=== PATIENT | female | born 1945 | race Caucasian/White ===

== ENCOUNTER 2016-06-28 09:00 | Outpatient (RCR) | payer MEDICARE ==
--- OUTSIDE RECORDS SUMMARY | 2016-05-30 09:14 | XMS REPORT | Continuity of Care Document ---
Author Author [facility] Organization [facility] Address Unknown Phone Unavailable Care Team Providers Care Pbx Mechanic Name Role Phone SEEMA SANTOYO DO PCP Insurance Providers Payer Name Policy Number Subscriber Name Relationship Wps Medicare [id number] Diallo Marie 18 Self / Same As Patient Blue Cross Mcr Supp [id number] Diallo Marie 18 Self / Same As Patient Advance Directives Directive Response Recorded Date/Time Advance Directives No 05/10/16 5:58pm Health Care Power of Wind Up Operator No 05/10/16 5:58pm Organ Donor No 05/10/16 5:58pm Chief Complaint and Reason for Visit Chief Complaint Altered Mental Status Reason for Visit Malaise Confusion [id number] Problems Active Problems Medical Problem Onset Date Status Anxiety Unknown Acute Atrial fibrillation with rapid ventricular response Unknown Acute Chest discomfort Unknown Acute Confusion Unknown Acute Elevated troponin Unknown Acute Exercise-induced bronchospasm Unknown Acute Grief reaction Unknown Acute Hyperglycemia Unknown Acute Malaise Unknown Acute SVT (supraventricular tachycardia) Unknown Acute Supraventricular tachycardia Unknown Acute Medications Current Home Medications Medication Dose Units Route Directions Days/Qty Instructions Start Date Fluticasone Propionate 1 Ea 1 Ea Inhalation Twice A Day 1 02/18/16 Guaifenesin 600 Mg 600 Mg Oral Twice A Day 02/18/16 Gabapentin 100 Mg 100 Mg Oral Bedtime as needed for Pain 30 02/19/16 Aspirin 325 Mg 325 Mg Oral 11/15/16 Ibuprofen 100 Mg 200 Mg Oral As Needed 1 05/10/16 [place]-3/Dha/Epa/Fish Oil 1 Each 1 Each Oral Twice A Day 100 05/11/16 Past Home Medications Medication Directions Ordered Status Cyclosporine 32 Ea Droperette, 1 Drop Each Eye Twice A Day 11/24/14 Discontinued Diclofenac Sod 100 Gm Gel, Topically Bedtime as needed for Pain 11/24/14 Discontinued Albuterol Sulfate 8.5 Gm Aer.w.adap, 2 Puff Inhalation Every 4HRS as needed for Shortness Of Breath 11/24/14 Discontinued Ibuprofen 200 Mg Tablet, 200 Mg Oral Twice A Day as needed for Pain 11/24/14 Discontinued [[place] Lecithin] , 2 Tab Oral Twice A Day 11/24/14 Discontinued [Niacin Flush Free] , 1000 Mg Oral Bedtime 11/24/14 Discontinued [Otc Combo Tab] , 2 Tab Oral Bedtime 11/24/14 Discontinued Diltiazem Hcl (Cardizem Cd) 120 Mg Cap.sr.24h, 1 Each Oral Daily 11/25/14 Discontinued Loratadine 10 Mg Capsule, 10 Mg Oral Bedtime 12/01/14 Discontinued Diltiazem Hcl 180 Mg Cap, 180 Mg Oral Bedtime 12/03/14 Discontinued Levalbuterol 15 Gm Aer.w.adap, 15 Gm Inhalation Every 6 Hours for Wheezing Discontinued Ibuprofen 100 Mg Tablet, 100 Mg Oral As Needed 02/18/16 Discontinued Loratadine/Pseudoephedrine 1 Each Tab.er.12h, 1 Each Oral Bedtime 02/18/16 Discontinued Apixaban 5 Mg Tablet, 5 Mg Oral Twice A Day 02/19/16 Discontinued Social History Social History Problem Response Recorded Date/Time Alcohol Use Occasionally Uses 12/01/2014 1:18pm Recreational Drug Use No 12/01/2014 1:18pm Recent Foreign Travel No 05/14/2016 10:45am Recent Infectious Disease Exposure No 05/14/2016 10:45am Sexually Transmitted Disease No 05/14/2016 10:49am HIV/AIDS No 05/14/2016 10:49am Do you dip or chew tobacco? No 12/01/2014 11:21am Recent Hopitalizations Y Jan 2016 for new onset A-Fib, May 10 for elevated troponin and SVT 05/14/2016 12:03pm Sexually Transmitted Disease No 05/14/2016 10:49am Hospital Discharge Instructions No hospital discharge instructions. Plan of Care Discharge Date 05/14/16 12:56pm Disposition 01 HOME, SELF-CARE Condition at Discharge Stable Instructions/Education Provided Cardiac Catheterization Prescriptions See Medication Section Referrals SEEMA SANTOYO DO - Primary Care Physician Additional Instructions/Education Return to care if symptoms worsen. Seek grief and bereavement counseling if needed. Follow up with your primary care provider next week. Return to care if symptoms worsen. Allow yourself appropriate time to rest and recover from your hospitalization and recent life changes. All discharge instructions reviewed with patient and/or family. Voiced understanding. Functional Status No functional status results. Allergies, Adverse Reactions, Alerts Allergen Type Severity Reaction Status Last Updated ciprofloxacin ([id number]) Adverse Reaction Unknown stomach upset Active 12/01/14 shellfish derived ([id number]) Allergy Unknown Active 05/10/16 Immunizations Name Given Type FLU TRIvalent 5 years - Adult 05/11/16 Administered Vital Signs Acute Vital Signs Vital Response Date/Time Temperature (Fahrenheit) 98 degrees F (97.6 - 99.5) 05/14/2016 10:45am Temperature (Calculated Celsius) 36.6696 degrees C (36.4 - 37.5) 05/14/2016 10:45am Temperature Source Tympanic 05/14/2016 10:45am Pulse Rate (adult) 64 bpm (60 - 90) 05/14/2016 10:45am Respiratory Rate 18 bpm (12 - 24) 05/14/2016 10:45am O2 Sat by Pulse Oximetry 97 % (88 - 100) 05/14/2016 10:45am Blood Pressure 159/86 mm Hg 05/14/2016 10:45am Blood Pressure Mean 110 mm Hg 05/14/2016 10:45am Pain Numeric Pain Scale 7 05/14/2016 10:45am Height (Feet) 5 feet 05/14/2016 10:45am Height (Inches) 4 inches 05/14/2016 10:45am Height (Calculated Centimeters) 162.673065 cm 05/14/2016 10:45am Weight (Pounds) 127 pounds 05/14/2016 10:45am Weight (Ounces) 0.0 oz 05/10/2016 6:07pm Weight (Calculated Grams) 99527.232 gm 05/11/2016 6:00am Weight (Calculated Kilograms) 57.586559 kilograms 05/14/2016 10:45am Calculated BMI 21.6 05/10/2016 6:07pm Capillary Refill Capillary Refill Less Than 3 Seconds 05/14/2016 10:45am Results Laboratory Results Test Name Result Units Flags Reference Collection Date/Time Result Date/ Time Comments White Blood Count 8.3 10^3/uL 4.3-11.0 05/10/2016 9:15am 05/10/2016 9: 35am Red Blood Count 5.02 10^6/uL 4.35-5.85 05/10/2016 9:15am 05/10/2016 9: 35am Hemoglobin 15.3 G/DL 11.5-16.0 05/10/2016 9:15am 05/10/2016 9:35am Hematocrit 45 % 35-52 05/10/2016 9:1505/10/2016 9:35am Mean Corpuscular Volume 90 FL 80-99 05/10/2016 9:1505/10/2016 9: 35am Mean Corpuscular Hemoglobin 31 PG 25-34 05/10/2016 9:15am 05/10/2016 9: 35am Mean Corpuscular Hemoglobin Concent 34 G/DL 32-36 05/10/2016 9:15am 9:35am Red Cell Distribution Width 13.3 % 10.0-14.5 05/10/2016 9:15am 2015 9:35am Platelet Count 445 10^3/uL H 130-400 05/10/2016 9:15am 05/10/2016 9:35am Mean Platelet Volume 9.1 FL 7.4-10.4 05/10/2016 9:15am 05/10/2016 9: 35am Neutrophils (%) (Auto) 56 % 42-75 05/10/2016 9:15am 05/10/2016 9:35am Lymphocytes (%) (Auto) 35 % 12-44 05/10/2016 9:15am 05/10/2016 9:35am Monocytes (%) (Auto) 7 % 0-12 05/10/2016 9:15am 05/10/2016 9:35am Eosinophils (%) (Auto) 1 % 0-10 05/10/2016 9:15am 05/10/2016 9:35am Basophils (%) (Auto) 1 % 0-10 05/10/2016 9:1505/10/2016 9:35am Neutrophils # (Auto) 4.6 X 10^3 1.8-7.8 05/10/2016 9:1505/10/2016 9: 35am Lymphocytes # (Auto) 2.9 X 10^3 1.0-4.0 05/10/2016 9:1505/10/2016 9: 35am Monocytes # (Auto) 0.6 X 10^3 0.0-1.0 05/10/2016 9:05/10/2016 9: 35am Eosinophils # (Auto) 0.1 10^3/uL 0.0-0.3 05/10/2016 9:1505/10/2016 9 :35am Basophils # (Auto) 0.0 10^3/uL 0.0-0.1 05/10/2016 9:1505/10/2016 9: 35am Prothrombin Time 13.0 SEC 12.2-14.7 05/10/2016 9:1505/10/2016 9: 40am INR Comment 1.0 0.8-1.4 05/10/2016 9:05/10/2016 9:40am INTERPRETIVE DATA SUGGESTED THERAPEUTIC RANGE FOR INR'S: VENOUS THROMBOSIS, PULMONARY EMBOLISM, OR PREVENTION OF SYSTEMIC EMBOLISM (EG. IN ATRIAL FIBRILLATION): 2.0 - 3.0 MECHANICAL PROSTHETIC HEART VALVES: 2.5 - 3.5* *NOTE: INR'S UP TO 4.5 MAY BE NECESSARY IN SELECTED GROUPS OF HIGH RISK PATIENTS. SIXTH CYPRIOT COLLEGE OF CHEST PHYSICIANS CONSENSUS CONFERENCE ON ANTITHROMBOTIC THERAPY (2000). Activated Partial Thromboplast Time 24 SEC 24-35 05/10/2016 9: 9:40am Sodium Level 138 MMOL/L 135-145 05/10/2016 9:1505/10/2016 9:49am Potassium Level 3.9 MMOL/L 3.6-5.0 05/10/2016 9:1505/10/2016 9:49am Chloride Level 101 MMOL/L 98-107 05/10/2016 9:1505/10/2016 9:49am Carbon Dioxide Level 21 MMOL/L 21-32 05/10/2016 9:1505/10/2016 9: 49am Anion Gap 16 MMOL/L H 5-14 05/10/2016 9:1505/10/2016 9:49am Blood Urea Nitrogen 16 MG/DL 7-18 05/10/2016 9:1505/10/2016 9:49am Creatinine 0.84 MG/DL 0.60-1.30 05/10/2016 9:1505/10/2016 9:49am BUN/Creatinine Ratio 19 05/10/2016 9:05/10/2016 9:49am Estimat Glomerular Filtration Rate > 60 05/10/2016 9:2015 9:49am GFR INTERPRETIVE DATA UNITS FOR ESTIMATED GFR (eGFR): mL/min/1.73 M2 REFERENCE RANGE FOR ESTIMATED GFR (eGFR) eGFR NORMAL eGFR >60 MODERATELY DECREASED eGFR 30-59 SEVERLY DECREASED eGFR 15-29 KIDNEY FAILURE <15 (OR DIALYSIS) Glucose Level 193 MG/DL H 70-105 05/10/2016 9:05/10/2016 9:49am Calcium Level 9.1 MG/DL 8.5-10.1 05/10/2016 9:05/10/2016 9:49am Magnesium Level 2.2 MG/DL 1.8-2.4 05/10/2016 9:1505/10/2016 9:49am Total Bilirubin 0.6 MG/DL 0.1-1.0 05/10/2016 9:05/10/2016 9:49am Alkaline Phosphatase 81 U/L 40-136 05/10/2016 9:1505/10/2016 9:49am Aspartate Amino Transf (AST/SGOT) 68 U/L H 5-34 05/10/2016 9:2015 9:49am Alanine Aminotransferase (ALT/SGPT) 45 U/L 0-55 05/10/2016 9:1505/10 9:49am Total Creatine Kinase 63 U/L 29-168 05/10/2016 9:1505/10/2016 9: 49am Creatine Kinase MB 1.4 NG/ML <6.6 05/10/2016 9:1505/10/2016 10:07am Troponin I < 0.30 NG/ML <0.30 05/10/2016 9:15am 05/10/2016 10:07am B-Type Natriuretic Peptide 80.4 PG/ML <100.0 05/10/2016 9:15am 2015 10:00am Total Protein 6.4 G/DL 6.4-8.2 05/10/2016 9:15am 05/10/2016 9:49am Albumin 4.2 G/DL 3.2-4.5 05/10/2016 9:15am 05/10/2016 9:49am TSH [place] Testing 1.62 UIU/ML 0.35-4.94 05/10/2016 9:15am 05/10/2016 10:07am Pending Laboratory Results Test Name Collection Date/Time Procedures Procedure Status Date Provider(s) Tracing only of electrocardiogram Completed 05/10/16 ALFREDOJENNIFER DO Tracing only of electrocardiogram Completed 05/10/16 ALFREDO,JENNIFER K Tracing only of electrocardiogram Completed 05/10/16 ALFREDO,JENNIFER K Tracing only of electrocardiogram Completed 05/10/16 ALFREDO,JENNIFER K Tracing only of electrocardiogram Completed 05/10/16 TATE REARDON MD Tracing only of electrocardiogram Active 05/14/16 MAXWELL HENRY MD Encounters Encounter Location Arrival/Admit Date Discharge/Depart Date Attending Provider Registered Emergency Room [facility] 05/14/16 10:43am MAXWELL HENRY MD Departed Surgical Day Care [facility] 05/10/16 3:30pm 8:40am TATE REARDON MD Departed Emergency Room [facility] 05/10/16 9:10am 05/10 10:47am JENNIFER FUENTES DO Recent Diagnosis
[~2016-06-28 09:00] MED LIST: ALBU8.5H2 IH; APIX5TAB PO; ASPI-808 PO; CYCL1DRO OU; DICL100G13 TOP; DILT120C PO; DLT180CCR PO; FLT11013 IH; GABA-486 PO; GUAI600T43 PO; IBUP-30 PO; IBUP100T46 PO; LORA10CA PO; LORA1TAB59 PO; NF-XOP-HFA IH; NIACIN FLUSH FREE PO; OMEG-136 PO; SUNFLOWER LECITHIN PO; [UNRECOGNIZED DRUG - REMARK] PO
[2016-07-11] MEDS ORDERED: GABA-486 PO (10:37)
[2016-07-11] MEDS ORDERED: IBUP-30 PO (10:37)
[2016-07-11] MEDS ORDERED: GUAI600T43 PO (10:37)
[2016-07-11] MEDS ORDERED: CHOL10003 PO (10:37)
[2016-07-11] MEDS ORDERED: NIAC1CAP PO (10:37)
[2016-07-11] MEDS ORDERED: MULT-633 PO (10:37)
[2016-07-11] MEDS ORDERED: FISH1CAP15 PO (10:37)
[2016-07-11] MEDS ORDERED: FLUT9.9S NS (10:37)
[2016-07-11] MEDS ORDERED: FLT11013 IH (10:37)
[2016-07-11] MEDS ORDERED: ASCO-341 PO (10:37)
[2016-07-11] MEDS ORDERED: VITA1CAP PO (10:38)
[2016-07-12] MEDS ORDERED: HYDR-3820 PO (07:54)
[2016-07-12] MEDS ORDERED: SENN-20 PO (07:54)
[2016-07-28] MEDS ORDERED: METO-352 PO (14:08)
== END 2016-08-28 | disposition home or self-care (01) ==
LOC: CARD 09:00
PROVIDERS: ATTEND Internal Medicine Interventional Cardiology
DX: I48.0 Paroxysmal atrial fibrillation (principal); I47.1 Supraventricular tachycardia
CPT/HCPCS: 93270

== ENCOUNTER 2016-07-09 21:51 | Inpatient (IN) | payer MEDICARE ==
[~2016-07-09] VITALS: Ht 162.6 cm; Wt 59.2 kg
--- OUTSIDE RECORDS SUMMARY | 2016-07-09 21:56 | XMS REPORT | Continuity of Care Document ---
Author Author [facility] Organization [facility] Address Unknown Phone Unavailable Care Team Providers Care Foot Press Operator Name Role Phone SEEMA SANTOYO DO PCP Insurance Providers Payer Name Policy Number Subscriber Name Relationship Wps Medicare [id number] Diallo Marie 18 Self / Same As Patient Blue Cross Mcr Supp [id number] Diallo Marie 18 Self / Same As Patient Advance Directives Directive Response Recorded Date/Time Advance Directives No 05/10/16 5:58pm Health Care Power of Computing Services Director No 05/10/16 5:58pm Organ Donor No 05/10/16 5:58pm Chief Complaint and Reason for Visit Chief Complaint Altered Mental Status Reason for Visit Malaise Confusion [id number] Problems Active Problems Medical Problem Onset Date [...] 200 Mg Oral As Needed 1 05/10/16 [place]-3/Dha/Epa/Fish Oil 1 Each 1 Each Oral Twice [...] Day as needed for Pain 11/24/14 Discontinued [[place] Lecithin] , 2 Tab Oral Twice A [...] Type Severity Reaction Status Last Updated ciprofloxacin ([id number]) Adverse Reaction Unknown stomach upset Active 12/01/14 shellfish derived ([id number]) Allergy Unknown Active 05/10/16 Immunizations Name Given [...] 4 inches 05/14/2016 10:45am Height (Calculated Centimeters) 162.397929 cm 05/14/2016 10:45am Weight (Pounds) 127 pounds 05/14/2016 10:45am Weight (Ounces) 0.0 oz 05/10/2016 6:07pm Weight (Calculated Grams) 79626.232 gm 05/11/2016 6:00am Weight (Calculated Kilograms) 57.682227 kilograms 05/14/2016 10:45am Calculated BMI 21.6 05/10/2016 [...] SELECTED GROUPS OF HIGH RISK PATIENTS. SIXTH [place] COLLEGE OF CHEST PHYSICIANS CONSENSUS CONFERENCE ON [...] G/DL 3.2-4.5 05/10/2016 9:15am 05/10/2016 9:49am TSH [place] Testing 1.62 UIU/ML 0.35-4.94 05/10/2016 9:15am 05/10/2016 [...] Date Attending Provider Registered Emergency Room [facility] 05/14/16 10:43am MAXWELL HENRY MD Departed Surgical Day Care [facility] 05/10/16 3:30pm 8:40am TATE REARDON MD Departed Emergency Room [facility] 05/10/16 9:10am 05/10 10:47am JENNIFER FUENTES DO Recent Diagnosis
[2016-07-09] MEDS ORDERED: fentaNYL INJECTION 100 MCG/2 ML AMP IVP ONE (22:00)
[2016-07-09 22:06] LABS: BASOPHILS % (AUTO) 0 % (0-10); EOSINOPHILS % (AUTO) 0 % (0-10); LYMPHOCYTES # (AUTO) 1.2 X 10^3 (1.0-4.0); LYMPHOCYTES % (AUTO) 8 % (12-44); MEAN CORPUSCULAR HEMOGLOBIN 30 PG (25-34); MEAN CORPUSCULAR HGB CONC 35 G/DL (32-36); MEAN CORPUSCULAR VOLUME 87 FL (80-99); MEAN PLATELET VOLUME 9.2 FL (7.4-10.4); MONOCYTES # (AUTO) 0.7 X 10^3 (0.0-1.0); MONOCYTES % (AUTO) 5 % (0-12); NEUTROPHILS # (AUTO) 13.8 X 10^3 (1.8-7.8); NEUTROPHILS % (AUTO) 88 % (42-75); PLATELET COUNT 335 10^3/uL (130-400); RED BLOOD COUNT 4.96 10^6/uL (4.35-5.85); RED CELL DISTRIBUTION WIDTH 13.3 % (10.0-14.5); WHITE BLOOD COUNT 15.8 10^3/uL (4.3-11.0)
--- NOTE | 2016-07-09 22:07 | ED Hip Pain/Injury ---
General Chief Complaint: Hip/Pelvic Problems Stated Complaint: FALL; L HIP PAIN; LEG CRAMPS Nursing Triage Note: Pt presents to ED with c/o L hip pain and bilateral calf cramps, pt fell in her room after she tripped on some papers lying on the wood floor. Shortening noted to LLE. Source: patient Exam Limitations: no limitations History of Present Illness Time seen by provider: 22:04 Initial Comments To ER with c/0 left hip pain after a fall at home just prior to arrival. Arrives per EMS. History of paroxysmal atrial fibrillation. He was formerly on Eliquis but stopped this 3 weeks ago after consulting with Dr. Birch and is only on a full dose aspirin daily now. Timing/Duration: just prior to arrival Severity: moderate Location: hip (L) Method of Injury: fell Allergies and Home Medications Allergies Coded Allergies: shellfish derived (Verified Allergy, Unknown, 05/10/16) ciprofloxacin (Verified Adverse Reaction, Unknown, stomach upset, 12/01/14) Home Medications Aspirin 325 Mg Tablet 325 MG PO DAILY (Reported) Fluticasone Propionate 1 Ea [place] #1 1 EA IH BID Prescribed by: EVANGELINA VALDEZ on 02/18/16 1741 Gabapentin 100 Mg Capsule #30 100 MG PO HS PRN PRN PAIN Prescribed by: TATE BIRCH on 02/19/16 0808 Guaifenesin 600 Mg Tab.er.12h #1 600 MG PO BID Prescribed by: EVANGELINA VALDEZ on 02/18/16 1742 Ibuprofen 100 Mg Tablet #1 200 MG PO PRN Prescribed by: CATHY LINDO on 05/10/16 1845 [place]-3/Dha/Epa/Fish Oil 1 Each Capsule. #100 1 EACH PO BID Prescribed by: TATE BIRCH on 05/11/16 0754 Constitutional: see HPI EENTM: see HPI Respiratory: no symptoms reported Genitourinary: no symptoms reported Musculoskeletal: see HPI joint pain Skin: no symptoms reported Psychiatric/Neurological: No Symptoms Reported Past [id number] Hx Patient Social History Alcohol Use: Regular Use Recreational Drug Use: No Smoking Status: Never a Smoker Recent Foreign Travel: No Contact w/Someone Who Travel: No Recent Infectious Disease Expo: No Recent Hopitalizations: No (Jan 2016 for new onset A-Fib, May 10 for elevated troponin and SVT) Physical Abuse Screen: No Sexual Abuse: No Immunizations Up To Date Tetanus Booster (TDap): More than 5yrs PED Vaccines UTD: No Date of Pneumonia Vaccine: Apr 26, 2011 Date of Influenza Vaccine: Feb 24, 2014 Seasonal Allergies Seasonal Allergies: Yes Surgeries HX Surgeries: Yes (RIGHT ANKLE--GANGLION CYST REMOVED) Surgeries: Adenoidectomy, Gallbladder, Orthopedic, Tonsillectomy Respiratory Hx Respiratory Disorders: Yes Respiratory Disorders: Asthma Cardiovascular Hx Cardiac Disorders: Yes (paroxysmal SVT) Cardiac Disorders: Atrial Fibrillation, Coronary Artery Disease, High Cholesterol, Irregular Heartbeat Neurological Hx Neurological Disorders: Yes (NUMBNESS IN RIGHT HAND, RIGHT FOOT) Neurological Disorders: Neuropathy Reproductive System Hx Reproductive Disorders: No Sexually Transmitted Disease: No HIV/AIDS: No Female Reproductive Disorders: Denies 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 PYLORI) Gastrointestinal Disorders: Gastroesophageal Reflux, Ulcer, Gall Bladder Disease Musculoskeletal Hx Musculoskeletal Disorders: Yes (OSTEOARTHRITIS, BORDER-LINE OSTEOPOROSIS ; LEFT KNEE PAIN ) Musculoskeletal Disorders: Osteoporosis, Arthritis, Fibromyalgia Endocrine Hx Endocrine Disorders: No HEENT HX ENT Disorders: No (wears corrective lens) Loss of Vision: Denies Hearing Impairment: Denies Cancer Hx Cancer: No Psychosocial Hx Psychiatric Problems: Yes Behavioral Health Disorders: Sleep Difficulties, Anxiety Integumentary HX Skin/Integumentary Disorder: Yes (DERMATITIS ) Blood Transfusions Hx Blood Disorders: No Adverse Reaction to a Blood Tr: No Family Medical History Family Medial History: Arthritis 19 FATHER Cardiovascular disease Cataracts 19 FATHER Completed stroke 19 MOTHER Congenital disease Deafness or hearing loss 19 MOTHER Dementia 19 MOTHER FH: esophageal cancer G8 BROTHER FH: lung cancer 19 FATHER FH: smoking 19 FATHER G8 SISTER G8 BROTHER Genetic disease G8 BROTHER Gout 19 FATHER Hypercholesterolemia 19 MOTHER Hypertension G8 BROTHER Lactose intolerance G8 BROTHER Myocardial infarction 19 FATHER Prostate cancer G8 BROTHER Psychosocial problem G8 SISTER Thyroid disease 19 MOTHER No Family History of: AIDS Abdominal aortic aneurysm Shan's disease Alcoholism Alzheimer's disease Aphasia Asthma Cancer of mouth Colon cancer Congenital heart disease Cystic fibrosis Diabetes mellitus Drug abuse Dysphasia Fibrocystic disease of breast Gastroenteritis Glaucoma Headache disorder Infertility Kidney disease Neoplasm Not obtainable due to adoption Osteoporosis Parkinson's disease Respiratory disorder Seizure disorder Severe allergy Tuberculosis Visual disorder Physical Exam Vital Signs Vital Sign - Last 12Hours 07/09/16 21:55 Temp 97.9 Pulse 82 Resp 18 B/P 169/94 Pulse Ox 96 O2 Delivery Room Air Capillary Refill : Less Than 3 Seconds General Appearance: No Apparent Distress WD/WN HEENT: PERRL/EOMI TMs Normal Neck: Full Range of Motion Normal Inspection Cardiovascular: Regular Rate, Rhythm Normal Peripheral Pulses Respiratory: Normal Breath Sounds No Accessory Muscle Use No Respiratory Distress Gastrointestinal: Non Tender Soft Extremity: Normal Capillary Refill Other (Firmness to palpation over anterolateral left hip. no pain in the lower femur or lower leg. Posterior tibial pulse +2 on the left. ) Neurologic/Psychiatric: Alert Oriented x3 No Motor/Sensory Deficits Skin: Normal Color Warm/Dry Progress/Results/Core Measures Results/Orders Lab Results Laboratory Tests Test 07/09/16 21:59 Range/Units Alanine Aminotransferase (ALT/SGPT) 23 0-55 U/L Albumin 4.3 3.2-4.5 G/DL Alkaline Phosphatase 62 40-136 U/L Anion Gap 12 5-14 MMOL/L Aspartate Amino Transf (AST/SGOT) 24 5-34 U/L BUN/Creatinine Ratio 19 Band Neutrophils 9 % Basophils # (Auto) 0.0 0.0-0.1 10^3/uL Basophils % (Manual) 0 % Basophils (%) (Auto) 0 0-10 % Blood Morphology Comment NORMAL Blood Urea Nitrogen 13 7-18 MG/DL Calcium Level 8.7 8.5-10.1 MG/DL Carbon Dioxide Level 22 21-32 MMOL/L Chloride Level 100 98-107 MMOL/L Creatinine 0.67 0.60-1.30 MG/DL Eosinophils # (Auto) 0.0 0.0-0.3 10^3/uL Eosinophils % (Manual) 0 % Eosinophils (%) (Auto) 0 0-10 % Estimat Glomerular Filtration Rate > 60 Glucose Level 120 H 70-105 MG/DL Hematocrit 43 35-52 % Hemoglobin 15.0 11.5-16.0 G/DL INR Comment 1.2 0.8-1.4 Lymphocytes # (Auto) 1.2 1.0-4.0 X 10^3 Lymphocytes % (Manual) 12 % Lymphocytes (%) (Auto) 8 L 12-44 % Mean Corpuscular Hemoglobin 30 25-34 PG Mean Corpuscular Hemoglobin Concent 35 32-36 G/DL Mean Corpuscular Volume 87 80-99 FL Mean Platelet Volume 9.2 7.4-10.4 FL Monocytes # (Auto) 0.7 0.0-1.0 X 10^3 Monocytes % (Manual) 2 % Monocytes (%) (Auto) 5 0-12 % Neutrophils # (Auto) 13.8 H 1.8-7.8 X 10^3 Neutrophils % (Manual) 77 % Neutrophils (%) (Auto) 88 H 42-75 % Platelet Count 335 130-400 10^3/uL Potassium Level 3.6 3.6-5.0 MMOL/L Prothrombin Time 14.8 H 12.2-14.7 SEC Red Blood Count 4.96 4.35-5.85 10^6/uL Red Cell Distribution Width 13.3 10.0-14.5 % Sodium Level 134 L 135-145 MMOL/L Total Bilirubin 0.4 0.1-1.0 MG/DL Total Protein 6.3 L 6.4-8.2 G/DL White Blood Count 15.8 H 4.3-11.0 10^3/uL My Orders Orders-CHRISTOPHER RAUSCH APRN Pelvis (07/09/16 22:00) Chest 1 View, Ap/Pa Only (07/09/16 22:00) Cbc With Automated Diff (07/09/16 22:00) Protime With Inr (07/09/16 22:00) Comprehensive Metabolic Panel (07/09/16 22:00) Ua Culture If Indicated (07/09/16 22:00) Saline Lock/Iv-Start (07/09/16 22:00) Fentanyl Injection (Sublimaze Injection (07/09/16 22:00) Manual Differential (07/09/16 21:59) Orphenadrine Injection (Norflex Injectio (07/09/16 22:13) Orphenadrine Injection (Norflex Injectio (07/09/16 22:30) Ekg Tracing (07/09/16 22:35) Oxygen-Administer 07,19 (07/09/16 22:47) Morphine Injection (Morphine Injection (07/09/16 23:00) Medications Given in ED Current Medications Medications Dose Ordered Sig/Zach Route Start Time Stop Time Status Last Admin Dose Admin Fentanyl Citrate 50 mcg ONCE ONCE IVP 07/09/16 22:00 07/09/16 22:02 DC 07/09/16 22:24 50 MCG Morphine Sulfate 4 mg ONCE ONCE IVP 07/09/16 23:00 07/09/16 23:01 DC 07/09/16 23:05 4 MG Vital Signs/I&O Vital Sign - Last 12Hours 07/09/16 07/09/16 21:55 22:24 Temp 97.9 97.9 Pulse 82 Resp 18 B/P 169/94 Pulse Ox 96 O2 Delivery Room Air Blood Pressure Mean: 119 Departure Communication Time/Spoke to Admitting Phy: 23:00 Communication I spoke with Dr. Aguillon who agrees to admit the patient. Time/Spoke to Consulting Physi: 23:10 Communication/Consulting I spoke with Dr. Naranjo who agrees to consult and will see the patient in the morning tentatively plan ORIF in the morning. Impression Impression: Primary Impression: Left displaced femoral neck fracture Qualified Code: S72.002A - Fracture of unspecified part of neck of left femur , initial encounter for closed fracture Disposition: ADMITTED INPATIENT Condition: Stable Decision to Admit Reason: Admit from ER (General) Decision to Admit/Date: Jul 09, 2016 Time/Decision to Admit Time: 22:50 Departure-Patient Inst. Referrals: SEEMA SANTOYO DO (PCP/Family) Primary Care Physician CHRISTOPHER RAUSCH APRN Jul 09, 2016 22:07
[2016-07-09 22:13] LABS: INR 1.2 (0.8-1.4); PROTHROMBIN TIME PATIENT 14.8 SEC (12.2-14.7)
[2016-07-09] MEDS ORDERED: ORPHENADRINE 60 MG/2 ML (NORFLEX) AMP ONE (22:13)
[2016-07-09 22:17] LABS: BAND NEUTROPHILS 9 %; BASOPHILS % (MANUAL) 0 %; EOSINOPHILS % (MANUAL) 0 %; LYMPHOCYTES % (MANUAL) 12 %; NEUTROPHILS % (MANUAL) 77 %
[2016-07-09 22:27] LABS: ALANINE AMINOTRANSFERASE 23 U/L (0-55); ALBUMIN 4.3 G/DL (3.2-4.5); ANION GAP 12 MMOL/L (5-14); ASPARTATE AMINO TRANSFERASE 24 U/L (5-34); BILIRUBIN,TOTAL 0.4 MG/DL (0.1-1.0); BLOOD UREA NITROGEN 13 MG/DL (7-18); BUN/CREATININE RATIO 19; CALCIUM 8.7 MG/DL (8.5-10.1); CARBON DIOXIDE 22 MMOL/L (21-32); CHLORIDE 100 MMOL/L (98-107); CREATININE SERUM 0.67 MG/DL (0.60-1.30); GFR ESTIMATED > 60; GLUCOSE 120 MG/DL (70-105); POTASSIUM 3.6 MMOL/L (3.6-5.0); SODIUM 134 MMOL/L (135-145); TOTAL PROTEIN 6.3 G/DL (6.4-8.2)
[2016-07-09] MEDS ORDERED: ORPHENADRINE 60 MG/2 ML (NORFLEX) AMP IV ONE (22:30)
[2016-07-09] MEDS ORDERED: morphine INJ 10 MG/ML 1ML (SYR OR VIAL) IVP ONE (23:00)
[2016-07-09 23:23] LABS: BILIRUBIN,URINE NEGATIVE (NEGATIVE); KETONES,URINE 4+ (NEGATIVE); LEUKOCYTE ESTERASE ,URINE NEGATIVE (NEGATIVE); NITRITE,URINE NEGATIVE (NEGATIVE); PH,URINE 6.5 (5-9); PROTEIN,URINE 1+ (NEGATIVE); UROBILINOGEN,URINE NORMAL (NORMAL)
[2016-07-10 00:40] VITALS: BP 169/74
[2016-07-10] MEDS ORDERED: NS IV 1000 ML 1,000 ML ONE (00:44)
[2016-07-10] MEDS ORDERED: ONDANSETRON 4 MG/2 ML (SDV) Z0FRAN IV PRN (01:15)
[2016-07-10] MEDS: NS IV 1000 ML 1,000 ML IV SCH ×2 (01:15→20:12)
[2016-07-10] MEDS: morphine INJ 4 MG/ML 1 ML (VIAL/SYRINGE) IV PRN ×3 (02:46→19:14)
[2016-07-10 04:00] VITALS: BP 155/77
--- NOTE | 2016-07-10 07:31 | Diagnostic Imaging Report ---
INDICATION: Left hip pain after fall. FINDINGS: There is a mildly comminuted fracture of the left femoral neck. There are degenerative changes in the right hip. Bony pelvis appears to be intact. Soft tissue is grossly unremarkable. IMPRESSION: Mildly comminuted left femoral neck fracture Dictated by: Dictated on workstation # [id number]
--- NOTE | 2016-07-10 07:57 | Diagnostic Imaging Report ---
INDICATION: Fall with left hip pain. FINDINGS: There is cardiomegaly. Mediastinum is unremarkable. There is no pleural effusion, pneumothorax or pneumonia. IMPRESSION: No acute cardiopulmonary abnormality. Cardiomegaly. Dictated by: Dictated on workstation # [id number]
[2016-07-10 08:00] VITALS: BP 163/80
[2016-07-10] MEDS ORDERED: GENTAMICIN 40 MG/ML 2 ML INJ SDV ONE ×3 (08:10→09:41)
[2016-07-10] MEDS ORDERED: NEO/POLY/BAC (NEOSPORIN) OINT 15 GM TUBE ONE (08:24)
[2016-07-10] MEDS ORDERED: LACTATED RINGERS 1,000 ML IV ONE ×2 (08:41→10:09)
[2016-07-10] MEDS ORDERED: proPOfol 200 MG/20 ML (DIPRIVAN) VIAL IV ONE (08:41)
[2016-07-10] MEDS ORDERED: LIDOCAINE PF 2% 10 ML (XYLOCAINE) AMP ONE (08:41)
[2016-07-10] MEDS ORDERED: MIDAZOLAM 2 MG/2 ML (VERSED) VIAL ONE (08:41)
[2016-07-10] MEDS ORDERED: ROCURONIUM 50 MG/5 ML (ZEMURON) VIAL IV ONE (08:41)
[2016-07-10] MEDS ORDERED: ONDANSETRON 4 MG/2 ML (SDV) Z0FRAN ONE ×2 (08:41→11:03)
[2016-07-10] MEDS ORDERED: fentaNYL INJECTION 100 MCG/2 ML AMP ONE ×2 (08:41→11:03)
[2016-07-10] MEDS: LACTATED RINGERS 1,000 ML IV PRN ×2 (08:45→10:20)
[2016-07-10] MEDS ORDERED: BISACODYL 10 MG SUPP (DULCOLAX) PR PRN (09:00)
[2016-07-10] MEDS ORDERED: D5 1/2 NS 1000 ML IV SOLUTION 1,000 ML IV SCH (09:00)
[2016-07-10] MEDS ORDERED: ONDANSETRON 4 MG/2 ML (SDV) Z0FRAN IVP PRN ×2 (09:00→12:00)
[2016-07-10] MEDS ORDERED: diphenhydrAMINE 50 MG/ML INJ (BENADRYL) IV PRN (09:00)
[2016-07-10] MEDS ORDERED: ceFAZolin INJECTION 2,000 MG in NORMAL SALINE (BAXTER MINI) 50 ML IV SCH (09:00)
[2016-07-10] MEDS ORDERED: GABAPENTIN 100 MG (NEURONTIN) CAP PO PRN (09:00)
[2016-07-10] MEDS ORDERED: PROMETHAZINE INJ 25 MG/ML (PHENERGAN) AMP IVP PRN ×2 (09:00→12:00)
--- NOTE | 2016-07-10 09:12 | History & Physical-Surgical ---
HPO-Surgical History of Present Illness Chief Complaint: Pt presents to ED with c/o L hip pain and bilateral calf cramps, pt fell in her room after she tripped on some papers lying on the wood floor. Shortening noted to LLE. Diagnosis/Surgical Indication: Displaced left basilar cervical neck fracture of left hip Procedure: Left hip intramedullar nailing vs bipolar prosthesis left hip Date of Surgery: Jul 10, 2016 Weight (Pounds): 130 Weight (Ounces): 8.0 Height (Feet): 5 Height (Inches): 4.00 Allergies and Home Medications Allergies Coded Allergies: shellfish derived (Verified Allergy, Unknown, 05/10/16) ciprofloxacin (Verified Adverse Reaction, Unknown, stomach upset, 12/01/14) Home Medications Aspirin 325 Mg Tablet 325 MG PO DAILY (Reported) Fluticasone Propionate 1 Ea Aero #1 1 EA IH BID Prescribed by: EVANGELINA VALDEZ on 02/18/16 1741 Gabapentin 100 Mg Capsule #30 100 MG PO HS PRN PRN PAIN Prescribed by: TATE REARDON on 02/19/16 0808 Guaifenesin 600 Mg Tab.er.12h #1 600 MG PO BID Prescribed by: EVANGELINA VALDEZ on 02/18/16 1742 Ibuprofen 100 Mg Tablet #1 200 MG PO PRN Prescribed by: CATHY LINDO on 05/10/16 1845 [place]-3/Dha/Epa/Fish Oil 1 Each Capsule.dr #100 1 EACH PO BID Prescribed by: TATE REARDON on 05/11/16 0754 Past Jjequsl-Iwyobu-Ghdnql Hx Patient Social History Alcohol Use: Regular Use Recreational Drug Use: No Smoking Status: Never a Smoker Physical Abuse Screen: No Sexual Abuse: No Recent Foreign Travel: No Contact w/other who traveled: No Recent Hopitalizations: No (Jan 2016 for new onset A-Fib, May 10 for elevated troponin and SVT) Recent Infectious Disease Expo: No Immunizations Up To Date Tetanus Booster (TDap): More than 5yrs Date of Pneumonia Vaccine: Apr 26, 2011 Date of Influenza Vaccine: Feb 24, 2014 Seasonal Allergies Seasonal Allergies: Yes Surgeries HX Surgeries: Yes (RIGHT ANKLE--GANGLION CYST REMOVED) Surgeries: Adenoidectomy, Gallbladder, Orthopedic, Tonsillectomy Respiratory Hx Respiratory Disorders: Yes Respiratory Disorders: Asthma Cardiovascular Hx Cardiovascular Disorders: Yes (paroxysmal SVT) Cardiac Disorders: Atrial Fibrillation, Coronary Artery Disease, High Cholesterol, Irregular Heartbeat Neurological Hx Neurological Disorders: Yes (NUMBNESS IN RIGHT HAND, RIGHT FOOT) Neurological Disorders: Neuropathy Reproductive System Hx Reproductive Disorders: No Sexually Transmitted Disease: No HIV/AIDS: No Female Reproductive Disorders: Denies Genitourinary Hx Genitourinary Disorders: No Gastrointestinal Hx Gastrointestinal Disorders: Yes (HISTORY OF H. PYLORI) Gastrointestinal Disorders: Gastroesophageal Reflux, Ulcer, Gall Bladder Disease Musculoskeletal Hx Musculoskeletal Disorders: Yes (OSTEOARTHRITIS, BORDER-LINE OSTEOPOROSIS ; LEFT KNEE PAIN ) Musculoskeletal Disorders: Osteoporosis, Arthritis, Fibromyalgia Endocrine Hx Endocrine Disorders: No HEENT HX ENT Disorders: No (wears corrective lens) Loss of Vision: Denies Hearing Impairment: Denies Cancer Hx Cancer: No Psychosocial Hx Psychiatric Problems: Yes Behavioral Health Disorders: Sleep Difficulties, Anxiety Integumentary HX Skin/Integumentary Disorder: Yes (DERMATITIS ) Blood Transfusions Hx Blood Disorders: No Adverse Reaction to a Blood Tr: No Family Medical History Family Hx: Arthritis 19 FATHER Cardiovascular disease Cataracts 19 FATHER Completed stroke 19 MOTHER Congenital disease Deafness or hearing loss 19 MOTHER Dementia 19 MOTHER FH: esophageal cancer G8 BROTHER FH: lung cancer 19 FATHER FH: smoking 19 FATHER G8 SISTER G8 BROTHER Genetic disease G8 BROTHER Gout 19 FATHER Hypercholesterolemia 19 MOTHER Hypertension G8 BROTHER Lactose intolerance G8 BROTHER Myocardial infarction 19 FATHER Prostate cancer G8 BROTHER Psychosocial problem G8 SISTER Thyroid disease 19 MOTHER No Family History of: AIDS Abdominal aortic aneurysm Shan's disease Alcoholism Alzheimer's disease Aphasia Asthma Cancer of mouth Colon cancer Congenital heart disease Cystic fibrosis Diabetes mellitus Drug abuse Dysphasia Fibrocystic disease of breast Gastroenteritis Glaucoma Headache disorder Infertility Kidney disease Neoplasm Not obtainable due to adoption Osteoporosis Parkinson's disease Respiratory disorder Seizure disorder Severe allergy Tuberculosis Visual disorder Exam Vital Signs Vital Signs 07/09/16 07/10/16 07/10/16 23:27 04:00 07:08 Temp 99.5 Pulse 70 Resp 20 B/P 155/77 Pulse Ox 92 O2 Delivery Room Air O2 Flow Rate 2 Capillary Refill : Less Than 3 SecondsLess Than 3 Seconds Labs Laboratory Tests Test 07/09/16 21:59 07/09/16 23:15 Range/Units Alanine Aminotransferase (ALT/SGPT) 23 0-55 U/L Albumin 4.3 3.2-4.5 G/DL Alkaline Phosphatase 62 40-136 U/L Anion Gap 12 5-14 MMOL/L Aspartate Amino Transf (AST/SGOT) 24 5-34 U/L BUN/Creatinine Ratio 19 Band Neutrophils 9 % Basophils # (Auto) 0.0 0.0-0.1 10^3/uL Basophils % (Manual) 0 % Basophils (%) (Auto) 0 0-10 % Blood Morphology Comment NORMAL Blood Urea Nitrogen 13 7-18 MG/DL Calcium Level 8.7 8.5-10.1 MG/DL Carbon Dioxide Level 22 21-32 MMOL/L Chloride Level 100 98-107 MMOL/L Creatinine 0.67 0.60-1.30 MG/DL Eosinophils # (Auto) 0.0 0.0-0.3 10^3/uL Eosinophils % (Manual) 0 % Eosinophils (%) (Auto) 0 0-10 % Estimat Glomerular Filtration Rate > 60 Glucose Level 120 H 70-105 MG/DL Hematocrit 43 35-52 % Hemoglobin 15.0 11.5-16.0 G/DL INR Comment 1.2 0.8-1.4 Lymphocytes # (Auto) 1.2 1.0-4.0 X 10^3 Lymphocytes % (Manual) 12 % Lymphocytes (%) (Auto) 8 L 12-44 % Mean Corpuscular Hemoglobin 30 25-34 PG Mean Corpuscular Hemoglobin Concent 35 32-36 G/DL Mean Corpuscular Volume 87 80-99 FL Mean Platelet Volume 9.2 7.4-10.4 FL Monocytes # (Auto) 0.7 0.0-1.0 X 10^3 Monocytes % (Manual) 2 % Monocytes (%) (Auto) 5 0-12 % Neutrophils # (Auto) 13.8 H 1.8-7.8 X 10^3 Neutrophils % (Manual) 77 % Neutrophils (%) (Auto) 88 H 42-75 % Platelet Count 335 130-400 10^3/uL Potassium Level 3.6 3.6-5.0 MMOL/L Prothrombin Time 14.8 H 12.2-14.7 SEC Red Blood Count 4.96 4.35-5.85 10^6/uL Red Cell Distribution Width 13.3 10.0-14.5 % Sodium Level 134 L 135-145 MMOL/L Total Bilirubin 0.4 0.1-1.0 MG/DL Total Protein 6.3 L 6.4-8.2 G/DL White Blood Count 15.8 H 4.3-11.0 10^3/uL Urine Bacteria NEGATIVE /HPF Urine Bilirubin NEGATIVE NEGATIVE Urine Casts PRESENT /LPF Urine Clarity CLEAR Urine Color YELLOW Urine Crystals NONE /LPF Urine Culture Indicated NO Urine Glucose (UA) NEGATIVE NEGATIVE Urine Hyaline Casts 2-5 H /LPF Urine Ketones 4+ H NEGATIVE Urine Leukocyte Esterase NEGATIVE NEGATIVE Urine Mucus SMALL H /LPF Urine Nitrite NEGATIVE NEGATIVE Urine Protein 1+ H NEGATIVE Urine RBC 2-5 H /HPF Urine RBC (Auto) 1+ H NEGATIVE Urine Specific Kimberly 1.015 L 1.016-1.022 Urine Squamous Epithelial Cells 2-5 /HPF Urine Urobilinogen NORMAL NORMAL MG/DL Urine WBC NONE /HPF Urine pH 6.5 5-9 General Appearance: Oriented X3 HEENT: PERRLA Respiratory: Clear to Auscultation Cardiovascular: Regular Rate Abdominal: Normal Bowel Sounds, Soft, No Tenderness Extremities: Normal Pulses, Other (LLE shortened and externally rotated, tenderness left hip) Skin: No Rashes, No Breakdown, No Significant Lesion Neuro: Normal Speech Psych/Mental Status: Mental Status NL Assessment/Plan Assessment and Plan A: Displaced left basilar femoral neck fracture P: intramedullary nailing left hip fracture vs possible bipolar prosthesis left hipl Admission Diagnosis Displaced left hip basilar neck fracture QUENTIN CLEVELAND APRN Jul 10, 2016 9:11 am
--- NOTE | 2016-07-10 09:13 | Diagnostic Imaging Report ---
INDICATION: Hip fracture. FINDINGS: Crosstable lateral view of the left hip was obtained. Presumably due to positioning the fracture is not well seen. There is slight malalignment of the left femoral neck. IMPRESSION: Suboptimal evaluation left hip. There is, however, a mildly comminuted left femoral neck fracture Dictated by: Dictated on workstation # [id number]
--- NOTE | 2016-07-10 09:24 | History & Physical-Hospitalist ---
HPI History of Present Illness: HPI/Chief Complaint patient was in her usual state of good health up until the evening of the when she slipped on some paper falling on her left hip. She was unable to get up secondary to pain but all my summoned EMS and brought to emergency room had a femoral neck fracture left hip. She is scheduled for surgery later this morning. She reports in early 1999 and did have a DEXA scan which revealed osteopenia at that time. She has had no previous reported fractures. Past medical history is significant for paroxysmal atrial fibrillation as well as what sounds like probable PSVT with a heart rate that is much higher in the 200- 10 range that she apparently tolerates well. This is required several emergency room visits but will also spontaneously resolved. Due to baseline bradycardia she is not tolerated rate lowering medications. She had been taken off of L Urban after consultation with Dr. Snyder about 3 weeks ago. She was not having any bleeding problems but felt that it was contributing to lightheadedness. He's had no syncope or presyncope. Date Seen 07/10/16 Attending Physician Ny Aguillon MD PCP Seema Toledo DO Referring Physician Date of Admission Jul 09, 2016 at 23:10 Home Medications & Allergies Home Medications Reviewed patient Home Medication Reconciliation Form Allergies Coded Allergies: shellfish derived (Verified Allergy, Unknown, 05/10/16) ciprofloxacin (Verified Adverse Reaction, Unknown, stomach upset, 12/01/14) Past Somatgl-Xydbdr-Axddxn Hx Patient Social History Alcohol Use: Regular Use Recreational Drug Use: No Smoking Status: Never a Smoker Physical Abuse Screen: No Sexual Abuse: No Recent Foreign Travel: No Contact w/other who traveled: No Recent Hopitalizations: No (Jan 2016 for new onset A-Fib, May 10 for elevated troponin and SVT) Recent Infectious Disease Expo: No Immunizations Up To Date Tetanus Booster (TDap): More than 5yrs Date of Pneumonia Vaccine: Apr 26, 2011 Date of Influenza Vaccine: Feb 24, 2014 Seasonal Allergies Seasonal Allergies: Yes Surgeries HX Surgeries: Yes (RIGHT ANKLE--GANGLION CYST REMOVED) Surgeries: Adenoidectomy, Gallbladder, Orthopedic, Tonsillectomy Respiratory Hx Respiratory Disorders: Yes Respiratory Disorders: Asthma Cardiovascular Hx Cardiovascular Disorders: Yes (paroxysmal SVT) Cardiac Disorders: Atrial Fibrillation, Coronary Artery Disease, High Cholesterol, Irregular Heartbeat Neurological Hx Neurological Disorders: Yes (NUMBNESS IN RIGHT HAND, RIGHT FOOT) Neurological Disorders: Neuropathy Reproductive System Hx Reproductive Disorders: No Sexually Transmitted Disease: No HIV/AIDS: No Female Reproductive Disorders: Denies Genitourinary Hx Genitourinary Disorders: No Gastrointestinal Hx Gastrointestinal Disorders: Yes (HISTORY OF H. PYLORI) Gastrointestinal Disorders: Gastroesophageal Reflux, Ulcer, Gall Bladder Disease Musculoskeletal Hx Musculoskeletal Disorders: Yes (OSTEOARTHRITIS, BORDER-LINE OSTEOPOROSIS ; LEFT KNEE PAIN ) Musculoskeletal Disorders: Osteoporosis, Arthritis, Fibromyalgia Endocrine Hx Endocrine Disorders: No HEENT HX ENT Disorders: No (wears corrective lens) Loss of Vision: Denies Hearing Impairment: Denies Cancer Hx Cancer: No Psychosocial Hx Psychiatric Problems: Yes Behavioral Health Disorders: Sleep Difficulties, Anxiety Integumentary HX Skin/Integumentary Disorder: Yes (DERMATITIS ) Blood Transfusions Hx Blood Disorders: No Adverse Reaction to a Blood Tr: No Family Medical History Family Hx: Arthritis 19 FATHER Cardiovascular disease Cataracts 19 FATHER Completed stroke 19 MOTHER Congenital disease Deafness or hearing loss 19 MOTHER Dementia 19 MOTHER FH: esophageal cancer G8 BROTHER FH: lung cancer 19 FATHER FH: smoking 19 FATHER G8 SISTER G8 BROTHER Genetic disease G8 BROTHER Gout 19 FATHER Hypercholesterolemia 19 MOTHER Hypertension G8 BROTHER Lactose intolerance G8 BROTHER Myocardial infarction 19 FATHER Prostate cancer G8 BROTHER Psychosocial problem G8 SISTER Thyroid disease 19 MOTHER No Family History of: AIDS Abdominal aortic aneurysm Hopkins's disease Alcoholism Alzheimer's disease Aphasia Asthma Cancer of mouth Colon cancer Congenital heart disease Cystic fibrosis Diabetes mellitus Drug abuse Dysphasia Fibrocystic disease of breast Gastroenteritis Glaucoma Headache disorder Infertility Kidney disease Neoplasm Not obtainable due to adoption Osteoporosis Parkinson's disease Respiratory disorder Seizure disorder Severe allergy Tuberculosis Visual disorder Review of Systems Constitutional: see HPI Physical Exam Physical Exam Vital Signs Vital Sign - Last 12Hours 07/09/16 07/09/16 21:55 23:27 Temp 97.9 Pulse 82 Resp 18 B/P 169/94 Pulse Ox 96 O2 Delivery Room Air O2 Flow Rate 2 Capillary Refill : Less Than 3 SecondsLess Than 3 Seconds General Appearance: No Apparent Distress Respiratory: Chest Non Tender Lungs Clear Normal Breath Sounds No Accessory Muscle Use No Respiratory Distress Cardiovascular: Regular Rate, Rhythm No Edema No Gallop No JVD No Murmur Normal Peripheral Pulses Gastrointestinal: Normal Bowel Sounds No Organomegaly No Pulsatile Mass Non Tender Soft Extremity: Other (swelling about left hip without evidence for purpura. Dorsalis pedis pulses are 2+ in the left foot there is foreshortening and external rotation sensation is intact.) Results Results/Procedures Lab Laboratory Tests 07/09/16 21:59 Assessment/Plan Admission Diagnosis 1. Left intertrochanteric hip fracture scheduled for either intramedullary nailing her bipolar prosthesis later today. There are no medical contra indications to proceeding with planned procedure. 2. Reported history of [place] I atrial fibrillation in addition to possible PSVT. We'll monitor with telemetry for this reason. 3. Past history of osteopenia likely osteoporosis either way with current fracture would meet criteria for treatment. She was advised to discuss this with Dr. Toledo on return office visit. Copy Copies To 1: SEEMA TOLEDO DO Clinical Quality Measures DVT/VTE Risk/Contraindication: Risk Factor Score Per Nursin RFS Level Per Nursing on Admit: 4+=Very High [place] AGUILLON MD Jul 10, 2016 09:24
[2016-07-10] MEDS ORDERED: SEVOFLURANE (ULTANE) 15 ML INHAL SOLN ONE ×5 (10:09→11:12)
--- NOTE | 2016-07-10 10:17 | Diagnostic Imaging Report ---
INDICATION: Femoral fracture. FINDINGS: These 2 intraoperative views of the left hip demonstrate a displaced fracture extending through the left femoral neck. Hip is located. IMPRESSION: Intraoperative imaging demonstrates a displaced left femoral neck fracture. Dictated by: Dictated on workstation # [id number]
[2016-07-10] MEDS ORDERED: morphine INJ 10 MG/ML 1ML (SYR OR VIAL) ONE (11:03)
--- NOTE | 2016-07-10 11:23 | Progress Note-Pre Operative ---
Pre-Operative Progress Note H&P Reviewed The H&P was reviewed, patient examined and no changes noted. Date H&P Reviewed: Jul 10, 2016 Time H&P Reviewed: 09:00 Pre-Operative Diagnosis: Displaced basicervical fracture left hip JORDAN COLLAZO DO Jul 10, 2016 11:23 am
--- NOTE | 2016-07-10 11:26 | Progress Note-Post Operative ---
Post-Operative Progess Note Energy Efficiency Finance Manager Harley Levy FARM EQUIPMENT MAINTENANCE SUPERVISOR-C Pre-Operative Diagnosis Displaced basicervical fracture left hip Post-Operative Diagnosis Displaced basicervical fracture left hip Post-Op Procedure Note Date of Procedure: Jul 10, 2016 Name of Procedure: Bipolar femoral hemiarthroplasty left hip Procedure Note/Findings Oblique fx through the base of the left femoral neck into the calcar Anesthesia Type General Specimen(s) collected none JORDAN COLLAZO DO Jul 10, 2016 11:26 am
[2016-07-10] MEDS: morphine INJ 10 MG/ML 1ML (SYR OR VIAL) IVP PRN ×2 (11:55→12:00)
[2016-07-10] MEDS ORDERED: MEPERIDINE (DEMEROL) INJ 50 MG/ML IVP PRN (12:00)
[2016-07-10] MEDS: fentaNYL INJECTION 100 MCG/2 ML AMP IVP PRN ×2 (12:05→12:12)
--- NOTE | 2016-07-10 12:56 | Diagnostic Imaging Report ---
EXAMINATION: Pelvis at 12:30h. INDICATION: Postop left hip replacement 2 views were obtained. The prior exam of 07/09/16 noted a mildly comminuted fracture of the left femoral neck. In the interval since the prior study the patient has undergone a surgical procedure. There is now a total hip prosthesis in place on the left. The total hip prosthesis seems to be in good position. There is no fracture or acute bony abnormality noted otherwise. There is gas in the soft tissues about the left hip consistent with the patient's history of recent surgery. The floccular calcification the pelvis seen previously is again evident. Most likely this is secondary to a calcified uterine fibroid. IMPRESSION: Stable postoperative left hip. If further evaluation is desired, then a followup AP and lateral study would be recommended. Dictated by: Dictated on workstation # [id number]
[2016-07-10 13:00] VITALS: BP 117/59
--- NOTE | 2016-07-10 14:05 | OPERATIVE REPORT ---
PROCEDURE PHYSICIAN: JORDAN COLLAZO DATE OF PROCEDURE: 07/10/2016 PREOPERATIVE DIAGNOSIS: Displaced basicervical fracture left hip. POSTOPERATIVE DIAGNOSIS: Displaced basicervical fracture left hip. PROCEDURE: Bipolar femoral hemiarthroplasty, left hip. SURGEON: Jose A WALLACERUBBER PRODUCTION MACHINE OPERATOR: JEAL Chambers Surgical congressional assistant duties: Harley Levy was utilized throughout the entire procedure for patient positioning, retraction, placement of implants, soft tissue closer, dressing application and patient transfer. ANESTHESIA: General. INDICATIONS AND FINDINGS: The patient is a 71-year-old female who was at home. 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 She ambulated, she stepped on loose paper slipped and fell and noted immediate pain and deformity about the left hip. X-rays revealed a varus deformity left hip with a fracture that extended through the base of the femoral neck. We discussed attempts at a closed reduction with intramedullary nailing. I discussed possible need for a bipolar femoral hemiarthroplasty, placed just depending on the fracture pattern. The patient was taken the operating room, where a closed reduction of the left hip was performed under fluoroscopic guidance. The patient's fracture extended into the calcar and up to the superior aspect of the femoral head, neck, articulation. Based on this as well as slight comminution of the fracture we elected not to proceed forward with intramedullary nailing and instead a bipolar femoral hemiarthroplasty was performed on the left without complication utilizing the Biomet hip system with a press-fit 11 mm porous coated Taperloc primary femoral stem with a -6 mm modular head component with a 43 mm RingLoc bipolar acetabular cup. When putting the initial components together with a 44 mm cup, the locking mechanism in the bipolar cup did not function; therefore, a 43 mm bipolar acetabular cup was utilized without complications. PROCEDURE IN DETAIL: The patient was taken the operating room, placed supine upon the fracture table after a general inhalation anesthetic had been administered. The patient was placed in traction. The fracture pattern was identified. Based on obliquity of the fracture and the fact that this extended up to the superior aspect of the femoral head articulation, the patient was taken out of traction. The fracture table was removed from the room. A standard operating table was inserted. The patient was placed in a right lateral decubitus position on the fracture table and secured to the operating table with the [place]vey hip positioner. A ChloraPrep and sterile drape of the left hip and left lower extremity was performed. A lateral longitudinal incision was made over the lateral aspect of left hip. The incision was deepened sharply through the iliotibial band. A Arnold approach was then made to the left hip with division of the vastus lateralis fascia with electrocautery releasing the gluteus medius minimus tendons off the greater trochanter and releasing the capsule from the femoral neck. The fracture was identified. There was significant osteophyte formation about the greater trochanter with thinning of the abductor tendons. The hip was externally rotated and flexed. Comminution of the femoral neck was identified and this portion was removed with a bone rongeur. An osteotomy was then completed through the femoral neck with the oscillating saw. The femoral head was then removed along fragments within the acetabulum and measured 44 mm in outside diameter. The proximal femur was opened with a box chisel and a canal finder was used. The proximal femur was then broached up to 11 mm stem and the calcar was smoothed. The provisional components were inserted. The hip was reduced with a -6 mm femoral head and symmetry of the soft tissues was identified with no evidence of instability at the left hip with full extension of the hip obtained. The hip was dislocated. The provisional components were removed. The bony surfaces were irrigated extensively with normal saline solution. The 11 mm Taperloc stem was then impacted into position. Bone harvested from the head and from the box chisel. Used initially was used to graft in and around the proximal aspect of the femoral stem. The components were opened. The femoral head and polyethylene were seated together. This would not fit within the 44 mm bipolar cup. An additional cup was opened, 43 mm cup was obtained. The plastic was inserted into this after the femoral head was inserted and the plastic in this fit well with no complications. This was cold welded on the stem. The hip was reduced taken through a range of motion and found to be stable. Throughout the procedure the hip was irrigated extensively with normal saline solution containing gentamicin. The vastus lateralis fascia was then closed with a running suture of number 2 Tycron. At the area of the greater tuberosity with somewhat deficient gluteus tendons attachment, 2 drill holes were placed through the greater trochanter and the suture was placed through these drill holes securing the inferior aspect of the gluteal repair. The superior tendons were satisfactory. An additional running suture of number 2 Tycron was used to repair the gluteus medius tendon. The iliotibial band was closed with a running suture of number 1 Vicryl. The subcutaneous tissues were closed in layers with 0 and 2-0 Vicryl suture. The skin was closed with stainless steel ziyad. An Adaptic Neosporin bulky dressing was placed about the left hip. The patient was awakened and was transported postop recovery with anesthesia personnel present in satisfactory condition. Job ID: [id number] Dictated Date: 07/10/2016 11:33:26 Financial Operations Clerk Date: 07/10/2016 13:51:12 / arlet
[2016-07-10] MEDS: guaiFENesin (MUCINEX) 600 MG TAB PO SCH ×2 (16:10→20:14)
[2016-07-10] MEDS: ASPIRIN E.C. 325 MG (ECOTRIN) TABLET PO SCH (16:10)
[2016-07-10] MEDS ORDERED: ceFAZolin 2 GM IV (SDC ONLY) 50 ML IV SCH (17:00)
[2016-07-10] MEDS: RT-FLUTICASONE 110 MCG (FLOVENT) PER PUFF IH SCH (20:24)
[2016-07-10 20:30] VITALS: BP 125/76
[2016-07-10] MEDS: KETOROLAC 15 MG/ML VIAL IVP PRN (22:18)
[2016-07-10] MEDS: HYDROcodone/APAP 10 MG/325 MG (LORTAB) TAB PO PRN (22:18)
[2016-07-11 00:42] VITALS: BP 99/55
[2016-07-11] MEDS: HYDROcodone/APAP 10 MG/325 MG (LORTAB) TAB PO PRN ×4 (03:06→20:42)
[2016-07-11 04:15] VITALS: BP 121/60
[2016-07-11 04:42] LABS: MEAN PLATELET VOLUME 9.6 FL (7.4-10.4); RED BLOOD COUNT 4.29 10^6/uL (4.35-5.85); RED CELL DISTRIBUTION WIDTH 13.5 % (10.0-14.5); WHITE BLOOD COUNT 11.9 10^3/uL (4.3-11.0)
[2016-07-11 04:55] LABS: INR 1.2 (0.8-1.4); PROTHROMBIN TIME PATIENT 15.3 SEC (12.2-14.7)
[2016-07-11 05:08] LABS: ANION GAP 7 MMOL/L (5-14); BLOOD UREA NITROGEN 5 MG/DL (7-18); BUN/CREATININE RATIO 9; CALCIUM 7.8 MG/DL (8.5-10.1); CARBON DIOXIDE 24 MMOL/L (21-32); CHLORIDE 106 MMOL/L (98-107); CREATININE SERUM 0.56 MG/DL (0.60-1.30); GFR ESTIMATED > 60; GLUCOSE 124 MG/DL (70-105); POTASSIUM 3.2 MMOL/L (3.6-5.0); SODIUM 137 MMOL/L (135-145)
[2016-07-11] MEDS: NS IV 1000 ML 1,000 ML IV SCH ×2 (07:15→09:06)
[2016-07-11] MEDS: RT-FLUTICASONE 110 MCG (FLOVENT) PER PUFF IH SCH ×2 (07:41→18:26)
[2016-07-11 08:14] VITALS: BP 120/64
[2016-07-11] MEDS ORDERED: CATHETER FLUSH 10 ML SYR IV PRN (08:45)
[2016-07-11] MEDS: guaiFENesin (MUCINEX) 600 MG TAB PO SCH ×2 (09:03→20:41)
[2016-07-11] MEDS ORDERED: KCL 20 MEQ TAB (K-DUR) PO NR (09:03)
[2016-07-11] MEDS: SENNA W/DOCUSATE (SENOKOT S) TABLET PO SCH ×2 (09:04→20:40)
[2016-07-11] MEDS: ENOXAPARIN 40 MG/0.4 ML (LOVENOX) SYR SC SCH (09:04)
[2016-07-11] MEDS: ASPIRIN E.C. 325 MG (ECOTRIN) TABLET PO SCH (09:06)
--- NOTE | 2016-07-11 09:15 | Progress Note-Hospitalist ---
Subjective HPI/CC On Admission patient was in her usual state of good health up until the evening of the when she slipped on some paper falling on her left hip. She was unable to get up secondary to pain but all my summoned EMS and brought to emergency room had a femoral neck fracture left hip. She is scheduled for surgery later this morning. She reports in early 1999 and did have a DEXA scan which revealed osteopenia at that time. She has had no previous reported fractures. Past medical history is significant for paroxysmal atrial fibrillation as well as what sounds like probable PSVT with a heart rate that is much higher in the 200- 10 range that she apparently tolerates well. This is required several emergency room visits but will also spontaneously resolved. Due to baseline bradycardia she is not tolerated rate lowering medications. She had been taken off of L [place] after consultation with Dr. Snyder about 3 weeks ago. She was not having any bleeding problems but felt that it was contributing to lightheadedness. He's had no syncope or presyncope. Date Seen 07/11/16 Subjective/Events-last exam patient denies having any chest pain but had some palpitations this morning. Does have a history of SVT or A. fib, as worn in a heart monitor in the past. she lives alone but is interested in possibly going to a rehabilitation unit here Review of Systems Cardiovascular: : Palpitations Objective Exam Vital Signs Vital Sign - Last 12Hours 07/09/16 07/09/16 21:55 23:27 Temp 97.9 Pulse 82 Resp 18 B/P 169/94 Pulse Ox 96 O2 Delivery Room Air O2 Flow Rate 2 Capillary Refill : Less Than 3 SecondsLess Than 3 Seconds General Appearance: No Apparent Distress WD/WN HEENT: Normal ENT Inspection Neck: Supple Respiratory: Lungs Clear No Accessory Muscle Use No Respiratory Distress Cardiovascular: Regular Rate, Rhythm No Gallop No Murmur Gastrointestinal: Non Tender Soft Extremity: Non Tender No Calf Tenderness Neurologic/Psychiatric: Alert Oriented x3 Skin: Normal Color Results/Procedures Lab Laboratory Tests 07/11/16 04:14 Assessment/Plan Assessment and Plan Assess & Plan/Chief Complaint 1. postop day number 1 status post ORIF left hip fracture 2. History of palpitations we will place patient on telemetry 3. hypokalemia will replace SHILPI KAUR MD Jul 11, 2016 09:14
[2016-07-11] MEDS: KETOROLAC 15 MG/ML VIAL IVP PRN (10:06)
--- NOTE | 2016-07-11 10:23 | Physical Therapy Evaluation ---
PT Evaluation-General Medical Diagnosis Admission Date Jul 09, 2016 at 23:10 Medical Diagnosis: Left hip fracture Onset Date: Jul 11, 2016 Therapy Diagnosis Therapy Diagnosis: Weakness; abn gait Height/Weight Height (Feet): 5 Height (Inches): 4.00 Weight (Pounds): 130 Weight (Ounces): 8.0 Precautions Precautions/Isolations: Standard Precautions Weight Bear Status Weight Bearing Restriction: Weight Bearing/Tolerated Location Restriction: L LE Comments THR precautions Referral Physician: Jose A Reason for Referral: Evaluation/Treatment Medical History Pertinent Medical History: Arthritis, CAD, GERD Additional Medical History Osteopenia, A fib, fibromyalgia, anxiety. Current History Pt slipped on papers on the floor at home, fell, sustained a left hip fracture. Post hemiarthroplasty. Reviewed History: Yes Social History Home: Single Level Current Living Status: Alone Entry Into Home: Stairs With Railing Prior/Core FIM Prior Level of Function Functional [place] Measure 0=Not Assessed/NA 4=Minimal Assistance 1=Total Assistance 5=Supervision or Setup 2=Maximal Assistance 6=Modified [place] 3=Moderate Assistance 7=Complete [place] Bed Mobility: 7 Transfers (B,C,W/C) (FIM): 7 Gait: 7 Independent, lives alone, active in community PT Evaluation-Current Subjective Agrees to PT. Has not been out of bed since surgery. Pain Numeric Pain Scale: 3 Location: Left Location Body Site: Hip Pain Description: Acute ("twinges") Comment: Pain relieves at rest; pain with movement Pt/Family Goals She reports her goals are to return home as before. Objective Patient Orientation: Person, Place, Time, Situation Problem Solving: Good Attachments: Oxygen (in situ during and post treatment), IV ROM/Strength ROM Lower Extremities WFL; left hip within precautions Strenght Lower Extremities Right LE grossly 5/5; left LE grossly 3/5--due to pain and recent surgery Integumentary/Posture Integumentary intact Bowel Incontinence: No Bladder Incontinence: [place] Cath Posture normal and symmetrical Neuromuscular (Tone, Coordination, Reflexes) No noted functional deficits Sensory Vision: Wears Glasses Hearing: Functional Hand Dominance: Right Sensation Right Lower Extremit: Intact Sensation Left Lower Extremity: Intact Transfers Functional [place] Measure 0=Not Assessed/NA 4=Minimal Assistance 1=Total Assistance 5=Supervision or Setup 2=Maximal Assistance 6=Modified [place] 3=Moderate Assistance 7=Complete [place] Transfers (B, C, W/C) (FIM): 3 Scootin Rollin Supine to/from Sit: 3 (assist with trunk and legs) Sit to/from Stand: 4 (min assist) skilled cues for sequencing and problem solving. Gait Mode of Locomotion: Walk Anticipated Mode of Locomotion: Walk Comments/Gait Description Pt took 3-4 steps to transfer to the chair; WBAT with FWW with close CGA and skilled cues for sequencing. Balance Sitting Static: Good Sitting Dynamic: Good Standing Static: Fair Standing Dynamic: Fair Treatment Transfer to EOB and transfer to the chair. Pt up in chair with oxygen in place and needs met. Assessment/Needs Post fall at home with sustained left hip fracture that has been repaired with a THR. She is WBAT with hip precautions. She has limited functional mobility and strength deficits as well as impaired balance and functional act tolerance at this time. Her condition seems to be stable at this time and she has good potential for rehab. Rehab Potential: Good PT Freight Receiver Goals Snf Goals PT Snf Goals Time Frame: Jul 15, 2016 Transfers (B,C,W/C) (FIM): 5 Gait (FIM): 5 Gait distance (FIM): 3=150 ft Gait Assistive Device: FWW Recommend ARU for continued aggressive therapy services. PT Plan Problem List Problem List: Activity Tolerance, Functional Strength, Safety, Gait, Transfer, Bed Mobility Treatment/Plan Treatment Plan: Continue Plan of Care Treatment Plan: Bed Mobility, Education, Functional Activity Laya, Functional Strength, Gait, Safety, Therapeutic Exercise, Transfers Treatment Duration: Jul 15, 2016 # of days/week 6 Visits Per Week: 11 Pt/Family Agrees w/Plan: Yes Safety Risks/Education Patient Education: Transfer Techniques, Safety Issues Teaching Recipient: Patient Teaching Methods: Discussion Response to Teaching: Reinforcement Needed Time/GCodes Time In: 915 Time Out: 940 Total Billed Treatment Time: 25 Total Billed Treatment visit EVL 10 FA 15 NYA GUTIERREZ PT Jul 11, 2016 10:23
[2016-07-11] MEDS ORDERED: GABA-486 PO (10:37)
[2016-07-11] MEDS ORDERED: FISH1CAP15 PO (10:37)
[2016-07-11] MEDS ORDERED: GUAI600T43 PO (10:37)
[2016-07-11] MEDS ORDERED: NIAC1CAP PO (10:37)
[2016-07-11] MEDS ORDERED: MULT-633 PO (10:37)
[2016-07-11] MEDS ORDERED: FLT11013 IH (10:37)
[2016-07-11] MEDS ORDERED: CHOL10003 PO (10:37)
[2016-07-11] MEDS ORDERED: FLUT9.9S NS (10:37)
[2016-07-11] MEDS ORDERED: ASCO-341 PO (10:37)
[2016-07-11] MEDS ORDERED: IBUP-30 PO (10:37)
[2016-07-11] MEDS ORDERED: VITA1CAP PO (10:38)
[2016-07-11] MEDS ORDERED: FLU TRIvalent (5 YOA+) 2016-17 (AFLURIA) 0.5 ML IM ONE ×2 (11:30→16:14)
[2016-07-11 12:00] VITALS: BP 137/68
--- NOTE | 2016-07-11 12:28 | Anesthesia-General Post-Op ---
General Patient Condition Mental Status/LOC: Same as Preop Cardiovascular: Satisfactory Nausea/Vomiting: Absent Respiratory: Satisfactory Pain: Controlled Complications: Absent Post Op Complications Complications None Follow Up Care/Instructions Patient Instructions None needed. Anesthesia/Patient Condition Patient Condition Patient is doing well, no complaints, stable vital signs, no apparent adverse anesthesia problems. No complications reported per nursing. [place] [facility] [place]: No INEZ YOUNG CRNA Jul 11, 2016 12:28
--- NOTE | 2016-07-11 14:44 | Occupational Therapy Eval ---
OT Evaluation-General/PLF Medical Diagnosis Admission Date Jul 09, 2016 at 23:10 Medical Diagnosis: Left hip fracture Onset Date: Jul 11, 2016 Therapy Diagnosis Therapy Diagnosis: decreased self care skills Height/Weight Height (Feet): 5 Height (Inches): 4.00 Weight (Pounds): 130 Weight (Ounces): 8.0 Precautions Precautions/Isolations: Standard Precautions Safety Interventions: None Weight Bear Status Weight Bearing Restriction: Weight Bearing/Tolerated Location Restriction: L LE Hip precautions Referral Physician: Jose A Medical History Pertinent Medical History: Atrial Fib, Arthritis, CAD, GERD, OA Additional Medical History fibromyalgia, sleep difficulties, anxiety Current History Pt fell at home resulting in left femoral neck fracture. Pt s/p bipolar hemiarthroplasty Reviewed History: Yes Social History Home: Single Level Current Living Status: Alone ADL-Prior Level of Function ADL PLOF Comments Pt reports being independent with all ADLs and mobility. Did not use any assistive devices for mobility. Pt states she is normally active. DME/Equipment: Bath Chair, Shower, Tall Toilet DME/Equipment Comments walk in tub Drive Self: Yes OT Current Status Subjective Pt in bed, agrees to therapy. Pt states she is motivated to return to [facility]. Mental Status/Objective Patient Orientation: Person, Place, Time, Situation Current Glasses/Contacts: Yes Hearing Aids: No Dentures/Partials: No Hand Dominance: Right Upper Extremity ROM Grossly WFL Upper Extremity Coordination Intact ADL-Treatment ADL-Current Pt supine to sit with assist for left LE, increased time. Sit to stand with minimal assistance. Transfer to chair with minimal assistance using FWW. Pt states she has already completed sponge bath this morning. Pt states she is feeding self without difficulty. Pt states she plans to go to IDU tomorrow. Pt sitting in chair with needs met after session. Functional [place] Measure 0=Not Assessed/NA 4=Minimal Assistance 1=Total Assistance 5=Supervision or Setup 2=Maximal Assistance 6=Modified [place] 3=Moderate Assistance 7=Complete IndependenceIRFPAI Quality Coding Scale 6 Independent with activity with or without an assistive device 5 Patient requires set up or clean up by helper. Patient completes activity by themselves 4 Supervision or touching assist (CGA). [place] provide cues , steadying assist 3 The helper provides less than half the effort to complete the activity 2 The helper provides more than half the effort to complete the activity 1 Dependent. The helper does all the effort to complete an activity 7 Patient refused to complete or attempt activity 9 The patient did not perform the activity before the current illness or injury 88 Not attempted due to Medical conditions or safety concerns Eating (FIM): 6 (by pt report) Transfers (B, C, W/C) (FIM): 4 Education OT Patient Education: Rehab process Teaching Recipient: Patient Teaching Methods: Discussion Response to Teaching: Verbalize Understanding OT Short Term Goals Short Term Goals 1=Demonstrate adherence to instructed precautions during ADL tasks. 2=Patient will verbalize/demonstrate understanding of assistive devices/ modifications for ADL. 3=Patient will improve strength/tolerance for activity to enable patient to perform ADL's. OT Jail Goals Jail Goals Time Frame: 2 weeks Grooming(FIM): 6 Bathing(FIM): 5 Upper Body Dressing(FIM): 6 Lower Body Dressing(FIM): 5 Toileting(FIM): 5 Toilet/Commode Transfer(FIM): 5 Additional Goals: 1-Demonstrate ADL Tasks, 2-Verbalize Understanding, 3- ImproveStrength/Laya 1=Demonstrate adherence to instructed precautions during ADL tasks. 2=Patient will verbalize/demonstrate understanding of assistive devices/ modifications for ADL. 3=Patient will improve strength/tolerance for activity to enable patient to perform ADL's. OT Education/Plan Problem List/Assessment Assessment: Decreased UE Strength, Dependent Transfers, Impaired Self-Care Skills Pt to benefit from skilled OT intervention for ADL training, transfers, strengthening, adaptive equipment training, and home safety education to increase level of independence and allow safe discharge. Discharge Recommendations Plan/Recommendations: Continue POC Treatment Plan/Plan of Care Treatment,Training & Education: Yes Patient would benefit from OT for education, treatment and training to promote independence in ADL's, mobility, safety and/or upper extremity function for ADL' s. Plan of Care: ADL Retraining, Functional Mobility, UE Funct Exercise/Act Treatment Duration: Jul 25, 2016 # of days/week 5 Agreement: Yes Rehab Potential: Good Time/GCodes Start Time: 14:11 Stop Time: 14:32 Total Time Billed (hr/min): 21 Billed Treatment Time 1 visit, EVL(21minutes) JESSICA CRUMP OT Jul 11, 2016 14:44
[2016-07-11 15:30] VITALS: BP 107/53
--- NOTE | 2016-07-11 15:34 | Physical Therapy Daily Note ---
PT Daily Note-Current Subjective Pt sitting in hip chair upon arrival. Pt is wanting to return to bed. Pt agrees to PT. Pain Numeric Pain Scale: 7 Location: Left Location Body Site: Hip Pain Description: Ache Mental Status Patient Orientation: Person, Normal For Age Transfers Functional [place] Measure 0=Not Assessed/NA 4=Minimal Assistance 1=Total Assistance 5=Supervision or Setup 2=Maximal Assistance 6=Modified [place] 3=Moderate Assistance 7=Complete IndependenceIRFPAI Quality Coding Scale 6 Independent with activity with or without an assistive device 5 Patient requires set up or clean up by helper. Patient completes activity by themselves 4 Supervision or touching assist (CGA). [place] provide cues , steadying assist 3 The helper provides less than half the effort to complete the activity 2 The helper provides more than half the effort to complete the activity 1 Dependent. The helper does all the effort to complete an activity 7 Patient refused to complete or attempt activity 9 The patient did not perform the activity before the current illness or injury 88 Not attempted due to Medical conditions or safety concerns Scootin Rollin Supine to/from Sit: 4 Sit to/from Stand: 5 Bed to/from Chair: 4 Weight Bearing Weight Bearing Restriction: Weight Bearing/Tolerated Location Restriction: L LE Exercises Seated Therapy Exercises: Ankle pumps, Long arc quads, Hip flexion, Kicking activity, Hip abd/add Seated Reps: 15 Treatments Pt completed seated EX in hip chair before transferring to standing using FWW at SBA. Pt transferred from standing to EOB at SBA then to supine at Min A to help get legs into bed. Assessment Current Status: Good Progress Pt does well to keep hip precautions and is getting stronger each tx. Pt will continue to make progress with transfers and mobility. PT Repair Department Supervisor Goals Mcfp Goals PT Mcfp Goals Time Frame: Jul 15, 2016 Transfers (B,C,W/C) (FIM): 5 Gait (FIM): 5 Gait distance (FIM): 3=150 ft Gait Assistive Device: FWW PT Plan Problem List Problem List: Activity Tolerance, Functional Strength, Safety, Gait, Transfer, Bed Mobility Treatment/Plan Treatment Plan: Continue Plan of Care Treatment Plan: Bed Mobility, Education, Functional Activity Laya, Functional Strength, Gait, Safety, Therapeutic Exercise, Transfers Treatment Duration: Jul 15, 2016 Visits Per Week: 11 Safety Risks/Education Patient Education: Transfer Techniques, Correct Positioning, Safety Issues Teaching Recipient: Patient Teaching Methods: Discussion Response to Teaching: Verbalize Understanding Time/GCodes Time In: 1440 Time Out: 1500 Total Billed Treatment Time: 20 Total Billed Treatment visit, EX (20m) GUERLINE SHINE PTA Jul 11, 2016 15:34
--- NOTE | 2016-07-11 18:06 | Progress Note (SOAP) ---
Subjective Subjective/Events-last exam Awake and alert Results of surgery discussed with patient. Review of Systems Dressing dry left hip Objective Exam Vital Signs Date Time Temp Pulse Resp B/P Pulse Ox O2 Delivery O2 Flow Rate FiO2 07/11/16 15:30 99.9 85 18 107/53 94 Room Air 07/11/16 12:00 98.7 85 22 137/68 92 Room Air 07/11/16 08:14 98.0 83 20 120/64 96 Nasal Cannula 2.00 07/11/16 07:41 93 Nasal Cannula 2.00 07/11/16 04:15 99.3 78 18 121/60 96 Nasal Cannula 2.00 07/11/16 00:43 99.7 07/11/16 00:42 99.7 83 18 99/55 93 Nasal Cannula 2.00 07/10/16 20:30 100.1 94 22 125/76 96 Nasal Cannula 2.00 07/10/16 20:26 95 Nasal Cannula 3.50 07/10/16 20:20 96 Nasal Cannula 2.00 I & O 07/11/16 07:00 Intake Total 4470 ml Output Total 4250 ml Balance 220 ml Capillary Refill : Less Than 3 SecondsLess Than 3 Seconds General Appearance: No No Apparent Distress, No WD/WN, No Anxious, No Chronically ill, No Cachetic, No Mild Distress, No Moderate Distress, No Obese, No Severe Distress, No Thin, No Other HEENT: PERRL/EOMI Neck: Full Range of Motion Non Tender Respiratory: Chest Non Tender Normal Breath Sounds Cardiovascular: Regular Rate, Rhythm Normal Peripheral Pulses Peripheral Pulses: 2+ Left Dors-Pedis (L) Gastrointestinal: normal bowel sounds Extremity: Normal Capillary Refill Neurologic/Psychiatric: Oriented x3 Skin: Warm/Dry Lymphatic: No Adenopathy Results Lab Laboratory Tests 07/11/16 04:14: Anion Gap 7, BUN/Creatinine Ratio 9, Blood Urea Nitrogen 5L, Calcium Level 7.8L , Carbon Dioxide Level 24, Chloride Level 106, Creatinine 0.56L, Estimat Glomerular Filtration Rate > 60, Glucose Level 124H, Hematocrit 39, Hemoglobin 13.1, INR Comment 1.2, Mean Corpuscular Hemoglobin 31, Mean Corpuscular Hemoglobin Concent 34, Mean Corpuscular Volume 90, Mean Platelet Volume 9.6, Platelet Count 230, Potassium Level 3.2L, Prothrombin Time 15.3H, Red Blood Count 4.29L, Red Cell Distribution Width 13.5, Sodium Level 137, White Blood Count 11.9H Microbiology 07/10/16 MRSA Screen - Final, Complete MRSA not isolated Assessment/Plan Assessment/Plan Assess & Plan/Chief Complaint Status post bipolar femoral hemiarthroplasty left hip Hypokalemia Diagnosis/Problems: Final Diagnosis Displaced left femoral neck fracture Hypokalemia Clinical Quality Measures DVT/VTE Risk/Contraindication: Risk Factor Score Per Nursin RFS Level Per Nursing on Admit: 4+=Very High JORDAN COLLAZO DO Jul 11, 2016 6:06 pm
[2016-07-11 19:35] VITALS: BP 162/97
[2016-07-12 00:30] VITALS: BP 132/74
[2016-07-12] MEDS: HYDROcodone/APAP 10 MG/325 MG (LORTAB) TAB PO PRN ×2 (01:12→07:10)
[2016-07-12] MEDS: KETOROLAC 15 MG/ML VIAL IVP PRN ×2 (02:36→09:06)
[2016-07-12] MEDS: NS IV 1000 ML 1,000 ML IV SCH (03:07)
[2016-07-12 04:00] VITALS: BP 131/62
[2016-07-12 05:02] LABS: MEAN PLATELET VOLUME 9.8 FL (7.4-10.4); RED BLOOD COUNT 4.32 10^6/uL (4.35-5.85); RED CELL DISTRIBUTION WIDTH 13.5 % (10.0-14.5); WHITE BLOOD COUNT 11.7 10^3/uL (4.3-11.0)
[2016-07-12 05:20] LABS: INR 1.1 (0.8-1.4); PROTHROMBIN TIME PATIENT 14.1 SEC (12.2-14.7)
[2016-07-12 05:26] LABS: ANION GAP 10 MMOL/L (5-14); BLOOD UREA NITROGEN 6 MG/DL (7-18); BUN/CREATININE RATIO 11; CALCIUM 8.4 MG/DL (8.5-10.1); CARBON DIOXIDE 23 MMOL/L (21-32); CHLORIDE 106 MMOL/L (98-107); CREATININE SERUM 0.55 MG/DL (0.60-1.30); GFR ESTIMATED > 60; GLUCOSE 104 MG/DL (70-105); POTASSIUM 3.1 MMOL/L (3.6-5.0); SODIUM 139 MMOL/L (135-145)
[2016-07-12] MEDS: guaiFENesin (MUCINEX) 600 MG TAB PO SCH (07:11)
[2016-07-12] MEDS: SENNA W/DOCUSATE (SENOKOT S) TABLET PO SCH (07:11)
[2016-07-12] MEDS: ENOXAPARIN 40 MG/0.4 ML (LOVENOX) SYR SC SCH (07:11)
[2016-07-12] MEDS: ASPIRIN E.C. 325 MG (ECOTRIN) TABLET PO SCH (07:11)
--- NOTE | 2016-07-12 07:36 | Progress Note (SOAP) ---
Subjective Subjective/Events-last exam POD #2 s/p left femoral hemiarthroplasty for femoral neck fracture. She is doing very well. Pain controlled, eating and drinking well. making good progress with PT. Objective Exam Vital Signs Date Time Temp Pulse Resp B/P Pulse Ox O2 Delivery O2 Flow Rate FiO2 07/12/16 07:14 Room Air 07/12/16 04:00 99.6 81 18 131/62 94 Room Air 07/12/16 03:06 98.9 07/12/16 03:06 98.9 07/12/16 02:36 100.1 07/12/16 01:30 100.1 07/12/16 01:15 100.1 07/12/16 01:12 101.4 07/12/16 01:00 91 07/12/16 00:30 101.4 90 20 132/74 97 Room Air 07/11/16 20:40 Room Air 07/11/16 19:35 99.6 102 20 162/97 96 Room Air 07/11/16 19:00 82 07/11/16 18:27 93 07/11/16 15:30 99.9 85 18 107/53 94 Room Air 07/11/16 13:00 86 07/11/16 13:00 86 07/11/16 12:00 98.7 85 22 137/68 92 Room Air 07/11/16 08:14 98.0 83 20 120/64 96 Nasal Cannula 2.00 07/11/16 07:41 93 Nasal Cannula 2.00 I & O 07/12/16 07:00 Intake Total 3340 ml Output Total 3450 ml Balance -110 ml Capillary Refill : Less Than 3 SecondsLess Than 3 Seconds General Appearance: No Apparent Distress Gastrointestinal: non tender soft Extremity: Normal Capillary Refill Normal Inspection No Calf Tenderness No Pedal Edema Neurologic/Psychiatric: Alert Oriented x3 No Motor/Sensory Deficits Normal Mood/Affect Skin: Normal Color Warm/Dry (dressing to left hip CDI) Results Lab Laboratory Tests 07/12/16 04:45: Anion Gap 10, BUN/Creatinine Ratio 11, Blood Urea Nitrogen 6L, Calcium Level 8.4L, Carbon Dioxide Level 23, Chloride Level 106, Creatinine 0.55L, Estimat Glomerular Filtration Rate > 60, Glucose Level 104, Hematocrit 39, Hemoglobin 13.2, INR Comment 1.1, Mean Corpuscular Hemoglobin 31, Mean Corpuscular Hemoglobin Concent 34, Mean Corpuscular Volume 90, Mean Platelet Volume 9.8, Platelet Count 254, Potassium Level 3.1L, Prothrombin Time 14.1, Red Blood Count 4.32L, Red Cell Distribution Width 13.5, Sodium Level 139, White Blood Count 11.7H Microbiology 07/10/16 MRSA Screen - Final, Complete MRSA not isolated Assessment/Plan Assessment/Plan Assess & Plan/Chief Complaint A: S/P left bipolar femoral hemiarthroplasty POD 2 P: Plan to Dc to rehab or skilled today or tomorrow pending social insurance adviser. Diagnosis/Problems: Clinical Quality Measures DVT/VTE Risk/Contraindication: Risk Factor Score Per Nursin RFS Level Per Nursing on Admit: 4+=Very High QUENTIN CLEVELAND APRN Jul 12, 2016 7:36 am
[2016-07-12 07:40] VITALS: BP 119/73
[2016-07-12] MEDS ORDERED: KCL 20 MEQ TAB (K-DUR) PO SCH (07:54)
[2016-07-12] MEDS ORDERED: HYDR-3820 PO (07:54)
[2016-07-12] MEDS ORDERED: SENN-20 PO (07:54)
--- NOTE | 2016-07-12 07:59 | Discharge Inst-Surgical ---
Discharge Inst-Surgical Depart Medication/Instructions New, Converted or Re-Newed RX: RX on Chart Patient Instructions Please see Dr. Silva WES Dc instructions Final Diagnosis: s/p left femoral hemiarthroplasty Consults/Follow Up Goal/Follow Up Appt.: f/u 2 1/2 weeks, call office for appt Patient Instructions: when DC'd from rehab arrange HHC PT 3x/week x 2 weeks Continue NUHA hose hip precautions continue intermittent ice and elevation of LLE Activity Activity as Tolerated: No hip precautions WBAT with walker Walking Assistive Device: Walker Activity Instructions: Avoid Pulling & Pushing Do Not Lift Over _ Pounds: 5 Elevate Extremity: Elevate Above Heart Driving Instructions: No Driving for 4 Weeks No Driving When on Pain Meds: Yes Incentive Spirometry: Every 2 Hours While Awake Diet Discharge Diet: No Restrictions Return to The Hospital For: concerning symptoms Symptoms to Report to Physicia: Extremity Discoloration, Numbness/Tingling, Fever Over 101 Degrees F If Any Problems/Questions/Issu: Contact Your Physician Skin/Wound Care Infection Signs and Symptoms: Increased Redness, Foul Odor of Wound, Increased Drainage, Temperature Above 101 F Wound Care Comment: daily island dressing changes, may shower with incision uncovered, then pat dry and replace dressing remove ziyad POD #10 and apply steri strips Bathing Instructions: Shower Stitches/[place]/Dermabond Dis: Care of Ziyad Ice Pack: Ice On and Off Site QUENTIN CLEVELAND APRN Jul 12, 2016 7:59 am
[2016-07-12] MEDS: RT-FLUTICASONE 110 MCG (FLOVENT) PER PUFF IH SCH (09:39)
[2016-07-12 11:50] VITALS: BP 138/68
--- NOTE | 2016-08-07 07:10 | DISCHARGE SUMMARY ---
DATE OF ADMISSION: 07/09/2016 DATE OF DISCHARGE: 07/12/2016 ADMITTING DIAGNOSIS: Displaced basicervical fracture of the left hip. DISCHARGE DIAGNOSIS: 1. Displaced basicervical fracture of the left hip. 2. Status post left hip bipolar femoral hemiarthroplasty. 3. Hypokalemia. ADMITTING PHYSICIAN: Dr. Deep Naranjo CONSULTING PHYSICIAN: Dr. Santos Aguillon and Dr. Tessie Patiño, internal medicine PROCEDURES: Left hip bipolar femoral hemiarthroplasty on 07/10/2016 HISTORY AND HOSPITAL COURSE: Yvonne is a 71-year-old female who fell at home. This resulted in her being transported to [facility] emergency department. Upon x-rays being obtained on the patient's pelvis and left hip, Dr. Naranjo was consulted for a left hip fracture. The patient was admitted under n.p.o. after midnight status, on 07/10/2016 the patient was taken to the operating room where a left hip bipolar femoral hemiarthroplasty was performed under general anesthesia without complications. Postoperatively, the patient was maintained on deep vein thrombosis prophylaxis as well as IV antibiotic prophylaxis. Internal medicine was consulted due to the patient's hypokalemia. On postoperative day one, the patient was doing well. Hemoglobin was stable at 13.1. Her coagulation studies were normal and her potassium was 3.2. Oral potassium was started at that time. The patient was also started on formal physical therapy at the hospital. On examination the patient's left hip dressing was clean, dry and intact. She has full motor function of her left lower extremity with no abnormalities. On postoperative day 2, the patient was progressing well. general scrap worker was consulted and the social insurance analyst agreed to the patient would be a very good candidate for inpatient rehab; this prompted inpatient rehab evaluation and the patient was approved for this. The patient's vital signs were stable and she was afebrile. On examination of the left hip the dressing was clean, dry and intact. She had no fluctuance no drainage. Her left lower extremity was neurovascularly intact with a negative Homans sign and normal range of motion. The patient was ambulating well and she verbalized no complaints. Discharge instructions were reviewed with the patient by both myself and nursing staff prior to discharge. She verbalized understanding of the instructions. The patient was discharged to inpatient rehab on the postoperative day number 2 which was 07/12/2016. DISPOSITION: Discharged to inpatient rehab. DISCHARGE INSTRUCTIONS: 1. She is going to continue weight-bearing as tolerated on left lower extremity using a walker for assistance. 2. She is going to continue with her home medications. 3. Continue the bilateral NUHA hose. 4. She may remove her NUHA hose, may remove her dressing, she may wash directly over the incision. She is to pat the incision dry and cover with a new [place] dressing daily. 5. She is to continue intermittent ice to the operative site. 6. She is going to continue intermittent elevation of the left lower extremity for any swelling. 7. She is going to continue with daily [place] dressing changes. 8. She is going to continue using a walker for assistance. 9. Nursing staff to remove ziyad and apply Steri-Strips on postoperative day number 10. 10. She is going to follow-up in 2-1/2 weeks for repeat examination and x-ray of her left hip. 11. On the patient discharge from inpatient rehab, home health care, physical therapy needs to be arranged 3 times per week for 2 weeks. DISCHARGE PRESCRIPTIONS: 1. [place] 10/325, 1 p.o. q.4-6 hours p.r.n. pain, number 60 with 0 refills 2. Docusate 1 tablet one p.o. b.i.d. Job ID: [id number] Dictated Date: 08/04/2016 16:09:00 Production Tool Engineer Date: 08/07/2016 06:55:57/arlet
== END 2016-07-12 11:00 | DRG 470 ==
LOC: EDUNIT# 21:51 → ER 21:52 → 4TH 23:10
PROVIDERS: ADMIT Internal Medicine; ATTEND Internal Medicine
PROC: 0SRS01A Replacement of Left Hip Joint, Femoral Surface with Metal Synthetic Substitute, Uncemented, Open Approach (ICD-10-PCS; principal; 2016-07-10 09:13)
DX: M80.052A Age-related osteoporosis with current pathological fracture, left femur, initial encounter for fracture (principal); M85.852 Other specified disorders of bone density and structure, left thigh; I48.0 Paroxysmal atrial fibrillation; I47.1 Supraventricular tachycardia; R25.2 Cramp and spasm; E86.0 Dehydration; J45.909 Unspecified asthma, uncomplicated; I25.10 Atherosclerotic heart disease of native coronary artery without angina pectoris; G62.9 Polyneuropathy, unspecified; M19.90 Unspecified osteoarthritis, unspecified site; M79.7 Fibromyalgia; G47.9 Sleep disorder, unspecified; F41.9 Anxiety disorder, unspecified; K21.9 Gastro-esophageal reflux disease without esophagitis; E87.6 Hypokalemia; W01.0XXA Fall on same level from slipping, tripping and stumbling without subsequent striking against object, initial encounter; Y92.003 Bedroom of unspecified non-institutional (private) residence as the place of occurrence of the external cause; Z87.11 Personal history of peptic ulcer disease
CPT/HCPCS: 36415; 71010; 72170; 73501; 80048; 80053; 81000; 85007; 85027; 85610; 87081; 93005; 94640; 94664; 94760; 96374; 96375

== ENCOUNTER 2016-07-12 10:27 | Inpatient (IN) | payer MEDICARE ==
[~2016-07-12] VITALS: Ht 162.6 cm; Wt 63.6 kg
[~2016-07-12 10:27] MED LIST changes: +ASCO-341 PO; +CHOL10003 PO; +FISH1CAP15 PO; +FLUT9.9S NS; +HYDR-3820 PO; +MULT-633 PO; +NIAC1CAP PO; +SENN-20 PO; +VITA1CAP PO
[2016-07-12 11:59] VITALS: BP 146/87
--- OUTSIDE RECORDS SUMMARY | 2016-07-12 12:00 | XMS REPORT | Continuity of Care Document ---
Author Author [facility] Organization [facility] Address Unknown Phone Unavailable Care Team Providers Care Lead Web Developer Name Role Phone SEEMA SANTOYO DO PCP Insurance Providers Payer Name Policy Number Subscriber Name Relationship Wps Medicare [id number] Diallo Marie 18 Self / Same As Patient Blue Cross Mcr Supp [id number] Diallo Marie 18 Self / Same As Patient Advance Directives Directive Response Recorded Date/Time Advance Directives No 05/10/16 5:58pm Health Care Power of Taker Off Drying Kiln No 05/10/16 5:58pm Organ Donor No 05/10/16 5:58pm Chief Complaint and Reason for Visit Chief Complaint Altered Mental Status Reason for Visit Malaise Confusion [id number] Problems Active Problems Medical Problem Onset Date [...] 200 Mg Oral As Needed 1 05/10/16 [place]-3/Dha/Epa/Fish Oil 1 Each 1 Each Oral Twice [...] Day as needed for Pain 11/24/14 Discontinued [[place] Lecithin] , 2 Tab Oral Twice A [...] Type Severity Reaction Status Last Updated ciprofloxacin ([id number]) Adverse Reaction Unknown stomach upset Active 12/01/14 shellfish derived ([id number]) Allergy Unknown Active 05/10/16 Immunizations Name Given [...] 4 inches 05/14/2016 10:45am Height (Calculated Centimeters) 162.957737 cm 05/14/2016 10:45am Weight (Pounds) 127 pounds 05/14/2016 10:45am Weight (Ounces) 0.0 oz 05/10/2016 6:07pm Weight (Calculated Grams) 01009.232 gm 05/11/2016 6:00am Weight (Calculated Kilograms) 57.233690 kilograms 05/14/2016 10:45am Calculated BMI 21.6 05/10/2016 [...] SELECTED GROUPS OF HIGH RISK PATIENTS. [employer] CONSENSUS CONFERENCE ON [...] G/DL 3.2-4.5 05/10/2016 9:15am 05/10/2016 9:49am [facility] [place] Testing 1.62 UIU/ML 0.35-4.94 05/10/2016 9:15am 05/10/2016 [...] Date Attending Provider Registered Emergency Room [facility] 05/14/16 10:43am MAXWELL HENRY MD Departed Surgical Day Care [facility] 05/10/16 3:30pm 8:40am TATE REARDON MD Departed Emergency Room [facility] 05/10/16 9:10am 05/10 10:47am JENNIFER FUENTES DO Recent Diagnosis
--- NOTE | 2016-07-12 12:53 | Physical Therapy Evaluation ---
PT Evaluation-General Medical Diagnosis Admission Date Jul 12, 2016 at 11:01 Medical Diagnosis: left hip fracture Onset Date: Jul 11, 2016 Therapy Diagnosis Therapy Diagnosis: impaired mobility, strength, balance, endurance Height/Weight Height (Feet): 5 Height (Inches): 4.00 Weight (Pounds): 130 Weight (Ounces): 8.0 Weight Bear Status Weight Bearing Restriction: Weight Bearing/Tolerated Location Restriction: L LE Referral Physician: Rangel Reason for Referral: Evaluation/Treatment Medical History Pertinent Medical History: Atrial Fib, Arthritis, CAD, GERD, OA Additional Medical History Osteopenia, A fib, fibromyalgia, anxiety Current History Pt slipped on papers on the floor at home, fell, sustained a left hip fracture. Post hemiarthroplasty. Reviewed History: Yes Social History Home: Single Level Current Living Status: Alone Entry Into Home: Level Entry Prior/Core FIM Prior Level of Function Functional [place] Measure 0=Not Assessed/NA 4=Minimal Assistance 1=Total Assistance 5=Supervision or Setup 2=Maximal Assistance 6=Modified [place] 3=Moderate Assistance 7=Complete [place] Bed Mobility: 7 Transfers (B,C,W/C) (FIM): 7 Gait: 7 PT Evaluation-Current Subjective Patient in bed pre tx, agrees to PT, will be starting patient's PT evaluation and transporting her downstairs to rehab. Pain Numeric Pain Scale: 0-No Pain Pt/Family Goals to be independent at home Objective Patient Orientation: Normal For Age ROM/Strength ROM Lower Extremities WNL except left hip not tested Strenght Lower Extremities NT due to recent surgery Integumentary/Posture Bowel Incontinence: No Bladder Incontinence: No Neuromuscular (Tone, Coordination, Reflexes) WNL Sensory Vision: Wears Glasses Hearing: Functional Sensation Right Lower Extremit: Intact Sensation Left Lower Extremity: Intact Transfers Functional [place] Measure 0=Not Assessed/NA 4=Minimal Assistance 1=Total Assistance 5=Supervision or Setup 2=Maximal Assistance 6=Modified [place] 3=Moderate Assistance 7=Complete IndependenceIRFPAI Quality Coding Scale 6 Independent with activity with or without an assistive device 5 Patient requires set up or clean up by helper. Patient completes activity by themselves 4 Supervision or touching assist (CGA). [place] provide cues , steadying assist 3 The helper provides less than half the effort to complete the activity 2 The helper provides more than half the effort to complete the activity 1 Dependent. The helper does all the effort to complete an activity 7 Patient refused to complete or attempt activity 9 The patient did not perform the activity before the current illness or injury 88 Not attempted due to Medical conditions or safety concerns Transfers (B, C, W/C) (FIM): 4 Scootin Rollin Roll Left to Right (QC): 4 Supine to/from Sit: 5 Sit to/from Stand: 4 bed t/f WC(FIM only if WC use): 4 Sit to Lying (QC): 4 Lying to Sitting/Side of Bed(Q: 4 Sit to Stand (QC): 4 Chair/Hce-rd-Flaeq Xfer(QC): 4 Car Transfer (QC): 88 Patient performs bed mobility with SBA and sit to stand and transfers with CGA. Cues for hand placement. Gait Does the Patient Walk?: Yes Mode of Locomotion: Walk Anticipated Mode of Locomotion: Walk Gait (FIM): 4 Walk 10 feet (QC): 4 Walk 50 ft with 2 Turns(QC): 4 Walk 150 ft (QC): 4 Walking 10ft/uneven surface-QC: 4 Distance: 150' Gait Level of Assist: 4 (CGA) Gait Persons Needed: 1 Gait Assistive Device: FWW Comments/Gait Description Patient ambulates with CGA and can go 10' over uneven surfaces like carpet, and can go 50' with at least 2 turns of 90 degrees. Slow, antalgic ambulation, she was very fatigued after 150'. Wheelchair Training Does the Pt Use a Wheelchair?: No Wheelchair (FIM): 0 Stairs Stairs (FIM): 2 #of Steps: 4 Level of Assist: 4 (CGA) 1 Step (curb) (QC): 4 4 Steps (QC): 4 12 Steps (QC): 88 cues for safety and foot placement Balance Sitting Static: Normal Sitting Dynamic: Normal Standing Static: Good Standing Dynamic: Good Picking up an Object (QC): 88 Treatment LE exercises in parallel bars x 20 (heel raises, hip abd, hamstring curls, step- ups, mini-squats) Assessment/Needs Patient has impaired mobility, strength, endurance post left hip fx. Rehab Potential: Good PT Short Term Goals Short Term Goals Time Frame: Jul 19, 2016 Transfers (B,C,W/C) (FIM): 5 Gait (FIM): 5 Gait Distance Comment: 200' Gait Level of Assist: 5 Gait Assistive Device: FWW PT Nursing Home Goals Hamper Maker Goals PT Hamper Maker Goals Time Frame: Aug 02, 2016 Transfers (B,C,W/C) (FIM): 6 Sit to Lying (QC): 6 Lying-Sitting on Side/Bed(QC): 6 Sit to Stand (QC): 6 Rollin Roll Left to Right (QC): 6 Chair/Kzd-ju-Ktljd Xfer(QC): 6 Car Transfer (QC): 4 Does the Patient Walk: Yes Gait (FIM): 6 Distance: 300' Walk 10 feet (QC): 6 Walk 10ft-Uneven Surface(QC): 6 Walk 50ft with 2 Turns (QC): 6 Walk 150 ft (QC): 6 Gait Assistive Device: FWW Stairs (FIM): 5 # of Steps: 12 1 Step (curb) (QC): 4 4 Steps (QC): 4 12 Steps (QC): 4 Stairs Level Of Assist: 5 Picking up an Object (QC): 88 PT Plan Problem List Problem List: Activity Tolerance, Functional Strength, Safety, Balance, Gait, Transfer, Bed Mobility, ROM Treatment/Plan Treatment Plan: Continue Plan of Care Treatment Plan: Bed Mobility, Education, Functional Activity Laya, Functional Strength, Group Therapy, Gait, Safety, Therapeutic Exercise, Transfers Treatment Duration: Aug 02, 2016 # of days/week 5-6 Visits Per Week: 10-11 Minutes/Day (M-F): 60-90 Minutes/Day (Sat/Garcia): 15-30 Pt/Family Agrees w/Plan: Yes Safety Risks/Education Patient Education: Gait Training, Transfer Techniques, Steps, Reviewed Precautions, Correct Positioning, Safety Issues Teaching Recipient: Patient Teaching Methods: Demonstration, Discussion Response to Teaching: Reinforcement Needed Discharge Recommendations Plan Patient will perform bed mobility and transfer training, balance and endurance training, functional strengthening, stair training, gait training, education, to improve functional mobility and independence at home. Therapy D/C Recommendations: Home w/ Family Support Time/GCodes Time In: 1100 Time Out: 1200 Total Billed Treatment Time: 60 Total Billed Treatment 1 visit EVL 15 min GT 15 min FA 15 min EX 15 min TRISTAN MORAN PT Jul 12, 2016 12:53
[2016-07-12] MEDS ORDERED: BISACODYL 10 MG SUPP (DULCOLAX) PR PRN (13:00)
--- NOTE | 2016-07-12 14:49 | Occupational Therapy Eval ---
OT Evaluation-General/PLF Medical Diagnosis Admission Date Jul 12, 2016 at 11:01 Medical Diagnosis: left hip fracture Onset Date: Jul 11, 2016 Therapy Diagnosis Therapy Diagnosis: Weakness, Decreased ADL skills Height/Weight Height (Feet): 5 Height (Inches): 4.00 Weight (Pounds): 137 Weight (Ounces): 6.0 Weight Bear Status Weight Bearing Restriction: Weight Bearing/Tolerated Location Restriction: L LE WBS (Ord/Comment): Hip precautions Referral Physician: Rangel Referral Reason: Activity Tolerance, Self Care, Evaluation/Treatment Medical History Pertinent Medical History: Atrial Fib, Arthritis, CAD, GERD, OA Current History Pt. fell at home, landing on her left hip. Spouse several months ago. Reviewed History: Yes Social History Home: Single Level Current Living Status: Alone Entry Into Home: Level Entry ADL-Prior Level of Function ADL PLOF Comments Pt. was independent previous to this injury. States that she was jogging up until 3 years ago. 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 DME/Equipment: Bath Chair, Shower DME/Equipment Comments Pt. has a cane and 4 wheeled walker, as well as a hand held shower hose and seat in her walk in shower. Pt. has an elevator in her home. 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 Drive Self: Yes OT Current Status Subjective No pain reported at this time. Appearance Pt. is in bed. Agrees to work with OT to shower. Mental Status/Objective Patient Orientation: Person, Place, Time, Situation Current Glasses/Contacts: Yes Hand Dominance: Right Upper Extremity ROM WFL Upper Extremity Coordination intact Upper Extremity Strength WFL ADL-Treatment Functional [place] Measure 0=Not Assessed/NA 4=Minimal Assistance 1=Total Assistance 5=Supervision or Setup 2=Maximal Assistance 6=Modified [place] 3=Moderate Assistance 7=Complete IndependenceIRFPAI Quality Coding Scale 6 Independent with activity with or without an assistive device 5 Patient requires set up or clean up by helper. Patient completes activity by themselves 4 Supervision or touching assist (CGA). [place] provide cues , steadying assist 3 The helper provides less than half the effort to complete the activity 2 The helper provides more than half the effort to complete the activity 1 Dependent. The helper does all the effort to complete an activity 7 Patient refused to complete or attempt activity 9 The patient did not perform the activity before the current illness or injury 88 Not attempted due to Medical conditions or safety concerns Eating (FIM): 6 Eating (QC): 6 Grooming (FIM): 5 (set up) Oral Hygiene (QC): 5 Bathing (FIM): 3 (Mod assist to bathe bilateral LE due to hip precautions.) Shower/Bathe Self (QC): 3 Upper Body Dressing (FIM): 5 (set up) Upper Body Dressing (QC): 5 Lower Body Dressing (FIM): 2 (Max assist due to hip precautions for underwear, pants, socks, and NUHA hose.) Lower Body Dressing (QC): 2 On/Off Footwear (QC): 2 Toileting (FIM): 5 (Set up) Toileting Hygiene (QC): 5 Transfers (B, C, W/C) (FIM): 5 Toilet/Commode Transfer (FIM): 5 Toilet Transfer (QC): 5 Shower Transfer (FIM): 4 (CGA) OT Short Term Goals Short Term Goals Transfers (B,C,W/C) (FIM): 5 1=Demonstrate adherence to instructed precautions during ADL tasks. 2=Patient will verbalize/demonstrate understanding of assistive devices/ modifications for ADL. 3=Patient will improve strength/tolerance for activity to enable patient to perform ADL's. OT Detention Goals Detention Goals Time Frame: Jul 26, 2016 Eating (FIM): 6 Eating (QC): 6 Oral Hygiene (QC): 6 Grooming(FIM): 6 Bathing(FIM): 5 Shower/Bathe Self (QC): 5 Upper Body Dressing(FIM): 6 Upper Body Dressing (QC): 6 Lower Body Dressing(FIM): 6 Lower Body Dressing (QC): 6 On/Off Footwear (QC): 6 Toileting(FIM): 6 Toileting Hygiene (QC): 6 Transfers (B,C,W/C) (FIM): 6 Toilet/Commode Transfer(FIM): 6 Toilet/Commode Transfer (QC): 6 Shower Transfer(FIM): 5 Additional Goals: 1-Demonstrate ADL Tasks, 2-Verbalize Understanding, 3- ImproveStrength/Laya 1=Demonstrate adherence to instructed precautions during ADL tasks. 2=Patient will verbalize/demonstrate understanding of assistive devices/ modifications for ADL. 3=Patient will improve strength/tolerance for activity to enable patient to perform ADL's. OT Education/Plan Problem List/Assessment Assessment: Decreased Activ Tolerance, Impaired I ADL's, Impaired Self-Care Skills Discharge Recommendations Plan/Recommendations: Continue POC Therapy D/C Recommendations: Home w/ Family Support, Occupational Therapy Home Care Equpiment Recommendations-D/C: Hip Kit Target Placement Home with family support and home health. Treatment Plan/Plan of Care Treatment,Training & Education: Yes Patient would benefit from OT for education, treatment and training to promote independence in ADL's, mobility, safety and/or upper extremity function for ADL' s. Plan of Care: ADL Retraining, Functional Mobility, Group Exercise/Act as Ind, UE Funct Exercise/Act Treatment Duration: Jul 26, 2016 # of days/week 5-6 Visits Per Week: 10-12 Agreement: Yes Rehab Potential: Good Time/GCodes Start Time: 13:00 Stop Time: 14:20 Total Time Billed (hr/min): 80 Billed Treatment Time 1, EVMod x 20minutes, ADL x 60minutes CARLOS LAUREN OT Jul 12, 2016 14:49
--- NOTE | 2016-07-12 15:15 | ST Cognitive Linguistic Eval ---
Speech Evaluation-General Medical Diagnosis left hip fracture Onset Date: Jul 11, 2016 Therapy Diagnosis Therapy Diagnosis: Questionable Cognitive Impairment Precautions Precautions/Isolations: Fall Prevention, Standard Precautions Referral Referring Physician: Dr. Alan Multani Reason for Referral: Evaluation/Treatment Cognitive Screen Medical History Pertinent Medical History: Atrial Fib, Arthritis, CAD, GERD, OA Reviewed History: Yes Social History Current Living Status: Alone Speech PLF-Current Status Prior Level of Function The patient denied challenges with speech, language, or cognition prior to or throughout her hospitalization. Subjective The patient was recently admitted to [facility] following a hip fracture. The patient greeted the clinician appropriately and agreed to participate in the cognitive screen on this date. Language Eval: Auditory Comprehends Simple Yes/No Ques: Functional Indent/Objects Multiple [place]: Functional Ident/Pics in Multiple [place]: Functional Follows 1-Step Commands: Functional Follows Complex Directions: Functional Follows General Conversations: Functional Language Eval: Verbal Language Completes Spontaneous Greeting: Functional Produces Auto, Serial Info: Functional Imitates Simple Words/Phrases: Functional Word Finding: Functional Requests Basic Needs: Functional States Basic Personal Info: Functional Expresses Complex Ideas: Functional Cognitive Patient Orientation The patient was alert and oriented x3. Objective Cognitive Domain Attention: WNL Memory: WNL Problem Solving: Functional Executive Functions: WNL Objective Impression The patient demonstrated cognitive linguistic skills within normal limits for completion of ADL's. Communication/Social Cognition Comprehension: 6 Expression: 7 Social Interaction: 7 Problem Solvin Memory: 6 Speech Patient Assess Expression of Ideas/Wants: Expression (4) Understanding [place] Content: Understands (4) Brief Interview-Mental Status: Yes Repetition of Three Words: Three (3) Temporal Orientation: Year: Correct (3) Temporal Orientation: Month: Accurate within 5 days(2) Temporal Orientation: Day: Correct (1) Recall : Wear: Yes, no cue required (2) Recall : Color: Yes, no cue required (2) Recall : Bed: Yes, no cue required (2) Speech-Plan Treatment Plan Speech Therapy Treatment Plan: Discontinue ST (Eval, only.) Rehab Potential: Good Safety Risks/Education Teaching Recipient: Patient Teaching Methods: Discussion Response to Teaching: Verbalize Understanding Education Topics Provided: Plan of Care Time Speech Therapy Time In: 14:45 Speech Therapy Time Out: 15:00 Total Billed Time: 15 Billed Treatment Time 1ALEXA ELIZABETH ST Jul 12, 2016 15:15
--- NOTE | 2016-07-12 15:30 | Physical Therapy Daily Note ---
PT Daily Note-Current Subjective Patient in bed pre tx, agrees to PT, pleasant and cooperative. Patient states she does not have any pain but her left leg is stiff. Appearance Patient in bed post tx with nurse call, phone, tray, all needs met. Mental Status Patient Orientation: Normal For Age Transfers Functional [place] Measure 0=Not Assessed/NA 4=Minimal Assistance 1=Total Assistance 5=Supervision or Setup 2=Maximal Assistance 6=Modified [place] 3=Moderate Assistance 7=Complete IndependenceIRFPAI Quality Coding Scale 6 Independent with activity with or without an assistive device 5 Patient requires set up or clean up by helper. Patient completes activity by themselves 4 Supervision or touching assist (CGA). [place] provide cues , steadying assist 3 The helper provides less than half the effort to complete the activity 2 The helper provides more than half the effort to complete the activity 1 Dependent. The helper does all the effort to complete an activity 7 Patient refused to complete or attempt activity 9 The patient did not perform the activity before the current illness or injury 88 Not attempted due to Medical conditions or safety concerns Transfers (B, C, W/C) (FIM): 5 Scootin Rollin Supine to/from Sit: 6 Sit to/from Stand: 5 Gait Training Gait (FIM): 5 Distance: 150'x2 Gait Level of Assist: 5 Gait Persons Needed: 1 Gait Assistive Device: FWW slow, antalgic, good heel strike Exercises Standing: Sit to Stand Standing Reps: 15 NuStep Minutes: 10 NuStep Workload: 2 Treatments functional strengthening, bed mobility and transfers, gait training Assessment Current Status: Fair Progress improving mobility PT Short Term Goals Short Term Goals Time Frame: Jul 19, 2016 Transfers (B,C,W/C) (FIM): 5 Gait (FIM): 5 Gait Distance Comment: 200' Gait Level of Assist: 5 Gait Assistive Device: FWW PT Residential Goals Residential Goals PT Blackjack Pit Boss Goals Time Frame: Aug 02, 2016 Transfers (B,C,W/C) (FIM): 6 Sit to Lying (QC): 6 Lying-Sitting on Side/Bed(QC): 6 Sit to Stand (QC): 6 Rollin Roll Left to Right (QC): 6 Chair/Hjn-cc-Pqatr Xfer(QC): 6 Car Transfer (QC): 4 Does the Patient Walk: Yes Gait (FIM): 6 Distance: 300' Walk 10 feet (QC): 6 Walk 10ft-Uneven Surface(QC): 6 Walk 50ft with 2 Turns (QC): 6 Walk 150 ft (QC): 6 Gait Assistive Device: FWW Stairs (FIM): 5 # of Steps: 12 1 Step (curb) (QC): 4 4 Steps (QC): 4 12 Steps (QC): 4 Stairs Level Of Assist: 5 Picking up an Object (QC): 88 PT Plan Problem List Problem List: Activity Tolerance, Functional Strength, Safety, Balance, Gait, Transfer Treatment/Plan Treatment Plan: Continue Plan of Care Treatment Plan: Bed Mobility, Education, Functional Activity Laya, Functional Strength, Group Therapy, Gait, Safety, Therapeutic Exercise, Transfers Treatment Duration: Aug 02, 2016 Visits Per Week: 10-11 Minutes/Day (M-F): 60-90 Minutes/Day (Sat/Garcia): 15-30 Safety Risks/Education Patient Education: Gait Training, Transfer Techniques, Safety Issues Teaching Recipient: Patient Teaching Methods: Demonstration, Discussion Response to Teaching: Reinforcement Needed Time/GCodes Time In: 1500 Time Out: 1530 Total Billed Treatment Time: 30 Total Billed Treatment 1 visit GT 15 min EX 15 min TRISTAN MORAN PT Jul 12, 2016 15:29
[2016-07-12] MEDS ORDERED: FLU TRIvalent (5 YOA+) 2016-17 (AFLURIA) 0.5 ML IM ONE (15:45)
[2016-07-12] MEDS: ACETAMINOPHEN 500 MG TAB (TYLENOL) PO PRN (16:29)
[2016-07-12 17:44] VITALS: BP 127/72
[2016-07-12] MEDS: RT-FLUTICASONE 110 MCG (FLOVENT) PER PUFF IH SCH (19:13)
[2016-07-12] MEDS: SENNA W/DOCUSATE (SENOKOT S) TABLET PO SCH (20:10)
[2016-07-12] MEDS: guaiFENesin (MUCINEX) 600 MG TAB PO SCH (20:10)
[2016-07-12] MEDS: HYDROcodone/APAP 10 MG/325 MG (LORTAB) TAB PO PRN (20:11)
[2016-07-12] MEDS: GABAPENTIN 100 MG (NEURONTIN) CAP PO PRN (23:11)
[2016-07-13] MEDS: HYDROcodone/APAP 10 MG/325 MG (LORTAB) TAB PO PRN ×4 (00:06→17:36)
[2016-07-13 05:11] VITALS: BP 120/78
[2016-07-13 06:28] LABS: BASOPHILS % (AUTO) 0 % (0-10); EOSINOPHILS # (AUTO) 0.1 10^3/uL (0.0-0.3); EOSINOPHILS % (AUTO) 2 % (0-10); LYMPHOCYTES # (AUTO) 1.5 X 10^3 (1.0-4.0); LYMPHOCYTES % (AUTO) 16 % (12-44); MEAN CORPUSCULAR HEMOGLOBIN 30 PG (25-34); MEAN CORPUSCULAR HGB CONC 34 G/DL (32-36); MEAN CORPUSCULAR VOLUME 90 FL (80-99); MEAN PLATELET VOLUME 9.2 FL (7.4-10.4); MONOCYTES # (AUTO) 0.7 X 10^3 (0.0-1.0); MONOCYTES % (AUTO) 7 % (0-12); NEUTROPHILS # (AUTO) 6.9 X 10^3 (1.8-7.8); NEUTROPHILS % (AUTO) 75 % (42-75); PLATELET COUNT 257 10^3/uL (130-400); RED BLOOD COUNT 3.78 10^6/uL (4.35-5.85); RED CELL DISTRIBUTION WIDTH 13.6 % (10.0-14.5); WHITE BLOOD COUNT 9.2 10^3/uL (4.3-11.0)
[2016-07-13 06:56] LABS: ALANINE AMINOTRANSFERASE 29 U/L (0-55); ALBUMIN 2.8 G/DL (3.2-4.5); ANION GAP 9 MMOL/L (5-14); ASPARTATE AMINO TRANSFERASE 22 U/L (5-34); BILIRUBIN,TOTAL 0.5 MG/DL (0.1-1.0); BLOOD UREA NITROGEN 6 MG/DL (7-18); BUN/CREATININE RATIO 12; CALCIUM 8.3 MG/DL (8.5-10.1); CARBON DIOXIDE 25 MMOL/L (21-32); CHLORIDE 106 MMOL/L (98-107); CREATININE SERUM 0.52 MG/DL (0.60-1.30); GFR ESTIMATED > 60; GLUCOSE 102 MG/DL (70-105); POTASSIUM 3.3 MMOL/L (3.6-5.0); SODIUM 140 MMOL/L (135-145); TOTAL PROTEIN 4.9 G/DL (6.4-8.2)
[2016-07-13] MEDS: RT-FLUTICASONE 110 MCG (FLOVENT) PER PUFF IH SCH ×2 (07:22→19:39)
--- NOTE | 2016-07-13 08:00 | Progress Note (SOAP) ---
Subjective Subjective/Events-last exam POD #3, consulted at rehab unit due to increased pain/swelling and some erythema at surgical site Objective Exam Vital Signs Date Time Temp Pulse Resp B/P Pulse Ox O2 Delivery O2 Flow Rate FiO2 07/13/16 07:22 96 Room Air 07/13/16 05:11 99.7 77 18 120/78 91 Room Air 07/12/16 20:10 Room Air 07/12/16 19:13 Room Air 07/12/16 17:44 98.9 80 16 127/72 96 Room Air 07/12/16 17:11 100.2 07/12/16 17:00 100.2 07/12/16 16:10 100.1 07/12/16 11:59 98.8 103 16 146/87 92 I & O 07/13/16 07:00 Intake Total 2550 ml Balance 2550 ml Capillary Refill : Less Than 3 Seconds General Appearance: No Apparent Distress Extremity: Normal Capillary Refill No Calf Tenderness Neurologic/Psychiatric: Alert Oriented x3 No Motor/Sensory Deficits Normal Mood/Affect Skin: Normal Color Warm/Dry (mild warmth and trace erythema to surgical site at l hip, no fluctuants or drainage) Results Lab Laboratory Tests 07/13/16 06:15: Alanine Aminotransferase (ALT/SGPT) 29, Albumin 2.8L, Alkaline Phosphatase 47, Anion Gap 9, Aspartate Amino Transf (AST/SGOT) 22, BUN/Creatinine Ratio 12, Basophils # (Auto) 0.0, Basophils (%) (Auto) 0, Blood Urea Nitrogen 6L, Calcium Level 8.3L, Carbon Dioxide Level 25, Chloride Level 106, Creatinine 0.52L, Eosinophils # (Auto) 0.1, Eosinophils (%) (Auto) 2, Estimat Glomerular Filtration Rate > 60, Glucose Level 102, Hematocrit 34L, Hemoglobin 11.5, Lymphocytes # (Auto) 1.5, Lymphocytes (%) (Auto) 16, Mean Corpuscular Hemoglobin 30, Mean Corpuscular Hemoglobin Concent 34, Mean Corpuscular Volume 90, Mean Platelet Volume 9.2, Monocytes # (Auto) 0.7, Monocytes (%) (Auto) 7, Neutrophils # (Auto) 6.9, Neutrophils (%) (Auto) 75, Platelet Count 257, Potassium Level 3.3L, Red Blood Count 3.78L, Red Cell Distribution Width 13.6, Sodium Level 140, Total Bilirubin 0.5, Total Protein 4.9L, White Blood Count 9.2 Assessment/Plan Assessment/Plan Assess & Plan/Chief Complaint A: S/P Left hip bipolar femoral hemiarthroplasty, possible early cellulitis P: Continue current treatment, cleocin 300mg TID x 7 days Diagnosis/Problems: Clinical Quality Measures DVT/VTE Risk/Contraindication: Risk Factor Score Per Nursin RFS Level Per Nursing on Admit: 4+=Very High QUENTIN CLEVELAND APRN Jul 13, 2016 8:00 am
[2016-07-13] MEDS: guaiFENesin (MUCINEX) 600 MG TAB PO SCH ×2 (08:30→21:21)
[2016-07-13] MEDS: SENNA W/DOCUSATE (SENOKOT S) TABLET PO SCH ×2 (08:30→21:21)
[2016-07-13] MEDS: ASPIRIN E.C. 325 MG (ECOTRIN) TABLET PO SCH (08:30)
[2016-07-13] MEDS: ENOXAPARIN 40 MG/0.4 ML (LOVENOX) SYR SC SCH (08:30)
[2016-07-13] MEDS: CLINDAMYCIN 150 MG (CLEOCIN) CAP PO SCH ×3 (08:55→21:21)
[2016-07-13] MEDS ORDERED: KCL 20 MEQ TAB (K-DUR) PO NR (10:04)
--- NOTE | 2016-07-13 10:17 | Occupational Ther Daily Note ---
OT Current Status-Daily Note Subjective Pt. does not report pain in her hip, but does report some soreness on instep of right foot. OT observed it, and only small red area is noticeable. Pt. states that she had a pain pill earlier. No redness or swelling noted of right foot noted. Appearance Pt. is in bed. Is already dressed with makeup on. Pt. states that she spongebathed this morning all ready, and had nursing assist her with dressing. Declines shower right now. Mental Status/Objective Patient Orientation: Person, Place, Time, Situation Functional [place] Measure 0=Not Assessed/NA 4=Minimal Assistance 1=Total Assistance 5=Supervision or Setup 2=Maximal Assistance 6=Modified [place] 3=Moderate Assistance 7=Complete [place] ADL-Treatment Functional [place] Measure 0=Not Assessed/NA 4=Minimal Assistance 1=Total Assistance 5=Supervision or Setup 2=Maximal Assistance 6=Modified [place] 3=Moderate Assistance 7=Complete IndependenceIRFPAI Quality Coding Scale 6 Independent with activity with or without an assistive device 5 Patient requires set up or clean up by helper. Patient completes activity by themselves 4 Supervision or touching assist (CGA). Serafina provide cues , steadying assist 3 The helper provides less than half the effort to complete the activity 2 The helper provides more than half the effort to complete the activity 1 Dependent. The helper does all the effort to complete an activity 7 Patient refused to complete or attempt activity 9 The patient did not perform the activity before the current illness or injury 88 Not attempted due to Medical conditions or safety concerns Eating (FIM): 6 Eating (QC): 6 Lower Body Dressing (FIM): 5 (Pt. practiced doffing/donning shoes and socks using adaptive equipment after skilled instruction.) Lower Body Dressing (QC): 5 On/Off Footwear (QC): 5 Transfers (B, C, W/C) (FIM): 4 (Pt. required min assist for supine-sit, but SBA for sit-stand and all other transfers. Pt. able to get feet back into bed.) Pt. ambulated to therapy gym. OT educated her on adaptive equipment. Also educated her again on hip precautions and protocol. Pt. verbalizes understanding. Pt. practiced doffing/donning shoes and socks. OT applied elastic laces to shoes for her. Pt. able to doff and don shoes with adaptive equipment with SBA. After ADL training, pt. tolerated 10 minutes on armbike to increase overall strength. Pt. states, "this feels good." Education OT Patient Education: Exercise program, Modified ADL techniques, Progress toward Goal/Update tx plan, Purpose of tx/functional activities, Reviewed precautions, Rehab process, Transfer techniques Teaching Recipient: Patient Teaching Methods: Demonstration, Discussion Response to Teaching: Verbalize Understanding, Return Demonstration OT Short Term Goals Short Term Goals Transfers (B,C,W/C) (FIM): 5 1=Demonstrate adherence to instructed precautions during ADL tasks. 2=Patient will verbalize/demonstrate understanding of assistive devices/ modifications for ADL. 3=Patient will improve strength/tolerance for activity to enable patient to perform ADL's. OT Cigarette Roller Goals Fpc Goals Time Frame: Jul 26, 2016 Eating (FIM): 6 Eating (QC): 6 Oral Hygiene (QC): 6 Grooming(FIM): 6 Bathing(FIM): 5 Shower/Bathe Self (QC): 5 Upper Body Dressing(FIM): 6 Upper Body Dressing (QC): 6 Lower Body Dressing(FIM): 6 Lower Body Dressing (QC): 6 On/Off Footwear (QC): 6 Toileting(FIM): 6 Toileting Hygiene (QC): 6 Transfers (B,C,W/C) (FIM): 6 Toilet/Commode Transfer(FIM): 6 Toilet/Commode Transfer (QC): 6 Shower Transfer(FIM): 5 Additional Goals: 1-Demonstrate ADL Tasks, 2-Verbalize Understanding, 3- ImproveStrength/Laya 1=Demonstrate adherence to instructed precautions during ADL tasks. 2=Patient will verbalize/demonstrate understanding of assistive devices/ modifications for ADL. 3=Patient will improve strength/tolerance for activity to enable patient to perform ADL's. OT Education/Plan Problem List/Assessment Assessment: Decreased Activ Tolerance, Impaired I ADL's, Impaired Self-Care Skills Discharge Recommendations Plan/Recommendations: Continue POC Therapy D/C Recommendations: Home w/ Family Support, Occupational Therapy Home Care Equpiment Recommendations-D/C: Hip Kit Treatment Plan/Plan of Care Treatment,Training & Education: Yes Patient would benefit from OT for education, treatment and training to promote independence in ADL's, mobility, safety and/or upper extremity function for ADL' s. Plan of Care: ADL Retraining, Functional Mobility, Group Exercise/Act as Ind, UE Funct Exercise/Act Treatment Duration: Jul 26, 2016 Visits Per Week: 10-12 Agreement: Yes Rehab Potential: Good Time/GCodes Start Time: 08:45 Stop Time: 09:45 Total Time Billed (hr/min): 60 Billed Treatment Time 1, ADL x 45minutes, Ex x 15minutes CARLOS LAUREN OT Jul 13, 2016 10:17
[2016-07-13] MEDS: LACTULOSE SYRUP 10GM/15ML (ENULOSE) 30ML UDC PO SCH ×2 (10:24→21:21)
--- NOTE | 2016-07-13 11:06 | Progress Note-Hospitalist ---
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 Pt was started on Cleocin TID 300 po. Pt will be iced and elevated. Low-grade fever. Patient Interview: Pt states that her recently. Pt states that she slipped and fell and hurt severely. Pt took 1.5 hours to reach her phone. Pt has been having tachycardia due to stress, and was getting cramps in her toes. Physical exam reveals redness on hip and slight warmth. Pt denies having regular BMs due to pain meds. Pt has some pain in her right foot, and suspects that she may have damaged it while crawling to her phone. Her foot has not had an x-ray, and the pain did not start until yesterday. Tm 100.2, pleasant, O x 3 RRR, CTAB No rales noted left lateral hip surgical site with erythema around it no fluctuance 1. Left intertrochanteric hip fracture w/superficial cellulitis placed empirically on Cleocin 2. Hx of atrial fibrillation in addition to possible PSVT 3. Past history of osteopenia likely osteoporosis either way with current fracture would meet criteria for treatment. She was advised to discuss this with Dr. Toledo on return office visit. 4. Constipation 5. Right foot pain sustained in fall checking xray Plan: Lactulose Cleocin TID 300 PO X-ray right foot One-time K+ dose Scribed by Teddy Michele under the direct supervision of Dr. Quintero. ALMITA QUINTERO DO Jul 13, 2016 11:06
--- NOTE | 2016-07-13 11:36 | HISTORY AND PHYSICAL ---
DATE OF ADMISSION: 07/12/2016 CHIEF COMPLAINT: Difficulty with walking. HISTORY OF PRESENT ILLNESS: The patient is a 71-year-old female when she slipped on some paper home falling onto her left hip. She was brought to ED and a femoral neck fracture was discovered of the left hip. She went on to have repair with Dr. Naranjo, orthopedics. She was followed by hospitalist service in lieu of Dr. Toledo. She is now referred to Inpatient Rehabilitation Unit. H&H on 07/11 was 11.4/23. WBC count 11.9. She was referred to Inpatient Rehabilitation Unit for comprehensive orthopedic inpatient rehabilitation. She had been independent prior to this and living alone. She is a recent . She has a supportive son nearby as well as a daughter. She is on Lovenox subcutaneous for DVT prophylaxis. She is utilizing Lortab generic and tramadol for pain control. She is on Senokot-S for constipation. Currently she is min assist for transfers and ambulation with a wheeled walker. She is weight-bearing as tolerated left lower extremity. She reports that she has been jogging up until 3 years ago. 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 She is currently modified independent for eating is set up for oral hygiene, upper body dressing. Max assist for lower body dressing. Mod assist for bathing and showers. PAST MEDICAL HISTORY: 1. Paroxysmal SVT. 2. Atrial fibrillation. 3. Coronary artery disease. 4. Hypercholesteremia. 5. Seen by Dr. Birch in the past. 6. She reports some numbness in the right hand and right foot. 7. GERD. 8. Osteoarthritis. 9. Fibromyalgia. PAST SURGICAL HISTORY: 1. Ganglion cyst removed from the right ankle. 2. Adenoidectomy. 3. Cholecystectomy. 4. Tonsillectomy. ALLERGIES: 1. CIPRO. 2. SHELL FISH. FAMILY HISTORY: Noncontributory. SOCIAL HISTORY: No tobacco, recent . Has been independent prior to this. REVIEW OF SYSTEMS: Ten-point review of systems significant for hip pain, some numbness in hands and right foot. Irregular heart beat. MEDICATIONS: 1. ASA 325 mg p.o. daily. 2. Lovenox 40 mg subcutaneous daily. 3. Senokot-S 1 tablet p.o. b.i.d. 4. Guaifenesin 600 mg p.o. b.i.d. 5. Flovent 1 puff b.i.d. 6. Tramadol 50 mg p.o. q.6 hours p.r.n. moderate pain. 7. Gabapentin 100 mg p.o. at bedtime p.r.n. 8. Lortab 10, 1 tablet p.o. q.4 hours p.r.n. moderate pain. 9. Dulcolax suppository 10 mg p.r.n. constipation. PHYSICAL EXAMINATION: Physical examination is significant for a pleasant female, appearing her stated age, alert and oriented in no acute distress. She is afebrile. Pulse is 103, respirations 16, blood pressure 146/87, O2 sat 92% on room air. HEENT: Vision, speech, hearing, grossly intact. No oral lesions noted. NECK: Supple without mass HEART: Regular rhythm. LUNGS: Clear. ABDOMEN: Soft, nontender. Bowel sounds present. EXTREMITIES: Some edema in the left ankle. No calf tenderness. MUSCULOSKELETAL: She has functional active range of motion in both upper extremities and right lower extremity. Left lower extremity limited at the hip due to recent fracture and repair and pain. Distal strength good. Sensation grossly intact to touch. Cognition grossly intact. IMPRESSION: 1. Ambulatory dysfunction secondary to fall with resulting left femoral neck fracture, status post repair Dr. Naranjo. 2. History of atrial fibrillation, currently in regular rhythm. 3. Asthma on inhaler, quiescent at this time. 4. Postop DVT prophylaxis on Lovenox subcutaneous. PLAN: The patient is admitted to Inpatient Rehabilitation Unit for comprehensive program of inpatient orthopedic rehabilitation with goal by size and level of functional dependence prior to discharge home the family and home health care. The patient will have PT/OT 90 minutes per day each discipline, 5 days week for gait strengthening, conditioning, balance, ADLs, any patient family caregiver training necessary, any adaptive equipment and training necessary. Speech therapy to do cognitive assessment and treat as indicated. Rehabilitation nursing assist with bowel, bladder, skin, wound care, medication administration, pain management. manager managed backup services to assist with discharge planning, community reentry and therapy with cardiac and fall precautions. Follow-up with Dr. Naranjo and hospitalist service as per their schedules. ESTIMATED LENGTH OF STAY: Two weeks. PROGNOSIS: Good goals and discharge home with her family and home health care, modified independent to supervision for ADLs and mobility skills. CODE STATUS: Full code. POST ADMISSION PHYSICIAN ASSESSMENT: The preadmission screen agrees with the post admission assessment that the patient is okay for inpatient rehabilitation. She appears to be well motivated to participate in 3 hours of therapy a day. She should be able tolerate 3 hours of therapy a day from a medical and orthopedic standpoint. She should benefit from the 3 hours of therapy a day. She has reasonable discharge plan, reasonable discharge rehabilitation goals and a supportive family. She has various comorbidities that need to be closely monitored with medications and treatments adjusted on a daily basis as needed. These include a history of atrial fibrillation and asthma. Barriers to discharge for this patient are for her to be modified independent to supervision for ADLs and mobility skills prior to discharge home with family, home health care should lessen the burden of the caregivers. Risks for this patient include: 1. Recurrent fall. 2. Fracture. 3. Wound infection. 4. Skin breakdown. 5. DVT. 6. Pulmonary embolism. 7. Urinary retention. 8. UTI. 9. Respiratory infection. 10. Aspiration. 11. Recurrent atrial fibrillation. 12. Recurrent bout of asthma. 13. Poorly controlled pain. Job ID: [id number] Dictated Date: 07/12/2016 16:10:45 Improvement Coordinator Date: 07/13/2016 11:07:28/arlet
--- NOTE | 2016-07-13 12:11 | Diagnostic Imaging Report ---
Two views of the right foot. INDICATION: Right medial foot pain and tenderness. FINDINGS: There is mild hallux valgus deformity. There is degenerative change at the interphalangeal joints which are slightly flexed and demonstrate overlapping appearance with limited evaluation on this two-view study. Degenerative sclerotic changes at the tarsometatarsal joints seen. There are calcaneal spurs noted. No radiopaque foreign body. No definite fracture seen. IMPRESSION: Hallux valgus. Degenerative changes. Dictated by: Dictated on workstation # [id number]
--- NOTE | 2016-07-13 12:12 | Physical Therapy Daily Note ---
PT Daily Note-Current Subjective Pt. agrees to Rx. States she has had some discomfort in her right foot today and feels it may be an injury that actually happened when she fell that is just now showing up. This CHIMNEY BUILDER BRICK suggested pt. wear her good support athletic shoes for Rx and pt. agreed and states this helps alot. Pain Numeric Pain Scale: 0-No Pain Mental Status Patient Orientation: Normal For Age Transfers Functional [place] Measure 0=Not Assessed/NA 4=Minimal Assistance 1=Total Assistance 5=Supervision or Setup 2=Maximal Assistance 6=Modified [place] 3=Moderate Assistance 7=Complete IndependenceIRFPAI Quality Coding Scale 6 Independent with activity with or without an assistive device 5 Patient requires set up or clean up by helper. Patient completes activity by themselves 4 Supervision or touching assist (CGA). [place] provide cues , steadying assist 3 The helper provides less than half the effort to complete the activity 2 The helper provides more than half the effort to complete the activity 1 Dependent. The helper does all the effort to complete an activity 7 Patient refused to complete or attempt activity 9 The patient did not perform the activity before the current illness or injury 88 Not attempted due to Medical conditions or safety concerns Transfers (B, C, W/C) (FIM): 6 Scootin Rollin Supine to/from Sit: 6 Sit to/from Stand: 6 Bed to/from Chair: 6 Weight Bearing Weight Bearing Restriction: Weight Bearing/Tolerated Location Restriction: R LE Gait Training Does the Patient Walk?: Yes Gait (FIM): 5 Distance (FIM): 3=150 ft (x2) Gait Level of Assist: 5 Gait Persons Needed: 1 Gait Assistive Device: FWW slow, careful but no LOB Stair Training Stair Training: Handrails/: 2 handrails Stairs (FIM): 5 #of Steps: 4 Stairs: Pattern: Step to Level of Assist: 5 household exception Exercises Supine Ex: Ankle pumps, Quad Set, Rolling, Glut sets, Heel Slides, Short Arc Quads, Scooting, Straight leg raise (assist), Hip abd/add NuStep Minutes: 11 NuStep Workload: 2 Assessment Current Status: Good Progress PT Short Term Goals Short Term Goals Time Frame: Jul 19, 2016 Transfers (B,C,W/C) (FIM): 5 Gait (FIM): 5 Gait Distance Comment: 200' Gait Level of Assist: 5 Gait Assistive Device: FWW PT Prison Goals Prison Goals PT Drilling Fluids Specialist Goals Time Frame: Aug 02, 2016 Transfers (B,C,W/C) (FIM): 6 Sit to Lying (QC): 6 Lying-Sitting on Side/Bed(QC): 6 Sit to Stand (QC): 6 Rollin Roll Left to Right (QC): 6 Chair/Iwo-be-Vlxit Xfer(QC): 6 Car Transfer (QC): 4 Does the Patient Walk: Yes Gait (FIM): 6 Distance: 300' Walk 10 feet (QC): 6 Walk 10ft-Uneven Surface(QC): 6 Walk 50ft with 2 Turns (QC): 6 Walk 150 ft (QC): 6 Gait Assistive Device: FWW Stairs (FIM): 5 # of Steps: 12 1 Step (curb) (QC): 4 4 Steps (QC): 4 12 Steps (QC): 4 Stairs Level Of Assist: 5 Picking up an Object (QC): 88 PT Plan Treatment/Plan Treatment Plan: Continue Plan of Care Treatment Plan: Bed Mobility, Education, Functional Activity Laya, Functional Strength, Group Therapy, Gait, Safety, Therapeutic Exercise, Transfers Treatment Duration: Aug 02, 2016 Visits Per Week: 10-11 Minutes/Day (M-F): 60-90 Minutes/Day (Sat/Garcia): 15-30 Safety Risks/Education Patient Education: Gait Training, Transfer Techniques, Steps, Issued Written HEP Teaching Recipient: Patient, Primary Caregiver Teaching Methods: Discussion Response to Teaching: Verbalize Understanding, Return Demonstration, Reinforcement Needed Time/GCodes Time In: 1115 Time Out: 1215 Total Billed Treatment Time: 60 Total Billed Treatment 1,FA15m,GT20m,EX25m G Codes Necessary: JESSICA Schwarz CHIMNEY BUILDER BRICK Jul 13, 2016 12:11
--- NOTE | 2016-07-13 14:32 | PM & R (SOAP) Progress Note ---
Subjective Subjective/Events-last exam Patient was seen in her room this AM Discussed case with Ortho service appreciate their note and orders Patient with Low grade fever yesterday and possible cellulitis at incision site left hip.Patient sba to min assist for mobility Apppreciate Dr loving note c/o foot pain Xray done no frx but Hallux valgus and DJD Review of Systems Gastrointestinal: : Constipation Musculoskeletal: : foot pain: leg pain Objective Exam Last Set of Vital Signs Vital Signs Date Time Temp Pulse Resp B/P Pulse Ox O2 Delivery O2 Flow Rate FiO2 07/13/16 09:00 Room Air 07/13/16 07:22 96 07/13/16 05:11 99.7 77 18 120/78 Capillary Refill : Less Than 3 Seconds I&O Bad tableGeneral: Alert, Oriented X3, Cooperative, No Acute Distress HEENT: Atraumatic, PERRLA, EOMI, Mucous Memb Moist/[place] Neck: Supple, No JVD Lungs: Clear to Auscultation Heart: Regular Rate Abdomen: Normal Bowel Sounds, Soft, No Tenderness Extremities: Other (as per ortho note) Skin: Other (as per ortho note) Neuro: Other (weakness guarding left hip) Results Lab Laboratory Tests 07/13/16 06:15: Alanine Aminotransferase (ALT/SGPT) 29, Albumin 2.8L, Alkaline Phosphatase 47, Anion Gap 9, Aspartate Amino Transf (AST/SGOT) 22, BUN/Creatinine Ratio 12, Basophils # (Auto) 0.0, Basophils (%) (Auto) 0, Blood Urea Nitrogen 6L, Calcium Level 8.3L, Carbon Dioxide Level 25, Chloride Level 106, Creatinine 0.52L, Eosinophils # (Auto) 0.1, Eosinophils (%) (Auto) 2, Estimat Glomerular Filtration Rate > 60, Glucose Level 102, Hematocrit 34L, Hemoglobin 11.5, Lymphocytes # (Auto) 1.5, Lymphocytes (%) (Auto) 16, Mean Corpuscular Hemoglobin 30, Mean Corpuscular Hemoglobin Concent 34, Mean Corpuscular Volume 90, Mean Platelet Volume 9.2, Monocytes # (Auto) 0.7, Monocytes (%) (Auto) 7, Neutrophils # (Auto) 6.9, Neutrophils (%) (Auto) 75, Platelet Count 257, Potassium Level 3.3L, Red Blood Count 3.78L, Red Cell Distribution Width 13.6, Sodium Level 140, Total Bilirubin 0.5, Total Protein 4.9L, White Blood Count 9.2 Assessment/Plan Assessment S/p repair left fem neck frx Cellulitis left hip incision site antibiotics ordered foot pain-DJD Constipation under treatment. Plan Continue PT/OT wound care and antibiotics. Pain management Treat Constipation seee orders Team Conference held earlier today See report for full functional update and POC and AUSTIN ALDRICH MD Jul 13, 2016 14:32
--- NOTE | 2016-07-13 14:38 | Therapy Group Daily Note ---
Therapy Daily Group Note Patient Education Topic Other List Below (ARU description and expectations) Exercises LE Seated Exercise, UE Exercise Other/Notes Pt attended OT group this pm. Pt performed gait to/from group with FWW. Pt introduced self to group and actively participated in group discussion questions. Education provided regarding ARU and expectations. Pt attentive to education topics. Pt participated in group activity focusing on problem solving and peer interaction. Pt had good participation and demonstrated good problem solving. UE/LE exercises completed while seated and pt participated in hand-eye coordination balloon bat activity. Pt participated in memory activity and had no difficulty recalling information from previous group activity. Pt returned to room, in bed with needs met after session. Start Time: 13:00 Stop Time: 14:00 Total Billed Treatment Time: 60 Total Billed Treatment 1 visit, GRP(60minutes) JESSICA CRUMP OT Jul 13, 2016 14:38
[2016-07-13 18:00] VITALS: BP 150/88
[2016-07-13] MEDS: GABAPENTIN 100 MG (NEURONTIN) CAP PO PRN (21:21)
[2016-07-13] MEDS: ACETAMINOPHEN 500 MG TAB (TYLENOL) PO PRN (21:46)
[2016-07-14] MEDS: HYDROcodone/APAP 10 MG/325 MG (LORTAB) TAB PO PRN ×4 (01:18→20:42)
[2016-07-14 06:00] VITALS: BP 123/80
[2016-07-14] MEDS: RT-FLUTICASONE 110 MCG (FLOVENT) PER PUFF IH SCH ×2 (06:36→19:52)
[2016-07-14] MEDS: SENNA W/DOCUSATE (SENOKOT S) TABLET PO SCH ×2 (07:44→20:42)
[2016-07-14] MEDS: LACTULOSE SYRUP 10GM/15ML (ENULOSE) 30ML UDC PO SCH ×2 (07:44→20:42)
[2016-07-14] MEDS: CLINDAMYCIN 150 MG (CLEOCIN) CAP PO SCH ×3 (08:57→20:41)
[2016-07-14] MEDS: ASPIRIN E.C. 325 MG (ECOTRIN) TABLET PO SCH (08:57)
[2016-07-14] MEDS: guaiFENesin (MUCINEX) 600 MG TAB PO SCH ×2 (08:58→20:42)
[2016-07-14] MEDS: ENOXAPARIN 40 MG/0.4 ML (LOVENOX) SYR SC SCH (08:58)
--- NOTE | 2016-07-14 10:33 | PM & R (SOAP) Progress Note ---
Subjective Subjective/Events-last exam Patient was seen in her room this AM with RN Patient spiked a fever last night on clindamycin for cellulitis incison site Site covered with clean dry dressing at this time Patient has developed a rash on back with erythematous pruritic spots will Rx see orders.Patient Modified Independent for transfers Review of Systems pruritic rash Objective Exam Last Set of Vital Signs Vital Signs Date Time Temp Pulse Resp B/P Pulse Ox O2 Delivery O2 Flow Rate FiO2 07/14/16 06:00 98.4 88 18 123/80 95 Room Air Capillary Refill : Less Than 3 Seconds I&O Intake and Output 07/14/16 00:00 Intake Total 3500 ml Balance 3500 ml Intake Oral 3500 ml # Voids 7 General: Alert, Oriented X3, Cooperative, No Acute Distress HEENT: Atraumatic, PERRLA, EOMI, Mucous Memb Moist/[place] Neck: Supple, No JVD Lungs: Clear to Auscultation Heart: Regular Rate Abdomen: Normal Bowel Sounds, Soft, No Tenderness Extremities: Other (as per ortho note) Skin: Other (pruritic rash as per above) Neuro: Other (weakness guarding left hip) Results Lab Laboratory Tests 07/13/16 06:15: Alanine Aminotransferase (ALT/SGPT) 29, Albumin 2.8L, Alkaline Phosphatase 47, Anion Gap 9, Aspartate Amino Transf (AST/SGOT) 22, BUN/Creatinine Ratio 12, Basophils # (Auto) 0.0, Basophils (%) (Auto) 0, Blood Urea Nitrogen 6L, Calcium Level 8.3L, Carbon Dioxide Level 25, Chloride Level 106, Creatinine 0.52L, Eosinophils # (Auto) 0.1, Eosinophils (%) (Auto) 2, Estimat Glomerular Filtration Rate > 60, Glucose Level 102, Hematocrit 34L, Hemoglobin 11.5, Lymphocytes # (Auto) 1.5, Lymphocytes (%) (Auto) 16, Mean Corpuscular Hemoglobin 30, Mean Corpuscular Hemoglobin Concent 34, Mean Corpuscular Volume 90, Mean Platelet Volume 9.2, Monocytes # (Auto) 0.7, Monocytes (%) (Auto) 7, Neutrophils # (Auto) 6.9, Neutrophils (%) (Auto) 75, Platelet Count 257, Potassium Level 3.3L, Red Blood Count 3.78L, Red Cell Distribution Width 13.6, Sodium Level 140, Total Bilirubin 0.5, Total Protein 4.9L, White Blood Count 9.2 Assessment/Plan Assessment S/p repair left fem neck frx Cellulitis left hip incision site antibiotics ordered-with spikin fever at night foot pain-DJD Constipation under treatment Pruritic rash. Plan Continue PT/OT wound care and antibiotics. Pain management Treat Constipation seee orders Team Conference held yesterday See report for full functional update and POC and ELOS Treat rash-see orders Culture wound drainage if any F/U with Hospitalist service and Ortho as per their ischedule AUSTIN BE MD Jul 14, 2016 10:33
--- NOTE | 2016-07-14 11:11 | Occupational Ther Daily Note ---
OT Current Status-Daily Note Subjective No pain reported. Appearance Pt. is in her bed. Agrees to treatment. Mental Status/Objective Patient Orientation: Person, Place, Time, Situation Functional [place] Measure 0=Not Assessed/NA 4=Minimal Assistance 1=Total Assistance 5=Supervision or Setup 2=Maximal Assistance 6=Modified [place] 3=Moderate Assistance 7=Complete [place] ADL-Treatment Functional [place] Measure 0=Not Assessed/NA 4=Minimal Assistance 1=Total Assistance 5=Supervision or Setup 2=Maximal Assistance 6=Modified [place] 3=Moderate Assistance 7=Complete IndependenceIRFPAI Quality Coding Scale 6 Independent with activity with or without an assistive device 5 Patient requires set up or clean up by helper. Patient completes activity by themselves 4 Supervision or touching assist (CGA). [place] provide cues , steadying assist 3 The helper provides less than half the effort to complete the activity 2 The helper provides more than half the effort to complete the activity 1 Dependent. The helper does all the effort to complete an activity 7 Patient refused to complete or attempt activity 9 The patient did not perform the activity before the current illness or injury 88 Not attempted due to Medical conditions or safety concerns Grooming (FIM): 5 (Pt. able to blow dry hair, brush teeth, and put on makeup with set up seated at the sink.) Oral Hygiene (QC): 5 Toileting Hygiene (QC): 5 Bathing (FIM): 5 (Pt. is able to fully bathe self in shower using long handled sponge with SBA.) Upper Body (FIM): 5 Upper Body Dressing (QC): 5 Lower Body Dressing (FIM): 5 (Pt. able to don underwear, pants, socks, and shoes using adaptive equipment with SBA. Required several brief cues.) Lower Body Dressing (QC): 5 On/Off Footwear (QC): 5 Toileting (FIM): 5 (SBA) Transfers (B, C, W/C) (FIM): 5 (SBA to transfer to and from bed and onto toilet /chair/shower. Utilizes walker and grab bars in bathroom.) Toilet/Commode Transfer (FIM): 5 Toilet Transfer (QC): 5 Shower Transfer(FIM): 5 Shower/Bathe Self (QC): 5 Education OT Patient Education: Modified ADL techniques, Progress toward Goal/Update tx plan, Purpose of tx/functional activities, Reviewed precautions, Rehab process, Transfer techniques, Use of adapted equipment Teaching Recipient: Patient Teaching Methods: Demonstration, Discussion Response to Teaching: Verbalize Understanding, Return Demonstration OT Short Term Goals Short Term Goals Transfers (B,C,W/C) (FIM): 5 1=Demonstrate adherence to instructed precautions during ADL tasks. 2=Patient will verbalize/demonstrate understanding of assistive devices/ modifications for ADL. 3=Patient will improve strength/tolerance for activity to enable patient to perform ADL's. OT Snf Goals Snf Goals Time Frame: Jul 26, 2016 Eating (FIM): 6 Eating (QC): 6 Oral Hygiene (QC): 6 Grooming(FIM): 6 Bathing(FIM): 5 Shower/Bathe Self (QC): 5 Upper Body Dressing(FIM): 6 Upper Body Dressing (QC): 6 Lower Body Dressing(FIM): 6 Lower Body Dressing (QC): 6 On/Off Footwear (QC): 6 Toileting(FIM): 6 Toileting Hygiene (QC): 6 Transfers (B,C,W/C) (FIM): 6 Toilet/Commode Transfer(FIM): 6 Toilet/Commode Transfer (QC): 6 Shower Transfer(FIM): 5 Additional Goals: 1-Demonstrate ADL Tasks, 2-Verbalize Understanding, 3- ImproveStrength/Laya 1=Demonstrate adherence to instructed precautions during ADL tasks. 2=Patient will verbalize/demonstrate understanding of assistive devices/ modifications for ADL. 3=Patient will improve strength/tolerance for activity to enable patient to perform ADL's. OT Education/Plan Problem List/Assessment Assessment: Decreased Activ Tolerance, Impaired I ADL's, Impaired Self-Care Skills Discharge Recommendations Plan/Recommendations: Continue POC Therapy D/C Recommendations: Home w/ Family Support, Occupational Therapy Home Care Equpiment Recommendations-D/C: Hip Kit Target Placement Home with assist from family. Would also benefit from home health occupational therapy. Treatment Plan/Plan of Care Treatment,Training & Education: Yes Patient would benefit from OT for education, treatment and training to promote independence in ADL's, mobility, safety and/or upper extremity function for ADL' s. Plan of Care: ADL Retraining, Functional Mobility, Group Exercise/Act as Ind, UE Funct Exercise/Act Treatment Duration: Jul 26, 2016 Visits Per Week: 10-12 Agreement: Yes Rehab Potential: Good Time/GCodes Start Time: 09:30 Stop Time: 11:00 Total Time Billed (hr/min): 90 Billed Treatment Time 1, ADL x 6 ACRLOS LAUREN OT Jul 14, 2016 11:11
--- NOTE | 2016-07-14 13:11 | Physical Therapy Daily Note ---
PT Daily Note-Current Subjective Pt was sitting up in bed upon arrival. Pt reported no pain currently but had pain med during morning tx with OT. Pt agrees to PT. Pain Numeric Pain Scale: 0-No Pain Location: No Pain Reported Mental Status Patient Orientation: Person, Normal For Age Transfers Functional [place] Measure 0=Not Assessed/NA 4=Minimal Assistance 1=Total Assistance 5=Supervision or Setup 2=Maximal Assistance 6=Modified [place] 3=Moderate Assistance 7=Complete IndependenceIRFPAI Quality Coding Scale 6 Independent with activity with or without an assistive device 5 Patient requires set up or clean up by helper. Patient completes activity by themselves 4 Supervision or touching assist (CGA). [place] provide cues , steadying assist 3 The helper provides less than half the effort to complete the activity 2 The helper provides more than half the effort to complete the activity 1 Dependent. The helper does all the effort to complete an activity 7 Patient refused to complete or attempt activity 9 The patient did not perform the activity before the current illness or injury 88 Not attempted due to Medical conditions or safety concerns Scootin Sit to/from Stand: 5 Sit to Stand (QC): 5 Weight Bearing Weight Bearing Restriction: Full Weight Bearing Location Restriction: LE Bilateral Gait Training Does the Patient Walk?: Yes Gait (FIM): 5 Distance (FIM): 3=150 ft Distance: 400' Walk 10 feet (QC): 5 Walk 50 ft with 2 Turns(QC): 5 Walk 150 ft (QC): 5 Gait Level of Assist: 5 Gait Persons Needed: 1 Gait Assistive Device: FWW Pt walks with an antalgic gait pattern. Pt has tightness on L hip so when she puts weight on that LLE it pulls. Pt walks with FWW at [facility] in a slow but steady gait with no LOB. Exercises Seated Therapy Exercises: Sit to stand Standing: Hip Abduction, Heel/toe raises, Mini squats, Weight shifts Standing Reps: 20 Pt completed standing EX at //bars to help increase activity tolerance and build muscle strength for transfers and ambulation. NuStep Minutes: 12 NuStep Workload: 6 Treatments Pt transferred from sitting in bed to standing using FWW at [facility]. Pt ambulated to Therapy Gym using FWW at [facility]. Pt then transferred to [facility] for 12m at Workload 6 to assist pt with working out muscle tightness before EX and walking. Pt then took short rest break after NuStep before standing at //bars for standing EX. Pt then transferred to chair to rest before ambulating in hallways using FWW at SBA. Pt ambulated approx. 150' before needing to rest in chair. After short rest, pt ambulated again until fatigued and returned to room. Pt transferred from standing to EOB at SBA and EOB to supine to rest at SBA. Pt lifted her LLE into bed herself with her arms since hse lacked strength to lift her leg. Pt was left supine in bed with all needs met at end of tx. Assessment Current Status: Good Progress Pt is making progress with increasing strength through EX to assist with more independent transfers and ambulation. Pt is also increasing her activity tolerance with distance she ambulates before fatiguing. PT Short Term Goals Short Term Goals Time Frame: Jul 19, 2016 Transfers (B,C,W/C) (FIM): 5 Gait (FIM): 5 Gait Distance Comment: 200' Gait Level of Assist: 5 Gait Assistive Device: FWW PT Supervisor Dyer Goals Supervisor Dyer Goals PT Supervisor Dyer Goals Time Frame: Aug 02, 2016 Transfers (B,C,W/C) (FIM): 6 Sit to Lying (QC): 6 Lying-Sitting on Side/Bed(QC): 6 Sit to Stand (QC): 6 Rollin Roll Left to Right (QC): 6 Chair/[id number] Xfer(QC): 6 Car Transfer (QC): 4 Does the Patient Walk: Yes Gait (FIM): 6 Distance: 300' Walk 10 feet (QC): 6 Walk 10ft-Uneven Surface(QC): 6 Walk 50ft with 2 Turns (QC): 6 Walk 150 ft (QC): 6 Gait Assistive Device: FWW Stairs (FIM): 5 # of Steps: 12 1 Step (curb) (QC): 4 4 Steps (QC): 4 12 Steps (QC): 4 Stairs Level Of Assist: 5 Picking up an Object (QC): 88 PT Plan Problem List Problem List: Activity Tolerance, Functional Strength, Balance, Gait Treatment/Plan Treatment Plan: Continue Plan of Care Treatment Plan: Bed Mobility, Education, Functional Activity Laya, Functional Strength, Group Therapy, Gait, Safety, Therapeutic Exercise, Transfers Treatment Duration: Aug 02, 2016 Visits Per Week: 10-11 Minutes/Day (M-F): 60-90 Minutes/Day (Sat/Garcia): 15-30 Safety Risks/Education Patient Education: Gait Training, Transfer Techniques, Correct Positioning, Safety Issues Teaching Recipient: Patient Teaching Methods: Discussion Response to Teaching: Verbalize Understanding Time/GCodes Time In: 1115 Time Out: 1215 Total Billed Treatment Time: 60 Total Billed Treatment visit, FA (15m), EX X2 (30m) & GT (15m) GUERLINE SHINE BOLTING MACHINE OPERATOR Jul 14, 2016 13:11
--- NOTE | 2016-07-14 14:53 | Physical Therapy Daily Note ---
PT Daily Note-Current Subjective Pt laying supine in bed. Nursing reported giving pain med to pt within 30m of tx. Pt agreed to PT. Pain Numeric Pain Scale: 5-Moderate Pain Location: Left Location Body Site: Thigh Pain Description: Ache, Tightness Comment: Pt reports a pulling achy pain in L thigh right above knee. Mental Status Patient Orientation: Person, Normal For Age Transfers Functional [place] Measure 0=Not Assessed/NA 4=Minimal Assistance 1=Total Assistance 5=Supervision or Setup 2=Maximal Assistance 6=Modified [place] 3=Moderate Assistance 7=Complete IndependenceIRFPAI Quality Coding Scale 6 Independent with activity with or without an assistive device 5 Patient requires set up or clean up by helper. Patient completes activity by themselves 4 Supervision or touching assist (CGA). [place] provide cues , steadying assist 3 The helper provides less than half the effort to complete the activity 2 The helper provides more than half the effort to complete the activity 1 Dependent. The helper does all the effort to complete an activity 7 Patient refused to complete or attempt activity 9 The patient did not perform the activity before the current illness or injury 88 Not attempted due to Medical conditions or safety concerns Transfers (B, C, W/C) (FIM): 5 Scootin Rollin Supine to/from Sit: 5 Sit to/from Stand: 5 Sit to Lying (QC): 5 Sit to Stand (QC): 5 Weight Bearing Weight Bearing Restriction: Full Weight Bearing Location Restriction: LE Bilateral Gait Training Does the Patient Walk?: Yes Distance (FIM): 3=150 ft Distance: 200' Walk 10 feet (QC): 5 Walk 50 ft with 2 Turns(QC): 5 Walk 150 ft (QC): 5 Gait Level of Assist: 5 Gait Persons Needed: 1 Gait Assistive Device: FWW Pt walks with slow but steady antalgic gait pattern. Pt reports pulling, achy pain above L knee during ambulation. Treatments PT assisted pt with taking slipper socks off and replacing with regular socks and shoes for more comfortable ambulation. Pt transferred from supine to EOB and EOB to standing at SBA using FWW. Pt ambulated in hallway using FWW at A. Pt walked until fatigued then returned to room to rest. PT visited with both OT and pantry goods worker to discuss dressing items and grab bars needed and how pt could get them. Pt was left with all needs met at end of tx. Assessment Current Status: Fair Progress Pt fatigues quicker and reports more pain than this morning even after pain med given. Pt is motivated to get stronger and more independent to be able to discharge. PT Short Term Goals Short Term Goals Time Frame: Jul 19, 2016 Transfers (B,C,W/C) (FIM): 5 Gait (FIM): 5 Gait Distance Comment: 200' Gait Level of Assist: 5 Gait Assistive Device: FWW PT Senior Living Goals Ventilation Equipment Tender Goals PT Ventilation Equipment Tender Goals Time Frame: Aug 02, 2016 Transfers (B,C,W/C) (FIM): 6 Sit to Lying (QC): 6 Lying-Sitting on Side/Bed(QC): 6 Sit to Stand (QC): 6 Rollin Roll Left to Right (QC): 6 Chair/Rgc-qo-Jhunp Xfer(QC): 6 Car Transfer (QC): 4 Does the Patient Walk: Yes Gait (FIM): 6 Distance: 300' Walk 10 feet (QC): 6 Walk 10ft-Uneven Surface(QC): 6 Walk 50ft with 2 Turns (QC): 6 Walk 150 ft (QC): 6 Gait Assistive Device: FWW Stairs (FIM): 5 # of Steps: 12 1 Step (curb) (QC): 4 4 Steps (QC): 4 12 Steps (QC): 4 Stairs Level Of Assist: 5 Picking up an Object (QC): 88 PT Plan Problem List Problem List: Activity Tolerance, Functional Strength, Balance, Gait Treatment/Plan Treatment Plan: Continue Plan of Care Treatment Plan: Bed Mobility, Education, Functional Activity Laya, Functional Strength, Group Therapy, Gait, Safety, Therapeutic Exercise, Transfers Treatment Duration: Aug 02, 2016 Visits Per Week: 10-11 Minutes/Day (M-F): 60-90 Minutes/Day (Sat/Garcia): 15-30 Safety Risks/Education Patient Education: Gait Training, Transfer Techniques, Correct Positioning, Safety Issues Teaching Recipient: Patient Teaching Methods: Discussion Response to Teaching: Verbalize Understanding Time/GCodes Time In: 1400 Time Out: 1430 Total Billed Treatment Time: 30 Total Billed Treatment visit, FA (10m) & GT (20m) GUERLINE SHINE PTA Jul 14, 2016 14:53
[2016-07-14 18:15] VITALS: BP 146/82
[2016-07-14] MEDS: HYDROCORTISONE 1% CREAM 30 GM TUBE TOP SCH (18:20)
--- NOTE | 2016-07-14 19:45 | Individualized Plan of Care ---
Individualized Plan of Care Rehab Nursing IPOC Order Admission Date Jul 12, 2016 at 11:01 Current Orders Orders-AUSTIN BE MD Patient Visit (07/13/16 ) Functional Activities, Ea 15 (07/13/16 ) Gait Training, Ea 15 Min (07/13/16 ) Exercise Therap, Ea 15 Min (07/13/16 ) Hydrocortisone 1% Cream (Hydrocortisone (07/14/16 21:00) Cbc With Automated Diff (07/15/16 06:00) Wound Culture (07/14/16 10:38) Patient Visit (07/14/16 ) Functional Activities, Ea 15 (07/14/16 ) Exercise Therap, Ea 15 Min (07/14/16 ) Gait Training, Ea 15 Min (07/14/16 ) PT IPOC Problem List: Activity Tolerance, Functional Strength, Balance, Gait Treatment Plan: Continue Plan of Care Bed Mobility, Education, Functional Activity Laya, Functional Strength, Group Therapy, Gait, Safety, Therapeutic Exercise, Transfers Treatment Duration: Aug 02, 2016 Visits Per Week: 10-11 Minutes/Day (M-F): 60-90 Minutes/Day (Sat/Garcia): 15-30 OT IPOC Problems: Decreased Activ Tolerance, Impaired I ADL's, Impaired Self-Care Skills Plan of Care: ADL Retraining, Functional Mobility, Group Exercise/Act as Ind, UE Funct Exercise/Act Treatment Duration: Jul 26, 2016 Visits Per Week: 10-12 Minutes/Day (M-F): 60-90 Minutes/Day (Sat/Garcia): 15-30 ST IPOC Speech Therapy Treatment Plan: Discontinue ST (Eval, only.) Physician IPOC Medical Issues being managed closely and that require the 24 hour availability of a physician: Cellulitis rt hip incision associated with fever placed on Cleocin by Ortho,rt foot pain showing OA constipation Hx Afib Rash on back Medical Issues: DVT Prophylaxis, Falls Precautions, Fluid/Electrolyte/ Nutrition Balance, Infection Protection, Pain Management, Wound Care, Other ( List) (as per above) Brief Synthesis of Preadmission Screen, Post-Admission Evaluation, and Therapy Evaluations: 71 yo female who slipped at home and had fall with resulting intertrochanteric hip frx repaired by DR Naranjo referred to [facility] for ortho rehab Developed cellulitis in cision site with spiking fever at night placed on Cleocin Requires assistance for adls and mobility skills now had been Independent prior to this.Hospitalist service following in lieu of PCP Has developed rash on back Topical care ordered and f/u labs in AM Medical Prognosis: good Anticipated Length of Stay: 2 weeks Rehab Goals Modified Independent for adls and mobility skills prior to discharge to home with family and HHC Anticipated discharge destinat: Home with [facility] and Family AUSTIN BE MD Jul 14, 2016 19:45
[2016-07-14] MEDS ORDERED: diphenhydrAMINE 25 MG TAB (BENADRYL) PO PRN (20:00)
[2016-07-14] MEDS: GABAPENTIN 100 MG (NEURONTIN) CAP PO PRN (20:45)
[2016-07-15] MEDS: HYDROcodone/APAP 10 MG/325 MG (LORTAB) TAB PO PRN ×5 (00:47→21:14)
[2016-07-15 06:00] VITALS: BP 156/86
[2016-07-15 07:24] LABS: BASOPHILS % (AUTO) 0 % (0-10); EOSINOPHILS # (AUTO) 0.3 10^3/uL (0.0-0.3); EOSINOPHILS % (AUTO) 3 % (0-10); LYMPHOCYTES # (AUTO) 1.7 X 10^3 (1.0-4.0); LYMPHOCYTES % (AUTO) 19 % (12-44); MEAN CORPUSCULAR HEMOGLOBIN 31 PG (25-34); MEAN CORPUSCULAR HGB CONC 34 G/DL (32-36); MEAN CORPUSCULAR VOLUME 90 FL (80-99); MEAN PLATELET VOLUME 9.3 FL (7.4-10.4); MONOCYTES % (AUTO) 11 % (0-12); NEUTROPHILS % (AUTO) 67 % (42-75); PLATELET COUNT 359 10^3/uL (130-400); RED BLOOD COUNT 4.23 10^6/uL (4.35-5.85); RED CELL DISTRIBUTION WIDTH 13.7 % (10.0-14.5)
[2016-07-15] MEDS: ASPIRIN E.C. 325 MG (ECOTRIN) TABLET PO SCH (08:36)
[2016-07-15] MEDS: CLINDAMYCIN 150 MG (CLEOCIN) CAP PO SCH ×3 (08:36→21:14)
[2016-07-15] MEDS: SENNA W/DOCUSATE (SENOKOT S) TABLET PO SCH ×2 (08:36→21:14)
[2016-07-15] MEDS: guaiFENesin (MUCINEX) 600 MG TAB PO SCH ×2 (08:36→21:14)
[2016-07-15] MEDS: LACTULOSE SYRUP 10GM/15ML (ENULOSE) 30ML UDC PO SCH ×2 (08:37→21:58)
[2016-07-15] MEDS: ENOXAPARIN 40 MG/0.4 ML (LOVENOX) SYR SC SCH (08:37)
[2016-07-15] MEDS: HYDROCORTISONE 1% CREAM 30 GM TUBE TOP SCH ×2 (08:40→21:15)
--- NOTE | 2016-07-15 09:00 | Occupational Ther Daily Note ---
OT Current Status-Daily Note Subjective Pt in bed, agrees to treatment. Pt reports6/10 left hip pain. Mental Status/Objective Functional [place] Measure 0=Not Assessed/NA 4=Minimal Assistance 1=Total Assistance 5=Supervision or Setup 2=Maximal Assistance 6=Modified [place] 3=Moderate Assistance 7=Complete [place] ADL-Treatment Pt requests shower this am. Supine to sit with SBA. Sit to stand with SBA. Gait to restroom with FWW, no LOB. Pt transferred to walk in shower with SBA using grab bars for balance and safety. Pt able to wash/dry all areas with SBA, uses long handled sponge to wash lower legs and feet. Don bra and pullover shirt with set up. Pt donned underwear and pants with SBA using magnetic prospector to start over feet. Don socks with SBA using sock aid. Pt donned shoes with SBA using long shoe horn, minimal cues for technique. Grooming completed seated at sink with modified independence. Pt sitting at sink to curl hair after session, pull cord in reach. Functional [place] Measure 0=Not Assessed/NA 4=Minimal Assistance 1=Total Assistance 5=Supervision or Setup 2=Maximal Assistance 6=Modified [place] 3=Moderate Assistance 7=Complete IndependenceIRFPAI Quality Coding Scale 6 Independent with activity with or without an assistive device 5 Patient requires set up or clean up by helper. Patient completes activity by themselves 4 Supervision or touching assist (CGA). [place] provide cues , steadying assist 3 The helper provides less than half the effort to complete the activity 2 The helper provides more than half the effort to complete the activity 1 Dependent. The helper does all the effort to complete an activity 7 Patient refused to complete or attempt activity 9 The patient did not perform the activity before the current illness or injury 88 Not attempted due to Medical conditions or safety concerns Grooming (FIM): 6 Bathing (FIM): 5 Upper Body (FIM): 5 Lower Body Dressing (FIM): 5 Shower Transfer(FIM): 5 OT Short Term Goals Short Term Goals Transfers (B,C,W/C) (FIM): 5 1=Demonstrate adherence to instructed precautions during ADL tasks. 2=Patient will verbalize/demonstrate understanding of assistive devices/ modifications for ADL. 3=Patient will improve strength/tolerance for activity to enable patient to perform ADL's. OT Custodial Goals Motor Home Electrical Foreman Goals Time Frame: Jul 26, 2016 Eating (FIM): 6 Eating (QC): 6 Oral Hygiene (QC): 6 Grooming(FIM): 6 Bathing(FIM): 5 Shower/Bathe Self (QC): 5 Upper Body Dressing(FIM): 6 Upper Body Dressing (QC): 6 Lower Body Dressing(FIM): 6 Lower Body Dressing (QC): 6 On/Off Footwear (QC): 6 Toileting(FIM): 6 Toileting Hygiene (QC): 6 Transfers (B,C,W/C) (FIM): 6 Toilet/Commode Transfer(FIM): 6 Toilet/Commode Transfer (QC): 6 Shower Transfer(FIM): 5 Additional Goals: 1-Demonstrate ADL Tasks, 2-Verbalize Understanding, 3- ImproveStrength/Laya 1=Demonstrate adherence to instructed precautions during ADL tasks. 2=Patient will verbalize/demonstrate understanding of assistive devices/ modifications for ADL. 3=Patient will improve strength/tolerance for activity to enable patient to perform ADL's. OT Education/Plan Discharge Recommendations Plan/Recommendations: Continue POC Treatment Plan/Plan of Care Patient would benefit from OT for education, treatment and training to promote independence in ADL's, mobility, safety and/or upper extremity function for ADL' s. Plan of Care: ADL Retraining, Functional Mobility, Group Exercise/Act as Ind, UE Funct Exercise/Act Treatment Duration: Jul 26, 2016 Visits Per Week: 10-12 Minutes/Day (M-F): 60-90 Minutes/Day (Sat/Garcia): 15-30 Agreement: Yes Rehab Potential: Good Time/GCodes Start Time: 08:00 Stop Time: 09:00 Total Time Billed (hr/min): 60 Billed Treatment Time 1 visit, ADLx4(60minutes) JESSICA CRUMP OT Jul 15, 2016 09:00
--- NOTE | 2016-07-15 09:15 | PM & R (SOAP) Progress Note ---
Subjective Subjective/Events-last exam Patient was seen in her room this AM Rash better Fever resolved with Antibiotic CBC OK Will receck serum K as last vaule 3.3 and patient provided with replacement Review of Systems pruritic rash Objective Exam Last Set of Vital Signs Vital Signs Date Time Temp Pulse Resp B/P Pulse Ox O2 Delivery O2 Flow Rate FiO2 07/15/16 06:00 98.2 80 17 156/86 98 Room Air Capillary Refill : Less Than 3 Seconds I&O Intake and Output 07/15/16 00:00 Intake Total 4300 ml Balance 4300 ml Intake Oral 4300 ml # Voids 12 # Bowel Movements 3 General: Alert, Oriented X3, Cooperative, No Acute Distress HEENT: Atraumatic, PERRLA, EOMI, Mucous Memb Moist/[place] Neck: Supple, No JVD Lungs: Clear to Auscultation Heart: Regular Rate Abdomen: Normal Bowel Sounds, Soft, No Tenderness Extremities: Other (as per ortho note) Skin: Other (pruritic rash as per above) Neuro: Other (weakness guarding left hip) Results Lab Laboratory Tests 07/13/16 06:15: Alanine Aminotransferase (ALT/SGPT) 29, Albumin 2.8L, Alkaline Phosphatase 47, Anion Gap 9, Aspartate Amino Transf (AST/SGOT) 22, BUN/Creatinine Ratio 12, Basophils # (Auto) 0.0, Basophils (%) (Auto) 0, Blood Urea Nitrogen 6L, Calcium Level 8.3L, Carbon Dioxide Level 25, Chloride Level 106, Creatinine 0.52L, Eosinophils # (Auto) 0.1, Eosinophils (%) (Auto) 2, Estimat Glomerular Filtration Rate > 60, Glucose Level 102, Hematocrit 34L, Hemoglobin 11.5, Lymphocytes # (Auto) 1.5, Lymphocytes (%) (Auto) 16, Mean Corpuscular Hemoglobin 30, Mean Corpuscular Hemoglobin Concent 34, Mean Corpuscular Volume 90, Mean Platelet Volume 9.2, Monocytes # (Auto) 0.7, Monocytes (%) (Auto) 7, Neutrophils # (Auto) 6.9, Neutrophils (%) (Auto) 75, Platelet Count 257, Potassium Level 3.3L, Red Blood Count 3.78L, Red Cell Distribution Width 13.6, Sodium Level 140, Total Bilirubin 0.5, Total Protein 4.9L, White Blood Count 9.2 07/15/16 06:55: Basophils # (Auto) 0.0, Basophils (%) (Auto) 0, Eosinophils # (Auto) 0.3, Eosinophils (%) (Auto) 3, Hematocrit 38, Hemoglobin 13.0, Lymphocytes # (Auto) 1.7, Lymphocytes (%) (Auto) 19, Mean Corpuscular Hemoglobin 31, Mean Corpuscular Hemoglobin Concent 34, Mean Corpuscular Volume 90, Mean Platelet Volume 9.3, Monocytes # (Auto) 1.0, Monocytes (%) (Auto) 11, Neutrophils # (Auto ) 6.0, Neutrophils (%) (Auto) 67, Platelet Count 359, Red Blood Count 4.23L, Red Cell Distribution Width 13.7, White Blood Count 9.0 Assessment/Plan Assessment S/p repair left fem neck frx Cellulitis left hip incision site antibiotics ordered-with fever resolved foot pain-DJD Constipation under treatment Pruritic rash-treatment ordered yesterday. Plan Continue PT/OT wound care and antibiotics. Pain management Treat Constipation seee orders Team Conference held 07-13-16 See report for full functional update and POC and ELOS Treat rash-see orders Culture wound drainage if any F/U with Hospitalist service and Ortho as per their ischedule AUSTIN BE MD Jul 15, 2016 09:15
[2016-07-15] MEDS: RT-FLUTICASONE 110 MCG (FLOVENT) PER PUFF IH SCH ×2 (09:22→19:26)
--- NOTE | 2016-07-15 10:13 | Progress Note-Hospitalist ---
Progress Note Progress Notes/Assess & Plan Date Seen 07/15/16 Diagonsis/Assessment & Plan Chart Review: No fever Vitals stable On Cleocin 300 TID Patient Interview: Pt states that leg feels improved and that drainage has decreased Pt states that her bowels are moving Physical exam was stable Pt has been using IS regularly AFVSS, Pleasant, O x 3 RRR, CTAB No rales noted left lateral hip surgical site with no erythema around it 1. Left intertrochanteric hip fracture w/superficial cellulitis placed empirically on Cleocin now improved 2. Hx of atrial fibrillation in addition to possible PSVT 3. Past history of osteopenia likely osteoporosis either way with current fracture would meet criteria for treatment. She was advised to discuss this with Dr. Toledo on return office visit. 4. Constipation resolved 5. Right foot pain sustained in fall checking xray Plan: Cleocin TID 300 PO to be completed Scribed by Teddy Michele under the direct supervision of Dr. Quintero. ALMITA QUINTERO DO Jul 15, 2016 10:13
--- NOTE | 2016-07-15 14:36 | Physical Therapy Daily Note ---
PT Daily Note-Current Subjective Pt. agrees to Rx. States she has dealt with Fibromyalgia for years and it comes and goes. States ice is helping her with pain in right hip. Pain Numeric Pain Scale: 4 Location: Right Location Body Site: Hip Pain Description: Ache Mental Status Patient Orientation: Normal For Age Transfers Functional [place] Measure 0=Not Assessed/NA 4=Minimal Assistance 1=Total Assistance 5=Supervision or Setup 2=Maximal Assistance 6=Modified [place] 3=Moderate Assistance 7=Complete IndependenceIRFPAI Quality Coding Scale 6 Independent with activity with or without an assistive device 5 Patient requires set up or clean up by helper. Patient completes activity by themselves 4 Supervision or touching assist (CGA). [place] provide cues , steadying assist 3 The helper provides less than half the effort to complete the activity 2 The helper provides more than half the effort to complete the activity 1 Dependent. The helper does all the effort to complete an activity 7 Patient refused to complete or attempt activity 9 The patient did not perform the activity before the current illness or injury 88 Not attempted due to Medical conditions or safety concerns Transfers (B, C, W/C) (FIM): 6 Scootin Rollin Supine to/from Sit: 6 Sit to/from Stand: 6 Bed to/from Chair: 5 Weight Bearing Weight Bearing Restriction: Weight Bearing/Tolerated Location Restriction: R LE Gait Training Does the Patient Walk?: Yes Gait (FIM): 5 Distance (FIM): 3=150 ft (200x2) Gait Level of Assist: 5 Gait Persons Needed: 1 Gait Assistive Device: FWW worked especially on increased extension on RLE during gait , as pt walked flexed at trunk and protected hip from extension but did improve with skilled verbal instruction Stair Training Stair Training: Handrails/: 2 handrails Stairs (FIM): 5 #of Steps: 4 Stairs: Pattern: Step to Level of Assist: 5 household exception Exercises Supine Ex: Ankle pumps, Quad Set, Rolling, Glut sets, Heel Slides, Short Arc Quads, Scooting, Straight leg raise, Hip abd/add Supine Reps: 15 Standing: Hip Abduction, Hamstring curls, Heel/toe raises Standing Reps: 12 NuStep Minutes: 10 NuStep Workload: 2 Assessment Current Status: Good Progress PT Short Term Goals Short Term Goals Time Frame: Jul 19, 2016 Transfers (B,C,W/C) (FIM): 5 Gait (FIM): 5 Gait Distance Comment: 200' Gait Level of Assist: 5 Gait Assistive Device: FWW PT Skilled Nursing Goals Compressor Station Engineer Goals PT Skilled Nursing Goals Time Frame: Aug 02, 2016 Transfers (B,C,W/C) (FIM): 6 Sit to Lying (QC): 6 Lying-Sitting on Side/Bed(QC): 6 Sit to Stand (QC): 6 Rollin Roll Left to Right (QC): 6 Chair/Ejl-yt-Owimu Xfer(QC): 6 Car Transfer (QC): 4 Does the Patient Walk: Yes Gait (FIM): 6 Distance: 300' Walk 10 feet (QC): 6 Walk 10ft-Uneven Surface(QC): 6 Walk 50ft with 2 Turns (QC): 6 Walk 150 ft (QC): 6 Gait Assistive Device: FWW Stairs (FIM): 5 # of Steps: 12 1 Step (curb) (QC): 4 4 Steps (QC): 4 12 Steps (QC): 4 Stairs Level Of Assist: 5 Picking up an Object (QC): 88 PT Plan Treatment/Plan Treatment Plan: Continue Plan of Care Treatment Plan: Bed Mobility, Education, Functional Activity Laya, Functional Strength, Group Therapy, Gait, Safety, Therapeutic Exercise, Transfers Treatment Duration: Aug 02, 2016 Visits Per Week: 10-11 Minutes/Day (M-F): 60-90 Minutes/Day (Sat/Garcia): 15-30 Safety Risks/Education Patient Education: Gait Training, Transfer Techniques, Steps Teaching Recipient: Patient Teaching Methods: Demonstration, Discussion Response to Teaching: Verbalize Understanding, Return Demonstration, Reinforcement Needed Time/GCodes Time In: 1115 Time Out: 1215 Total Billed Treatment Time: 60 Total Billed Treatment 1,GT15m,FA15m,EX30m G Codes Necessary: JESSICA Schwarz GALVANIZER ZINC Jul 15, 2016 14:36
--- NOTE | 2016-07-15 15:09 | Therapy Group Daily Note ---
Therapy Daily Group Note Exercises Fine Motor, Other (reaching and core stability) Other/Notes Pt. attended PT OT group this date. Pt. ambulated to and from with FWW SBA . Socialization was initiated through introductions and conversation. This pt. was extremely friendly, sat at a table with other ladies and excelled at being social. Pt enjoyed [place] and her math skills, problem solving and critical thinking was clear. . Pt. laughed and expressed that she would enjoy more social time. Pt. shared a one word encouragement to others at end... "determination". Pt. to room after group and states she would like ice on her hip, claiming pain at 3/10. Pt. settled in bed, valentino at hand Start Time: 13:00 Stop Time: 14:00 Total Billed Treatment Time: 60 Total Billed Treatment 1,GRP JESSICA SOLER CAVITY PUMP OPERATOR Jul 15, 2016 15:09
[2016-07-15 18:00] VITALS: BP 149/84
[2016-07-15] MEDS: GABAPENTIN 100 MG (NEURONTIN) CAP PO PRN (21:14)
[2016-07-16] MEDS: HYDROcodone/APAP 10 MG/325 MG (LORTAB) TAB PO PRN ×3 (02:47→21:04)
[2016-07-16 06:28] VITALS: BP 155/89
[2016-07-16 06:56] LABS: ANION GAP 12 MMOL/L (5-14); BLOOD UREA NITROGEN 7 MG/DL (7-18); BUN/CREATININE RATIO 12; CALCIUM 8.8 MG/DL (8.5-10.1); CARBON DIOXIDE 24 MMOL/L (21-32); CHLORIDE 106 MMOL/L (98-107); CREATININE SERUM 0.57 MG/DL (0.60-1.30); GFR ESTIMATED > 60; GLUCOSE 100 MG/DL (70-105); POTASSIUM 3.7 MMOL/L (3.6-5.0); SODIUM 142 MMOL/L (135-145)
[2016-07-16] MEDS: RT-FLUTICASONE 110 MCG (FLOVENT) PER PUFF IH SCH ×2 (06:59→19:45)
[2016-07-16] MEDS: HYDROCORTISONE 1% CREAM 30 GM TUBE TOP SCH ×2 (09:00→20:17)
[2016-07-16] MEDS: ENOXAPARIN 40 MG/0.4 ML (LOVENOX) SYR SC SCH (09:19)
[2016-07-16] MEDS: guaiFENesin (MUCINEX) 600 MG TAB PO SCH ×2 (09:19→20:16)
[2016-07-16] MEDS: CLINDAMYCIN 150 MG (CLEOCIN) CAP PO SCH ×3 (09:19→20:16)
[2016-07-16] MEDS: SENNA W/DOCUSATE (SENOKOT S) TABLET PO SCH ×2 (09:19→20:16)
[2016-07-16] MEDS: ASPIRIN E.C. 325 MG (ECOTRIN) TABLET PO SCH (09:19)
[2016-07-16] MEDS: LACTULOSE SYRUP 10GM/15ML (ENULOSE) 30ML UDC PO SCH ×2 (09:19→20:16)
--- NOTE | 2016-07-16 10:01 | Physical Therapy Daily Note ---
PT Daily Note-Current Subjective Pt lying in bed upon PT arrival. Pt on the phone, lying with LE crossed. Agreeable to PT. Pt reminded of THR precautions throughout treatment as she attempted to cross legs to don shoes and socks as well. No pain rating given. States pain is "okay". "I have been having a little more of that nerve pain from just lying around". Mental Status Patient Orientation: Person, Place, Time, Situation Transfers Functional [place] Measure 0=Not Assessed/NA 4=Minimal Assistance 1=Total Assistance 5=Supervision or Setup 2=Maximal Assistance 6=Modified [place] 3=Moderate Assistance 7=Complete IndependenceIRFPAI Quality Coding Scale 6 Independent with activity with or without an assistive device 5 Patient requires set up or clean up by helper. Patient completes activity by themselves 4 Supervision or touching assist (CGA). [place] provide cues , steadying assist 3 The helper provides less than half the effort to complete the activity 2 The helper provides more than half the effort to complete the activity 1 Dependent. The helper does all the effort to complete an activity 7 Patient refused to complete or attempt activity 9 The patient did not perform the activity before the current illness or injury 88 Not attempted due to Medical conditions or safety concerns Transfers (B, C, W/C) (FIM): 6 Supine to/from Sit: 6 Sit to/from Stand: 6 Weight Bearing Weight Bearing Restriction: Weight Bearing/Tolerated Location Restriction: L LE Gait Training Does the Patient Walk?: Yes Gait (FIM): 6 Distance (FIM): 3=150 ft Distance: 300 Walk 10 feet (QC): 6 Walk 50 ft with 2 Turns(QC): 6 Walk 150 ft (QC): 6 Gait Level of Assist: 6 Gait Persons Needed: 1 Gait Assistive Device: FWW Pt ambulated with slow, steady gait. Nearly equal WB (B), no LOB. Wheelchair Training Does the Pt Use a Wheelchair?: No Exercises Supine Ex: Quad Set, Glut sets, Heel Slides, Hip abd/add Supine Reps: 20 Treatments LE functional strengthening. Ambulation with FWW. Pt negotiated within bathroom mod (I) and gathered clothes from closet without assist. Set up in shower after treatment, NA notified of Pt position. Pt up ad stephanie in room. Assessment Current Status: Good Progress Pt tolerated very well. Safe with functional mobility. Needs reminders to maintain THR precautions (especially crossing LE). PT Short Term Goals Short Term Goals Time Frame: Jul 19, 2016 Transfers (B,C,W/C) (FIM): 5 Gait (FIM): 5 Gait Distance Comment: 200' Gait Level of Assist: 5 Gait Assistive Device: FWW PT Bank Examiner Goals Bank Examiner Goals PT Bank Examiner Goals Time Frame: Aug 02, 2016 Transfers (B,C,W/C) (FIM): 6 Sit to Lying (QC): 6 Lying-Sitting on Side/Bed(QC): 6 Sit to Stand (QC): 6 Rollin Roll Left to Right (QC): 6 Chair/Iwa-nw-Wblxd Xfer(QC): 6 Car Transfer (QC): 4 Does the Patient Walk: Yes Gait (FIM): 6 Distance: 300' Walk 10 feet (QC): 6 Walk 10ft-Uneven Surface(QC): 6 Walk 50ft with 2 Turns (QC): 6 Walk 150 ft (QC): 6 Gait Assistive Device: FWW Stairs (FIM): 5 # of Steps: 12 1 Step (curb) (QC): 4 4 Steps (QC): 4 12 Steps (QC): 4 Stairs Level Of Assist: 5 Picking up an Object (QC): 88 PT Plan Problem List Problem List: Activity Tolerance, Functional Strength, Balance, Gait, Transfer , Bed Mobility Treatment/Plan Treatment Plan: Continue Plan of Care Treatment Plan: Bed Mobility, Education, Functional Activity Laya, Functional Strength, Group Therapy, Gait, Safety, Therapeutic Exercise, Transfers Treatment Duration: Aug 02, 2016 Visits Per Week: 10-11 Minutes/Day (M-F): 60-90 Minutes/Day (Sat/Garcia): 15-30 Pt/Family Agrees w/Plan: Yes Safety Risks/Education Patient Education: Reviewed Precautions Teaching Recipient: Patient Teaching Methods: Discussion Response to Teaching: Reinforcement Needed Discharge Recommendations Therapy D/C Recommendations: Physical Therapy Home Care Barriers to Progress None Time/GCodes Time In: 0820 Time Out: 0850 Total Billed Treatment Time: 30 Total Billed Treatment 1, Ex x 10', FA x 20' G Codes Necessary: YAN Metcalf DPT Jul 16, 2016 10:01
[2016-07-16 18:33] VITALS: BP 157/83
[2016-07-17] MEDS: HYDROcodone/APAP 10 MG/325 MG (LORTAB) TAB PO PRN ×3 (01:32→17:56)
[2016-07-17 03:58] VITALS: BP 137/78
[2016-07-17] MEDS: RT-FLUTICASONE 110 MCG (FLOVENT) PER PUFF IH SCH ×2 (07:09→19:22)
[2016-07-17] MEDS: LACTULOSE SYRUP 10GM/15ML (ENULOSE) 30ML UDC PO SCH ×2 (08:50→19:56)
[2016-07-17] MEDS: ENOXAPARIN 40 MG/0.4 ML (LOVENOX) SYR SC SCH (08:50)
[2016-07-17] MEDS: SENNA W/DOCUSATE (SENOKOT S) TABLET PO SCH ×2 (08:50→19:56)
[2016-07-17] MEDS: ASPIRIN E.C. 325 MG (ECOTRIN) TABLET PO SCH (08:50)
[2016-07-17] MEDS: guaiFENesin (MUCINEX) 600 MG TAB PO SCH ×2 (08:50→19:56)
[2016-07-17] MEDS: CLINDAMYCIN 150 MG (CLEOCIN) CAP PO SCH ×3 (08:50→19:56)
[2016-07-17] MEDS: HYDROCORTISONE 1% CREAM 30 GM TUBE TOP SCH ×2 (09:00→10:16)
[2016-07-17 18:08] VITALS: BP 122/78
[2016-07-17] MEDS: GABAPENTIN 100 MG (NEURONTIN) CAP PO PRN (19:55)
[2016-07-18] MEDS: HYDROcodone/APAP 10 MG/325 MG (LORTAB) TAB PO PRN ×3 (03:19→21:28)
[2016-07-18 06:18] VITALS: BP 117/79
[2016-07-18] MEDS: RT-FLUTICASONE 110 MCG (FLOVENT) PER PUFF IH SCH ×2 (06:58→19:55)
--- NOTE | 2016-07-18 08:25 | Progress Note-Hospitalist ---
Progress Note Progress Notes/Assess & Plan Date Seen 07/18/16 Diagonsis/Assessment & Plan Chart Review: No fever Vitals stable On Cleocin 300 TID and I assessed the wound to be without erythema and no drainage. DC planned for tomorrow Patient Interview: Pt states that her bowels are moving Physical exam was stable Pt has been using IS regularly AFVSS, Pleasant, O x 3 RRR, CTAB No rales noted left lateral hip surgical site with no erythema around it completely resolved, ziyad in place 1. Left intertrochanteric hip fracture w/superficial cellulitis placed empirically on Cleocin now improved and will complete abx here in-pt before DC tomorrow 2. Hx of atrial fibrillation in addition to possible PSVT 3. Past history of osteopenia likely osteoporosis either way with current fracture would meet criteria for treatment. She was advised to discuss this with Dr. Toledo on return office visit. 4. Constipation resolved 5. Right foot pain sustained in fall s/p normal xray Plan: Cleocin TID 300 PO to be completed in-pt DC planned. Scribed by Teddy Michele under the direct supervision of Dr. Quintero. ALMITA QUINTERO DO Jul 18, 2016 08:25
[2016-07-18] MEDS: LACTULOSE SYRUP 10GM/15ML (ENULOSE) 30ML UDC PO SCH ×2 (09:57→20:23)
[2016-07-18] MEDS: SENNA W/DOCUSATE (SENOKOT S) TABLET PO SCH ×2 (09:57→20:23)
[2016-07-18] MEDS: ENOXAPARIN 40 MG/0.4 ML (LOVENOX) SYR SC SCH (09:57)
[2016-07-18] MEDS: ASPIRIN E.C. 325 MG (ECOTRIN) TABLET PO SCH (09:57)
[2016-07-18] MEDS: guaiFENesin (MUCINEX) 600 MG TAB PO SCH ×2 (09:57→20:23)
[2016-07-18] MEDS: CLINDAMYCIN 150 MG (CLEOCIN) CAP PO SCH ×3 (09:57→20:23)
[2016-07-18] MEDS: HYDROCORTISONE 1% CREAM 30 GM TUBE TOP SCH ×2 (09:58→20:24)
--- NOTE | 2016-07-18 10:11 | Physical Therapy Daily Note ---
PT Daily Note-Current Subjective Pt. agrees to Rx. States she is ready to go home. Feels comfortable about DC to home and will have plenty of assist there Pain Numeric Pain Scale: 2 Location: Left Location Body Site: Hip Pain Description: Ache Mental Status Patient Orientation: Normal For Age Transfers Functional [place] Measure 0=Not Assessed/NA 4=Minimal Assistance 1=Total Assistance 5=Supervision or Setup 2=Maximal Assistance 6=Modified [place] 3=Moderate Assistance 7=Complete IndependenceIRFPAI Quality Coding Scale 6 Independent with activity with or without an assistive device 5 Patient requires set up or clean up by helper. Patient completes activity by themselves 4 Supervision or touching assist (CGA). [place] provide cues , steadying assist 3 The helper provides less than half the effort to complete the activity 2 The helper provides more than half the effort to complete the activity 1 Dependent. The helper does all the effort to complete an activity 7 Patient refused to complete or attempt activity 9 The patient did not perform the activity before the current illness or injury 88 Not attempted due to Medical conditions or safety concerns Transfers (B, C, W/C) (FIM): 6 Scootin Rollin Roll Left to Right (QC): 6 Supine to/from Sit: 6 Sit to/from Stand: 6 Sit to Lying (QC): 6 Sit to Stand (QC): 6 Chair/Bfy-bh-Hjclo Xfer(QC): 6 Bed to/from Chair: 6 Weight Bearing Weight Bearing Restriction: Weight Bearing/Tolerated Location Restriction: L LE Gait Training Does the Patient Walk?: Yes Gait (FIM): 6 Distance (FIM): 3=150 ft (250x2) Walk 10 feet (QC): 6 Walk 50 ft with 2 Turns(QC): 6 Walk 150 ft (QC): 6 Walking 10ft/uneven surface-QC: 6 Gait Level of Assist: 6 Gait Persons Needed: 0 Gait Assistive Device: FWW continues with some antalgia but manages well and this improves after pt. has been up a little Wheelchair Training Does the Pt Use a Wheelchair?: No Stair Training Stair Training: Handrails/: 2 handrails Stairs (FIM): 6 #of Steps: 12 1 Step (curb) (QC): 6 4 Steps (QC): 6 12 Steps (QC): 6 Stairs: Pattern: Step to Level of Assist: 6 Exercises Supine Ex: Ankle pumps, Quad Set, Rolling, Glut sets, Heel Slides, Short Arc Quads, Scooting, Straight leg raise, Hip abd/add Supine Reps: 15 Seated Therapy Exercises: Ankle pumps, Long arc quads Seated Reps: 10 Standing: Hip Abduction, Hamstring curls, Heel/toe raises, Marching, Mini squats Standing Reps: 12 NuStep Minutes: 10 NuStep Workload: 3 Assessment Current Status: Excellent Progress meets goals PT Short Term Goals Short Term Goals Time Frame: Jul 19, 2016 Transfers (B,C,W/C) (FIM): 5 Gait (FIM): 5 Gait Distance Comment: 200' Gait Level of Assist: 5 Gait Assistive Device: FWW PT Route Aide Goals Route Aide Goals PT Route Aide Goals Time Frame: Aug 02, 2016 Transfers (B,C,W/C) (FIM): 6 Sit to Lying (QC): 6 Lying-Sitting on Side/Bed(QC): 6 Sit to Stand (QC): 6 Rollin Roll Left to Right (QC): 6 Chair/Dxr-lk-Varvk Xfer(QC): 6 Car Transfer (QC): 4 Does the Patient Walk: Yes Gait (FIM): 6 Distance: 300' Walk 10 feet (QC): 6 Walk 10ft-Uneven Surface(QC): 6 Walk 50ft with 2 Turns (QC): 6 Walk 150 ft (QC): 6 Gait Assistive Device: FWW Stairs (FIM): 5 # of Steps: 12 1 Step (curb) (QC): 4 4 Steps (QC): 4 12 Steps (QC): 4 Stairs Level Of Assist: 5 Picking up an Object (QC): 88 PT Plan Treatment/Plan Treatment Plan: Continue Plan of Care Treatment Plan: Bed Mobility, Education, Functional Activity Laya, Functional Strength, Group Therapy, Gait, Safety, Therapeutic Exercise, Transfers Treatment Duration: Aug 02, 2016 Visits Per Week: 10-11 Minutes/Day (M-F): 60-90 Minutes/Day (Sat/Garcia): 15-30 Safety Risks/Education Patient Education: Gait Training, Transfer Techniques, Steps, Issued Written HEP, Correct Positioning, Disease Process, Safety Issues Teaching Recipient: Patient Teaching Methods: Demonstration, Discussion Response to Teaching: Verbalize Understanding, Return Demonstration, Reinforcement Needed Time/GCodes Time In: 915 Time Out: 1015 Total Billed Treatment Time: 60 Total Billed Treatment 1,EX25m,FA15m,GT20m G Codes Necessary: JESSICA Schwarz SHOWROOM SALES ASSISTANT Jul 18, 2016 10:11
--- NOTE | 2016-07-18 14:56 | Therapy Group Daily Note ---
Therapy Daily Group Note Patient Education Topic Other List Below (transfer techniques, transfer equipment, utilizing theraband for exercise) Exercises LE Seated Exercise, UE Exercise Other/Notes Pt. attended group PT OT session. Pt. ambulated to[facility]from [facility] with FWW. Pt. was very friendly, big smile and joined in all conversation well. Education topic focused on transfer techniques including sup to sit to stand as well as rolling and utilizing TRF equipment. Pt. was instructed in use of theraband for Upper and lower extremity seated exercises. Pt. added to conversation about fears and how to conquer them. Pt. was indep to room after group. Start Time: 13:00 Stop Time: 14:20 Total Billed Treatment Time: 80 Total Billed Treatment 1,GRP JESSICA SOLER CITRUS PICKER Jul 18, 2016 14:56
--- NOTE | 2016-07-18 15:10 | Occupational Ther Daily Note ---
OT Current Status-Daily Note Subjective No pain reported. Appearance Pt. is agreeable to shower. Mental Status/Objective Patient Orientation: Person, Place, Time, Situation Functional [place] Measure 0=Not Assessed/NA 4=Minimal Assistance 1=Total Assistance 5=Supervision or Setup 2=Maximal Assistance 6=Modified [place] 3=Moderate Assistance 7=Complete [place] ADL-Treatment Functional [place] Measure 0=Not Assessed/NA 4=Minimal Assistance 1=Total Assistance 5=Supervision or Setup 2=Maximal Assistance 6=Modified [place] 3=Moderate Assistance 7=Complete IndependenceIRFPAI Quality Coding Scale 6 Independent with activity with or without an assistive device 5 Patient requires set up or clean up by helper. Patient completes activity by themselves 4 Supervision or touching assist (CGA). [place] provide cues , steadying assist 3 The helper provides less than half the effort to complete the activity 2 The helper provides more than half the effort to complete the activity 1 Dependent. The helper does all the effort to complete an activity 7 Patient refused to complete or attempt activity 9 The patient did not perform the activity before the current illness or injury 88 Not attempted due to Medical conditions or safety concerns Eating (FIM): 7 Eating (QC): 6 Grooming (FIM): 6 Oral Hygiene (QC): 6 Toileting Hygiene (QC): 6 Bathing (FIM): 6 Upper Body (FIM): 6 Lower Body Dressing (FIM): 6 Lower Body Dressing (QC): 6 On/Off Footwear (QC): 6 Toileting (FIM): 6 Transfers (B, C, W/C) (FIM): 6 Toilet/Commode Transfer (FIM): 6 Toilet Transfer (QC): 6 Shower Transfer(FIM): 6 Shower/Bathe Self (QC): 6 Other Treatment Pt. seen this date for shower task. Pt. able to retrieve clothing, doff/don clothing with adaptive equipment, and complete all ADL transfers with Mod I. Pt. is up ad stephanie in her room. Is able to don shoes, socks, underwear, pants, shirt and bra with Mod I. Pt. states that she feels ready to discharge tomorrow. All needs were met in her room. Education OT Patient Education: Correct positioning, Modified ADL techniques, Progress toward Goal/Update tx plan, Purpose of tx/functional activities, Reviewed precautions, Rehab process, Transfer techniques Teaching Recipient: Patient Teaching Methods: Demonstration, Discussion Response to Teaching: Verbalize Understanding, Return Demonstration OT Short Term Goals Short Term Goals Transfers (B,C,W/C) (FIM): 5 1=Demonstrate adherence to instructed precautions during ADL tasks. 2=Patient will verbalize/demonstrate understanding of assistive devices/ modifications for ADL. 3=Patient will improve strength/tolerance for activity to enable patient to perform ADL's. OT Bracer Goals Bracer Goals Time Frame: Jul 26, 2016 Eating (FIM): 6 Eating (QC): 6 Oral Hygiene (QC): 6 Grooming(FIM): 6 Bathing(FIM): 5 Shower/Bathe Self (QC): 5 Upper Body Dressing(FIM): 6 Upper Body Dressing (QC): 6 Lower Body Dressing(FIM): 6 Lower Body Dressing (QC): 6 On/Off Footwear (QC): 6 Toileting(FIM): 6 Toileting Hygiene (QC): 6 Transfers (B,C,W/C) (FIM): 6 Toilet/Commode Transfer(FIM): 6 Toilet/Commode Transfer (QC): 6 Shower Transfer(FIM): 5 Additional Goals: 1-Demonstrate ADL Tasks, 2-Verbalize Understanding, 3- ImproveStrength/Laya 1=Demonstrate adherence to instructed precautions during ADL tasks. 2=Patient will verbalize/demonstrate understanding of assistive devices/ modifications for ADL. 3=Patient will improve strength/tolerance for activity to enable patient to perform ADL's. OT Education/Plan Discharge Recommendations Plan/Recommendations: Continue POC Therapy D/C Recommendations: Home w/ Family Support Equpiment Recommendations-D/C: Hip Kit Target Placement Home with family support. Treatment Plan/Plan of Care Treatment,Training & Education: Yes Patient would benefit from OT for education, treatment and training to promote independence in ADL's, mobility, safety and/or upper extremity function for ADL' s. Plan of Care: ADL Retraining, Functional Mobility, Group Exercise/Act as Ind, UE Funct Exercise/Act Treatment Duration: Jul 26, 2016 Visits Per Week: 10-12 Minutes/Day (M-F): 60-90 Minutes/Day (Sat/Garcia): 15-30 Agreement: Yes Rehab Potential: Good Time/GCodes Start Time: 14:00 Stop Time: 15:00 Total Time Billed (hr/min): 60 Billed Treatment Time 1, ADL x 4 CARLOS LAUREN OT Jul 18, 2016 15:10
[2016-07-18 18:33] VITALS: BP 156/80
--- NOTE | 2016-07-18 18:36 | PM & R (SOAP) Progress Note ---
Subjective Subjective/Events-last exam Patient was seen in her room this Discussed case with RN Patient thinks that her K level may be low due to occasional twitching of her legs.Patient is Modified Independent for transfers Review of Systems Musculoskeletal: : other (muscle twitching) pruritic rash Objective Exam Last Set of Vital Signs Vital Signs Date Time Temp Pulse Resp B/P Pulse Ox O2 Delivery O2 Flow Rate FiO2 07/18/16 09:00 Room Air 07/18/16 06:58 94 07/18/16 06:18 96.0 75 14 117/79 Capillary Refill : Less Than 3 Seconds I&O Intake and Output 07/18/16 00:00 Intake Total 1650 ml Balance 1650 ml Intake Oral 1650 ml # Voids 10 # Bowel Movements 2 General: Alert, Oriented X3, Cooperative, No Acute Distress HEENT: Atraumatic, PERRLA, EOMI, Mucous Memb Moist/[place] Neck: Supple, No JVD Lungs: Clear to Auscultation Heart: Regular Rate Abdomen: Normal Bowel Sounds, Soft, No Tenderness Extremities: Other (as per ortho note) Skin: Other (pruritic rash as per above) Neuro: Other (weakness guarding left hip) Results Lab Laboratory Tests 07/16/16 05:50: Anion Gap 12, BUN/Creatinine Ratio 12, Blood Urea Nitrogen 7, Calcium Level 8.8 , Carbon Dioxide Level 24, Chloride Level 106, Creatinine 0.57L, Estimat Glomerular Filtration Rate > 60, Glucose Level 100, Potassium Level 3.7, Sodium Level 142 Microbiology 07/14/16 Gram Stain - Final, Complete 07/14/16 Wound Culture - Final, Complete No growth Assessment/Plan Assessment S/p repair left fem neck frx Cellulitis left hip incision site antibiotics ordered-with fever resolved- improved foot pain-DJD Constipation under treatment-improved Pruritic rash-treatment ordered last week and now improved Muscle twitch as per patient. Plan Continue PT/OT wound care and antibiotics. Pain management Treat Constipation seee orders Recheck K-see orders Treat rash-see orders-done improved Culture wound drainage if any F/U with Hospitalist service and Ortho as per their ischedule Discharge remains set for tomorrow 07-19-16 AUSTIN BE MD Jul 18, 2016 18:36
[2016-07-18] MEDS: GABAPENTIN 100 MG (NEURONTIN) CAP PO PRN (20:24)
[2016-07-19] MEDS: HYDROcodone/APAP 10 MG/325 MG (LORTAB) TAB PO PRN ×2 (05:34→12:01)
[2016-07-19 05:36] VITALS: BP 143/84
[2016-07-19 06:39] LABS: ANION GAP 11 MMOL/L (5-14); BLOOD UREA NITROGEN 5 MG/DL (7-18); BUN/CREATININE RATIO 9; CALCIUM 8.8 MG/DL (8.5-10.1); CARBON DIOXIDE 24 MMOL/L (21-32); CHLORIDE 107 MMOL/L (98-107); CREATININE SERUM 0.58 MG/DL (0.60-1.30); GFR ESTIMATED > 60; GLUCOSE 89 MG/DL (70-105); SODIUM 142 MMOL/L (135-145)
[2016-07-19] MEDS: RT-FLUTICASONE 110 MCG (FLOVENT) PER PUFF IH SCH (07:28)
[2016-07-19] MEDS: ASPIRIN E.C. 325 MG (ECOTRIN) TABLET PO SCH (08:07)
[2016-07-19] MEDS: SENNA W/DOCUSATE (SENOKOT S) TABLET PO SCH (08:07)
[2016-07-19] MEDS: guaiFENesin (MUCINEX) 600 MG TAB PO SCH (08:07)
[2016-07-19] MEDS: CLINDAMYCIN 150 MG (CLEOCIN) CAP PO SCH ×2 (08:07→12:01)
[2016-07-19] MEDS: ENOXAPARIN 40 MG/0.4 ML (LOVENOX) SYR SC SCH (08:08)
[2016-07-19] MEDS: LACTULOSE SYRUP 10GM/15ML (ENULOSE) 30ML UDC PO SCH (08:08)
--- NOTE | 2016-07-19 08:11 | PM & R (SOAP) Progress Note ---
Subjective Subjective/Events-last exam Patient was seen in her room this AM Incision healed no drainage current meds reviewed Review of Systems pruritic rash Objective Exam Last Set of Vital Signs Vital Signs Date Time Temp Pulse Resp B/P Pulse Ox O2 Delivery O2 Flow Rate FiO2 07/19/16 07:30 94 07/19/16 05:36 98.3 77 16 143/84 Room Air Capillary Refill : Less Than 3 Seconds I&O Intake and Output 07/19/16 00:00 Intake Total 3700 ml Balance 3700 ml Intake Oral 3700 ml # Voids 13 # Bowel Movements 3 General: Alert, Oriented X3, Cooperative, No Acute Distress HEENT: Atraumatic, PERRLA, EOMI, Mucous Memb Moist/Garibaldi Neck: Supple, No JVD Lungs: Clear to Auscultation Heart: Regular Rate Abdomen: Normal Bowel Sounds, Soft, No Tenderness Extremities: Other (as per ortho note) Skin: Other (rash improved and left hip incision well healed) Neuro: Other (weakness guarding left hip) Results Lab Laboratory Tests 07/19/16 05:37: Anion Gap 11, BUN/Creatinine Ratio 9, Blood Urea Nitrogen 5L, Calcium Level 8.8 , Carbon Dioxide Level 24, Chloride Level 107, Creatinine 0.58L, Estimat Glomerular Filtration Rate > 60, Glucose Level 89, Potassium Level 4.0, Sodium Level 142 Microbiology 07/14/16 Gram Stain - Final, Complete 07/14/16 Wound Culture - Final, Complete No growth Assessment/Plan Assessment S/p repair left fem neck frx Cellulitis left hip incision site antibiotics ordered-with fever resolved- improved-resolved foot pain-DJD Constipation under treatment-improved Pruritic rash-treatment ordered last week and now improved Muscle twitch as per patient.Serum K rechecked -WNL Plan Discharge today to home with family and HHC F/U with DR Naranjo and sirisha See orders AUSTIN BE MD Jul 19, 2016 08:11
[2016-07-19] MEDS: HYDROCORTISONE 1% CREAM 30 GM TUBE TOP SCH (08:24)
--- NOTE | 2016-07-19 08:28 | Therapy Team Discharge Summary ---
Therapy Discharge Summary Discharge Recommendations Date of Discharge Therapy D/C Recommendations: Home w/ Family Support, Occupational Therapy Home Care Occupational Therapy Pt. has been seen by occupational therapy to increase overall strength and independence with daily tasks. Pt. has demonstrated ability to perform all bathing/dressing/toileting tasks with adaptive equipment, with Modified [place]. Tolerated this well. Has met all goals. Pt. would benefit from skilled home health OT to make sure that pt. is truly independent within her home. Pt. would also benefit from a hip kit. All needs met. Pt. to discharge today. PT Correction Goals Methods And Procedures Analyst Goals PT Methods And Procedures Analyst Goals Time Frame: Aug 02, 2016 Transfers (B,C,W/C) (FIM): 6 Roll Left to Right (QC): 6 Sit to Lying (QC): 6 Lying-Sitting on Side/Bed(QC): 6 Sit to Stand (QC): 6 Chair/Yrt-pr-Eauno Xfer(QC): 6 Car Transfer (QC): 4 Does the Patient Walk: Yes Gait (FIM): 6 Distance: 300' Walk 10 feet (QC): 6 Walk 10ft-Uneven Surface(QC): 6 Walk 50ft with 2 Turns (QC): 6 Walk 150 ft (QC): 6 Gait Assistive Device: FWW Stairs (FIM): 5 # of Steps: 12 1 Step (curb) (QC): 4 4 Steps (QC): 4 12 Steps (QC): 4 Stairs Level Of Assist: 5 Picking up an Object (QC): 88 OT Methods And Procedures Analyst Goals Correction Goals Time Frame: Jul 26, 2016 Eating (FIM): 6 (met) Eating (QC): 6 (met) Oral Hygiene (QC): 6 (met) Grooming(FIM): 6 (met) Bathing(FIM): 5 (met) Shower/Bathe Self (QC): 5 (met) Upper Body Dressing(FIM): 6 (met) Upper Body Dressing (QC): 6 (met) Lower Body Dressing(FIM): 6 (met) Lower Body Dressing (QC): 6 (met) On/Off Footwear (QC): 6 (met) Toileting(FIM): 6 (met) Toileting Hygiene (QC): 6 (met) Transfers (B,C,W/C) (FIM): 6 (met) Toilet/Commode Transfer(FIM): 6 (met) Toilet/Commode Transfer (QC): 6 (met) Shower Transfer(FIM): 5 (met) Additional Goals: 1-Demonstrate ADL Tasks, 2-Verbalize Understanding, 3- ImproveStrength/Laya 1=Demonstrate adherence to instructed precautions during ADL tasks. 2=Patient will verbalize/demonstrate understanding of assistive devices/ modifications for ADL. 3=Patient will improve strength/tolerance for activity to enable patient to perform ADL's. CARLOS LAUREN OT Jul 19, 2016 08:27
--- NOTE | 2016-07-19 10:29 | Physical Therapy Daily Note ---
PT Daily Note-Current Subjective Patient in bed pre tx, agrees to PT, she has more pain this morning 8/10 in left leg and hip. Appearance Patient BTB post tx with nurse call, phone, tray, all needs met. Transfers Functional [place] Measure 0=Not Assessed/NA 4=Minimal Assistance 1=Total Assistance 5=Supervision or Setup 2=Maximal Assistance 6=Modified [place] 3=Moderate Assistance 7=Complete IndependenceIRFPAI Quality Coding Scale 6 Independent with activity with or without an assistive device 5 Patient requires set up or clean up by helper. Patient completes activity by themselves 4 Supervision or touching assist (CGA). [place] provide cues , steadying assist 3 The helper provides less than half the effort to complete the activity 2 The helper provides more than half the effort to complete the activity 1 Dependent. The helper does all the effort to complete an activity 7 Patient refused to complete or attempt activity 9 The patient did not perform the activity before the current illness or injury 88 Not attempted due to Medical conditions or safety concerns Transfers (B, C, W/C) (FIM): 6 Scootin Rollin Supine to/from Sit: 6 Sit to/from Stand: 6 Gait Training Gait (FIM): 6 Distance: 250' Gait Assistive Device: FWW Treatments bed mobility and transfers, ambulation Assessment Current Status: Fair Progress more pain this morning, nursing aware and she has already had a pain pill PT Short Term Goals Short Term Goals Time Frame: Jul 19, 2016 Transfers (B,C,W/C) (FIM): 5 Gait (FIM): 5 Gait Distance Comment: 200' Gait Level of Assist: 5 Gait Assistive Device: FWW PT Senior Living Goals [employer] Goals PT Senior Living Goals Time Frame: Aug 02, 2016 Transfers (B,C,W/C) (FIM): 6 Sit to Lying (QC): 6 Lying-Sitting on Side/Bed(QC): 6 Sit to Stand (QC): 6 Rollin Roll Left to Right (QC): 6 Chair/Yxm-mm-Cayfv Xfer(QC): 6 Car Transfer (QC): 4 Does the Patient Walk: Yes Gait (FIM): 6 Distance: 300' Walk 10 feet (QC): 6 Walk 10ft-Uneven Surface(QC): 6 Walk 50ft with 2 Turns (QC): 6 Walk 150 ft (QC): 6 Gait Assistive Device: FWW Stairs (FIM): 5 # of Steps: 12 1 Step (curb) (QC): 4 4 Steps (QC): 4 12 Steps (QC): 4 Stairs Level Of Assist: 5 Picking up an Object (QC): 88 PT Plan Problem List Problem List: Activity Tolerance, Functional Strength, Safety, Balance, Gait, Transfer Treatment/Plan Treatment Plan: Continue Plan of Care Treatment Plan: Bed Mobility, Education, Functional Activity Laya, Functional Strength, Group Therapy, Gait, Safety, Therapeutic Exercise, Transfers Treatment Duration: Aug 02, 2016 Visits Per Week: 10-11 Minutes/Day (M-F): 60-90 Minutes/Day (Sat/Garcia): 15-30 Safety Risks/Education Patient Education: Gait Training, Transfer Techniques, Safety Issues Teaching Recipient: Patient Teaching Methods: Demonstration, Discussion Response to Teaching: Reinforcement Needed Time/GCodes Time In: 1000 Time Out: 1015 Total Billed Treatment Time: 15 Total Billed Treatment 1 visit GT 15 min TIRSTAN MORAN PT Jul 19, 2016 10:29
--- NOTE | 2016-07-19 10:35 | Therapy Team Discharge Summary ---
Therapy Discharge Summary Discharge Recommendations Date of Discharge Therapy D/C Recommendations: Home w/ Family Support, Occupational Therapy Home Care Physical Therapy Patient came to rehab following a left hip fracture and total hip. Upon admission, patient performs bed mobility with SBA and transfers with CGA, ambulates 150' with a rolling walker with CGA, and can go up and down 4 steps using 2 handrails with CGA. Patient has been performing bed mobility and transfer training, balance and endurance training, functional strengthening, stair training, gait training, and education. Patient has made good progress and has met all of her jail goals. Now, patient performs bed mobility and transfers with mod I, ambulates 250' with a rolling walker with mod I ( including going 10' over an uneven surface like carpet and 50' with at least 2 turns of 90 degrees), and can go up and down 12 steps using 2 handrails with mod I. Patient is being discharged from this facility today and will be discharged from PT at this time. PT Premium Auditor Goals Premium Auditor Goals PT Premium Auditor Goals Time Frame: Aug 02, 2016 Transfers (B,C,W/C) (FIM): 6 Roll Left to Right (QC): 6 Sit to Lying (QC): 6 Lying-Sitting on Side/Bed(QC): 6 Sit to Stand (QC): 6 Chair/Aau-vb-Veugp Xfer(QC): 6 Car Transfer (QC): 4 Does the Patient Walk: Yes Gait (FIM): 6 Distance: 300' Walk 10 feet (QC): 6 Walk 10ft-Uneven Surface(QC): 6 Walk 50ft with 2 Turns (QC): 6 Walk 150 ft (QC): 6 Gait Assistive Device: FWW Stairs (FIM): 5 # of Steps: 12 1 Step (curb) (QC): 4 4 Steps (QC): 4 12 Steps (QC): 4 Stairs Level Of Assist: 5 Picking up an Object (QC): 88 OT Premium Auditor Goals Mcfp Goals Time Frame: Jul 26, 2016 Eating (FIM): 6 (met) Eating (QC): 6 (met) Oral Hygiene (QC): 6 (met) Grooming(FIM): 6 (met) Bathing(FIM): 5 (met) Shower/Bathe Self (QC): 5 (met) Upper Body Dressing(FIM): 6 (met) Upper Body Dressing (QC): 6 (met) Lower Body Dressing(FIM): 6 (met) Lower Body Dressing (QC): 6 (met) On/Off Footwear (QC): 6 (met) Toileting(FIM): 6 (met) Toileting Hygiene (QC): 6 (met) Transfers (B,C,W/C) (FIM): 6 (met) Toilet/Commode Transfer(FIM): 6 (met) Toilet/Commode Transfer (QC): 6 (met) Shower Transfer(FIM): 5 (met) Additional Goals: 1-Demonstrate ADL Tasks, 2-Verbalize Understanding, 3- ImproveStrength/Laya 1=Demonstrate adherence to instructed precautions during ADL tasks. 2=Patient will verbalize/demonstrate understanding of assistive devices/ modifications for ADL. 3=Patient will improve strength/tolerance for activity to enable patient to perform ADL's. TRISTAN MORAN PT Jul 19, 2016 10:35
[2016-07-19 12:15] VITALS: BP 143/84
--- NOTE | 2016-08-17 10:22 | DISCHARGE SUMMARY ---
DATE OF ADMISSION: 07/12/2016. DATE OF DISCHARGE: 07/19/2016 HISTORY OF PRESENT ILLNESS: The patient is a 71-year-old female who slipped on some paper at home falling onto her left hip, sustaining a femoral neck fracture of the left hip. She was admitted via the ED at [facility] when on have repair with Dr. Naranjo, orthopedics. The patient was followed by hospitalist service in lieu of Dr. Toledo. She was referred to Inpatient Rehabilitation Unit due to decline in functional independence. She had been independent prior to this and living alone. She is a recent . She has a supportive son nearby as well as a daughter. She is on Lovenox subcutaneous DVT prophylaxis. She is utilizing Lortab generic and tramadol for pain control. She is on Senokot-S for constipation. PAST MEDICAL HISTORY: 1. Paroxysmal SAT atrial fibrillation. 2. Coronary artery disease. 3. Hypercholesteremia. 4. Seen by Dr. Birch in the past. 5. She reports some numbness in the right hand and right foot. 6. GERD. 7. Osteoarthritis. 8. Fibromyalgia. 9. Ganglion cyst removed from the right ankle. 10. Adenoidectomy. 11. Cholecystectomy. 12. Tonsillectomy. MEDICAL COURSE: The patient was followed by Dr. Multani and Dr. Quintero et al. while on rehab unit. She was seen by orthopedics regarding some superficial phlebitis involving the surgical site of the hip. The patient was placed on antibiotics with resolution prior to discharge. She was afebrile during her stay. Blood pressure 143/84 on 07/19, pulse 77, respirations 16, O2 sat 94% on room air. CBC on 07/15 showed WBC 9, H&H improved to 13/38, platelet count 369,000. Chemistry on 07/19 showed normal electrolytes, BUN was low at 5, creatinine low at 0.58, calcium glucose within normal limits. Albumin low at 2.8, total protein low at 6.9 on 07/13. The patient had improved appetite. She progressed she had decreased pain. Wound culture showed no growth. The patient developed pruritic rash over her back; this responded to topical care. The patient had some increased pain in the right foot, it revealed hallux valgus of the right foot and DJD of the right foot. The patient was provided with symptomatic relief. REHABILITATION COURSE: She progressed well with her therapy. She had increased strength and endurance. She was assessed by speech therapy upon admission and found to be functional cognitive-burns and they signed off. OT notes upon admission, the patient was modified independent for eating, oral hygiene. Mod assist for bathing, set up for dressing upper body, max assist for lower body dressing. Standby assist for transfers. Upon discharge the patient is modified independent with basic ADLs with extra time. She would benefit from the hip kit and home health/OT. PT notes that upon admission the patient required standby assist for bed mobility, contact guard for transfers. She could ambulate 150 feet with a walker with contact guard. Upon discharge the patient was modified independent for bed mobility, and transfers, could ambulate 250 feet what a wheeled walker with modified independence. DISCHARGE INSTRUCTIONS: Continue current diet. Prescription for wheeled walker was provided. Follow-up with Dr. Toledo and Dr. Naranjo as per their schedules. The patient will have home health care. DISCHARGE MEDICATIONS: 1. Multivitamin with vitamin C 1000 mg p.o. at bedtime. 2. ASA 325 mg p.o. daily. 3. Vitamin D3 2000 units p.o. at bedtime. 4. Fish oil 1200 mg p.o. b.i.d. 5. Flovent 1 puff b.i.d. 6. Flonase 2 sprays nasally daily p.r.n. allergies. 7. Gabapentin 100 mg p.o. at bedtime. 8. Mucinex 600 mg p.o. b.i.d. 9. Hydrocodone APAP 10/325, 1 tablet p.o. q.4 hours p.r.n. moderate pain. 10. Ibuprofen 200 mg p.o. b.i.d. p.r.n. pain. 11. Niacin 500 mg p.o. at bedtime. 12. Senokot-S 1 tablet p.o. b.i.d. 13. Vitamin B complex 1 capsule p.o. daily. DISCHARGE DIAGNOSES: 1. Rehabilitation ambulatory dysfunction secondary to left intertrochanteric fracture, status post hemiarthroplasty Dr. Naranjo, weight-bearing as tolerated. 2. Cellulitis incision site, treated. 3. Constipation, treated. 4. Paroxysmal atrial fibrillation, controlled with medication. 5. Coronary artery disease, stable on medications. 6. Hallux valgus right side. 7. DJD right foot. 8. Hypokalemia, treated. 9. Hypercholesteremia, on medications. 10. Asthma, quiescent on medications. 11. Pruritic rash, resolved with topical care. CONDITION AT DISCHARGE: Improved and stable. PROGNOSIS: Rehab prognosis appears good for some continued improvement at home with home health and family assisting. Job ID: [id number] Dictated Date: 08/16/2016 13:35:06 Tip Bander Date: 08/16/2016 15:11:24/arlet
== END 2016-07-19 12:15 | disposition home health service (06) | DRG 560 ==
PROVIDERS: ADMIT Physical Medicine & Rehabilitation; ATTEND Physical Medicine & Rehabilitation
DX: M80.052D Age-related osteoporosis with current pathological fracture, left femur, subsequent encounter for fracture with routine healing (principal); Z96.642 Presence of left artificial hip joint; T81.4XXA Infection following a procedure, initial encounter; K59.00 Constipation, unspecified; I48.0 Paroxysmal atrial fibrillation; I25.10 Atherosclerotic heart disease of native coronary artery without angina pectoris; M20.11 Hallux valgus (acquired), right foot; M19.071 Primary osteoarthritis, right ankle and foot; E87.6 Hypokalemia; E78.00 Pure hypercholesterolemia, unspecified; J45.909 Unspecified asthma, uncomplicated; R21 Rash and other nonspecific skin eruption
CPT/HCPCS: 36415; 73620; 80048; 80053; 85025; 87070; 87205; 94640; 94760

== ENCOUNTER 2016-07-28 11:46 | Emergency (ER) | payer MEDICARE ==
[~2016-07-28] VITALS: Ht 162.6 cm; Wt 55.3 kg
--- OUTSIDE RECORDS SUMMARY | 2016-07-28 11:51 | XMS REPORT | Continuity of Care Document ---
Author Author [facility] Organization [facility] Address Unknown Phone Unavailable Care Team Providers Care Eradicator Name Role Phone SEEMA SANTOYO DO PCP Insurance Providers Payer Name Policy Number Subscriber Name Relationship Wps Medicare [id number] Diallo Marie 18 Self / Same As Patient Blue Cross Mcr Supp [id number] Diallo Marie 18 Self / Same As Patient Advance Directives Directive Response Recorded Date/Time Advance Directives No 05/10/16 5:58pm Health Care Power of Legal Cashier No 05/10/16 5:58pm Organ Donor No 05/10/16 5:58pm Chief Complaint and Reason for Visit Chief Complaint Altered Mental Status Reason for Visit Malaise Confusion [id number] Problems Active Problems Medical Problem Onset Date [...] 200 Mg Oral As Needed 1 05/10/16 [place]-3/Dha/Epa/Fish Oil 1 Each 1 Each Oral Twice [...] Day as needed for Pain 11/24/14 Discontinued [[place] Lecithin] , 2 Tab Oral Twice A [...] Type Severity Reaction Status Last Updated ciprofloxacin ([id number]) Adverse Reaction Unknown stomach upset Active 12/01/14 shellfish derived ([id number]) Allergy Unknown Active 05/10/16 Immunizations Name Given [...] 4 inches 05/14/2016 10:45am Height (Calculated Centimeters) 162.287651 cm 05/14/2016 10:45am Weight (Pounds) 127 pounds 05/14/2016 10:45am Weight (Ounces) 0.0 oz 05/10/2016 6:07pm Weight (Calculated Grams) 69816.232 gm 05/11/2016 6:00am Weight (Calculated Kilograms) 57.232529 kilograms 05/14/2016 10:45am Calculated BMI 21.6 05/10/2016 [...] SELECTED GROUPS OF HIGH RISK PATIENTS. [employer] CONSENSUS CONFERENCE ON [...] G/DL 3.2-4.5 05/10/2016 9:15am 05/10/2016 9:49am [facility] [place] Testing 1.62 UIU/ML 0.35-4.94 05/10/2016 9:15am 05/10/2016 [...] Date Attending Provider Registered Emergency Room [facility] 05/14/16 10:43am MAXWELL HENRY MD Departed [facility] 05/10/16 3:30pm 8:40am TATE REARDON MD Departed Emergency Room [facility] 05/10/16 9:10am 05/10 10:47am JENNIFER FUENTES DO Recent Diagnosis
[2016-07-28] MEDS ORDERED: NS IV 1000 ML 1,000 ML ONE (11:52)
[2016-07-28] MEDS ORDERED: ADENOSINE 6 MG/2 ML (ADENOCARD) VIAL IV ONE ×2 (11:52→12:15)
--- NOTE | 2016-07-28 12:08 | ED Cardiac General ---
History of Present Illness General Stated Complaint: IRR HEART RATE Source: patient Exam Limitations: no limitations History of Present Illness Time seen by provider: 11:45 Initial Comments The patient is a 71-year-old white female known to me from a recent hip fracture. She has a history of supraventricular tachycardia arrhythmias. She reports that about 1 hour prior to presentation she began having palpitations and then a feeling as if she were about to pass out. These have happened before and have included supraventricular tachycardia and also atrial fibrillation with RVR. She was to have an appointment to see Dr. Staples for electrophysiology tomorrow. Timing/Duration: 1 hour Location: central Activities at Onset: none Prior CP/Workup: other (rhythm recorder) Associated Systoms: Diaphoresis Syncope Weakness Allergies and Home Medications Allergies Coded Allergies: shellfish derived (Verified Allergy, Unknown, 05/10/16) ciprofloxacin (Verified Adverse Reaction, Unknown, stomach upset, 12/01/14) Home Medications Ascorbic Acid/Multivit-Min 1,000 Mg Effpowdpkt 1,000 MG PO HS (Reported) Aspirin 325 Mg Tablet 325 MG PO DAILY (Reported) Cholecalciferol (Vitamin D3) 1,000 Unit Tablet 3,000 UNIT PO HS (Reported) Fish Oil/Dha/Epa 1 Each Capsule 1,200 MG PO BID (Reported) Fluticasone Propionate 1 Ea Aero 1 PUFF IH BID (Reported) Fluticasone Propionate 9.9 Ml [place].susp 2 SPRAYS NS DAILY PRN PRN ALLERGIES ( Reported) Gabapentin 100 Mg Capsule 100 MG PO HS (Reported) Guaifenesin 600 Mg Tab.er.12h 600 MG PO BID (Reported) Hydrocodone/Acetaminophen 1 Each Tablet #90 1 EA PO Q4H PRN PRN MODERATE PAIN Prescribed by: QUENTIN CLEVELAND on 07/12/16 0754 Ibuprofen 200 Mg Tablet 200 MG PO BID PRN PRN PAIN (Reported) Metoprolol Succinate 50 Mg Tab.er.24h #30 50 MG PO DAILY Prescribed by: MELO MENDOZA on 07/28/16 1408 Multivitamin 1 Each Tablet 1 TAB PO 1200 (Reported) Niacin (Inositol Niacinate) 500 Mg Capsule 500 MG PO HS (Reported) Sennosides/Docusate Sodium 1 Each Tablet #60 1 EA PO BID Prescribed by: QUENTIN CLEVELAND on 07/12/16 0754 Vitamin B Complex 1 Each Capsule 1 CAP PO DAILY (Reported) Review of Systems Constitutional: see HPI Genitourinary: No Symptoms Reported Musculoskeletal: no symptoms reported Skin: no symptoms reported Psychiatric/Neurological: No Symptoms Reported Endocrine: No Symptoms Reported Hematologic/Lymphatic: No Symptoms Reported Past Yocnkiu-Vbjqzz-Vbaxua Hx Patient Social History Recent Hopitalizations: No (Jan 2016 for new onset A-Fib, May 10 for elevated troponin and SVT) Immunizations Up To Date Tetanus Booster (TDap): More than 5yrs PED Vaccines UTD: No Date of Pneumonia Vaccine: Apr 26, 2011 Date of Influenza Vaccine: Feb 24, 2014 Seasonal Allergies Seasonal Allergies: Yes Surgeries HX Surgeries: Yes (RIGHT ANKLE--GANGLION CYST REMOVED) Surgeries: Adenoidectomy, Gallbladder, Orthopedic, Tonsillectomy Respiratory Hx Respiratory Disorders: Yes Respiratory Disorders: Asthma Cardiovascular Hx Cardiac Disorders: Yes (paroxysmal SVT) Cardiac Disorders: Atrial Fibrillation, Coronary Artery Disease, High Cholesterol, Irregular Heartbeat Neurological Hx Neurological Disorders: Yes (NUMBNESS IN RIGHT HAND, RIGHT FOOT) Neurological Disorders: Neuropathy Reproductive System Hx Reproductive Disorders: No Sexually Transmitted Disease: No HIV/AIDS: No Female Reproductive Disorders: Denies TOP CARRIER History: Menopausal Genitourinary Hx Genitourinary Disorders: No Gastrointestinal Hx Gastrointestinal Disorders: Yes (HISTORY OF H. PYLORI) Gastrointestinal Disorders: Gastroesophageal Reflux, Ulcer, Gall Bladder Disease Musculoskeletal Hx Musculoskeletal Disorders: Yes (OSTEOARTHRITIS, BORDER-LINE OSTEOPOROSIS ; LEFT KNEE PAIN ) Musculoskeletal Disorders: Osteoporosis, Arthritis, Fibromyalgia Endocrine Hx Endocrine Disorders: No HEENT HX ENT Disorders: No (wears corrective lens) Loss of Vision: Denies Hearing Impairment: Denies Cancer Hx Cancer: No Psychosocial Hx Psychiatric Problems: Yes Behavioral Health Disorders: Sleep Difficulties, Anxiety Integumentary HX Skin/Integumentary Disorder: Yes (DERMATITIS ) Blood Transfusions Hx Blood Disorders: No Adverse Reaction to a Blood Tr: No Family Medical History Family Medial History: Arthritis 19 FATHER Cardiovascular disease Cataracts 19 FATHER Completed stroke 19 MOTHER Congenital disease Deafness or hearing loss 19 MOTHER Dementia 19 MOTHER FH: esophageal cancer G8 BROTHER FH: lung cancer 19 FATHER FH: smoking 19 FATHER G8 SISTER G8 BROTHER Genetic disease G8 BROTHER Gout 19 FATHER Hypercholesterolemia 19 MOTHER Hypertension G8 BROTHER Lactose intolerance G8 BROTHER Myocardial infarction 19 FATHER Prostate cancer G8 BROTHER Psychosocial problem G8 SISTER Thyroid disease 19 MOTHER No Family History of: AIDS Abdominal aortic aneurysm Shan's disease Alcoholism Alzheimer's disease Aphasia Asthma Cancer of mouth Colon cancer Congenital heart disease Cystic fibrosis Diabetes mellitus Drug abuse Dysphasia Fibrocystic disease of breast Gastroenteritis Glaucoma Headache disorder Infertility Kidney disease Neoplasm Not obtainable due to adoption Osteoporosis Parkinson's disease Respiratory disorder Seizure disorder Severe allergy Tuberculosis Visual disorder Physical Exam Vital Signs Capillary Refill : General Appearance: Moderate Distress Other HEENT: Normal ENT Inspection Neck: Full Range of Motion Normal Inspection Non Tender Cardiovascular: Tachycardia Other (hypotensive and diaphoretic) Gastrointestinal: Normal Bowel Sounds No Organomegaly No Pulsatile Mass Non Tender Neurologic/Psychiatric: Alert Oriented x3 No Motor/Sensory Deficits Normal Mood/Affect Skin: Normal Color Warm/Dry Lymphatic: No Adenopathy Progress/Results/Core Measures Results/Orders Lab Results Laboratory Tests Test 07/28/16 11:49 Range/Units Alanine Aminotransferase (ALT/SGPT) 21 0-55 U/L Albumin 3.9 3.2-4.5 G/DL Alkaline Phosphatase 79 40-136 U/L Anion Gap 15 H 5-14 MMOL/L Aspartate Amino Transf (AST/SGOT) 21 5-34 U/L BUN/Creatinine Ratio 16 Basophils # (Auto) 0.1 0.0-0.1 10^3/uL Basophils (%) (Auto) 0 0-10 % Blood Urea Nitrogen 13 7-18 MG/DL Calcium Level 9.2 8.5-10.1 MG/DL Carbon Dioxide Level 19 L 21-32 MMOL/L Chloride Level 97 L 98-107 MMOL/L Creatinine 0.81 0.60-1.30 MG/DL Eosinophils # (Auto) 0.1 0.0-0.3 10^3/uL Eosinophils (%) (Auto) 0 0-10 % Estimat Glomerular Filtration Rate > 60 Glucose Level 178 H 70-105 MG/DL Hematocrit 39 35-52 % Hemoglobin 12.9 11.5-16.0 G/DL Lymphocytes # (Auto) 2.3 1.0-4.0 X 10^3 Lymphocytes (%) (Auto) 17 12-44 % Magnesium Level 2.2 1.8-2.4 MG/DL Mean Corpuscular Hemoglobin 30 25-34 PG Mean Corpuscular Hemoglobin Concent 33 32-36 G/DL Mean Corpuscular Volume 91 80-99 FL Mean Platelet Volume 9.5 7.4-10.4 FL Monocytes # (Auto) 1.1 H 0.0-1.0 X 10^3 Monocytes (%) (Auto) 8 0-12 % Neutrophils # (Auto) 9.9 H 1.8-7.8 X 10^3 Neutrophils (%) (Auto) 74 42-75 % Platelet Count 804 H 130-400 10^3/uL Potassium Level 4.1 3.6-5.0 MMOL/L Red Blood Count 4.27 L 4.35-5.85 10^6/uL Red Cell Distribution Width 14.1 10.0-14.5 % Sodium Level 131 L 135-145 MMOL/L Total Bilirubin 0.6 0.1-1.0 MG/DL Total Protein 6.3 L 6.4-8.2 G/DL White Blood Count 13.4 H 4.3-11.0 10^3/uL My Orders Orders-MELO MENDOZA MD Ns Iv 1000 Ml (Sodium Chloride 0.9%) (07/28/16 11:52) Adenosine Injection (Adenocard Injection (07/28/16 11:52) Adenosine Injection (Adenocard Injection (07/28/16 12:15) Ekg Tracing (07/28/16 12:15) Ekg Tracing (07/28/16 12:15) Cbc With Automated Diff (07/28/16 12:25) Magnesium (07/28/16 12:25) Comprehensive Metabolic Panel (07/28/16 13:56) Iv Push Railroad Auditor Ed (07/28/16 ) Medications Given in ED Vital Signs/I&O Departure Communication Progress Notes Immediately after the EKG was done we prepared and I gave her 12 mg of adenosine with a saline flush and shortly she converted to at first an irregular sinus rhythm with PVCs and then a regular sinus 1222 discussed by phone with Dr. Staples. He estimates that he will see her in the ER with in [address] Staples [place] unit. The patient has been having troubling foot cramps in the interim. She recently had a hip fracture and reports that she had cramps at that time which had been improved by taking 20 mEq of potassium per day. She took a dose already today. Patient was seen by Dr. Staples and he recommends that she can be discharged today to keep an appointment with him tomorrow. He would ask that she be started on metoprolol in the form of Toprol XL and that she should restart the Eliquis which she already has appropriate prescription for Impression Impression: Primary Impression: SVT (supraventricular tachycardia) Additional Impression: hypo-tension Disposition: 01 HOME, SELF-CARE Condition: Improved Departure-Patient Inst. Decision time for Depature: 14:06 Referrals: SEEMA SANTOYO DO (PCP/Family) Primary Care Physician Patient Instructions: Paroxysmal Supraventricular Tachycardia (DC) Add. Discharge Instructions: Keep appointment with Dr. Staples tomorrow. Start Toprol today Restart Eliquis twice daily Scripts Metoprolol Succinate (Toprol Xl)50 Mg Tab.er.24h50 Mg PO DAILY #30 TAB Prov:MELO MENDOZA MD 07/28/16 MELO MENDOZA MD Jul 28, 2016 12:08 Add. Discharge Instructions: Keep appointment with Dr. Staples tomorrow. Start Toprol today Restart Eliquis twice daily Scripts Metoprolol Succinate (Toprol Xl)50 Mg Tab.er.24h50 Mg PO DAILY #30 TAB Prov:MELO MENDOZA MD 07/28/16 MELO MENDOZA MD Jul 28, 2016 12:08
[2016-07-28 12:29] LABS: BASOPHILS # (AUTO) 0.1 10^3/uL (0.0-0.1); BASOPHILS % (AUTO) 0 % (0-10); EOSINOPHILS # (AUTO) 0.1 10^3/uL (0.0-0.3); EOSINOPHILS % (AUTO) 0 % (0-10); LYMPHOCYTES # (AUTO) 2.3 X 10^3 (1.0-4.0); LYMPHOCYTES % (AUTO) 17 % (12-44); MEAN CORPUSCULAR HEMOGLOBIN 30 PG (25-34); MEAN CORPUSCULAR HGB CONC 33 G/DL (32-36); MEAN CORPUSCULAR VOLUME 91 FL (80-99); MEAN PLATELET VOLUME 9.5 FL (7.4-10.4); MONOCYTES # (AUTO) 1.1 X 10^3 (0.0-1.0); MONOCYTES % (AUTO) 8 % (0-12); NEUTROPHILS # (AUTO) 9.9 X 10^3 (1.8-7.8); NEUTROPHILS % (AUTO) 74 % (42-75); PLATELET COUNT 804 10^3/uL (130-400); RED BLOOD COUNT 4.27 10^6/uL (4.35-5.85); RED CELL DISTRIBUTION WIDTH 14.1 % (10.0-14.5); WHITE BLOOD COUNT 13.4 10^3/uL (4.3-11.0)
[2016-07-28] MEDS ORDERED: METO-352 PO (14:08)
--- NOTE | 2016-07-28 14:14 | Electrophysiology Consultation ---
HPI-Cardiology Cardiology Consultation: Date of Consultation 07/28/16 Date of Admission Attending Physician Admitting Physician Bayron Toledo DO Consulting Physician Tani STAPLES MD HPI: Chief Complaint: palpitation, near syncope this is a 71-year-old lady with history of asthma, recent hip surgery. She presented with palpitation, near syncope, hypotension. She was found to be in rapid supraventricular tachycardia with heart rate in the 170s. She was given 12 mg of adenosine IV with conversion to sinus rhythm. She denies any further cardiac symptoms. She has previously been admitted with paroxysmal tachycardia. Echocardiogram showed normal LV function, left atrial size of 3.4 cm and coronary angiography revealed mild to moderate coronary artery disease. Review of Systems-Cardiology Review of Systems Constitutional: No As described under HPI, No no symptoms reported, No chills, No fever, No lightheadedness, No malaise, No tiredness, No weight loss, No weight gain, No other Eyes: No As described under HPI, No no symptoms reported, No blindness, No blurred vision, No contact lenses, No drainage, No decreased acuity, No foreign body sensation, No glasses, No inflammation, No pain, No photophobia, No previous injury, No shadows, No tunnel vision, No other, No vision change Ears/Nose/Throat: No As described under HPI, No no symptoms reported, No chronic hearing loss, No epistaxis, No ear discharge, No ear pain, No loose teeth, No mouth pain, No mouth swelling, No nasal drainage, No nose pain, No recent hearing loss, No throat pain, No throat swelling, No ulcerations, No other Respiratory: No no symptoms reported, No As described under HPI, No cough, No orthopnea, No shortness of breath, No SOB with excertion, No SOB at rest, No stridor, No wheezing, No other Cardiovascular: palpitations syncope Gastrointestinal: No no symptoms reported, No As described under HPI, No abdomen distended, No abdominal pain, No blood streaked bowels, No constipation , No diarrhea, No difficulty swallowing, No nausea, No poor appetite, No poor fluid intake, No rectal bleeding, No vomiting, No other, No nausea/vomiting/ diarrhea, No stool coloration changes Genitourinary: No no symptoms reported, No As described under HPI, No burning, No dysuria, No discharge, No frequency, No flank pain, No hematuria, No incontinence, No pain, No urgency, No other, No urine frequency changes, No urine coloration changes Musculoskeletal: No no symptoms reported, No As describe under HPI, No back pain, No gout, No joint pain, No joint swelling, No muscle pain, No muscle stiffness, No neck pain, No other Skin: No no symptoms reported, No As described under HPI, No change in color, No change in hair/nails, No dryness, No lesions, No lumps, No rash, No other, No skin related problems, No ulcerations, No rash on exposed areas, No ulcerations on exposed areas Psychiatric/Neurological: No As described under HPI, No anxiety, No depression , No emotional problems, No focal weakness, No headache, No no symptoms reported , No numbness, No other, No pre-existing deficit, No seizure, No syncope, No tingling, No tremors, No weakness Hematologic: No no symptoms reported, No As described under HPI, No anemia, No blood clots, No easy bleeding, No easy bruising, No swollen glands, No other, No bleeding abnormalities [id number] Hx Patient Social History Alcohol Use: Denies Use Recreational Drug Use: No Smoking Status: Never a Smoker Recent Foreign Travel: No Recent Infectious Disease Expo: No Immunizations Up To Date Tetanus Booster (TDap): More than 5yrs Date of Pneumonia Vaccine: Apr 26, 2011 Date of Influenza Vaccine: Feb 24, 2014 Past Medical History PMH As described under Assessment. Family Medical History Family History: Arthritis 19 FATHER Cardiovascular disease Cataracts 19 FATHER Completed stroke 19 MOTHER Congenital disease Deafness or hearing loss 19 MOTHER Dementia 19 MOTHER FH: esophageal cancer G8 BROTHER FH: lung cancer 19 FATHER FH: smoking 19 FATHER G8 SISTER G8 BROTHER Genetic disease G8 BROTHER Gout 19 FATHER Hypercholesterolemia 19 MOTHER Hypertension G8 BROTHER Lactose intolerance G8 BROTHER Myocardial infarction 19 FATHER Prostate cancer G8 BROTHER Psychosocial problem G8 SISTER Thyroid disease 19 MOTHER No Family History of: AIDS Abdominal aortic aneurysm [place]'s disease Alcoholism Alzheimer's disease Aphasia Asthma Cancer of mouth Colon cancer Congenital heart disease Cystic fibrosis Diabetes mellitus Drug abuse Dysphasia Fibrocystic disease of breast Gastroenteritis Glaucoma Headache disorder Infertility Kidney disease Neoplasm Not obtainable due to adoption Osteoporosis Parkinson's disease Respiratory disorder Seizure disorder Severe allergy Tuberculosis Visual disorder Allergies and Home Medications Allergies Coded Allergies: shellfish derived (Verified Allergy, Unknown, 11/15/16) ciprofloxacin (Verified Adverse Reaction, Unknown, stomach upset, 12/01/14) Home Medications Ascorbic Acid/Multivit-Min 1,000 Mg Effpowdpkt 1,000 MG PO HS (Reported) Aspirin 325 Mg Tablet 325 MG PO DAILY (Reported) Cholecalciferol (Vitamin D3) 1,000 Unit Tablet 3,000 UNIT PO HS (Reported) Fish Oil/Dha/Epa 1 Each Capsule 1,200 MG PO BID (Reported) Fluticasone Propionate 1 Ea Aero 1 PUFF IH BID (Reported) Fluticasone Propionate 9.9 Ml [place].susp 2 SPRAYS NS DAILY PRN PRN ALLERGIES ( Reported) Gabapentin 100 Mg Capsule 100 MG PO HS (Reported) Guaifenesin 600 Mg Tab.er.12h 600 MG PO BID (Reported) Hydrocodone/Acetaminophen 1 Each Tablet #90 1 EA PO Q4H PRN PRN MODERATE PAIN Prescribed by: QUENTIN CLEVELAND on 07/12/16 0754 Ibuprofen 200 Mg Tablet 200 MG PO BID PRN PRN PAIN (Reported) Metoprolol Succinate 50 Mg Tab.er.24h #30 50 MG PO DAILY Prescribed by: MELO MENDOZA on 07/28/16 1408 Multivitamin 1 Each Tablet 1 TAB PO 1200 (Reported) Niacin (Inositol Niacinate) 500 Mg Capsule 500 MG PO HS (Reported) Sennosides/Docusate Sodium 1 Each Tablet #60 1 EA PO BID Prescribed by: QUENTIN CLEVELAND on 07/12/16 0754 Vitamin B Complex 1 Each Capsule 1 CAP PO DAILY (Reported) Physical Exam-Cardiology Physical Exam Vital Signs/I&O Vital Sign - Last 12Hours 07/28/16 11:46 Temp 98.0 Pulse 175 Resp 18 B/P 58/30 Pulse Ox 96 O2 Delivery Room Air Capillary Refill : Less Than 3 Seconds Constitutional: No appears stated age, No AAO x 3, No apparent distress, No PERRL, No well-developed, No well-nourished, No other HEENT: No PERRL, No normal ENT inspection, No TMs normal, No pharynx normal, No scleral icterus (R), No scleral icterus (L), No pale conjunctivae (R), No pale conjunctivae (L), No photophobia, No TM abnormal (R), No TM abnormal (L), No pharyngeal erythema, No tonsillar exudate, No other, No discharge, No EOMI, No hearing is well preserved, No hard of hearing, No oral hygience is good, No ulceration, No xanthelasmas are seen Neck: No non-tender, No full range of motion, No supple, No normal inspection, No carotid bruit, No limited range of motion, No lymphadenopathy (R), No lymphadenopathy (L), No tender lateral, No tender midline, No thyromegaly, No other, No carotid pulses are 2 + bilaterally, No with good upstrokes Respiratory: No accessory muscle use, No respiratory distress, No chest tender , No chest expansion is symmetric, No chest is bilaterally symmetric, No lungs clear to percussion, No lungs clear to auscultation, No crackles, No rhonchi, No rales, No stridor, No wheezing, No pleural rub, No other Cardiovascular: No regular rate-rhythm, No irregularly irregular, No extra beats, No parasternal heave is noted, No JVD, No edema, No bradycardia, No tachycardia, No point of maximal impulse, No cardiac thrills are palpable, No S1 and S2, No gallop/S3, No gallop/S4, No diastolic murmur, No systolic murmur, No friction rub, No click, No other Gastrointestinal: No tender, No soft, No round, No distended, No pulsatile mass , No organomegaly, No guarding, No rebound, No tenderness, No hernia, No mass, No audible bowel sounds, No abnormal bowel sounds, No abdominal bruits, No spleenomegaly, No other Rectal: deferred Extremities: No normal range of motion, No non-tender, No normal inspection, No pedal edema, No calf tenderness, No normal capillary refill, No pelvis stable , No calf tenderness, No inflammation, No pedal edema, No slow capillary refill , No swelling, No other, No abrasion, No clubbing, No cyanosis, No ecchymosis, No laceration, No no lower extremity edema bilateral, No significant edema, No tenderness, No wound Neurologic/Psychiatric: No tier lift truck operator II-XII nml as tested, No no motor/sensory deficits, No alert, No normal mood/affect, No oriented x 3, No abnormal cerebellar tests, No abnormal tier lift truck operator II-XII, No abnormal gait, No aphasia, No EOM palsy, No facial droop, No motor weakness, No sensory deficit, No depressed affect, No disoriented x 3, No other, No grossly intact, No power is 5/5 both on sides Skin: No normal color, No warm/dry, No cyanosis, No cool, No diaphoresis, No damp, No ecchymosis, No jaundice, No mottled, No pallor, No rash, No tattoos/ piercings, No ulcerations, No rash on exposed areas, No ulcerations on exposed areas, No other Data Review Labs Laboratory Tests 07/28/16 11:49: Basophils # (Auto) 0.1, Basophils (%) (Auto) 0, Eosinophils # (Auto) 0.1, Eosinophils (%) (Auto) 0, Hematocrit 39, Hemoglobin 12.9, Lymphocytes # (Auto) 2.3, Lymphocytes (%) (Auto) 17, Magnesium Level 2.2, Mean Corpuscular Hemoglobin 30, Mean Corpuscular Hemoglobin Concent 33, Mean Corpuscular Volume 91, Mean Platelet Volume 9.5, Monocytes # (Auto) 1.1H, Monocytes (%) (Auto) 8, Neutrophils # (Auto) 9.9H, Neutrophils (%) (Auto) 74, Platelet Count 804H, Red Blood Count 4.27L, Red Cell Distribution Width 14.1, White Blood Count 13.4H ECG Impression ECG Initial ECG Rhythm: SVT Initial ECG Impression: SVT Comment converted to sinus rhythm with adenosine A/P-Cardiology Assessment/Admission Diagnosis supraventricular tachycardia, Paroxysmal atrial fibrillation Plan symptomatic supraventricular tachycardia responded to adenosine. Start Toprol- XL 50 mg daily. various vagal maneuvers were discussed and demonstrated. However, she was told that if vagal maneuvers are not working, please come to the ER. We'll see her in the office tomorrow and discuss further plans. differential diagnoses includes SVT, atrial flutter. She also has history of paroxysmal atrial fibrillation, recommended continuing Eliquis. Thank you for your consultation. Please call me if you have any questions. Link Staples MD, FACP, FACC, FSCAI, FHRS, CCDS Interventional Cardiology Cardiac Electrophysiology Vascular Medicine and Endovascular Interventions Tani STAPLES MD Jul 28, 2016 14:14
[2016-07-28 14:17] LABS: ALANINE AMINOTRANSFERASE 21 U/L (0-55); ALBUMIN 3.9 G/DL (3.2-4.5); ANION GAP 15 MMOL/L (5-14); ASPARTATE AMINO TRANSFERASE 21 U/L (5-34); BILIRUBIN,TOTAL 0.6 MG/DL (0.1-1.0); BLOOD UREA NITROGEN 13 MG/DL (7-18); BUN/CREATININE RATIO 16; CALCIUM 9.2 MG/DL (8.5-10.1); CARBON DIOXIDE 19 MMOL/L (21-32); CHLORIDE 97 MMOL/L (98-107); CREATININE SERUM 0.81 MG/DL (0.60-1.30); GFR ESTIMATED > 60; GLUCOSE 178 MG/DL (70-105); POTASSIUM 4.1 MMOL/L (3.6-5.0); SODIUM 131 MMOL/L (135-145); TOTAL PROTEIN 6.3 G/DL (6.4-8.2)
[2016-07-28 14:19] VITALS: BP 113/72
== END 2016-07-28 14:19 | disposition home or self-care (01) ==
LOC: EDUNIT# 11:46 → ER 11:47
DX: I47.1 Supraventricular tachycardia (principal); I25.10 Atherosclerotic heart disease of native coronary artery without angina pectoris; Z79.82 Long term (current) use of aspirin; Z79.899 Other long term (current) drug therapy
CPT/HCPCS: 36415; 80053; 83735; 85025; 93005; 96361; 96374

== ENCOUNTER → 2016-08-03 | Outpatient (CLI) | payer MEDICARE ==
[~2016-08-03] MED LIST changes: +CATHETER FLUSH 10 ML SYR IV PRN; +IOHEXOL 350 MG/ML 100 ML (OMNIPAQUE 350) VIAL IV ONE; +METO-352 PO; +NS 100 ML (IVPB) BAG IV ONE
--- OUTSIDE RECORDS SUMMARY | 2016-08-03 09:46 | XMS REPORT | Continuity of Care Document ---
Author Author [facility] Organization [facility] Address Unknown Phone Unavailable Care Team Providers Care Music Department Chair Name Role Phone SEEMA SANTOYO DO PCP Insurance Providers Payer Name Policy Number Subscriber Name Relationship Wps Medicare [id number] Diallo Marie 18 Self / Same As Patient Blue Cross Mcr Supp [id number] Diallo Marie 18 Self / Same As Patient Advance Directives Directive Response Recorded Date/Time Advance Directives No 05/10/16 5:58pm Health Care Power of High Speed Printer Operator No 05/10/16 5:58pm Organ Donor No 05/10/16 5:58pm Chief Complaint and Reason for Visit Chief Complaint Altered Mental Status Reason for Visit Malaise Confusion [id number] Problems Active Problems Medical Problem Onset Date [...] 200 Mg Oral As Needed 1 05/10/16 [place]-3/Dha/Epa/Fish Oil 1 Each 1 Each Oral Twice [...] Day as needed for Pain 11/24/14 Discontinued [[place] Lecithin] , 2 Tab Oral Twice A [...] Type Severity Reaction Status Last Updated ciprofloxacin ([id number]) Adverse Reaction Unknown stomach upset Active 12/01/14 shellfish derived ([id number]) Allergy Unknown Active 05/10/16 Immunizations Name Given [...] 4 inches 05/14/2016 10:45am Height (Calculated Centimeters) 162.366816 cm 05/14/2016 10:45am Weight (Pounds) 127 pounds 05/14/2016 10:45am Weight (Ounces) 0.0 oz 05/10/2016 6:07pm Weight (Calculated Grams) 52924.232 gm 05/11/2016 6:00am Weight (Calculated Kilograms) 57.388165 kilograms 05/14/2016 10:45am Calculated BMI 21.6 05/10/2016 [...] SELECTED GROUPS OF HIGH RISK PATIENTS. [employer] CONSENSUS CONFERENCE ON [...] G/DL 3.2-4.5 05/10/2016 9:15am 05/10/2016 9:49am TSH [place] Testing 1.62 UIU/ML 0.35-4.94 05/10/2016 9:15am 05/10/2016 [...] Date Attending Provider Registered Emergency Room [facility] 05/14/16 10:43am MAXWELL HENRY MD Departed Surgical Day [facility] 05/10/16 3:30pm 8:40am TATE REARDON MD Departed Emergency Room [facility] 05/10/16 9:10am 05/10 10:47am JENNIFER FUENTES DO Recent Diagnosis
--- NOTE | 2016-08-03 12:47 | Diagnostic Imaging Report ---
PROCEDURE; CT pelvis with and without contrast. TECHNIQUE: After oral contrast administration, imaging was obtained from the iliac crest to the lesser trochanters. Repeat imaging was performed after intravenous contrast administration. INDICATION: Status post bipolar left hip replacement. Pelvic mass. 100 mL of Omnipaque 350 is administered intravenously. FINDINGS: There are beam hardening artifacts from the left hip replacement. The prosthesis appears in good position. There is a calcified mass in the right side of the pelvis that appears to be an exophytic lesion from the uterus suggestive of a calcified fibroid. The unenhanced phase demonstrates no bladder stones. Calcification adjacent to the distal left ureter which is opacified on the delayed phase enhanced images separate from the calcification is compatible with a phlebolith. No significant free fluid or fluid collection is seen in the pelvis. IMPRESSION: Partially exophytic calcified mass in the right side of the pelvis appears to arise from the uterus suggestive of a calcified fibroid. Dictated by: Dictated on workstation # [id number]
== END ==
LOC: RAD 09:42
PROVIDERS: ATTEND Orthopaedic Surgery
DX: R19.03 Right lower quadrant abdominal swelling, mass and lump (principal)
CPT/HCPCS: 72194

== ENCOUNTER 2017-03-23 11:28 | Outpatient (RCR) | payer MEDICARE ==
[~2017-03-23 11:28] MED LIST changes: -CATHETER FLUSH 10 ML SYR IV PRN; -IOHEXOL 350 MG/ML 100 ML (OMNIPAQUE 350) VIAL IV ONE; -NS 100 ML (IVPB) BAG IV ONE
== END 2017-03-23 14:17 | disposition home or self-care (01) ==
PROVIDERS: ATTEND Nurse Practitioner Family
DX: Z47.1 Aftercare following joint replacement surgery (principal); Z96.642 Presence of left artificial hip joint

== ENCOUNTER → 2017-08-04 | Outpatient (CLI) | payer MEDICARE | LOC: CARD 10:46 | PROVIDERS: ATTEND Internal Medicine Interventional Cardiology | DX: R07.9 Chest pain, unspecified (principal); I48.91 Unspecified atrial fibrillation; I47.1 Supraventricular tachycardia; R06.02 Shortness of breath; I08.0 Rheumatic disorders of both mitral and aortic valves | CPT/HCPCS: 93306 ==

== ENCOUNTER 2017-08-09 10:27 | Emergency (ER) | payer MEDICARE ==
[~2017-08-09] VITALS: Ht 162.6 cm; Wt 55.3 kg
[2017-08-09] MEDS ORDERED: ADENOSINE 6 MG/2 ML (ADENOCARD) VIAL IV ONE ×2 (10:32→10:45)
[2017-08-09] MEDS ORDERED: NS IV 1000 ML 1,000 ML ONE (10:34)
[2017-08-09] MEDS ORDERED: NS IV 1000 ML 1,000 ML IV ONE (10:43)
--- NOTE | 2017-08-09 10:55 | ED Cardiac General ---
History of Present Illness General Chief Complaint: Cardiac/General Problems Stated Complaint: AFIB,TACH Source: patient History of Present Illness Date Seen by Provider: Aug 09, 2017 Time Seen by Provider: 10:32 Initial Comments PT ARRIVES VIA POV FROM DR. YANG'S OFFICE PT WAS DOING PHYSICAL THERAPY-LEG EXERCISES --WHEN SHE BEGAN HAVING A RAPID HEART BEAT, IN 190'S --BEGAN APPROXIMATELY 45 MINUTES PRIOR TO ARRIVAL PT HAS HISTORY OF DVT / ATRIAL FIB PT STATES SHE TOOK HER METOPROLOL 100 MG LATE LAST NIGHT, AROUND MIDNIGHT AND TOOK MORNING DOSE 30 MINUTES AGO DID TAKE ELIQUIS EARLIER THIS MORNING C/O BURNING SENSATION IN CHEST AND FEELS MILD SHORTNESS OF BREATH NO SWELLING IN LEGS/ FEET OR PAIN IN CALVES HAD AN EPISODE A COUPLE OF WEEKS AGO THAT LASTED 2 HOURS AND WENT AWAY ON IT'S OWN PCP: DR. SANTOYO VICTORIAN LITERATURE PROFESSOR : DR. ANAYA Allergies and Home Medications Allergies Coded Allergies: shellfish derived (Verified Allergy, Unknown, 05/10/16) ciprofloxacin (Verified Adverse Reaction, Unknown, stomach upset, 12/01/14) Home Medications Ascorbic Acid/Multivit-Min 1,000 Mg Effpowdpkt, 1,000 MG PO HS, (Reported) Aspirin 325 Mg Tablet, 325 MG PO DAILY, (Reported) Cholecalciferol (Vitamin D3) 1,000 Unit Tablet, 3,000 UNIT PO HS, (Reported) Fish Oil/Dha/Epa 1 Each Capsule, 1,200 MG PO BID, (Reported) Fluticasone Propionate 1 Ea Aero, 1 PUFF IH BID, (Reported) Fluticasone Propionate 9.9 Ml Martin.susp, 2 SPRAYS NS DAILY PRN for ALLERGIES, ( Reported) Gabapentin 100 Mg Capsule, 100 MG PO HS, (Reported) Guaifenesin 600 Mg Tab.er.12h, 600 MG PO BID, (Reported) Hydrocodone/Acetaminophen 1 Each Tablet, 1 EA PO Q4H PRN for MODERATE PAIN, #90 Prescribed by: QUENTIN CLEVELAND on 07/12/16 4074 Ibuprofen 200 Mg Tablet, 200 MG PO BID PRN for PAIN, (Reported) Metoprolol Succinate 50 Mg Tab.er.24h, 50 MG PO DAILY, #30 Prescribed by: MELO MENDOZA on 07/28/16 1408 Multivitamin 1 Each Tablet, 1 TAB PO 1200, (Reported) Niacin (Inositol Niacinate) 500 Mg Capsule, 500 MG PO HS, (Reported) Sennosides/Docusate Sodium 1 Each Tablet, 1 EA PO BID, #60 Prescribed by: QUENTIN CLEVELAND on 07/12/16 0754 Vitamin B Complex 1 Each Capsule, 1 CAP PO DAILY, (Reported) Review of Systems Constitutional: no symptoms reported Respiratory: See HPI, Shortness of Air Cardiovascular: See HPI, Chest Pain, Denies Edema, Irregular Heart Rate, Denies Lightheadedness, Palpitations, Denies Syncope Gastrointestinal: No Symptoms Reported Genitourinary: No Symptoms Reported Musculoskeletal: no symptoms reported Skin: no symptoms reported Psychiatric/Neurological: No Symptoms Reported Endocrine: No Symptoms Reported Hematologic/Lymphatic: No Symptoms Reported Past Tzvszoa-Jfmesa-Asufxx Hx Patient Social History Alcohol Use: Regular Use (GLASS OF WINE EVERY NIGHT) Number of Drinks Today: Alcohol Beverage of Choice: Wine Recreational Drug Use: No Smoking Status: Never a Smoker Recent Hopitalizations: Yes (LEFT HIP SURGERY) Immunizations Up To Date Tetanus Booster (TDap): Unknown PED Vaccines UTD: No Date of Pneumonia Vaccine: Apr 26, 2011 Date of Influenza Vaccine: Feb 24, 2014 Seasonal Allergies Seasonal Allergies: Yes Surgeries History of Surgeries: Yes (RIGHT ANKLE--GANGLION CYST REMOVED) Surgeries: Adenoidectomy, Gallbladder, Orthopedic, Tonsillectomy Respiratory History of Respiratory Disorde: Yes Respiratory Disorders: Asthma Currently Using CPAP: No Currently Using BIPAP: No Cardiovascular History of Cardiac Disorders: Yes (paroxysmal SVT) Cardiac Disorders: Atrial Fibrillation, Coronary Artery Disease, High Cholesterol, Irregular Heartbeat Neurological History of Neurological Disord: Yes (NUMBNESS IN RIGHT HAND, RIGHT FOOT) Neurological Disorders: Neuropathy Reproductive System Hx Reproductive Disorders: No Sexually Transmitted Disease: No HIV/AIDS: No Female Reproductive Disorders: Denies 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 PYLORI) Gastrointestinal Disorders: Gastroesophageal Reflux, Ulcer, Gall Bladder Disease Musculoskeletal History of Musculoskeletal Dis: Yes (OSTEOARTHRITIS, BORDER-LINE OSTEOPOROSIS ; LEFT KNEE PAIN ) Musculoskeletal Disorders: Osteoporosis, Arthritis, Fibromyalgia Endocrine History of Endocrine Disorders: No HEENT History of HEENT Disorders: No Loss of Vision: Denies Hearing Impairment: Denies Cancer History of Cancer: No Psychosocial History of Psychiatric Problem: Yes Behavioral Health Disorders: Sleep Difficulties, Anxiety Integumentary History of Skin or Integumenta: Yes (DERMATITIS ) Blood Transfusions History of Blood Disorders: No Adverse Reaction to a Blood Tr: No Family Medical History Family Medial History: Arthritis 19 FATHER Cardiovascular disease Cataracts 19 FATHER Completed stroke 19 MOTHER Congenital disease Deafness or hearing loss 19 MOTHER Dementia 19 MOTHER FH: esophageal cancer G8 BROTHER FH: lung cancer 19 FATHER FH: smoking 19 FATHER G8 SISTER G8 BROTHER Genetic disease G8 BROTHER Gout 19 FATHER Hypercholesterolemia 19 MOTHER Hypertension G8 BROTHER Lactose intolerance G8 BROTHER Myocardial infarction 19 FATHER Prostate cancer G8 BROTHER Psychosocial problem (BIPOLAR) G8 SISTER Thyroid disease 19 MOTHER No Family History of: AIDS Abdominal aortic aneurysm Shan's disease Alcoholism Alzheimer's disease Aphasia Asthma Cancer of mouth Colon cancer Congenital heart disease Cystic fibrosis Diabetes mellitus Drug abuse Dysphasia Fibrocystic disease of breast Gastroenteritis Glaucoma Headache disorder Infertility Kidney disease Neoplasm Not obtainable due to adoption Osteoporosis Parkinson's disease Respiratory disorder Seizure disorder Severe allergy Tuberculosis Visual disorder Physical Exam Vital Signs Vital Signs - First Documented 08/09/17 10:27 Temp 97.3 Pulse 194 Resp 18 B/P (MAP) 97/78 (84) Pulse Ox 93 O2 Delivery Room Air O2 Flow Rate 2.00 Capillary Refill : General Appearance: No Apparent Distress, WD/WN Neck: Normal Inspection Respiratory: Normal Breath Sounds, No Accessory Muscle Use, No Respiratory Distress Cardiovascular: No Edema, No JVD, No Murmur, Normal Peripheral Pulses, Tachycardia Gastrointestinal: Non Tender, Soft Extremity: Normal Inspection Neurologic/Psychiatric: Alert, Oriented x3, No Motor/Sensory Deficits, Normal Mood/Affect, 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 II-XII Norm as Tested Skin: Normal Color, Warm/Dry Progress/Results/Core Measures Results/Orders Lab Results Laboratory Tests Test 08/09/17 10:37 Range/Units White Blood Count 7.9 4.3-11.0 10^3/uL Red Blood Count 5.17 4.35-5.85 10^6/uL Hemoglobin 16.2 H 11.5-16.0 G/DL Hematocrit 47 35-52 % Mean Corpuscular Volume 92 80-99 FL Mean Corpuscular Hemoglobin 31 25-34 PG Mean Corpuscular Hemoglobin Concent 34 32-36 G/DL Red Cell Distribution Width 13.4 10.0-14.5 % Platelet Count 322 130-400 10^3/uL Mean Platelet Volume 9.5 7.4-10.4 FL Neutrophils (%) (Auto) 54 42-75 % Lymphocytes (%) (Auto) 35 12-44 % Monocytes (%) (Auto) 9 0-12 % Eosinophils (%) (Auto) 2 0-10 % Basophils (%) (Auto) 1 0-10 % Neutrophils # (Auto) 4.2 1.8-7.8 X 10^3 Lymphocytes # (Auto) 2.8 1.0-4.0 X 10^3 Monocytes # (Auto) 0.7 0.0-1.0 X 10^3 Eosinophils # (Auto) 0.1 0.0-0.3 10^3/uL Basophils # (Auto) 0.0 0.0-0.1 10^3/uL Prothrombin Time 12.8 12.2-14.7 SEC INR Comment 1.0 0.8-1.4 Activated Partial Thromboplast Time 26 24-35 SEC Sodium Level 139 135-145 MMOL/L Potassium Level 4.3 3.6-5.0 MMOL/L Chloride Level 104 98-107 MMOL/L Carbon Dioxide Level 23 21-32 MMOL/L Anion Gap 12 5-14 MMOL/L Blood Urea Nitrogen 18 7-18 MG/DL Creatinine 0.64 0.60-1.30 MG/DL Estimat Glomerular Filtration Rate > 60 BUN/Creatinine Ratio 28 Glucose Level 93 70-105 MG/DL Calcium Level 9.6 8.5-10.1 MG/DL Magnesium Level 2.4 1.8-2.4 MG/DL Total Bilirubin 0.4 0.1-1.0 MG/DL Aspartate Amino Transf (AST/SGOT) 26 5-34 U/L Alanine Aminotransferase (ALT/SGPT) 21 0-55 U/L Alkaline Phosphatase 67 40-136 U/L Troponin I < 0.30 <0.30 NG/ML B-Type Natriuretic Peptide 122.2 H <100.0 PG/ML Total Protein 7.3 6.4-8.2 GM/DL Albumin 4.4 3.2-4.5 GM/DL TSH [place] Testing 1.28 0.35-4.94 UIU/ML My Orders Orders - JENNIFER FUENTES DO Ekg Tracing (08/09/17 10:30) Adenosine Injection (Adenocard Injection (08/09/17 10:32) Ns Iv 1000 Ml (Sodium Chloride 0.9%) (08/09/17 10:34) Saline Lock/Iv-Start (08/09/17 10:43) Ekg Tracing (08/09/17 10:43) O2 (08/09/17 10:43) Monitor-Rhythm Ecg Trace Only (08/09/17 10:43) BNP (08/09/17 10:43) Cbc With Automated Diff (08/09/17 10:43) Comprehensive Metabolic Panel (08/09/17 10:43) Magnesium (08/09/17 10:43) Protime With Inr (08/09/17 10:43) Partial Thromboplastin Time (08/09/17 10:43) Thyroid Analyzer (08/09/17 10:43) Troponin I (08/09/17 10:43) Chest 1 View, Ap/Pa Only (08/09/17 10:43) Saline Lock/Iv-Start (08/09/17 10:43) Ns Iv 1000 Ml (Sodium Chloride 0.9%) (08/09/17 10:43) Ekg Tracing (08/09/17 10:43) Adenosine Injection (Adenocard Injection (08/09/17 10:45) Medications Given in ED Current Medications Medications Dose Ordered Sig/Zach Route Start Time Stop Time Status Last Admin Dose Admin Adenosine 6 mg STK-MED ONCE IV 08/09/17 10:32 08/09/17 10:35 DC 08/09/17 10:38 6 MG Sodium Chloride 1,000 ml @ ud STK-MED ONCE .ROUTE 08/09/17 10:34 08/09/17 10:37 DC 08/09/17 10:40 1,000 MLS/HR Vital Signs/I&O Vital Sign - Last 12Hours 08/09/17 08/09/17 08/09/17 10:27 10:27 11:18 Temp 97.3 Pulse 194 61 Resp 18 18 B/P (MAP) 97/78 (84) 105/58 (74) Pulse Ox 93 98 O2 Delivery Room Air Nasal Cannula Nasal Cannula O2 Flow Rate 2.00 2.00 Progress Note : Progress Note CONVERTED TO NSR RATE IN 60'S WITH 6 MG ADENOSINE NO DETERIORATION IN PT'S CONDITION DURING ER STAY ALL SYMPTOMS RESOLVED SOON SHE CONVERTED ECG Initial ECG Impression Date: Aug 09, 2017 Initial ECG Impression Time: 10:34 Initial ECG Rate: 188 Initial ECG Impression: SVT EKG : EKG Time: 10:35 Rate: 183 Comment CONVERTED WITH ADENOSINE AT 1035 EKG #3 @ 1036--NSR RATE 66 NO ACUTE CHANGES Departure Communication (Admissions) Progress Notes 1139--SPOKE WITH DR. ANAYA, HE DOES NOT ADVISE ANY CHANGES IN MEDICATIONS, HE WILL SEE IN OFFICE IN THE NEXT WEEK Impression Impression: Primary Impression: SVT (supraventricular tachycardia) Disposition: 01 HOME, SELF-CARE Condition: Improved Departure-Patient Inst. Referrals: Tani ANAYA MD, ROBERT F DO (PCP/Family) Primary Care Physician Patient Instructions: Paroxysmal Supraventricular Tachycardia (DC) Add. Discharge Instructions: CONTINUE YOUR MEDICATIONS PRESCRIBED FOLLOW UP WITH DR. ANAYA IN THE NEXT WEEK RETURN TO ER IF SYMPTOMS WORSEN All discharge instructions reviewed with patient and/or family. Voiced understanding. JENNIFER FUENTES DO Aug 09, 2017 10:55
[2017-08-09 11:01] LABS: PROTHROMBIN TIME PATIENT 12.8 SEC (12.2-14.7)
[2017-08-09 11:02] LABS: BASOPHILS % (AUTO) 1 % (0-10); EOSINOPHILS # (AUTO) 0.1 10^3/uL (0.0-0.3); EOSINOPHILS % (AUTO) 2 % (0-10); HEMATOCRIT 47 % (35-52); HEMOGLOBIN 16.2 G/DL (11.5-16.0); LYMPHOCYTES # (AUTO) 2.8 X 10^3 (1.0-4.0); LYMPHOCYTES % (AUTO) 35 % (12-44); MEAN CORPUSCULAR HEMOGLOBIN 31 PG (25-34); MEAN CORPUSCULAR HGB CONC 34 G/DL (32-36); MEAN CORPUSCULAR VOLUME 92 FL (80-99); MEAN PLATELET VOLUME 9.5 FL (7.4-10.4); MONOCYTES # (AUTO) 0.7 X 10^3 (0.0-1.0); MONOCYTES % (AUTO) 9 % (0-12); NEUTROPHILS # (AUTO) 4.2 X 10^3 (1.8-7.8); NEUTROPHILS % (AUTO) 54 % (42-75); PLATELET COUNT 322 10^3/uL (130-400); RED BLOOD COUNT 5.17 10^6/uL (4.35-5.85); RED CELL DISTRIBUTION WIDTH 13.4 % (10.0-14.5); WHITE BLOOD COUNT 7.9 10^3/uL (4.3-11.0)
[2017-08-09 11:10] LABS: ALANINE AMINOTRANSFERASE 21 U/L (0-55); ALBUMIN 4.4 GM/DL (3.2-4.5); ALKALINE PHOSPHATASE 67 U/L (40-136); BILIRUBIN,TOTAL 0.4 MG/DL (0.1-1.0); BUN/CREATININE RATIO 28; CALCIUM 9.6 MG/DL (8.5-10.1); CARBON DIOXIDE 23 MMOL/L (21-32); CHLORIDE 104 MMOL/L (98-107); CREATININE SERUM 0.64 MG/DL (0.60-1.30); GFR ESTIMATED > 60; GLUCOSE 93 MG/DL (70-105); MAGNESIUM 2.4 MG/DL (1.8-2.4); POTASSIUM 4.3 MMOL/L (3.6-5.0); SODIUM 139 MMOL/L (135-145); TOTAL PROTEIN 7.3 GM/DL (6.4-8.2)
[2017-08-09 11:18] VITALS: BP 105/58
--- NOTE | 2017-08-09 11:29 | Diagnostic Imaging Report ---
INDICATION: Tachycardia. TIME OF EXAMINATION: 11:09 AM. COMPARISON: 07/09/2016. FINDINGS: The heart size is stable. No infiltrate or failure is detected. No effusion or pneumothorax is identified. IMPRESSION: Stable chest. No acute feature is detected. Dictated by: Dictated on workstation # [id number]
[2017-08-09 11:30] LABS: TSH (THYROID ANALYZER) 1.28 UIU/ML (0.35-4.94)
[2017-08-09 11:55] VITALS: BP 111/57
--- OUTSIDE RECORDS SUMMARY | 2017-08-11 08:51 | XMS REPORT | Continuity of Care Document ---
Author Author [facility] Organization [facility] Address Unknown Phone Unavailable Allergies Active Description Code Type Severity Reaction Onset Reported/Identified Relationship to Patient Clinical Status Yes No Known Drug Allergies [id number] Drug Allergy Unknown N/A 11/24/2014 Yes ciprofloxacin [id number] Drug Allergy Unknown stomach upset 12/01/2014 Yes shellfish derived [id number] Drug Allergy Unknown N/A 05/10/2016 Medications There is no data. Problems Date Dx Coded Attending Type Code Diagnosis Diagnosed By 05/25/1416 QUENTIN CLEVELAND APRN Ot Z47.1 AFTERCARE FOLLOWING JOINT REPLACEMENT [place] 05/25/1416 QUETNIN CLEVELAND APRN Ot Z96.642 PRESENCE OF LEFT ARTIFICIAL HIP JOINT 11/24/2014 Ot 786.50 11/24/2014 Ot V58.66 11/24/2014 Ot V58.69 11/24/2014 Ot 396.3 11/24/2014 Ot 397.0 11/24/2014 Ot 786.50 11/24/2014 Ot 786.50 11/24/2014 Ot 272.4 11/24/2014 Ot 793.4 11/24/2014 Ot 272.4 11/24/2014 Ot 272.4 11/24/2014 Ot V58.69 11/24/2014 Ot 272.4 11/24/2014 Ot 355.9 11/24/2014 Ot 721.3 11/24/2014 Ot 722.4 11/25/2014 SEEMA SANTOYO DO Ot 424.1 AORTIC VALVE DISORDER 11/25/2014 SEEMA SANTOYO DO Ot 427.89 CARDIAC DYSRHYTHMIAS NEC 11/25/2014 SEEMA SANTOYO DO Ot 458.9 HYPOTENSION NOS 11/25/2014 SEEMA SANTOYO DO Ot 493.81 EXERCISE INDUCED BRONCHOSPASM 11/25/2014 SEEMA SANTOYO DO Ot 715.90 OSTEOARTHROS NOS-UNSPEC 11/25/2014 SEEMA SANTOYO DO Ot 786.59 CHEST PAIN NEC 11/25/2014 NATANAEL FERNANDEZ SEEMA Vince Ot 424.1 11/25/2014 SEEMA SANTOYO DO Ot 427.89 11/25/2014 NATANAEL FERNANDEZ SEEMA Vince Ot 458.9 11/25/2014 NATANAEL FERNANDEZ SEEMA Vince Ot 493.81 11/25/2014 NATANAEL FERNANDEZ SEEMA Vince Ot 715.90 11/25/2014 SEEMA SANTOYO DO Ot 786.59 12/01/2014 Ot 786.50 12/01/2014 Ot V58.66 12/01/2014 Ot V58.69 12/01/2014 Ot 396.3 12/01/2014 Ot 397.0 12/01/2014 Ot 786.50 12/01/2014 Ot 786.50 12/01/2014 Ot 272.4 12/01/2014 Ot 793.4 12/01/2014 Ot 272.4 12/01/2014 Ot 272.4 12/01/2014 Ot V58.69 12/01/2014 Ot 272.4 12/01/2014 Ot 355.9 12/01/2014 Ot 721.3 12/01/2014 Ot 722.4 12/03/2014 NATANAEL FERNANDEZ SEEMA Vince Ot 272.4 HYPERLIPIDEMIA NEC/NOS 12/03/2014 SEEMA SANTOYO DO Ot 427.0 PAROX ATRIAL TACHYCARDIA 12/03/2014 SEEMA SANTOYO DO Ot 493.90 ASTHMA, UNSPECIFIED 12/03/2014 SEEMA SANTOYO DO Ot 729.1 MYALGIA AND MYOSITIS NOS 12/03/2014 SEEMA SANTOYO DO Ot 272.4 12/03/2014 SEEMA SANTOYO DO Ot 427.0 12/03/2014 SEEMA SANTOYO DO Ot 493.90 12/03/2014 SEEMA SANTOYO DO Ot 729.1 01/01/2016 SEEMA SANTOYO DO Ot G47.33 OBSTRUCTIVE SLEEP APNEA (ADULT) (PEDIATR 01/04/2016 SEEMA SANTOYO DO Ot G47.33 OBSTRUCTIVE SLEEP APNEA (ADULT) (PEDIATR 01/04/2016 SEEMA SANTOYO DO Ot G47.33 OBSTRUCTIVE SLEEP APNEA (ADULT) (PEDIATR 01/05/2016 SEEMA SANTOYO DO Ot G47.33 OBSTRUCTIVE SLEEP APNEA (ADULT) (PEDIATR 01/13/2016 NATANAEL FERNANDEZ SEEMA Vince Ot R06.83 SNORING 01/15/2016 SEEMA SANTOYO DO Ot R06.83 SNORING 02/04/2016 SEEMA SANTOYO DO Ot R06.83 SNORING 02/15/2016 NATANAEL FERNANDEZ SEEMA Vince Ot R06.83 SNORING 02/18/2016 Ot 272.4 HYPERLIPIDEMIA NEC/NOS 02/18/2016 Ot 793.4 NOSP (ABN) FINDINGS ON RADIOLOGICAL OT 02/18/2016 Ot 272.4 HYPERLIPIDEMIA NEC/NOS 02/18/2016 Ot 272.4 HYPERLIPIDEMIA NEC/NOS 02/18/2016 Ot V58.69 OTH MED,LT, CURRENT USE 02/18/2016 Ot 272.4 HYPERLIPIDEMIA NEC/NOS 02/18/2016 Ot 355.9 MONONEURITIS NOS 02/18/2016 Ot 721.3 LUMBOSACRAL SPONDYLOSIS 02/18/2016 Ot 722.4 CERVICAL DISC DEGEN 02/18/2016 SEEMA SANTOYO DO Ot R06.83 SNORING 02/19/2016 ALMITA MILLER DO Ot E78.0 PURE HYPERCHOLESTEROLEMIA 02/19/2016 ALMITA MILLER DO Ot F41.9 ANXIETY DISORDER, UNSPECIFIED 02/19/2016 ALMITA MILLER DO Ot G25.81 RESTLESS LEGS SYNDROME 02/19/2016 ALMITA MILLER DO Ot G47.00 INSOMNIA, UNSPECIFIED 02/19/2016 ALMITA MILLER DO Ot G57.90 UNSPECIFIED MONONEUROPATHY OF UNSPECIFIE 02/19/2016 ALMITA MILLER DO Ot I48.0 PAROXYSMAL ATRIAL FIBRILLATION 02/19/2016 ALMITA MILLER DO Ot I49.5 SICK SINUS SYNDROME 02/19/2016 ALMITA MILLER DO Ot J45.31 MILD PERSISTENT ASTHMA WITH (ACUTE) EXAC 02/19/2016 ALMITA MILLER DO Ot K21.9 GASTRO-ESOPHAGEAL REFLUX DISEASE WITHOUT 02/19/2016 ALMITA MILLER DO Ot M19.90 UNSPECIFIED OSTEOARTHRITIS, UNSPECIFIED 02/19/2016 ALMITA MILLER DO Ot M79.7 FIBROMYALGIA 02/19/2016 ALMITA MILLER DO Ot M81.0 AGE-RELATED OSTEOPOROSIS W/O CURRENT PAT 02/19/2016 MILLER DO, ALMITA Ot R09.81 NASAL CONGESTION 05/10/2016 JENNIFER FUENTES DO Ot F41.9 ANXIETY DISORDER, UNSPECIFIED 05/10/2016 JENNIFER FUENTES DO Ot R00.2 PALPITATIONS 05/10/2016 JENNIFER FUENTES DO Ot R11.2 NAUSEA WITH VOMITING, UNSPECIFIED 05/10/2016 JENNIFER FUENTES DO Ot R42 DIZZINESS AND GIDDINESS 05/10/2016 JENNIFER FUENTES DO Ot R73.9 HYPERGLYCEMIA, UNSPECIFIED 05/10/2016 JENNIFER FUENTES DO Ot Z79.82 CONCRETE VIBRATOR OPERATOR (CURRENT) USE OF ASPIRIN 05/10/2016 JENNIFER FUENTES DO Ot Z79.899 OTHER SNF (CURRENT) DRUG THERAPY 05/10/2016 Ot 272.4 HYPERLIPIDEMIA NEC/NOS 05/10/2016 Ot 793.4 NOSP (ABN) FINDINGS ON RADIOLOGICAL OT 05/10/2016 Ot 272.4 HYPERLIPIDEMIA NEC/NOS 05/10/2016 Ot 272.4 HYPERLIPIDEMIA NEC/NOS 05/10/2016 Ot V58.69 OTH MED,LT, CURRENT USE 05/10/2016 Ot 272.4 HYPERLIPIDEMIA NEC/NOS 05/10/2016 Ot 355.9 MONONEURITIS NOS 05/10/2016 Ot 721.3 LUMBOSACRAL SPONDYLOSIS 05/10/2016 Ot 722.4 CERVICAL DISC DEGEN 05/10/2016 SEEMA SANTOYO DO Ot R06.83 SNORING 05/10/2016 Ot 272.4 HYPERLIPIDEMIA NEC/NOS 05/10/2016 Ot 793.4 NOSP (ABN) FINDINGS ON RADIOLOGICAL OT 05/10/2016 Ot 272.4 HYPERLIPIDEMIA NEC/NOS 05/10/2016 Ot 272.4 HYPERLIPIDEMIA NEC/NOS 05/10/2016 Ot V58.69 OTH MED,LT, CURRENT USE 05/10/2016 Ot 272.4 HYPERLIPIDEMIA NEC/NOS 05/10/2016 Ot 355.9 MONONEURITIS NOS 05/10/2016 Ot 721.3 LUMBOSACRAL SPONDYLOSIS 05/10/2016 Ot 722.4 CERVICAL DISC DEGEN 05/10/2016 SEEMA SANTOYO DO Ot R06.83 SNORING 05/10/2016 Ot 272.4 HYPERLIPIDEMIA NEC/NOS 05/10/2016 Ot 793.4 NOSP (ABN) FINDINGS ON RADIOLOGICAL OT 05/10/2016 Ot 272.4 HYPERLIPIDEMIA NEC/NOS 05/10/2016 Ot 272.4 HYPERLIPIDEMIA NEC/NOS 05/10/2016 Ot V58.69 OTH MED,LT, CURRENT USE 05/10/2016 Ot 272.4 HYPERLIPIDEMIA NEC/NOS 05/10/2016 Ot 355.9 MONONEURITIS NOS 05/10/2016 Ot 721.3 LUMBOSACRAL SPONDYLOSIS 05/10/2016 Ot 722.4 CERVICAL DISC DEGEN 05/10/2016 SEEMA SANTOYO DO Ot R06.83 SNORING 05/11/2016 ALFREDO FERNANDEZ JENNIFER Chloé Ot F41.9 ANXIETY DISORDER, UNSPECIFIED 05/11/2016 ALFREDO JENNIFER Chloé Ot R00.2 PALPITATIONS 05/11/2016 ALFREDO FERNANDEZ JENNIFER K Ot R11.2 NAUSEA WITH VOMITING, UNSPECIFIED 05/11/2016 ALFREDO FERNANDEZ JENNIFER Chloé Ot R42 DIZZINESS AND GIDDINESS 05/11/2016 ALFREDO FERNANDEZ JENNIFER Chloé Ot R73.9 HYPERGLYCEMIA, UNSPECIFIED 05/11/2016 ALFREDO DO JENNIFER Chloé Ot Z79.82 CONCRETE VIBRATOR OPERATOR (CURRENT) USE OF ASPIRIN 05/11/2016 JENNIFER FUENTES DO Ot Z79.899 OTHER CONCRETE VIBRATOR OPERATOR (CURRENT) DRUG THERAPY 05/11/2016 TATE REARDON MD Ot F41.9 ANXIETY DISORDER, UNSPECIFIED 05/11/2016 TATE REARDON MD Ot G47.00 INSOMNIA, UNSPECIFIED 05/11/2016 TATE REARDON MD Ot I25.10 ATHSCL HEART DISEASE OF [place] CORONARY 05/11/2016 TATE REARDON MD Ot I47.1 SUPRAVENTRICULAR TACHYCARDIA 05/11/2016 TATE REARDON MD Ot I48.0 PAROXYSMAL ATRIAL FIBRILLATION 05/11/2016 TATE REARDON MD Ot R07.9 CHEST PAIN, UNSPECIFIED 05/11/2016 TATE REARDON MD Ot Z79.899 OTHER CONCRETE VIBRATOR OPERATOR (CURRENT) DRUG THERAPY 05/14/2016 MAXWELL HENRY MD Ot F43.20 ADJUSTMENT DISORDER, UNSPECIFIED 05/14/2016 MAXWELL HENRY MD Ot I25.10 ATHSCL HEART DISEASE OF [place] CORONARY 05/14/2016 MAXWELL HENRY MD Ot I47.1 SUPRAVENTRICULAR TACHYCARDIA 05/14/2016 CARL STEWART, MAXWELL Milian Ot I48.2 CHRONIC ATRIAL FIBRILLATION 05/14/2016 CARL STEWART, MAXWELL Milian Ot R41.0 DISORIENTATION, UNSPECIFIED 05/14/2016 MAXWELL HENRY MD Ot R53.1 WEAKNESS 05/14/2016 MAXWELL HENRY MD Ot R53.81 OTHER MALAISE 05/14/2016 MAXWELL HENRY MD Ot Z79.82 SNF (CURRENT) USE OF ASPIRIN 05/14/2016 MAXWELL HENRY MD Ot Z79.899 OTHER SNF (CURRENT) DRUG THERAPY 05/30/2016 Ot 272.4 HYPERLIPIDEMIA NEC/NOS 05/30/2016 Ot 793.4 NOSP (ABN) FINDINGS ON RADIOLOGICAL OT 05/30/2016 Ot 272.4 HYPERLIPIDEMIA NEC/NOS 05/30/2016 Ot 272.4 HYPERLIPIDEMIA NEC/NOS 05/30/2016 Ot V58.69 OTH MED,LT, CURRENT USE 05/30/2016 Ot 272.4 HYPERLIPIDEMIA NEC/NOS 05/30/2016 Ot 355.9 MONONEURITIS NOS 05/30/2016 Ot 721.3 LUMBOSACRAL SPONDYLOSIS 05/30/2016 Ot 722.4 CERVICAL DISC DEGEN 05/30/2016 SEEMA SANTOYO DO Ot R06.83 SNORING 05/31/2016 HÉCTOR STEWART, Tani PEÑALOZA Ot I47.1 SUPRAVENTRICULAR TACHYCARDIA 05/31/2016 Tani ANAYA MD Ot I48.0 PAROXYSMAL ATRIAL FIBRILLATION 06/02/2016 Tani ANAYA MD Ot I47.1 SUPRAVENTRICULAR TACHYCARDIA 06/02/2016 Tani ANAYA MD Ot I48.0 PAROXYSMAL ATRIAL FIBRILLATION 06/02/2016 Tani ANAYA MD Ot I47.1 SUPRAVENTRICULAR TACHYCARDIA 06/02/2016 Tani ANAYA MD Ot I48.0 PAROXYSMAL ATRIAL FIBRILLATION 06/02/2016 Tani ANAYA MD Ot I47.1 SUPRAVENTRICULAR TACHYCARDIA 06/02/2016 Tani ANAYA MD Ot I48.0 PAROXYSMAL ATRIAL FIBRILLATION 06/02/2016 Tani ANAYA MD Ot I47.1 SUPRAVENTRICULAR TACHYCARDIA 06/02/2016 HÉCTOR STEWART, Tani PEÑALOZA Ot I48.0 PAROXYSMAL ATRIAL FIBRILLATION 06/07/2016 TATE REARDON MD Ot F41.9 ANXIETY DISORDER, UNSPECIFIED 06/07/2016 TATE REARDON MD Ot G47.00 INSOMNIA, UNSPECIFIED 06/07/2016 TATE REARDON MD Ot I25.10 ATHSCL HEART DISEASE OF [place] CORONARY 06/07/2016 TATE REARDON MD Ot I47.1 SUPRAVENTRICULAR TACHYCARDIA 06/07/2016 TATE REARDON MD Ot I48.0 PAROXYSMAL ATRIAL FIBRILLATION 06/07/2016 TATE REARDON MD Ot R07.9 CHEST PAIN, UNSPECIFIED 06/07/2016 TATE REARDON MD Ot Z79.899 OTHER CONCRETE VIBRATOR OPERATOR (CURRENT) DRUG THERAPY 06/20/2016 MAXWELL HENRY MD Ot I10 ESSENTIAL (PRIMARY) HYPERTENSION 06/20/2016 MAXWELL HENRY MD Ot I25.10 ATHSCL HEART DISEASE OF [place] CORONARY 06/20/2016 MAXWELL HENRY MD Ot I47.1 SUPRAVENTRICULAR TACHYCARDIA 06/20/2016 MAXWELL HENRY MD Ot R00.2 PALPITATIONS 06/20/2016 MAXWELL HENRY MD Ot Z79.899 OTHER CONCRETE VIBRATOR OPERATOR (CURRENT) DRUG THERAPY 06/21/2016 MAXWELL HENRY MD Ot I10 ESSENTIAL (PRIMARY) HYPERTENSION 06/21/2016 MAXWELL HENRY MD Ot I25.10 ATHSCL HEART DISEASE OF [place] CORONARY 06/21/2016 MAXWELL HENRY MD Ot I47.1 SUPRAVENTRICULAR TACHYCARDIA 06/21/2016 MAXWELL HENRY MD Ot R00.2 PALPITATIONS 06/21/2016 MAXWELL HENRY MD Ot Z79.899 OTHER SNF (CURRENT) DRUG THERAPY 06/24/2016 DEBBIE FUENTES DOA K Ot F41.9 ANXIETY DISORDER, UNSPECIFIED 06/24/2016 ALFREDO DEBBIE FERNANDEZA K Ot R00.2 PALPITATIONS 06/24/2016 ALFREDO FERNANDEZ JENNIFER K Ot R11.2 NAUSEA WITH VOMITING, UNSPECIFIED 06/24/2016 ALFREDO , JENNIFER K Ot R42 DIZZINESS AND GIDDINESS 06/24/2016 ALFREDO DEBBIE FERNANDEZA K Ot R73.9 HYPERGLYCEMIA, UNSPECIFIED 06/24/2016 ALFREDO , JENNIFER K Ot Z79.82 SNF (CURRENT) USE OF ASPIRIN 06/24/2016 DEBBIE FUENTES DOA K Ot Z79.899 OTHER SNF (CURRENT) DRUG THERAPY 06/26/2016 CARL STEWART, MAXWELL Milian Ot I10 ESSENTIAL (PRIMARY) HYPERTENSION 06/26/2016 CARL STEWART, MAXWELL Milian Ot I25.10 ATHSCL HEART DISEASE OF [place] CORONARY 06/26/2016 CARL STEWART, MAXWELL Milian Ot I47.1 SUPRAVENTRICULAR TACHYCARDIA 06/26/2016 CARL STEWART, MAXWELL Milian Ot R00.2 PALPITATIONS 06/26/2016 CARL STEWART, MAXWELL Milian Ot Z79.899 OTHER CONCRETE VIBRATOR OPERATOR (CURRENT) DRUG THERAPY 07/12/2016 CONRAD STEWART, [place] Birch Ot E87.6 HYPOKALEMIA 07/12/2016 CONRAD STEWART, [place] Birch Ot F41.9 ANXIETY DISORDER, UNSPECIFIED 07/12/2016 CONRAD STEWART, [place] Birch Ot G47.9 SLEEP DISORDER, UNSPECIFIED 07/12/2016 [place] MARTINES MD Ot G62.9 POLYNEUROPATHY, UNSPECIFIED 07/12/2016 [place] MARTINES MD Ot I25.10 ATHSCL HEART DISEASE OF [place] CORONARY 07/12/2016 [place] MARTINES MD Ot I47.1 SUPRAVENTRICULAR TACHYCARDIA 07/12/2016 YN MARTINES MD Ot I48.0 PAROXYSMAL ATRIAL FIBRILLATION 07/12/2016 [place] MARTINES MD Ot J45.909 UNSPECIFIED ASTHMA, UNCOMPLICATED 07/12/2016 [place] MARTINES MD Ot K21.9 GASTRO-ESOPHAGEAL REFLUX DISEASE WITHOUT 07/12/2016 CONRAD STEWART, [place] Birch Ot M19.90 UNSPECIFIED OSTEOARTHRITIS, UNSPECIFIED 07/12/2016 CONRAD STEWART, [place] Birch Ot M79.7 FIBROMYALGIA 07/12/2016 CONRAD STEWART, [place] Birch Ot 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.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 07/12/2016 CONRAD STEWART, [place] Birch Ot M85.852 [facility] DISRD OF BONE DENSITY AND STRUCTURE, 07/12/2016 [place] MARTINES MD Ot R25.2 CRAMP AND SPASM 07/12/2016 [place] MARTINES MD Ot W01.0XXA FALL SAME LEV FROM SLIP/TRIP W/O STRIKE 07/12/2016 [place] MARTINES MD Ot Y92.003 [facility] R 07/12/2016 [place] MARTINES MD Ot Z87.11 PERSONAL HISTORY OF PEPTIC ULCER DISEASE 07/12/2016 [place] MARTINES MD Ot E86.0 DEHYDRATION 07/12/2016 [place] MARTINES MD Ot E87.6 HYPOKALEMIA 07/12/2016 [place] MARTINES MD Ot F41.9 ANXIETY DISORDER, UNSPECIFIED 07/12/2016 [place] MARTINES MD Ot G47.9 SLEEP DISORDER, UNSPECIFIED 07/12/2016 [place] MARTINES MD Ot G62.9 POLYNEUROPATHY, UNSPECIFIED 07/12/2016 [place] MARTINES MD Ot I25.10 ATHSCL HEART DISEASE OF [place] CORONARY 07/12/2016 [place] MARTINES MD Ot I47.1 SUPRAVENTRICULAR TACHYCARDIA 07/12/2016 [place] MARTINES MD Ot I48.0 PAROXYSMAL ATRIAL FIBRILLATION 07/12/2016 [place] MARTINES MD Ot J45.909 UNSPECIFIED ASTHMA, UNCOMPLICATED 07/12/2016 [place] MARTINES MD Ot K21.9 GASTRO-ESOPHAGEAL REFLUX DISEASE WITHOUT 07/12/2016 [place] MARTINES MD Ot M19.90 UNSPECIFIED OSTEOARTHRITIS, UNSPECIFIED 07/12/2016 [place] MARTINES MD Ot M79.7 FIBROMYALGIA 07/12/2016 [place] MARTINES MD Ot M80.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 07/12/2016 [place] MARTINES MD Ot M85.852 OTH DISRD OF BONE DENSITY AND STRUCTURE, 07/12/2016 [place] MARTINES MD Ot R25.2 CRAMP AND SPASM 07/12/2016 [place] MARTINES MD Ot W01.0XXA FALL SAME LEV FROM SLIP/TRIP W/O STRIKE 07/12/2016 [place] MARTINES MD Ot Y92.003 [facility] R 07/12/2016 [place] MARTINES MD Ot Z87.11 PERSONAL HISTORY OF PEPTIC ULCER DISEASE 07/19/2016 AUSTIN BE MD Ot E78.00 PURE HYPERCHOLESTEROLEMIA, UNSPECIFIED 07/19/2016 AUSTIN BE MD Ot E87.6 HYPOKALEMIA 07/19/2016 AUSTIN BE MD Ot I25.10 ATHSCL HEART DISEASE OF [place] CORONARY 07/19/2016 AUSTIN BE MD Ot I48.0 PAROXYSMAL ATRIAL FIBRILLATION 07/19/2016 AUSTIN BE MD Ot J45.909 UNSPECIFIED ASTHMA, UNCOMPLICATED 07/19/2016 AUSTIN BE MD Ot K59.00 CONSTIPATION, UNSPECIFIED 07/19/2016 AUSTIN BE MD Ot M19.071 PRIMARY OSTEOARTHRITIS, RIGHT ANKLE AND 07/19/2016 AUSTIN BE MD Ot M20.11 HALLUX VALGUS (ACQUIRED), RIGHT FOOT 07/19/2016 AUSTIN BE MD Ot M80.052D AGE-REL OSTEOPOR W CRNT PATH FX, L FEMR, 07/19/2016 AUSTIN BE MD Ot R21 RASH AND OTHER NONSPECIFIC SKIN ERUPTION 07/19/2016 AUSTIN BE MD Ot T81.4XXA INFECTION FOLLOWING A PROCEDURE, INITIAL 07/19/2016 AUSTIN BE MD Ot Z96.642 PRESENCE OF LEFT ARTIFICIAL HIP JOINT 07/28/2016 MELO MENDOZA MD Ot I25.10 ATHSCL HEART DISEASE OF [place] CORONARY 07/28/2016 MELO MENDOZA MD Ot I47.1 SUPRAVENTRICULAR TACHYCARDIA 07/28/2016 MELO MENDOZA MD Ot R00.2 PALPITATIONS 07/28/2016 MELO MENDOZA MD Ot Z79.82 SNF (CURRENT) USE OF ASPIRIN 07/28/2016 MELO MENDOZA MD Ot Z79.899 OTHER CONCRETE VIBRATOR OPERATOR (CURRENT) DRUG THERAPY 07/29/2016 TATE REARDON MD Ot F41.9 ANXIETY DISORDER, UNSPECIFIED 07/29/2016 TATE REARDON MD Ot G47.00 INSOMNIA, UNSPECIFIED 07/29/2016 TATE REARDON MD Ot I25.10 ATHSCL HEART DISEASE OF [place] CORONARY 07/29/2016 TATE REARDON MD Ot I47.1 SUPRAVENTRICULAR TACHYCARDIA 07/29/2016 TATE REARDON MD Ot I48.0 PAROXYSMAL ATRIAL FIBRILLATION 07/29/2016 TATE REARDON MD Ot R07.9 CHEST PAIN, UNSPECIFIED 07/29/2016 TATE REARDON MD Ot Z79.899 OTHER SNF (CURRENT) DRUG THERAPY 07/29/2016 MELO MENDOZA MD Ot I25.10 ATHSCL HEART DISEASE OF [place] CORONARY 07/29/2016 MELO MENDOZA MD Ot I47.1 SUPRAVENTRICULAR TACHYCARDIA 07/29/2016 MELO MENDOZA MD Ot R00.2 PALPITATIONS 07/29/2016 MELO MENDOZA MD Ot Z79.82 CONCRETE VIBRATOR OPERATOR (CURRENT) USE OF ASPIRIN 07/29/2016 MELO MENDOZA MD Ot Z79.899 OTHER SNF (CURRENT) DRUG THERAPY 08/04/2016 MELO MENDOZA MD Ot I25.10 ATHSCL HEART DISEASE OF [place] CORONARY 08/04/2016 MELO MENDOZA MD Ot I47.1 SUPRAVENTRICULAR TACHYCARDIA 08/04/2016 EMLO MENDOZA MD Ot R00.2 PALPITATIONS 08/04/2016 MELO MENDOZA MD Ot Z79.82 SNF (CURRENT) USE OF ASPIRIN 08/04/2016 MELO MENDOZA MD Ot Z79.899 OTHER SNF (CURRENT) DRUG THERAPY 08/04/2016 JORDAN COLLAZO DO Ot R19.03 RIGHT LOWER QUADRANT ABDOMINAL SWELLING, 08/04/2016 JORDAN COLLAZO DO Ot R19.03 RIGHT LOWER QUADRANT ABDOMINAL SWELLING, 08/16/2016 HÉCTOR STEWART, Tani PEÑALOZA Ot I47.1 SUPRAVENTRICULAR TACHYCARDIA 08/16/2016 HÉCTOR STEWART, Tani PEÑALOZA Ot I48.0 PAROXYSMAL ATRIAL FIBRILLATION 08/18/2016 HÉCTOR STEWART, Tani PEÑALOZA Ot I47.1 SUPRAVENTRICULAR TACHYCARDIA 08/18/2016 HÉCTOR STEWART, Tani PEÑALOZA Ot I48.0 PAROXYSMAL ATRIAL FIBRILLATION 08/26/2016 JORDAN COLLAZO DO Ot R19.03 RIGHT LOWER QUADRANT ABDOMINAL SWELLING, 08/28/2016 HÉCTOR STEWART, Tani PEÑALOZA Ot I47.1 SUPRAVENTRICULAR TACHYCARDIA 08/28/2016 HÉCTOR STEWART, Tani PEÑALOZA Ot I48.0 PAROXYSMAL ATRIAL FIBRILLATION 08/31/2016 JORDAN COLLAZO DO Ot R19.03 RIGHT LOWER QUADRANT ABDOMINAL SWELLING, 09/24/2016 JENNIFER FUENTES DO Ot F41.9 ANXIETY DISORDER, UNSPECIFIED 09/24/2016 JENNIFER FUENTES DO Ot R00.2 PALPITATIONS 09/24/2016 JENNIFER FUENTES DO Ot R11.2 NAUSEA WITH VOMITING, UNSPECIFIED 09/24/2016 JENNIFER FUENTES DO Ot R42 DIZZINESS AND GIDDINESS 09/24/2016 JENNIFER FUENTES DO Ot R73.9 HYPERGLYCEMIA, UNSPECIFIED 09/24/2016 JENNIFER FUENTES DO Ot Z79.82 SNF (CURRENT) USE OF ASPIRIN 09/24/2016 JENNIFER FUENTES DO Ot Z79.899 OTHER SNF (CURRENT) DRUG THERAPY 02/06/2017 Ot 272.4 HYPERLIPIDEMIA NEC/NOS 02/06/2017 Ot 355.9 MONONEURITIS NOS 02/06/2017 Ot 721.3 LUMBOSACRAL SPONDYLOSIS 02/06/2017 Ot 722.4 CERVICAL DISC DEGEN 02/06/2017 SEEMA SANTOYO DO Ot R06.83 SNORING 02/06/2017 JORDAN COLLAZO DO Ot R19.03 RIGHT LOWER QUADRANT ABDOMINAL SWELLING, 02/06/2017 HÉCTOR STEWART, Tani PEÑALOZA Ot I47.1 SUPRAVENTRICULAR TACHYCARDIA 02/06/2017 HÉCTOR STEWART, Tani PEÑALOZA Ot I48.0 PAROXYSMAL ATRIAL FIBRILLATION 02/10/2017 QUENTIN CLEVELAND APRN Ot Z47.1 AFTERCARE FOLLOWING JOINT REPLACEMENT [place] 02/10/2017 QUENTIN CLEVELAND APRN Ot Z96.642 PRESENCE OF LEFT ARTIFICIAL HIP JOINT 03/17/2017 QUENTIN CLEVELAND PRODUCTION FOREMAN Ot Z47.1 AFTERCARE FOLLOWING JOINT REPLACEMENT [place] 03/17/2017 QUENTIN CLEVELAND PRODUCTION FOREMAN Ot Z96.642 PRESENCE OF LEFT ARTIFICIAL HIP JOINT 03/22/2017 QUENTIN CLEVELAND APRN Ot Z47.1 AFTERCARE FOLLOWING JOINT REPLACEMENT [place] 03/22/2017 QUENTIN CLEVELAND PRODUCTION FOREMAN Ot Z96.642 PRESENCE OF LEFT ARTIFICIAL HIP JOINT Procedures Code Description Performed By Performed On [id number] REPLACE L HIP JT, FEMORAL W METAL, UNCEM 07/10/2016 Results Test Result Range Complete blood count (CBC) with automated white blood cell (WBC) differential - 02/18/16 15:10 Blood leukocytes automated count (number/volume) 9.1 10*3/uL 4.3-11.0 Blood erythrocytes automated count (number/volume) 5.60 10*6/uL 4.35-5.85 Venous blood hemoglobin measurement (mass/volume) 17.1 g/dL 11.5-16.0 Blood hematocrit (volume fraction) 50 % 35-52 Automated erythrocyte mean corpuscular volume 89 [foz_us] 80-99 Automated erythrocyte mean corpuscular hemoglobin (mass per erythrocyte) 31 pg 25-34 Automated erythrocyte mean corpuscular hemoglobin concentration measurement ( mass/volume) 34 g/dL 32-36 Automated erythrocyte distribution width ratio 13.5 % 10.0-14.5 Automated blood platelet count (count/volume) 385 10*3/uL 130-400 Automated blood platelet mean volume measurement 9.4 [foz_us] 7.4-10.4 Automated blood neutrophils/100 leukocytes 59 % 42-75 Automated blood lymphocytes/100 leukocytes 32 % 12-44 Blood monocytes/100 leukocytes 7 % 0-12 Automated blood eosinophils/100 leukocytes 1 % 0-10 Automated blood basophils/100 leukocytes 1 % 0-10 Blood neutrophils automated count (number/volume) 5.4 10*3 1.8-7.8 Blood lymphocytes automated count (number/volume) 2.9 10*3 1.0-4.0 Blood monocytes automated count (number/volume) 0.7 10*3 0.0-1.0 Automated eosinophil count 0.1 10*3/uL 0.0-0.3 Automated blood basophil count (count/volume) 0.1 10*3/uL 0.0-0.1 Comprehensive metabolic panel - 02/18/16 15:10 Serum or plasma sodium measurement (moles/volume) 142 mmol/L 135-145 Serum or plasma potassium measurement (moles/volume) 3.9 mmol/L 3.6-5.0 Serum or plasma chloride measurement (moles/volume) 105 mmol/L 98-107 Carbon dioxide 25 mmol/L 21-32 Serum or plasma anion gap determination (moles/volume) 12 mmol/L 5-14 Serum or plasma urea nitrogen measurement (mass/volume) 10 mg/dL 7-18 Serum or plasma creatinine measurement (mass/volume) 0.67 mg/dL 0.60-1.30 Serum or plasma urea nitrogen/creatinine mass ratio 15 [facility] Serum or plasma creatinine measurement with calculation of estimated glomerular filtration rate > [facility] Serum or plasma glucose measurement (mass/volume) 117 mg/dL 70-105 Serum or plasma calcium measurement (mass/volume) 9.6 mg/dL 8.5-10.1 Serum or plasma total bilirubin measurement (mass/volume) 0.4 mg/dL 0.1-1.0 Serum or plasma alkaline phosphatase measurement (enzymatic activity/volume) 64 U/L 40-136 Serum or plasma aspartate aminotransferase measurement (enzymatic activity/ volume) 27 U/L 5-34 Serum or plasma alanine aminotransferase measurement (enzymatic activity/volume ) 25 U/L 0-55 Serum or plasma protein measurement (mass/volume) 7.2 g/dL 6.4-8.2 Serum or plasma albumin measurement (mass/volume) 4.8 g/dL 3.2-4.5 Magnesium - 02/18/16 15:10 Magnesium 2.6 mg/dL 1.8-2.4 Serum or plasma troponin i.cardiac measurement (mass/volume) - 02/18/16 15:10 Serum or plasma troponin i.cardiac measurement (mass/volume) < ng/ mL <0.30 Serum or plasma thyrotropin measurement by detection limit <=0.05 miu/l (units/ volume) - 02/18/16 15:10 Serum or plasma thyrotropin measurement by detection limit <=0.05 miu/l (units/ volume) 1.56 u[iU]/mL 0.35-4.94 Methicillin resistant Staphylococcus aureus (MRSA) screening culture - 19:00 Methicillin resistant Staphylococcus aureus (MRSA) screening culture NEG [facility] Comprehensive metabolic panel - 02/19/16 03:23 Serum or plasma sodium measurement (moles/volume) 142 mmol/L 135-145 Serum or plasma potassium measurement (moles/volume) 3.7 mmol/L 3.6-5.0 Serum or plasma chloride measurement (moles/volume) 112 mmol/L 98-107 Carbon dioxide 20 mmol/L 21-32 Serum or plasma anion gap determination (moles/volume) 10 mmol/L 5-14 Serum or plasma urea nitrogen measurement (mass/volume) 11 mg/dL 7-18 Serum or plasma creatinine measurement (mass/volume) 0.57 mg/dL 0.60-1.30 Serum or plasma urea nitrogen/creatinine mass ratio 19 NRG Serum or plasma creatinine measurement with calculation of estimated glomerular filtration rate > NRG Serum or plasma glucose measurement (mass/volume) 96 mg/dL 70-105 Serum or plasma calcium measurement (mass/volume) 7.9 mg/dL 8.5-10.1 Serum or plasma total bilirubin measurement (mass/volume) 0.4 mg/dL 0.1-1.0 Serum or plasma alkaline phosphatase measurement (enzymatic activity/volume) 48 U/L 40-136 Serum or plasma aspartate aminotransferase measurement (enzymatic activity/ volume) 18 U/L 5-34 Serum or plasma alanine aminotransferase measurement (enzymatic activity/volume ) 19 U/L 0-55 Serum or plasma protein measurement (mass/volume) 5.0 g/dL 6.4-8.2 Serum or plasma albumin measurement (mass/volume) 3.4 g/dL 3.2-4.5 Magnesium - 02/19/16 03:23 Magnesium 2.4 mg/dL 1.8-2.4 Serum or plasma troponin i.cardiac measurement (mass/volume) - 02/19/16 03:23 Serum or plasma troponin i.cardiac measurement (mass/volume) < ng/ mL <0.30 Lipid 1996 panel - 02/19/16 03:23 Serum or plasma triglyceride measurement (mass/volume) 116 mg/dL <150 Serum or plasma cholesterol measurement (mass/volume) 217 mg/dL < 200 Serum or plasma cholesterol in HDL measurement (mass/volume) 47 mg/ dL 40-60 Cholesterol in LDL [mass/volume] in serum or plasma by direct assay 158 mg/dL 1-129 Serum or plasma cholesterol in VLDL measurement (mass/volume) 23 mg/ dL 5-40 Automated blood complete blood count (hemogram) panel - 02/19/16 03:23 Blood leukocytes automated count (number/volume) 7.8 10*3/uL 4.3-11.0 Blood erythrocytes automated count (number/volume) 4.50 10*6/uL 4.35-5.85 Venous blood hemoglobin measurement (mass/volume) 14.0 g/dL 11.5-16.0 Blood hematocrit (volume fraction) 41 % 35-52 Automated erythrocyte mean corpuscular volume 91 [foz_us] 80-99 Automated erythrocyte mean corpuscular hemoglobin (mass per erythrocyte) 31 pg 25-34 Automated erythrocyte mean corpuscular hemoglobin concentration measurement ( mass/volume) 34 g/dL 32-36 Automated erythrocyte distribution width ratio 13.5 % 10.0-14.5 Automated blood platelet count (count/volume) 314 10*3/uL 130-400 Automated blood platelet mean volume measurement 9.6 [foz_us] 7.4-10.4 Serum or plasma lithium measurement (moles/volume) - 02/19/16 03:23 BNP level 276.5 pg/mL <100.0 Complete blood count (CBC) with automated white blood cell (WBC) differential - 05/10/16 09:15 Blood leukocytes automated count (number/volume) 8.3 10*3/uL 4.3-11.0 Blood erythrocytes automated count (number/volume) 5.02 10*6/uL 4.35-5.85 Venous blood hemoglobin measurement (mass/volume) 15.3 g/dL 11.5-16.0 Blood hematocrit (volume fraction) 45 % 35-52 Automated erythrocyte mean corpuscular volume 90 [foz_us] 80-99 Automated erythrocyte mean corpuscular hemoglobin (mass per erythrocyte) 31 pg 25-34 Automated erythrocyte mean corpuscular hemoglobin concentration measurement ( mass/volume) 34 g/dL 32-36 Automated erythrocyte distribution width ratio 13.3 % 10.0-14.5 Automated blood platelet count (count/volume) 445 10*3/uL 130-400 Automated blood platelet mean volume measurement 9.1 [foz_us] 7.4-10.4 Automated blood neutrophils/100 leukocytes 56 % 42-75 Automated blood lymphocytes/100 leukocytes 35 % 12-44 Blood monocytes/100 leukocytes 7 % 0-12 Automated blood eosinophils/100 leukocytes 1 % 0-10 Automated blood basophils/100 leukocytes 1 % 0-10 Blood neutrophils automated count (number/volume) 4.6 10*3 1.8-7.8 Blood lymphocytes automated count (number/volume) 2.9 10*3 1.0-4.0 Blood monocytes automated count (number/volume) 0.6 10*3 0.0-1.0 Automated eosinophil count 0.1 10*3/uL 0.0-0.3 Automated blood basophil count (count/volume) 0.0 10*3/uL 0.0-0.1 PT panel in platelet poor plasma by coagulation assay - 11/15/16 09:15 Prothrombin time (PT) in platelet poor plasma by coagulation assay 13.0 s 12.2-14.7 INR in platelet poor plasma or blood by coagulation assay 1.0 0.8-1.4 Activated partial thromboplastin time (aPTT) in platelet poor plasma bycoagulation assay - 05/10/16 09:15 Activated partial thromboplastin time (aPTT) in platelet poor plasma bycoagulation assay 24 s 24-35 Comprehensive metabolic panel - 05/10/16 09:15 Serum or plasma sodium measurement (moles/volume) 138 mmol/L 135-145 Serum or plasma potassium measurement (moles/volume) 3.9 mmol/L 3.6-5.0 Serum or plasma chloride measurement (moles/volume) 101 mmol/L 98-107 Carbon dioxide 21 mmol/L 21-32 Serum or plasma anion gap determination (moles/volume) 16 mmol/L 5-14 Serum or plasma urea nitrogen measurement (mass/volume) 16 mg/dL 7-18 Serum or plasma creatinine measurement (mass/volume) 0.84 mg/dL 0.60-1.30 Serum or plasma urea nitrogen/creatinine mass ratio 19 NRG Serum or plasma creatinine measurement with calculation of estimated glomerular filtration rate > NRG Serum or plasma glucose measurement (mass/volume) 193 mg/dL 70-105 Serum or plasma calcium measurement (mass/volume) 9.1 mg/dL 8.5-10.1 Serum or plasma total bilirubin measurement (mass/volume) 0.6 mg/dL 0.1-1.0 Serum or plasma alkaline phosphatase measurement (enzymatic activity/volume) 81 U/L 40-136 Serum or plasma aspartate aminotransferase measurement (enzymatic activity/ volume) 68 U/L 5-34 Serum or plasma alanine aminotransferase measurement (enzymatic activity/volume ) 45 U/L 0-55 Serum or plasma protein measurement (mass/volume) 6.4 g/dL 6.4-8.2 Serum or plasma albumin measurement (mass/volume) 4.2 g/dL 3.2-4.5 Magnesium - 05/10/16 09:15 Magnesium 2.2 mg/dL 1.8-2.4 Serum or plasma creatine kinase measurement (enzymatic activity/volume) - 05/10 09:15 Serum or plasma creatine kinase measurement (enzymatic activity/volume) 63 U/L 29-168 Serum or plasma lithium measurement (moles/volume) - 05/10/16 09:15 BNP level 80.4 pg/mL <100.0 Serum or plasma creatine kinase MB measurement (enzymatic activity/volume) - 09:15 Serum or plasma creatine kinase MB measurement (enzymatic activity/volume) 1.4 ng/mL <6.6 Serum or plasma troponin i.cardiac measurement (mass/volume) - 05/10/16 09:15 Serum or plasma troponin i.cardiac measurement (mass/volume) < ng/ mL <0.30 Serum or plasma thyrotropin measurement by detection limit <=0.05 miu/l (units/ volume) - 05/10/16 09:15 Serum or plasma thyrotropin measurement by detection limit <=0.05 miu/l (units/ volume) 1.62 u[iU]/mL 0.35-4.94 Serum or plasma troponin i.cardiac measurement (mass/volume) - 05/10/16 15:36 Serum or plasma troponin i.cardiac measurement (mass/volume) 0.77 ng /mL <0.30 Whole blood basic metabolic panel - 05/11/16 04:23 Serum or plasma sodium measurement (moles/volume) 140 mmol/L 135-145 Serum or plasma potassium measurement (moles/volume) 3.9 mmol/L 3.6-5.0 Serum or plasma chloride measurement (moles/volume) 110 mmol/L 98-107 Carbon dioxide 20 mmol/L 21-32 Serum or plasma anion gap determination (moles/volume) 10 mmol/L 5-14 Serum or plasma urea nitrogen measurement (mass/volume) 12 mg/dL 7-18 Serum or plasma creatinine measurement (mass/volume) 0.60 mg/dL 0.60-1.30 Serum or plasma urea nitrogen/creatinine mass ratio 20 NRG Serum or plasma creatinine measurement with calculation of estimated glomerular filtration rate > NRG Serum or plasma glucose measurement (mass/volume) 110 mg/dL 70-105 Serum or plasma calcium measurement (mass/volume) 8.3 mg/dL 8.5-10.1 Magnesium - 05/11/16 04:23 Magnesium 2.1 mg/dL 1.8-2.4 Serum or plasma troponin i.cardiac measurement (mass/volume) - 05/11/16 04:23 Serum or plasma troponin i.cardiac measurement (mass/volume) 0.52 ng /mL <0.30 Lipid 1996 panel - 05/11/16 04:23 Serum or plasma triglyceride measurement (mass/volume) 82 mg/dL <150 Serum or plasma cholesterol measurement (mass/volume) 217 mg/dL < 200 Serum or plasma cholesterol in HDL measurement (mass/volume) 53 mg/ dL 40-60 Cholesterol in LDL [mass/volume] in serum or plasma by direct assay 152 mg/dL 1-129 Serum or plasma cholesterol in VLDL measurement (mass/volume) 16 mg/ dL 5-40 Automated blood complete blood count (hemogram) panel - 05/11/16 04:25 Blood leukocytes automated count (number/volume) 7.4 10*3/uL 4.3-11.0 Blood erythrocytes automated count (number/volume) 4.50 10*6/uL 4.35-5.85 Venous blood hemoglobin measurement (mass/volume) 13.9 g/dL 11.5-16.0 Blood hematocrit (volume fraction) 41 % 35-52 Automated erythrocyte mean corpuscular volume 90 [foz_us] 80-99 Automated erythrocyte mean corpuscular hemoglobin (mass per erythrocyte) 31 pg 25-34 Automated erythrocyte mean corpuscular hemoglobin concentration measurement ( mass/volume) 34 g/dL 32-36 Automated erythrocyte distribution width ratio 13.3 % 10.0-14.5 Automated blood platelet count (count/volume) 362 10*3/uL 130-400 Automated blood platelet mean volume measurement 9.2 [foz_us] 7.4-10.4 Complete urinalysis with reflex to culture - 05/14/16 10:55 Urine color determination YELLOW NRG Urine clarity determination SLIGHTLY CLOUDY NRG Urine pH measurement by test strip 7 5-9 Specific gravity of urine by test strip 1.005 1.016- 1.022 Urine protein assay by test strip, semi-quantitative NEGATIVE NEGATIVE Urine glucose detection by automated test strip NEGATIVE NEGATIVE Erythrocytes detection in urine sediment by light microscopy NEGATIVE NEGATIVE Urine ketones detection by automated test strip NEGATIVE NEGATIVE Urine nitrite detection by test strip NEGATIVE NEGATIVE Urine total bilirubin detection by test strip NEGATIVE NEGATIVE Urine urobilinogen measurement by automated test strip (mass/volume) NORMAL NORMAL Urine leukocyte esterase detection by dipstick NEGATIVE NEGATIVE Automated urine sediment erythrocyte count by microscopy (number/high power field) NONE NRG Automated urine sediment leukocyte count by microscopy (number/high power field ) NONE NRG Bacteria detection in urine sediment by light microscopy NEGATIVE NRG Squamous epithelial cells detection in urine sediment by light microscopy RARE NRG Crystals detection in urine sediment by light microscopy NONE NRG Casts detection in urine sediment by light microscopy NONE NRG Mucus detection in urine sediment by light microscopy NEGATIVE NRG Complete urinalysis with reflex to culture NO NRG Complete blood count (CBC) with automated white blood cell (WBC) differential - 05/14/16 11:20 Blood leukocytes automated count (number/volume) 8.2 10*3/uL 4.3-11.0 Blood erythrocytes automated count (number/volume) 4.67 10*6/uL 4.35-5.85 Venous blood hemoglobin measurement (mass/volume) 14.3 g/dL 11.5-16.0 Blood hematocrit (volume fraction) 42 % 35-52 Automated erythrocyte mean corpuscular volume 90 [foz_us] 80-99 Automated erythrocyte mean corpuscular hemoglobin (mass per erythrocyte) 31 pg 25-34 Automated erythrocyte mean corpuscular hemoglobin concentration measurement ( mass/volume) 34 g/dL 32-36 Automated erythrocyte distribution width ratio 13.5 % 10.0-14.5 Automated blood platelet count (count/volume) 364 10*3/uL 130-400 Automated blood platelet mean volume measurement 9.4 [foz_us] 7.4-10.4 Automated blood neutrophils/100 leukocytes 75 % 42-75 Automated blood lymphocytes/100 leukocytes 17 % 12-44 Blood monocytes/100 leukocytes 8 % 0-12 Automated blood eosinophils/100 leukocytes 1 % 0-10 Automated blood basophils/100 leukocytes 0 % 0-10 Blood neutrophils automated count (number/volume) 6.1 10*3 1.8-7.8 Blood lymphocytes automated count (number/volume) 1.4 10*3 1.0-4.0 Blood monocytes automated count (number/volume) 0.6 10*3 0.0-1.0 Automated eosinophil count 0.1 10*3/uL 0.0-0.3 Automated blood basophil count (count/volume) 0.0 10*3/uL 0.0-0.1 Comprehensive metabolic panel - 05/14/16 11:20 Serum or plasma sodium measurement (moles/volume) 140 mmol/L 135-145 Serum or plasma potassium measurement (moles/volume) 4.1 mmol/L 3.6-5.0 Serum or plasma chloride measurement (moles/volume) 107 mmol/L 98-107 Carbon dioxide 23 mmol/L 21-32 Serum or plasma anion gap determination (moles/volume) 10 mmol/L 5-14 Serum or plasma urea nitrogen measurement (mass/volume) 11 mg/dL 7-18 Serum or plasma creatinine measurement (mass/volume) 0.62 mg/dL 0.60-1.30 Serum or plasma urea nitrogen/creatinine mass ratio 18 NRG Serum or plasma creatinine measurement with calculation of estimated glomerular filtration rate > NRG Serum or plasma glucose measurement (mass/volume) 102 mg/dL 70-105 Serum or plasma calcium measurement (mass/volume) 9.0 mg/dL 8.5-10.1 Serum or plasma total bilirubin measurement (mass/volume) 0.5 mg/dL 0.1-1.0 Serum or plasma alkaline phosphatase measurement (enzymatic activity/volume) 78 U/L 40-136 Serum or plasma aspartate aminotransferase measurement (enzymatic activity/ volume) 23 U/L 5-34 Serum or plasma alanine aminotransferase measurement (enzymatic activity/volume ) 22 U/L 0-55 Serum or plasma protein measurement (mass/volume) 6.2 g/dL 6.4-8.2 Serum or plasma albumin measurement (mass/volume) 4.0 g/dL 3.2-4.5 Serum or plasma troponin i.cardiac measurement (mass/volume) - 05/14/16 11:20 Serum or plasma troponin i.cardiac measurement (mass/volume) < ng/ mL <0.30 Complete blood count (CBC) with automated white blood cell (WBC) differential - 06/20/16 16:15 Blood leukocytes automated count (number/volume) 8.3 10*3/uL 4.3-11.0 Blood erythrocytes automated count (number/volume) 4.83 10*6/uL 4.35-5.85 Venous blood hemoglobin measurement (mass/volume) 15.0 g/dL 11.5-16.0 Blood hematocrit (volume fraction) 44 % 35-52 Automated erythrocyte mean corpuscular volume 91 [foz_us] 80-99 Automated erythrocyte mean corpuscular hemoglobin (mass per erythrocyte) 31 pg 25-34 Automated erythrocyte mean corpuscular hemoglobin concentration measurement ( mass/volume) 34 g/dL 32-36 Automated erythrocyte distribution width ratio 13.8 % 10.0-14.5 Automated blood platelet count (count/volume) 344 10*3/uL 130-400 Automated blood platelet mean volume measurement 9.7 [foz_us] 7.4-10.4 Automated blood neutrophils/100 leukocytes 52 % 42-75 Automated blood lymphocytes/100 leukocytes 39 % 12-44 Blood monocytes/100 leukocytes 8 % 0-12 Automated blood eosinophils/100 leukocytes 2 % 0-10 Automated blood basophils/100 leukocytes 1 % 0-10 Blood neutrophils automated count (number/volume) 4.3 10*3 1.8-7.8 Blood lymphocytes automated count (number/volume) 3.2 10*3 1.0-4.0 Blood monocytes automated count (number/volume) 0.6 10*3 0.0-1.0 Automated eosinophil count 0.1 10*3/uL 0.0-0.3 Automated blood basophil count (count/volume) 0.0 10*3/uL 0.0-0.1 Comprehensive metabolic panel - 06/20/16 16:15 Serum or plasma sodium measurement (moles/volume) 139 mmol/L 135-145 Serum or plasma potassium measurement (moles/volume) 4.0 mmol/L 3.6-5.0 Serum or plasma chloride measurement (moles/volume) 106 mmol/L 98-107 Carbon dioxide 20 mmol/L 21-32 Serum or plasma anion gap determination (moles/volume) 13 mmol/L 5-14 Serum or plasma urea nitrogen measurement (mass/volume) 20 mg/dL 7-18 Serum or plasma creatinine measurement (mass/volume) 0.74 mg/dL 0.60-1.30 Serum or plasma urea nitrogen/creatinine mass ratio 27 NRG Serum or plasma creatinine measurement with calculation of estimated glomerular filtration rate > NRG Serum or plasma glucose measurement (mass/volume) 133 mg/dL 70-105 Serum or plasma calcium measurement (mass/volume) 8.7 mg/dL 8.5-10.1 Serum or plasma total bilirubin measurement (mass/volume) 0.2 mg/dL 0.1-1.0 Serum or plasma alkaline phosphatase measurement (enzymatic activity/volume) 65 U/L 40-136 Serum or plasma aspartate aminotransferase measurement (enzymatic activity/ volume) 23 U/L 5-34 Serum or plasma alanine aminotransferase measurement (enzymatic activity/volume ) 21 U/L 0-55 Serum or plasma protein measurement (mass/volume) 6.1 g/dL 6.4-8.2 Serum or plasma albumin measurement (mass/volume) 4.2 g/dL 3.2-4.5 Magnesium - 06/20/16 16:15 Magnesium 2.2 mg/dL 1.8-2.4 Serum or plasma troponin i.cardiac measurement (mass/volume) - 06/20/16 16:15 Serum or plasma troponin i.cardiac measurement (mass/volume) < ng/ mL <0.30 Serum or plasma thyrotropin measurement by detection limit <=0.05 miu/l (units/ volume) - 06/20/16 16:15 Serum or plasma thyrotropin measurement by detection limit <=0.05 miu/l (units/ volume) 1.22 u[iU]/mL 0.35-4.94 Complete blood count (CBC) with automated white blood cell (WBC) differential - 07/09/16 21:59 Blood leukocytes automated count (number/volume) 15.8 10*3/uL 4.3-11.0 Blood erythrocytes automated count (number/volume) 4.96 10*6/uL 4.35-5.85 Venous blood hemoglobin measurement (mass/volume) 15.0 g/dL 11.5-16.0 Blood hematocrit (volume fraction) 43 % 35-52 Automated erythrocyte mean corpuscular volume 87 [foz_us] 80-99 Automated erythrocyte mean corpuscular hemoglobin (mass per erythrocyte) 30 pg 25-34 Automated erythrocyte mean corpuscular hemoglobin concentration measurement ( mass/volume) 35 g/dL 32-36 Automated erythrocyte distribution width ratio 13.3 % 10.0-14.5 Automated blood platelet count (count/volume) 335 10*3/uL 130-400 Automated blood platelet mean volume measurement 9.2 [foz_us] 7.4-10.4 Automated blood neutrophils/100 leukocytes 88 % 42-75 Automated blood lymphocytes/100 leukocytes 8 % 12-44 Blood monocytes/100 leukocytes 5 % 0-12 Automated blood eosinophils/100 leukocytes 0 % 0-10 Automated blood basophils/100 leukocytes 0 % 0-10 Blood neutrophils automated count (number/volume) 13.8 10*3 1.8-7.8 Blood lymphocytes automated count (number/volume) 1.2 10*3 1.0-4.0 Blood monocytes automated count (number/volume) 0.7 10*3 0.0-1.0 Automated eosinophil count 0.0 10*3/uL 0.0-0.3 Automated blood basophil count (count/volume) 0.0 10*3/uL 0.0-0.1 PT panel in platelet poor plasma by coagulation assay - 07/09/16 21:59 Prothrombin time (PT) in platelet poor plasma by coagulation assay 14.8 s 12.2-14.7 INR in platelet poor plasma or blood by coagulation assay 1.2 0.8-1.4 Blood manual differential performed detection - 07/09/16 21:59 Blood monocytes/100 leukocytes 2 % NRG Manual blood segmented neutrophils/100 leukocytes 77 % NRG Blood band neutrophils/100 leukocytes 9 % NRG Manual blood lymphocytes/100 leukocytes 12 % NRG Manual eosinophils/100 leukocytes in nose 0 % NRG Manual blood basophils/100 leukocytes 0 % NRG Blood erythrocyte morphology finding identification NORMAL [facility] Comprehensive metabolic panel - 07/09/16 21:59 Serum or plasma sodium measurement (moles/volume) 134 mmol/L 135-145 Serum or plasma potassium measurement (moles/volume) 3.6 mmol/L 3.6-5.0 Serum or plasma chloride measurement (moles/volume) 100 mmol/L 98-107 Carbon dioxide 22 mmol/L 21-32 Serum or plasma anion gap determination (moles/volume) 12 mmol/L 5-14 Serum or plasma urea nitrogen measurement (mass/volume) 13 mg/dL 7-18 Serum or plasma creatinine measurement (mass/volume) 0.67 mg/dL 0.60-1.30 Serum or plasma urea nitrogen/creatinine mass ratio 19 NRG Serum or plasma creatinine measurement with calculation of estimated glomerular filtration rate > NRG Serum or plasma glucose measurement (mass/volume) 120 mg/dL 70-105 Serum or plasma calcium measurement (mass/volume) 8.7 mg/dL 8.5-10.1 Serum or plasma total bilirubin measurement (mass/volume) 0.4 mg/dL 0.1-1.0 Serum or plasma alkaline phosphatase measurement (enzymatic activity/volume) 62 U/L 40-136 Serum or plasma aspartate aminotransferase measurement (enzymatic activity/ volume) 24 U/L 5-34 Serum or plasma alanine aminotransferase measurement (enzymatic activity/volume ) 23 U/L 0-55 Serum or plasma protein measurement (mass/volume) 6.3 g/dL 6.4-8.2 Serum or plasma albumin measurement (mass/volume) 4.3 g/dL 3.2-4.5 Complete urinalysis with reflex to culture - 07/09/16 23:15 Urine color determination YELLOW NRG Urine clarity determination CLEAR NRG Urine pH measurement by test strip 6.5 5-9 Specific gravity of urine by test strip 1.015 1.016- 1.022 Urine protein assay by test strip, semi-quantitative 1+ NEGATIVE Urine glucose detection by automated test strip NEGATIVE NEGATIVE Erythrocytes detection in urine sediment by light microscopy 1+ NEGATIVE Urine ketones detection by automated test strip 4+ NEGATIVE Urine nitrite detection by test strip NEGATIVE NEGATIVE Urine total bilirubin detection by test strip NEGATIVE NEGATIVE Urine urobilinogen measurement by automated test strip (mass/volume) NORMAL NORMAL Urine leukocyte esterase detection by dipstick NEGATIVE NEGATIVE Automated urine sediment erythrocyte count by microscopy (number/high power field) [HPF] NRG Automated urine sediment leukocyte count by microscopy (number/high power field ) NONE NRG Bacteria detection in urine sediment by light microscopy NEGATIVE NRG Squamous epithelial cells detection in urine sediment by light microscopy 2-5 NRG Crystals detection in urine sediment by light microscopy NONE NRG Casts detection in urine sediment by light microscopy PRESENT NRG Mucus detection in urine sediment by light microscopy SMALL NRG Complete urinalysis with reflex to culture NO NRG Hyaline casts detection in urine sediment by light microscopy 2-5 NRG Methicillin resistant Staphylococcus aureus (MRSA) screening culture - 00:53 Methicillin resistant Staphylococcus aureus (MRSA) screening culture NEG NRG Automated blood complete blood count (hemogram) panel - 07/11/16 04:14 Blood leukocytes automated count (number/volume) 11.9 10*3/uL 4.3-11.0 Blood erythrocytes automated count (number/volume) 4.29 10*6/uL 4.35-5.85 Venous blood hemoglobin measurement (mass/volume) 13.1 g/dL 11.5-16.0 Blood hematocrit (volume fraction) 39 % 35-52 Automated erythrocyte mean corpuscular volume 90 [foz_us] 80-99 Automated erythrocyte mean corpuscular hemoglobin (mass per erythrocyte) 31 pg 25-34 Automated erythrocyte mean corpuscular hemoglobin concentration measurement ( mass/volume) 34 g/dL 32-36 Automated erythrocyte distribution width ratio 13.5 % 10.0-14.5 Automated blood platelet count (count/volume) 230 10*3/uL 130-400 Automated blood platelet mean volume measurement 9.6 [foz_us] 7.4-10.4 PT panel in platelet poor plasma by coagulation assay - 07/11/16 04:14 Prothrombin time (PT) in platelet poor plasma by coagulation assay 15.3 s 12.2-14.7 INR in platelet poor plasma or blood by coagulation assay 1.2 0.8-1.4 Whole blood basic metabolic panel - 07/11/16 04:14 Serum or plasma sodium measurement (moles/volume) 137 mmol/L 135-145 Serum or plasma potassium measurement (moles/volume) 3.2 mmol/L 3.6-5.0 Serum or plasma chloride measurement (moles/volume) 106 mmol/L 98-107 Carbon dioxide 24 mmol/L 21-32 Serum or plasma anion gap determination (moles/volume) 7 mmol/L 5-14 Serum or plasma urea nitrogen measurement (mass/volume) 5 mg/dL 7-18 Serum or plasma creatinine measurement (mass/volume) 0.56 mg/dL 0.60-1.30 Serum or plasma urea nitrogen/creatinine mass ratio 9 NRG Serum or plasma creatinine measurement with calculation of estimated glomerular filtration rate > NRG Serum or plasma glucose measurement (mass/volume) 124 mg/dL 70-105 Serum or plasma calcium measurement (mass/volume) 7.8 mg/dL 8.5-10.1 Automated blood complete blood count (hemogram) panel - 07/12/16 04:45 Blood leukocytes automated count (number/volume) 11.7 10*3/uL 4.3-11.0 Blood erythrocytes automated count (number/volume) 4.32 10*6/uL 4.35-5.85 Venous blood hemoglobin measurement (mass/volume) 13.2 g/dL 11.5-16.0 Blood hematocrit (volume fraction) 39 % 35-52 Automated erythrocyte mean corpuscular volume 90 [foz_us] 80-99 Automated erythrocyte mean corpuscular hemoglobin (mass per erythrocyte) 31 pg 25-34 Automated erythrocyte mean corpuscular hemoglobin concentration measurement ( mass/volume) 34 g/dL 32-36 Automated erythrocyte distribution width ratio 13.5 % 10.0-14.5 Automated blood platelet count (count/volume) 254 10*3/uL 130-400 Automated blood platelet mean volume measurement 9.8 [foz_us] 7.4-10.4 PT panel in platelet poor plasma by coagulation assay - 07/12/16 04:45 Prothrombin time (PT) in platelet poor plasma by coagulation assay 14.1 s 12.2-14.7 INR in platelet poor plasma or blood by coagulation assay 1.1 0.8-1.4 Whole blood basic metabolic panel - 07/12/16 04:45 Serum or plasma sodium measurement (moles/volume) 139 mmol/L 135-145 Serum or plasma potassium measurement (moles/volume) 3.1 mmol/L 3.6-5.0 Serum or plasma chloride measurement (moles/volume) 106 mmol/L 98-107 Carbon dioxide 23 mmol/L 21-32 Serum or plasma anion gap determination (moles/volume) 10 mmol/L 5-14 Serum or plasma urea nitrogen measurement (mass/volume) 6 mg/dL 7-18 Serum or plasma creatinine measurement (mass/volume) 0.55 mg/dL 0.60-1.30 Serum or plasma urea nitrogen/creatinine mass ratio 11 NRG Serum or plasma creatinine measurement with calculation of estimated glomerular filtration rate > NRG Serum or plasma glucose measurement (mass/volume) 104 mg/dL 70-105 Serum or plasma calcium measurement (mass/volume) 8.4 mg/dL 8.5-10.1 Complete blood count (CBC) with automated white blood cell (WBC) differential - 07/13/16 06:15 Blood leukocytes automated count (number/volume) 9.2 10*3/uL 4.3-11.0 Blood erythrocytes automated count (number/volume) 3.78 10*6/uL 4.35-5.85 Venous blood hemoglobin measurement (mass/volume) 11.5 g/dL 11.5-16.0 Blood hematocrit (volume fraction) 34 % 35-52 Automated erythrocyte mean corpuscular volume 90 [foz_us] 80-99 Automated erythrocyte mean corpuscular hemoglobin (mass per erythrocyte) 30 pg 25-34 Automated erythrocyte mean corpuscular hemoglobin concentration measurement ( mass/volume) 34 g/dL 32-36 Automated erythrocyte distribution width ratio 13.6 % 10.0-14.5 Automated blood platelet count (count/volume) 257 10*3/uL 130-400 Automated blood platelet mean volume measurement 9.2 [foz_us] 7.4-10.4 Automated blood neutrophils/100 leukocytes 75 % 42-75 Automated blood lymphocytes/100 leukocytes 16 % 12-44 Blood monocytes/100 leukocytes 7 % 0-12 Automated blood eosinophils/100 leukocytes 2 % 0-10 Automated blood basophils/100 leukocytes 0 % 0-10 Blood neutrophils automated count (number/volume) 6.9 10*3 1.8-7.8 Blood lymphocytes automated count (number/volume) 1.5 10*3 1.0-4.0 Blood monocytes automated count (number/volume) 0.7 10*3 0.0-1.0 Automated eosinophil count 0.1 10*3/uL 0.0-0.3 Automated blood basophil count (count/volume) 0.0 10*3/uL 0.0-0.1 Comprehensive metabolic panel - 07/13/16 06:15 Serum or plasma sodium measurement (moles/volume) 140 mmol/L 135-145 Serum or plasma potassium measurement (moles/volume) 3.3 mmol/L 3.6-5.0 Serum or plasma chloride measurement (moles/volume) 106 mmol/L 98-107 Carbon dioxide 25 mmol/L 21-32 Serum or plasma anion gap determination (moles/volume) 9 mmol/L 5-14 Serum or plasma urea nitrogen measurement (mass/volume) 6 mg/dL 7-18 Serum or plasma creatinine measurement (mass/volume) 0.52 mg/dL 0.60-1.30 Serum or plasma urea nitrogen/creatinine mass ratio 12 NRG Serum or plasma creatinine measurement with calculation of estimated glomerular filtration rate > NRG Serum or plasma glucose measurement (mass/volume) 102 mg/dL 70-105 Serum or plasma calcium measurement (mass/volume) 8.3 mg/dL 8.5-10.1 Serum or plasma total bilirubin measurement (mass/volume) 0.5 mg/dL 0.1-1.0 Serum or plasma alkaline phosphatase measurement (enzymatic activity/volume) 47 U/L 40-136 Serum or plasma aspartate aminotransferase measurement (enzymatic activity/ volume) 22 U/L 5-34 Serum or plasma alanine aminotransferase measurement (enzymatic activity/volume ) 29 U/L 0-55 Serum or plasma protein measurement (mass/volume) 4.9 g/dL 6.4-8.2 Serum or plasma albumin measurement (mass/volume) 2.8 g/dL 3.2-4.5 Gram stain microscopy - 07/14/16 21:00 GRAM STAIN RESULT NO WBC'S OR BACTERIA OBSERVED NR Bacteria identification in wound by culture - 07/14/16 21:00 Bacteria identification in wound by culture [facility] Complete blood count (CBC) with automated white blood cell (WBC) differential - 07/15/16 06:55 Blood leukocytes automated count (number/volume) 9.0 10*3/uL 4.3-11.0 Blood erythrocytes automated count (number/volume) 4.23 10*6/uL 4.35-5.85 Venous blood hemoglobin measurement (mass/volume) 13.0 g/dL 11.5-16.0 Blood hematocrit (volume fraction) 38 % 35-52 Automated erythrocyte mean corpuscular volume 90 [foz_us] 80-99 Automated erythrocyte mean corpuscular hemoglobin (mass per erythrocyte) 31 pg 25-34 Automated erythrocyte mean corpuscular hemoglobin concentration measurement ( mass/volume) 34 g/dL 32-36 Automated erythrocyte distribution width ratio 13.7 % 10.0-14.5 Automated blood platelet count (count/volume) 359 10*3/uL 130-400 Automated blood platelet mean volume measurement 9.3 [foz_us] 7.4-10.4 Automated blood neutrophils/100 leukocytes 67 % 42-75 Automated blood lymphocytes/100 leukocytes 19 % 12-44 Blood monocytes/100 leukocytes 11 % 0-12 Automated blood eosinophils/100 leukocytes 3 % 0-10 Automated blood basophils/100 leukocytes 0 % 0-10 Blood neutrophils automated count (number/volume) 6.0 10*3 1.8-7.8 Blood lymphocytes automated count (number/volume) 1.7 10*3 1.0-4.0 Blood monocytes automated count (number/volume) 1.0 10*3 0.0-1.0 Automated eosinophil count 0.3 10*3/uL 0.0-0.3 Automated blood basophil count (count/volume) 0.0 10*3/uL 0.0-0.1 Whole blood basic metabolic panel - 07/16/16 05:50 Serum or plasma sodium measurement (moles/volume) 142 mmol/L 135-145 Serum or plasma potassium measurement (moles/volume) 3.7 mmol/L 3.6-5.0 Serum or plasma chloride measurement (moles/volume) 106 mmol/L 98-107 Carbon dioxide 24 mmol/L 21-32 Serum or plasma anion gap determination (moles/volume) 12 mmol/L 5-14 Serum or plasma urea nitrogen measurement (mass/volume) 7 mg/dL 7-18 Serum or plasma creatinine measurement (mass/volume) 0.57 mg/dL 0.60-1.30 Serum or plasma urea nitrogen/creatinine mass ratio 12 NRG Serum or plasma creatinine measurement with calculation of estimated glomerular filtration rate > NRG Serum or plasma glucose measurement (mass/volume) 100 mg/dL 70-105 Serum or plasma calcium measurement (mass/volume) 8.8 mg/dL 8.5-10.1 Whole blood basic metabolic panel - 07/19/16 05:37 Serum or plasma sodium measurement (moles/volume) 142 mmol/L 135-145 Serum or plasma potassium measurement (moles/volume) 4.0 mmol/L 3.6-5.0 Serum or plasma chloride measurement (moles/volume) 107 mmol/L 98-107 Carbon dioxide 24 mmol/L 21-32 Serum or plasma anion gap determination (moles/volume) 11 mmol/L 5-14 Serum or plasma urea nitrogen measurement (mass/volume) 5 mg/dL 7-18 Serum or plasma creatinine measurement (mass/volume) 0.58 mg/dL 0.60-1.30 Serum or plasma urea nitrogen/creatinine mass ratio 9 NRG Serum or plasma creatinine measurement with calculation of estimated glomerular filtration rate > NRG Serum or plasma glucose measurement (mass/volume) 89 mg/dL 70-105 Serum or plasma calcium measurement (mass/volume) 8.8 mg/dL 8.5-10.1 Complete blood count (CBC) with automated white blood cell (WBC) differential - 07/28/16 11:49 Blood leukocytes automated count (number/volume) 13.4 10*3/uL 4.3-11.0 Blood erythrocytes automated count (number/volume) 4.27 10*6/uL 4.35-5.85 Venous blood hemoglobin measurement (mass/volume) 12.9 g/dL 11.5-16.0 Blood hematocrit (volume fraction) 39 % 35-52 Automated erythrocyte mean corpuscular volume 91 [foz_us] 80-99 Automated erythrocyte mean corpuscular hemoglobin (mass per erythrocyte) 30 pg 25-34 Automated erythrocyte mean corpuscular hemoglobin concentration measurement ( mass/volume) 33 g/dL 32-36 Automated erythrocyte distribution width ratio 14.1 % 10.0-14.5 Automated blood platelet count (count/volume) 804 10*3/uL 130-400 Automated blood platelet mean volume measurement 9.5 [foz_us] 7.4-10.4 Automated blood neutrophils/100 leukocytes 74 % 42-75 Automated blood lymphocytes/100 leukocytes 17 % 12-44 Blood monocytes/100 leukocytes 8 % 0-12 Automated blood eosinophils/100 leukocytes 0 % 0-10 Automated blood basophils/100 leukocytes 0 % 0-10 Blood neutrophils automated count (number/volume) 9.9 10*3 1.8-7.8 Blood lymphocytes automated count (number/volume) 2.3 10*3 1.0-4.0 Blood monocytes automated count (number/volume) 1.1 10*3 0.0-1.0 Automated eosinophil count 0.1 10*3/uL 0.0-0.3 Automated blood basophil count (count/volume) 0.1 10*3/uL 0.0-0.1 Magnesium - 07/28/16 11:49 Magnesium 2.2 mg/dL 1.8-2.4 Comprehensive metabolic panel - 07/28/16 11:49 Serum or plasma sodium measurement (moles/volume) 131 mmol/L 135-145 Serum or plasma potassium measurement (moles/volume) 4.1 mmol/L 3.6-5.0 Serum or plasma chloride measurement (moles/volume) 97 mmol/L 98-107 Carbon dioxide 19 mmol/L 21-32 Serum or plasma anion gap determination (moles/volume) 15 mmol/L 5-14 Serum or plasma urea nitrogen measurement (mass/volume) 13 mg/dL 7-18 Serum or plasma creatinine measurement (mass/volume) 0.81 mg/dL 0.60-1.30 Serum or plasma urea nitrogen/creatinine mass ratio 16 NRG Serum or plasma creatinine measurement with calculation of estimated glomerular filtration rate > NRG Serum or plasma glucose measurement (mass/volume) 178 mg/dL 70-105 Serum or plasma calcium measurement (mass/volume) 9.2 mg/dL 8.5-10.1 Serum or plasma total bilirubin measurement (mass/volume) 0.6 mg/dL 0.1-1.0 Serum or plasma alkaline phosphatase measurement (enzymatic activity/volume) 79 U/L 40-136 Serum or plasma aspartate aminotransferase measurement (enzymatic activity/ volume) 21 U/L 5-34 Serum or plasma alanine aminotransferase measurement (enzymatic activity/volume ) 21 U/L 0-55 Serum or plasma protein measurement (mass/volume) 6.3 g/dL 6.4-8.2 Serum or plasma albumin measurement (mass/volume) 3.9 g/dL 3.2-4.5 Encounters ACCT No. Visit Date/Time Discharge Status Pt. Type Provider Facility Loc./Unit Complaint [id number] 08/04/2017 11:00:00 08/04/2017 23:59:59 CLS Preadmit Tani ANAYA MD [facility] CARD I35.1 AR [id number] 03/23/2017 11:28:00 03/23/2017 14:17:00 DIS Outpatient QUENTIN CELVELAND APRN [facility] REHAB S/P L HIP PROSTHESIS [id number] 08/29/2016 09:00:00 08/29/2016 23:59:59 CLS Preadmit Tani ANAYA MD [facility] CARD PAF,SUPRAVENTRICULAR TACHYCARDIA [id number] 06/28/2016 09:00:00 08/28/2016 00:01:00 DIS Outpatient Tani ANAYA MD [facility] CARD PAF,SUPRAVENTRICULAR TACHYCARDIA [id number] 08/03/2016 09:42:00 08/03/2016 23:59:59 CLS Outpatient JORDAN COLLAZO DO [facility] RAD PELVIC MASS [id number] 07/28/2016 11:47:00 07/28/2016 14:19:00 DIS Emergency MELO MENDOZA MD [facility] ER IRR HEART RATE [id number] 07/12/2016 11:01:00 07/19/2016 12:15:00 DIS Inpatient AUSTIN BE MD [facility] IRF LEFT FEMORAL NECK FRACTURE [id number] 07/09/2016 23:10:00 07/12/2016 11:00:00 DIS Inpatient CONRAD STEWART, [place] [facility] 4TH L FEMORAL NECK FRACTURE [id number] 06/20/2016 16:07:00 06/20/2016 17:35:00 DIS Emergency MAXWELL HENRY MD [facility] ER POSSIBLE AFIB [id number] 05/14/2016 10:43:00 05/14/2016 12:56:00 DIS Emergency MAXWELL HENRY MD [facility] ER AMS [id number] 05/10/2016 15:30:00 05/11/2016 08:40:00 DIS Outpatient TATE REARDON MD [facility] CATH PSVT [id number] 05/10/2016 09:10:00 05/10/2016 23:59:59 CLS Emergency ALFREDO JENNIFER Luevano [facility] ER IRR HEART RATE [id number] 02/18/2016 16:39:00 02/19/2016 10:00:00 DIS Inpatient ALMITA MILLER DO [facility] ICU NEW ONSET A-FIB W/RVR [id number] 01/01/2016 21:08:00 01/01/2016 23:59:59 CLS Outpatient SEEMA SANTOYO DO [facility] SLEEP OBSERVED APNEAS, ABNORMAL LIMB MOVEMENT, HTN [id number] 12/01/2014 08:58:00 12/03/2014 09:50:00 DIS Inpatient SEEMA SANTOYO DO [facility] CSD SVT [id number] 11/24/2014 13:35:00 11/25/2014 15:00:00 DIS Inpatient SEEMA SANTOYO DO [facility] CSD SVT CHEST PAIN [id number] 08/10/2017 08:30:00 Tani Olvera MD [facility] CARD I35.1 AR [id number] 05/10/2012 13:49:00 Document Registration [id number] 12/06/2011 08:24:00 Document Registration [id number] 08/04/2011 08:41:00 Document Registration [id number] 06/09/2011 08:41:00 Document Registration [id number] 05/10/2011 08:37:00 Document Registration [id number] 12/09/2010 08:30:00 Document Registration [id number] 08/02/2010 08:51:00 Document Registration [id number] 07/30/2010 10:39:00 Document Registration [id number] 07/26/2010 09:38:00 Document Registration
== END 2017-08-09 11:54 | disposition home or self-care (01) ==
LOC: EDUNIT# 10:27 → ER 10:29
DX: I47.1 Supraventricular tachycardia (principal); I48.91 Unspecified atrial fibrillation; J45.909 Unspecified asthma, uncomplicated; I25.10 Atherosclerotic heart disease of native coronary artery without angina pectoris; M81.0 Age-related osteoporosis without current pathological fracture; F41.9 Anxiety disorder, unspecified; E78.00 Pure hypercholesterolemia, unspecified; K21.9 Gastro-esophageal reflux disease without esophagitis; Z87.19 Personal history of other diseases of the digestive system; Z86.010 Personal history of colon polyps; Z79.01 Long term (current) use of anticoagulants; Z80.0 Family history of malignant neoplasm of digestive organs; Z82.49 Family history of ischemic heart disease and other diseases of the circulatory system; Z80.1 Family history of malignant neoplasm of trachea, bronchus and lung; Z86.718 Personal history of other venous thrombosis and embolism; Z88.1 Allergy status to other antibiotic agents; Z79.82 Long term (current) use of aspirin; Z90.89 Acquired absence of other organs; Z90.49 Acquired absence of other specified parts of digestive tract
CPT/HCPCS: 36415; 71045; 80053; 83735; 83880; 84443; 84484; 85025; 85610; 85730; 93005; 93041; 96361; 96374

== ENCOUNTER → 2017-08-10 | Outpatient (CLI) | payer MEDICARE ==
[~2017-08-10] VITALS: Ht 162.6 cm; Wt 57.2 kg
[~2017-08-10] MED LIST changes: +REGADENOSON 0.4 MG/5 ML SYR (LEXISCAN) IV ONE
[2017-08-10] MEDS: CATHETER FLUSH 10 ML SYR IV PRN ×2 (08:13→08:14)
[2017-08-10 09:47] VITALS: BP 161/79
[2017-08-10 22:01] VITALS: BP 138/77
--- NOTE | 2017-08-10 22:02 | Cardiology Stress Test Report ---
Stress Test Report Type of NM Stress Test: Test Type: LEXISCAN 0.4MG/5ML Date of Procedure/Referring: Date of Procedure: Aug 10, 2017 PCP Tani Anaya MD Admitting Physician Deep Naranjo DO Indications: Chest pain Baseline Heart Rate: 58 Baseline Blood Pressure: Blood Pressure Systolic: 138 Blood Pressure Diastolic: 77 Baseline EKG: Baseline EKG: Sinus bradycardia Summary: The patient was brought to the stress lab after informed consent was taken. Stress test was performed according to the Lexiscan protocol. Low-grade exercise was performed. Baseline EKG showed sinus bradycardia at 58 bpm and blood pressure 138/77 mmHg. Maximum heart rate 116 bpm and blood pressure was 161/79 mmHg. She did not have any chest pain, EKG changes or arrhythmias. 10.45 mCi of Myoview was given for rest imaging and 30.5 mCi of Myoview was given for stress imaging. Transient ischemic dilatation score 0.96. EF 71 percent. No wall motion abnormalities. Normal perfusion during stress and rest imaging. Conclusion: Pharmacological stress test is negative for ischemia. Normal LV function with no wall motion abnormalities. Normal myocardial perfusion imaging. Tani ANAYA MD Aug 10, 2017 10:01 pm
== END ==
LOC: CARD 07:49
PROVIDERS: ATTEND Internal Medicine Interventional Cardiology
DX: I47.1 Supraventricular tachycardia (principal); I48.91 Unspecified atrial fibrillation; I34.0 Nonrheumatic mitral (valve) insufficiency; R07.9 Chest pain, unspecified; R06.02 Shortness of breath
CPT/HCPCS: 78452; 93017

== ENCOUNTER 2018-05-27 19:18 | Emergency (ER) | payer MEDICARE ==
[~2018-05-27] VITALS: Ht 162.6 cm; Wt 58.1 kg
[~2018-05-27 19:18] MED LIST changes: -REGADENOSON 0.4 MG/5 ML SYR (LEXISCAN) IV ONE
--- OUTSIDE RECORDS SUMMARY | 2018-05-27 19:23 | XMS REPORT | Clinical Summary ---
Author Author [facility] Organization [facility] Address Unknown Phone Unavailable Care Team Providers [employer] [facility] Front Desk Clerk Name Role Phone Bayron Toledo MD PCP Source Comments Some departments are not documenting in the electronic medical record. If you do not see the information that you expected, contact Release of Information in the Health Information Management department at [phone] for further assistance in locating additional records.[facility] Allergies Active Allergy Reactions Severity Noted Date Comments Ciprofloxacin SEE COMMENTS Low 08/31/2017 High pulse race, anxious Krill Oil SHORTNESS OF BREATH Medium 08/31/2017 Shellfish Containing SHORTNESS OF BREATH Medium 08/31/2017 Asthma attack. Products Concentrated form Current Medications Prescription Sig. Disp. Refills Start End Date Status Date apixaban (ELIQUIS) 5 mg Take 5 mg by mouth twice Active tablet daily. potassium chloride SR Take 20 mEq by mouth Active (K-DUR) 20 mEq tablet twice daily. Take with a meal and a full glass of water. ASCORBIC Take by mouth. Active ACID/MULTIVIT-MIN (EMERGEN-C PO) Apsho-9-PRN-EPA-Fish Oil Take by mouth. Active 1,200 (144-216) mg cap guaiFENesin LA (MUCINEX) Take 600 mg by mouth as Active 600 mg tablet Needed. MULTIVITAMIN (MULTIPLE Take by mouth. Active VITAMIN PO) gabapentin (NEURONTIN) Take 100 mg by mouth Active 100 mg capsule every 8 hours. LACTOBACILLUS ACIDOPHILUS Take by mouth. 70 Active (PROBIOTIC PO) billion acetaminophen (TYLENOL Take 500 mg by mouth Active EXTRA STRENGTH) 500 mg every 6 hours as needed tablet for Pain. Max of 4,000 mg of acetaminophen in 24 hours. cholecalciferol (VITAMIN Take 1,000 Units by mouth Active D-3) 1,000 units tablet daily. VITAMIN B COMPLEX PO Take by mouth. Active ibuprofen (MOTRIN) 400 mg Take 400 mg by mouth Active tablet every 6 hours as needed for Pain. Take with food. Lecithin 1,200 mg cap Take by mouth. Active magnesium oxide 400 mg Take by mouth twice Active cap daily. niacin ER (NIASPAN) 500 Take 500 mg by mouth Active mg tablet twice daily. Take with food. MAGNESIUM CITRATE PO Take by mouth. Active metoprolol XL (TOPROL XL) Take 0.5 tablets by mouth 45 tablet 3 Active 25 mg extended release daily. 18 tablet Active Problems Problem Noted Date SVT (supraventricular tachycardia) ([facility]) 10/18/2017 CAD (coronary artery disease) 10/18/2017 Aortic valve insufficiency 10/02/2017 PSVT (paroxysmal supraventricular tachycardia) ([facility]) 10/02/2017 Overview: 02/24/16 [facility] MPI: no ischemia or infarction, normal LV, EF 65% 02/22/16 [facility] Echo: normal LV, EF 60%, mild MR and TR, mild AR, PA 20 mmhg 05/12/16 [facility] Cath: mild to mod CAD. 30 - 40% ostial OM1 stenosis, 40 - 50% prox RCA stenosis, nonobstructive. normal LV, EF 60% 05/30/2016 - 06/29/2016 Event monitor: noted PSVT 125 - 147, one episode of SVG at rate 223/min. 09/2017 and previous event. ED event PSVT, both times converted to adenosine 12 mg IV. 08/04/17 [facility] Echo: normal LV size and function with normal RV size and function. mild mitral valve regurgitation, [id number] aortic valve regurgitation. no significant pulmonic regurgitation. mild tricuspid regurgitation 08/10/17 [facility] MPI: no significant perfusion defect. Paroxysmal A-fib ([facility]) 10/02/2017 Family History Medical History Relation Name Comments Heart valvular Brother Hypertension Brother Pacemaker Brother Cancer-Lung Father Heart problem Maternal Aunt Stroke Maternal Grandfather Anemia Maternal Grandmother Heart problem Maternal Uncle Coronary Artery Disease Mother High Cholesterol Mother Stroke Mother Heart problem Paternal Aunt Heart problem Paternal Uncle Blood Clots Sister Relation Name Status Comments Brother Alive genetic defect Father Maternal Aunt Maternal Grandfather Maternal Grandmother (Age 84) Maternal Uncle Mother Paternal Aunt Paternal Grandfather (Age 94) Paternal Grandmother appendicitis (Age 57) Paternal Uncle Sister Alive smoker Social History Tobacco Use Types Packs/Day Years Used Date Never Smoker Smokeless Tobacco: Never Used Alcohol Use Drinks/Week oz/Week Comments Yes 5 Glasses of 3.0 wine Sex Assigned at Date Recorded Not on file Last Filed Vital Signs Vital Sign Reading Time Taken Blood Pressure 132/64 10/19/2017 10:22 AM CDT Pulse 62 10/19/2017 10:22 AM CDT Temperature 36.7 C (98 F) 10/19/2017 10:22 AM CDT Respiratory Rate - - Oxygen Saturation 97% 10/19/2017 10:22 AM CDT Inhaled Oxygen - - Concentration Weight 57.2 kg (126 lb 1.7 oz) 10/18/2017 7:26 AM CDT Height 162.6 cm (5' 4") 10/18/2017 7:26 AM CDT Body Mass Index 21.65 10/18/2017 7:26 AM CDT Plan of Treatment Health Maintenance Due Date Last Done Comments HEPATITIS C SCREENING 1946 PHYSICAL (COMPREHENSIVE) 1953 EXAM DTAP/TDAP VACCINES (1 - 1964 Tdap) BREAST CANCER SCREENING 1986 COLORECTAL CANCER 1996 SCREENING SHINGLES RECOMBINANT 1996 VACCINE (1 of 2) OSTEOPOROSIS 2011 SCREENING/MONITORING PNEUMONIA (PCV13/PPSV23) 2011 VACCINES (1 of 2 - PCV13) INFLUENZA VACCINE 01/24/2018 03/16/2012, 03/29/2011, 03/30/2010, Additional history exists Results Not on filefrom Last 3 Months
--- OUTSIDE RECORDS SUMMARY | 2018-05-27 19:27 | XMS REPORT | Continuity of Care Document ---
Author Author [facility] Organization [facility] Address Unknown Phone Unavailable Allergies Active Description Code Type Severity Reaction Onset Reported/Identified Relationship to Patient Clinical Status Yes No Known Drug Allergies [id number] Drug Allergy Unknown N/A 11/24/2014 Yes ciprofloxacin [id number] Drug Allergy Unknown stomach upset 12/01/2014 Yes shellfish derived [id number] Drug Allergy Unknown N/A 05/10/2016 Medications There is no data. Problems Date Dx Coded Attending Type Code Diagnosis Diagnosed By 05/25/1416 QUENTIN CLEVELAND APRN Ot Z47.1 AFTERCARE FOLLOWING JOINT REPLACEMENT [place] 05/25/1416 QUENTIN CLEVELAND APRN Ot Z96.642 PRESENCE OF [...] UNSPECIFIED 05/10/2016 JENNIFER FUENTES DO Ot Z79.82 STOCK CHECKER (CURRENT) USE OF ASPIRIN 05/10/2016 JENNIFER FUENTES DO Ot Z79.899 OTHER RETIREMENT (CURRENT) DRUG THERAPY 05/10/2016 Ot 272.4 HYPERLIPIDEMIA [...] 05/11/2016 ALFREDO DO JENNIFER Chloé Ot Z79.82 STOCK CHECKER (CURRENT) USE OF ASPIRIN 05/11/2016 JENNIFER FUENTES DO Ot Z79.899 OTHER STOCK CHECKER (CURRENT) DRUG THERAPY 05/11/2016 TATE REARDON MD Ot F41.9 ANXIETY DISORDER, UNSPECIFIED 05/11/2016 TATE REARDON MD Ot G47.00 INSOMNIA, UNSPECIFIED 05/11/2016 TATE REARDON MD Ot I25.10 ATHSCL HEART DISEASE OF [place] CORONARY 05/11/2016 TATE REARDON MD Ot I47.1 SUPRAVENTRICULAR TACHYCARDIA 05/11/2016 TATE REARDON MD Ot I48.0 PAROXYSMAL ATRIAL FIBRILLATION 05/11/2016 TATE REARDON MD Ot R07.9 CHEST PAIN, UNSPECIFIED 05/11/2016 TATE REARDON MD Ot Z79.899 OTHER STOCK CHECKER (CURRENT) DRUG THERAPY 05/14/2016 MAXWELL HENRY MD Ot F43.20 ADJUSTMENT DISORDER, UNSPECIFIED 05/14/2016 MAXWELL HENRY MD Ot I25.10 ATHSCL HEART DISEASE OF [place] CORONARY 05/14/2016 MAXWELL HENRY MD Ot I47.1 SUPRAVENTRICULAR TACHYCARDIA 05/14/2016 CARL STEWART, MAXWELL Milian Ot I48.2 CHRONIC ATRIAL FIBRILLATION 05/14/2016 CARL STEWART, MAXWELL Milian Ot R41.0 DISORIENTATION, UNSPECIFIED 05/14/2016 MAXWELL HENRY MD Ot R53.1 WEAKNESS 05/14/2016 MAXWELL HENRY MD Ot R53.81 OTHER MALAISE 05/14/2016 MAXWELL HENRY MD Ot Z79.82 RETIREMENT (CURRENT) USE OF ASPIRIN 05/14/2016 MAXWELL HENRY MD Ot Z79.899 OTHER RETIREMENT (CURRENT) DRUG THERAPY 05/30/2016 Ot 272.4 HYPERLIPIDEMIA [...] MD Ot I25.10 ATHSCL HEART DISEASE OF [place] CORONARY 06/07/2016 TATE REARDON MD Ot I47.1 SUPRAVENTRICULAR TACHYCARDIA 06/07/2016 TATE REARDON MD Ot I48.0 PAROXYSMAL ATRIAL FIBRILLATION 06/07/2016 TATE REARDON MD Ot R07.9 CHEST PAIN, UNSPECIFIED 06/07/2016 TATE REARDON MD Ot Z79.899 OTHER STOCK CHECKER (CURRENT) DRUG THERAPY 06/20/2016 MAXWELL HENRY MD Ot I10 ESSENTIAL (PRIMARY) HYPERTENSION 06/20/2016 MAXWELL HENRY MD Ot I25.10 ATHSCL HEART DISEASE OF [place] CORONARY 06/20/2016 MAXWELL HENRY MD Ot I47.1 SUPRAVENTRICULAR TACHYCARDIA 06/20/2016 MAXWELL HENRY MD Ot R00.2 PALPITATIONS 06/20/2016 MAXWELL HENRY MD Ot Z79.899 OTHER STOCK CHECKER (CURRENT) DRUG THERAPY 06/21/2016 MAXWELL HENRY MD Ot I10 ESSENTIAL (PRIMARY) HYPERTENSION 06/21/2016 MAXWELL HENRY MD Ot I25.10 ATHSCL HEART DISEASE OF [place] CORONARY 06/21/2016 MAXWELL HENRY MD Ot I47.1 SUPRAVENTRICULAR TACHYCARDIA 06/21/2016 MAXWELL HENRY MD Ot R00.2 PALPITATIONS 06/21/2016 MAXWELL HENRY MD Ot Z79.899 OTHER RETIREMENT (CURRENT) DRUG THERAPY 06/24/2016 DEBBIE FUENTES DOA K Ot F41.9 ANXIETY DISORDER, UNSPECIFIED 06/24/2016 ALFREDO DEBBIE FERNANDEZA K Ot R00.2 PALPITATIONS 06/24/2016 ALFREDO FERNANDEZ JENNIFER K Ot R11.2 NAUSEA WITH VOMITING, UNSPECIFIED 06/24/2016 ALFREDO , JENNIFER K Ot R42 DIZZINESS AND GIDDINESS 06/24/2016 ALFREDO DEBBIE FERNANDEZA K Ot R73.9 HYPERGLYCEMIA, UNSPECIFIED 06/24/2016 ALFREDO , JENNIFER K Ot Z79.82 RETIREMENT (CURRENT) USE OF ASPIRIN 06/24/2016 DEBBIE FUENTES DOA K Ot Z79.899 OTHER RETIREMENT (CURRENT) DRUG THERAPY 06/26/2016 CARL STEWART, MAXWELL Milian Ot I10 ESSENTIAL (PRIMARY) HYPERTENSION 06/26/2016 CARL STEWART, MAXWELL Milian Ot I25.10 ATHSCL HEART DISEASE OF [place] CORONARY 06/26/2016 CARL STEWART, MAXWELL Milian Ot I47.1 SUPRAVENTRICULAR TACHYCARDIA 06/26/2016 CARL STEWART, MAXWELL Milian Ot R00.2 PALPITATIONS 06/26/2016 CARL STEWART, MAXWELL Milian Ot Z79.899 OTHER STOCK CHECKER (CURRENT) DRUG THERAPY 07/12/2016 CONRAD STEWART, [place] Birch Ot E87.6 HYPOKALEMIA 07/12/2016 CONRAD STEWART, [place] Bir[place] Ot F41.9 ANXIETY DISORDER, UNSPECIFIED 07/12/2016 CONRAD STEWART, [place] Bir[place] Ot G47.9 SLEEP DISORDER, UNSPECIFIED 07/12/2016 [place] MARTINES MD Ot G62.9 POLYNEUROPATHY, UNSPECIFIED 07/12/2016 [place] MARTINES MD Ot I25.10 ATHSCL HEART DISEASE OF [place] CORONARY 07/12/2016 [place] MARTINES MD Ot I47.1 [...] 07/12/2016 CONRAD STEWART, [place] Bir[place] Ot M85.852 [facility] DISRD OF BONE DENSITY AND STRUCTURE, 07/12/2016 [place] MARTINES MD Ot R25.2 CRAMP AND SPASM 07/12/2016 [place] MARTINES MD Ot W01.0XXA FALL SAME LEV FROM SLIP/TRIP W/O STRIKE 07/12/2016 [place] MARTINES MD Ot Y92.003 [facility] R 07/12/2016 [place] MARTINES MD Ot Z87.11 PERSONAL HISTORY OF PEPTIC ULCER DISEASE 07/12/2016 [place] MARTINES MD Ot E86.0 DEHYDRATION 07/12/2016 [place] MARTINES MD Ot E87.6 HYPOKALEMIA 07/12/2016 [place] MARTINES MD Ot F41.9 ANXIETY DISORDER, UNSPECIFIED 07/12/2016 [place] MARTINES MD Ot G47.9 SLEEP DISORDER, UNSPECIFIED 07/12/2016 [place] MARTINES MD Ot G62.9 POLYNEUROPATHY, UNSPECIFIED 07/12/2016 [place] MARTINES MD Ot I25.10 ATHSCL HEART DISEASE OF [place] CORONARY 07/12/2016 [place] MARTINES MD Ot I47.1 [...] [place] MARTINES MD Ot Y92.003 [facility] ([facility]) R 07/12/2016 [place] MARTINES MD Ot Z87.11 PERSONAL HISTORY OF PEPTIC ULCER DISEASE 07/19/2016 AUSTIN BE MD Ot E78.00 PURE HYPERCHOLESTEROLEMIA, UNSPECIFIED 07/19/2016 AUSTIN BE MD Ot E87.6 HYPOKALEMIA 07/19/2016 AUSTIN BE MD Ot I25.10 ATHSCL HEART DISEASE OF [place] CORONARY 07/19/2016 AUSTIN BE MD Ot I48.0 [...] MD Ot I25.10 ATHSCL HEART DISEASE OF [place] CORONARY 07/28/2016 MELO MENDOZA MD Ot I47.1 SUPRAVENTRICULAR TACHYCARDIA 07/28/2016 MELO MENDOZA MD Ot R00.2 PALPITATIONS 07/28/2016 MELO MENDOZA MD Ot Z79.82 RETIREMENT (CURRENT) USE OF ASPIRIN 07/28/2016 MELO MENDOZA MD Ot Z79.899 OTHER STOCK CHECKER (CURRENT) DRUG THERAPY 07/29/2016 TATE REARDON MD Ot F41.9 ANXIETY DISORDER, UNSPECIFIED 07/29/2016 TATE REARDON MD Ot G47.00 INSOMNIA, UNSPECIFIED 07/29/2016 TATE REARDON MD Ot I25.10 ATHSCL HEART DISEASE OF [place] CORONARY 07/29/2016 TATE REARDON MD Ot I47.1 SUPRAVENTRICULAR TACHYCARDIA 07/29/2016 TATE REARDON MD Ot I48.0 PAROXYSMAL ATRIAL FIBRILLATION 07/29/2016 TATE REARDON MD Ot R07.9 CHEST PAIN, UNSPECIFIED 07/29/2016 TATE REARDON MD Ot Z79.899 OTHER RETIREMENT (CURRENT) DRUG THERAPY 07/29/2016 MELO MENDOZA MD Ot I25.10 ATHSCL HEART DISEASE OF [place] CORONARY 07/29/2016 MELO MENDOZA MD Ot I47.1 SUPRAVENTRICULAR TACHYCARDIA 07/29/2016 MELO MENDOZA MD Ot R00.2 PALPITATIONS 07/29/2016 MELO MENDOZA MD Ot Z79.82 STOCK CHECKER (CURRENT) USE OF ASPIRIN 07/29/2016 MELO MENDOZA MD Ot Z79.899 OTHER RETIREMENT (CURRENT) DRUG THERAPY 08/04/2016 MELO MENDOZA MD Ot I25.10 ATHSCL HEART DISEASE OF [place] CORONARY 08/04/2016 MELO MENDOZA MD Ot I47.1 SUPRAVENTRICULAR TACHYCARDIA 08/04/2016 MELO MENDOZA MD Ot R00.2 PALPITATIONS 08/04/2016 MELO MENDOZA MD Ot Z79.82 RETIREMENT (CURRENT) USE OF ASPIRIN 08/04/2016 MELO MENDOZA MD Ot Z79.899 OTHER RETIREMENT (CURRENT) DRUG THERAPY 08/04/2016 JORDAN COLLAZO DO [...] UNSPECIFIED 09/24/2016 JENNIFER FUENTES DO Ot Z79.82 RETIREMENT (CURRENT) USE OF ASPIRIN 09/24/2016 JENNIFER FUENTES DO Ot Z79.899 OTHER RETIREMENT (CURRENT) DRUG THERAPY 02/06/2017 Ot 272.4 HYPERLIPIDEMIA [...] I48.0 PAROXYSMAL ATRIAL FIBRILLATION 02/10/2017 QUENTIN CLEVELAND LOCKSTITCH BACK MAKER Ot Z47.1 AFTERCARE FOLLOWING JOINT REPLACEMENT [place] 02/10/2017 QUENTIN CLEVELAND LOCKSTITCH BACK MAKER Ot Z96.642 PRESENCE OF LEFT ARTIFICIAL HIP JOINT 03/17/2017 QUENTIN CLEVELAND LOCKSTITCH BACK MAKER Ot Z47.1 AFTERCARE FOLLOWING JOINT REPLACEMENT [place] 03/17/2017 CRISTOFER QUENTIN E LOCKSTITCH BACK MAKER Ot Z96.642 PRESENCE OF LEFT ARTIFICIAL HIP JOINT 03/22/2017 QUENTIN CLEVELAND LOCKSTITCH BACK MAKER Ot Z47.1 AFTERCARE FOLLOWING JOINT REPLACEMENT [place] 03/22/2017 QUENTIN CLEVELAND LOCKSTITCH BACK MAKER Ot Z96.642 PRESENCE OF LEFT ARTIFICIAL HIP JOINT 08/08/2017 HÉCTOR STEWART, Tani PEÑALOZA Ot I08.0 RHEUMATIC DISORDERS OF BOTH MITRAL AND A 08/08/2017 HÉCTOR STEWART, Tani PEÑALOZA Ot I47.1 SUPRAVENTRICULAR TACHYCARDIA 08/08/2017 Tani ANAYA MD JH Ot I48.91 UNSPECIFIED ATRIAL FIBRILLATION 08/08/2017 HÉCTOR STEWART, Tani PEÑALOZA Ot R06.02 SHORTNESS OF BREATH 08/08/2017 HÉCTOR STEWART, Tani PEÑALOZA Ot R07.9 CHEST PAIN, UNSPECIFIED 08/09/2017 ALFREDO JENNIFER Ot E78.00 PURE HYPERCHOLESTEROLEMIA, UNSPECIFIED 08/09/2017 ALFREDO JENNIFER Ot F41.9 ANXIETY DISORDER, UNSPECIFIED 08/09/2017 ALFREDO JENNIFER Ot I25.10 ATHSCL HEART DISEASE OF [place] CORONARY 08/09/2017 ALFREDO JENNIFER FERNANDEZ Ot I47.1 SUPRAVENTRICULAR TACHYCARDIA 08/09/2017 ALFREDO JENNIFER FERNANDEZ Ot I48.91 UNSPECIFIED ATRIAL FIBRILLATION 08/09/2017 ALFREDO JENNIFER FERNANDEZ Ot J45.909 UNSPECIFIED ASTHMA, UNCOMPLICATED 08/09/2017 ALFREDO JENNIEFR Ot K21.9 GASTRO-ESOPHAGEAL REFLUX DISEASE WITHOUT 08/09/2017 ALFREDO JENNIFER FERNANDEZ Ot M81.0 AGE-RELATED OSTEOPOROSIS W/O CURRENT PAT 08/09/2017 ALFREDO JENNIFER FERNANDEZ Ot R00.0 TACHYCARDIA, UNSPECIFIED 08/09/2017 ALFREDO JENNIFER FERNANDEZ Ot Z79.01 STOCK CHECKER (CURRENT) USE OF ANTICOAGULANT 08/09/2017 ALFREDO JENNIFER FERNANDEZ Ot Z79.82 STOCK CHECKER (CURRENT) USE OF ASPIRIN 08/09/2017 ALFREDO JENNIFER FERNANDEZ Ot Z80.0 FAMILY HISTORY OF MALIGNANT NEOPLASM OF 08/09/2017 ALFREDO JENNIFER FERNANDEZ Ot Z80.1 FAMILY HISTORY OF MALIG NEOPLASM OF [place] 08/09/2017 ALFREDO JENNIFER FERNANDEZ Ot Z82.49 FAMILY HX OF ISCHEM HEART DIS AND OTH DI 08/09/2017 JENNIFER FUENTES DO Ot Z86.010 PERSONAL HISTORY OF COLONIC POLYPS 08/09/2017 JENNIFER FUENTES DO Ot Z86.718 PERSONAL HISTORY OF OTHER VENOUS THROMBO 08/09/2017 ALFREDO JENNIFER FERNANDEZ Ot Z87.19 PERSONAL HISTORY OF OTHER DISEASES OF TH 08/09/2017 ALFREDO JENNIFER FERNANDEZ Ot Z88.1 ALLERGY STATUS TO OTHER ANTIBIOTIC AGENT 08/09/2017 JENNIFER FUENTES DO Ot Z90.49 ACQUIRED ABSENCE OF OTHER SPECIFIED PART 08/09/2017 JENNIFER FUENTES DO Ot Z90.89 ACQUIRED ABSENCE OF OTHER ORGANS 08/10/2017 Tani ANAYA MD Ot I08.0 RHEUMATIC DISORDERS OF BOTH MITRAL AND A 08/10/2017 Tani ANAYA MD Ot I47.1 SUPRAVENTRICULAR TACHYCARDIA 08/10/2017 Tani ANAYA MD Ot I48.91 UNSPECIFIED ATRIAL FIBRILLATION 08/10/2017 Tani ANAYA MD Ot R06.02 SHORTNESS OF BREATH 08/10/2017 Tani ANAYA MD Ot R07.9 CHEST PAIN, UNSPECIFIED 08/11/2017 Tani ANAYA MD Ot I34.0 NONRHEUMATIC MITRAL (VALVE) INSUFFICIENC 08/11/2017 Tani ANAYA MD Ot I47.1 SUPRAVENTRICULAR TACHYCARDIA 08/11/2017 Tani ANAYA MD Ot I48.91 UNSPECIFIED ATRIAL FIBRILLATION 08/11/2017 Tani ANAYA MD Ot R06.02 SHORTNESS OF BREATH 08/11/2017 Tani ANAYA MD Ot R07.9 CHEST PAIN, UNSPECIFIED 08/11/2017 Tani ANAYA MD Ot I34.0 NONRHEUMATIC MITRAL (VALVE) INSUFFICIENC 08/11/2017 Tani ANAYA MD Ot I47.1 SUPRAVENTRICULAR TACHYCARDIA 08/11/2017 Tani ANAYA MD Ot I48.91 UNSPECIFIED ATRIAL FIBRILLATION 08/11/2017 Tani ANAYA MD Ot R06.02 SHORTNESS OF BREATH 08/11/2017 Tani ANAYA MD Ot R07.9 CHEST PAIN, UNSPECIFIED 08/28/2017 Tani ANAYA MD Ot I08.0 RHEUMATIC DISORDERS OF BOTH MITRAL AND A 08/28/2017 Tani ANAYA MD Ot I47.1 SUPRAVENTRICULAR TACHYCARDIA 08/28/2017 Tani ANAYA MD Ot I48.91 UNSPECIFIED ATRIAL FIBRILLATION 08/28/2017 Tani ANAYA MD Ot R06.02 SHORTNESS OF BREATH 08/28/2017 HÉCTOR STEWART, Tani PEÑALOZA Ot R07.9 CHEST PAIN, UNSPECIFIED 08/30/2017 Tani ANAYA MD Ot I34.0 NONRHEUMATIC MITRAL (VALVE) INSUFFICIENC 08/30/2017 HÉCTOR STEWART, Tani PEÑALOZA Ot I47.1 SUPRAVENTRICULAR TACHYCARDIA 08/30/2017 HÉCTOR STEWART, Tani PEÑALOZA Ot I48.91 UNSPECIFIED ATRIAL FIBRILLATION 08/30/2017 HÉCTOR STEWART, Tani PEÑALOZA Ot R06.02 SHORTNESS OF BREATH 08/30/2017 HÉCTOR STEWART, Tani PEÑALOZA Ot R07.9 CHEST PAIN, UNSPECIFIED 08/31/2017 Tani ANAYA MD Ot I08.0 RHEUMATIC DISORDERS OF BOTH MITRAL AND A 08/31/2017 HÉCTOR STEWART, Tani PEÑALOZA Ot I47.1 SUPRAVENTRICULAR TACHYCARDIA 08/31/2017 Tani ANAYA MD Ot I48.91 UNSPECIFIED ATRIAL FIBRILLATION 08/31/2017 HÉCTOR STEWART, Tani PEÑALOZA Ot R06.02 SHORTNESS OF BREATH 08/31/2017 HÉCTOR STEWART, Tani PEÑALOZA Ot R07.9 CHEST PAIN, UNSPECIFIED 09/08/2017 HÉCTOR STEWART, Tani PEÑALOZA Ot I34.0 NONRHEUMATIC MITRAL (VALVE) INSUFFICIENC 09/08/2017 HÉCTOR STEWART, Tani PEÑALOZA Ot I47.1 SUPRAVENTRICULAR TACHYCARDIA 09/08/2017 HÉCTOR STEWART, Tani PEÑALOZA Ot I48.91 UNSPECIFIED ATRIAL FIBRILLATION 09/08/2017 HÉCTOR STEWART, Tani PEÑALOZA Ot R06.02 SHORTNESS OF BREATH 09/08/2017 Tani ANAYA MD Ot R07.9 CHEST PAIN, UNSPECIFIED 09/13/2017 TATE REARDON MD Ot F41.9 ANXIETY DISORDER, UNSPECIFIED 09/13/2017 TATE REARDON MD Ot G47.00 INSOMNIA, UNSPECIFIED 09/13/2017 TATE REARDON MD Ot I25.10 ATHSCL HEART DISEASE OF [place] CORONARY 09/13/2017 TATE REARDON MD Ot I47.1 SUPRAVENTRICULAR TACHYCARDIA 09/13/2017 TATE REARDON MD Ot I48.0 PAROXYSMAL ATRIAL FIBRILLATION 09/13/2017 TATE REARDON MD Ot R07.9 CHEST PAIN, UNSPECIFIED 09/13/2017 TATE REARDON MD Ot Z79.82 RETIREMENT (CURRENT) USE OF ASPIRIN 09/13/2017 TATE REARDON MD Ot Z79.899 OTHER RETIREMENT (CURRENT) DRUG THERAPY 09/21/2017 TATE REARDON MD Ot F41.9 ANXIETY DISORDER, UNSPECIFIED 09/21/2017 TATE REARDON MD Ot G47.00 INSOMNIA, UNSPECIFIED 09/21/2017 TATE REARDON MD Ot I25.10 ATHSCL HEART DISEASE OF [place] CORONARY 09/21/2017 TATE REARDON MD Ot I47.1 SUPRAVENTRICULAR TACHYCARDIA 09/21/2017 TATE REARDON MD Ot I48.0 PAROXYSMAL ATRIAL FIBRILLATION 09/21/2017 TATE REARDON MD Ot R07.9 CHEST PAIN, UNSPECIFIED 09/21/2017 TATE REARDON MD Ot Z79.82 RETIREMENT (CURRENT) USE OF ASPIRIN 09/21/2017 TATE REARDON MD, Ot Z79.899 OTHER STOCK CHECKER (CURRENT) DRUG THERAPY Procedures Code Description Performed By Performed On [id number] REPLACE L HIP JT, FEMORAL W METAL, [...] or plasma urea nitrogen/creatinine mass ratio 15 NRG Serum or plasma creatinine measurement with calculation of estimated glomerular filtration rate > NRG Serum or plasma glucose measurement (mass/volume) 117 [...] resistant Staphylococcus aureus (MRSA) screening culture NEG [facility] Comprehensive metabolic panel - 02/19/16 03:23 [...] or plasma urea nitrogen/creatinine mass ratio 19 [facility] Serum or plasma creatinine measurement with calculation of estimated glomerular filtration rate > [facility] Serum or plasma glucose measurement (mass/volume) 96 [...] platelet poor plasma by coagulation assay - 05/10/16 09:15 Prothrombin time (PT) in platelet poor [...] NRG Blood band neutrophils/100 leukocytes 9 % [facility] Manual blood lymphocytes/100 leukocytes 12 % [facility] Manual eosinophils/100 leukocytes in nose 0 % [facility] Manual blood basophils/100 leukocytes 0 % [facility] Blood erythrocyte morphology finding identification NORMAL [facility] Comprehensive metabolic panel - 07/09/16 21:59 [...] calculation of estimated glomerular filtration rate > NR Serum or plasma glucose measurement (mass/volume) 120 [...] STAIN RESULT NO WBC'S OR BACTERIA OBSERVED [facility] Bacteria identification in wound by culture - 07/14/16 21:00 Bacteria identification in wound by culture [facility] Complete blood count (CBC) with [...] plasma albumin measurement (mass/volume) 3.9 g/dL 3.2-4.5 PT panel in platelet poor plasma by coagulation assay - 08/09/17 10:37 Prothrombin time (PT) in platelet poor plasma by coagulation assay 12.8 s 12.2-14.7 INR in platelet poor plasma or blood by coagulation assay 1.0 0.8-1.4 Activated partial thromboplastin time (aPTT) in platelet poor plasma bycoagulation assay - 08/09/17 10:37 Activated partial thromboplastin time (aPTT) in platelet poor plasma bycoagulation assay 26 s 24-35 Complete blood count (CBC) with automated white blood cell (WBC) differential - 08/09/17 10:37 Blood leukocytes automated count (number/volume) 7.9 10*3/uL 4.3-11.0 Blood erythrocytes automated count (number/volume) 5.17 10*6/uL 4.35-5.85 Venous blood hemoglobin measurement (mass/volume) 16.2 g/dL 11.5-16.0 Blood hematocrit (volume fraction) 47 % 35-52 Automated erythrocyte mean corpuscular volume 92 [foz_us] 80-99 Automated erythrocyte mean corpuscular hemoglobin (mass per erythrocyte) 31 pg 25-34 Automated erythrocyte mean corpuscular hemoglobin concentration measurement ( mass/volume) 34 g/dL 32-36 Automated erythrocyte distribution width ratio 13.4 % 10.0-14.5 Automated blood platelet count (count/volume) 322 10*3/uL 130-400 Automated blood platelet mean volume measurement 9.5 [foz_us] 7.4-10.4 Automated blood neutrophils/100 leukocytes 54 % 42-75 Automated blood lymphocytes/100 leukocytes 35 % 12-44 Blood monocytes/100 leukocytes 9 % 0-12 Automated blood eosinophils/100 leukocytes 2 % 0-10 Automated blood basophils/100 leukocytes 1 % 0-10 Blood neutrophils automated count (number/volume) 4.2 10*3 1.8-7.8 Blood lymphocytes automated count (number/volume) 2.8 10*3 1.0-4.0 Blood monocytes automated count (number/volume) 0.7 10*3 0.0-1.0 Automated eosinophil count 0.1 10*3/uL 0.0-0.3 Automated blood basophil count (count/volume) 0.0 10*3/uL 0.0-0.1 Comprehensive metabolic panel - 08/09/17 10:37 Serum or plasma sodium measurement (moles/volume) 139 mmol/L 135-145 Serum or plasma potassium measurement (moles/volume) 4.3 mmol/L 3.6-5.0 Serum or plasma chloride measurement (moles/volume) 104 mmol/L 98-107 Carbon dioxide 23 mmol/L 21-32 Serum or plasma anion gap determination (moles/volume) 12 mmol/L 5-14 Serum or plasma urea nitrogen measurement (mass/volume) 18 mg/dL 7-18 Serum or plasma creatinine measurement (mass/volume) 0.64 mg/dL 0.60-1.30 Serum or plasma urea nitrogen/creatinine mass ratio 28 NRG Serum or plasma creatinine measurement with calculation of estimated glomerular filtration rate > NRG Serum or plasma glucose measurement (mass/volume) 93 mg/dL 70-105 Serum or plasma calcium measurement (mass/volume) 9.6 mg/dL 8.5-10.1 Serum or plasma total bilirubin measurement (mass/volume) 0.4 mg/dL 0.1-1.0 Serum or plasma alkaline phosphatase measurement (enzymatic activity/volume) 67 U/L 40-136 Serum or plasma aspartate aminotransferase measurement (enzymatic activity/ volume) 26 U/L 5-34 Serum or plasma alanine aminotransferase measurement (enzymatic activity/volume ) 21 U/L 0-55 Serum or plasma protein measurement (mass/volume) 7.3 g/dL 6.4-8.2 Serum or plasma albumin measurement (mass/volume) 4.4 g/dL 3.2-4.5 Magnesium - 08/09/17 10:37 Magnesium 2.4 mg/dL 1.8-2.4 Serum or plasma lithium measurement (moles/volume) - 08/09/17 10:37 BNP level 122.2 pg/mL <100.0 Serum or plasma troponin i.cardiac measurement (mass/volume) - 08/09/17 10:37 Serum or plasma troponin i.cardiac measurement (mass/volume) < ng/ mL <0.30 Serum or plasma thyrotropin measurement by detection limit <=0.05 miu/l (units/ volume) - 08/09/17 10:37 Serum or plasma thyrotropin measurement by detection limit <=0.05 miu/l (units/ volume) 1.28 u[iU]/mL 0.35-4.94 Encounters ACCT No. Visit Date/Time Discharge Status Pt. Type Provider Facility Loc./Unit Complaint [id number] 08/10/2017 07:49:00 08/10/2017 23:59:59 CLS Outpatient Tani ANAYA MD [facility] CARD I35.1 AR [id number] 08/09/2017 10:29:00 08/09/2017 11:54:00 DIS Emergency JENNIFER FUENTES DO [facility] ER AFIB,TACH [id number] 08/04/2017 10:46:00 08/04/2017 23:59:59 CLS Outpatient HÉCTOR STEWART, Tani PEÑALOZA [facility] CARD I35.1 AR [id number] 03/23/2017 11:28:00 03/23/2017 14:17:00 DIS Outpatient QUENTIN CLEVELAND APRN [facility] REHAB S/P L HIP PROSTHESIS [id number] 08/29/2016 09:00:00 08/29/2016 23:59:59 CLS Preadmit HÉCTOR STEWART, Tani PEÑALOZA [facility] CARD PAF,SUPRAVENTRICULAR TACHYCARDIA [id number] 06/28/2016 09:00:00 08/28/2016 00:01:00 DIS Outpatient Tani ANAYA MD [facility] CARD PAF,SUPRAVENTRICULAR TACHYCARDIA [id number] 08/03/2016 09:42:00 08/03/2016 23:59:59 CLS Outpatient VALE DO, JORDAN F [facility] RAD PELVIC MASS [id number] 07/28/2016 11:47:00 07/28/2016 14:19:00 DIS Emergency MELO MENDOZA MD [facility] ER IRR HEART RATE [id number] 07/12/2016 11:01:00 07/19/2016 12:15:00 DIS Inpatient AUSTIN BE MD [facility] IRF LEFT FEMORAL NECK FRACTURE [id number] 07/09/2016 23:10:00 07/12/2016 11:00:00 DIS Inpatient CONRAD STEWART, [place] Birch [facility] 4TH L FEMORAL NECK FRACTURE [id number] 06/20/2016 16:07:00 06/20/2016 17:35:00 DIS Emergency CARL STEWART, MAXWELL Milian [facility] ER POSSIBLE AFIB [id number] 05/14/2016 10:43:00 05/14/2016 12:56:00 DIS Emergency CARL STEWART, MAXWELL Milian [facility] ER AMS [id number] 05/10/2016 15:30:00 05/11/2016 08:40:00 DIS Outpatient TATE REARDON MD [facility] CATH PSVT [id number] 05/10/2016 09:10:00 05/10/2016 23:59:59 CLS Emergency JENNIFER FUENTES DO [facility] ER IRR HEART RATE [id number] 02/18/2016 16:39:00 02/19/2016 10:00:00 DIS Inpatient ALMITA MILLER DO [facility] ICU NEW ONSET A-FIB W/RVR [id number] 01/01/2016 21:08:00 01/01/2016 23:59:59 CLS Outpatient SEEMA SANTOYO DO [facility] SLEEP OBSERVED APNEAS, ABNORMAL LIMB MOVEMENT, HTN [id number] 12/01/2014 08:58:00 12/03/2014 09:50:00 DIS Inpatient SEEMA SANTOYO DO [facility] CSD SVT [id number] 11/24/2014 13:35:00 11/25/2014 15:00:00 DIS Inpatient SEEMA SANTOYO DO [facility] CSD SVT CHEST PAIN [id number] 05/10/2012 13:49:00 Document Registration [id number] 12/06/2011 08:24:00 Document Registration [id number] 08/04/2011 08:41:00 Document Registration [id number] 06/09/2011 08:41:00 Document Registration [id number] 05/10/2011 08:37:00 Document Registration [id number] 12/09/2010 08:30:00 Document Registration [id number] 08/02/2010 08:51:00 Document Registration [id number] 07/30/2010 10:39:00 Document Registration [id number] 07/26/2010 09:38:00 Document Registration [id number] 12/01/2014 07:52:51 ACT Document Registration
[2018-05-27 19:41] LABS: BASOPHILS % (AUTO) 0 % (0-10); EOSINOPHILS # (AUTO) 0.1 10^3/uL (0.0-0.3); EOSINOPHILS % (AUTO) 2 % (0-10); HEMATOCRIT 47 % (35-52); HEMOGLOBIN 15.8 G/DL (11.5-16.0); LYMPHOCYTES # (AUTO) 2.8 X 10^3 (1.0-4.0); LYMPHOCYTES % (AUTO) 35 % (12-44); MEAN CORPUSCULAR HEMOGLOBIN 30 PG (25-34); MEAN CORPUSCULAR HGB CONC 34 G/DL (32-36); MEAN CORPUSCULAR VOLUME 90 FL (80-99); MEAN PLATELET VOLUME 9.1 FL (7.4-10.4); MONOCYTES # (AUTO) 0.6 X 10^3 (0.0-1.0); MONOCYTES % (AUTO) 8 % (0-12); NEUTROPHILS # (AUTO) 4.4 X 10^3 (1.8-7.8); NEUTROPHILS % (AUTO) 55 % (42-75); PLATELET COUNT 372 10^3/uL (130-400); RED CELL DISTRIBUTION WIDTH 13.8 % (10.0-14.5); WHITE BLOOD COUNT 7.9 10^3/uL (4.3-11.0)
[2018-05-27] MEDS ORDERED: ASPIRIN 81 MG CHEW (CHILDREN'S ASA) PO ONE (19:45)
[2018-05-27 19:57] LABS: ALANINE AMINOTRANSFERASE 17 U/L (0-55); ALKALINE PHOSPHATASE 73 U/L (40-136); BILIRUBIN,TOTAL 0.3 MG/DL (0.1-1.0); BUN/CREATININE RATIO 28; CALCIUM 9.8 MG/DL (8.5-10.1); CARBON DIOXIDE 24 MMOL/L (21-32); CHLORIDE 104 MMOL/L (98-107); CREATININE SERUM 0.67 MG/DL (0.60-1.30); GFR ESTIMATED > 60; GLUCOSE 84 MG/DL (70-105); MAGNESIUM 2.6 MG/DL (1.8-2.4); POTASSIUM 3.6 MMOL/L (3.6-5.0); SODIUM 142 MMOL/L (135-145); TOTAL PROTEIN 7.9 GM/DL (6.4-8.2)
[2018-05-27 20:03] LABS: MYOGLOBIN SERUM 37.7 NG/ML (10.0-92.0)
--- NOTE | 2018-05-27 20:12 | Diagnostic Imaging Report ---
INDICATION: Left-sided chest pain and arm pain. Frontal chest obtained at 7:44 p.m. and compared with 08/09/2017. Heart is mildly enlarged. There is mild central vascular prominence with chronic appearing increased interstitial markings. There is no acute consolidation or pneumothorax or pleural fluid. There are calcified granulomata over the upper lobes on both sides. IMPRESSION: Cardiomegaly and mild central vascular prominence with chronic appearing increased interstitial markings. No acute consolidation or pleural fluid. Dictated by: Dictated on workstation # [id number]
--- NOTE | 2018-05-27 20:30 | ED Chest Pain ---
General Chief Complaint: Chest Pain Stated Complaint: CHEST PAIN, SOB, ARM HURTING Nursing Triage Note: AMBULATORY TO ED WITH C/O CP X3 DAYS THAT RADIATES TO LEFT ARM. Nursing Sepsis Screen: No Definite Risk Source: patient Exam Limitations: no limitations History of Present Illness Date Seen by Provider: May 27, 2018 Time Seen by Provider: 19:21 Initial Comments Patient is a 73-year-old female who presents to the emergency room with complaints of chest pain that radiates to her left arm for the past 3 days. She states that it is a constant dull ache and does not rate on a scale of 1-10. She is concerned that she's had a history of SVT in the past requiring an oblation. She did have some shortness of breath in the cold air and she took 2 puffs of her albuterol inhaler which relieved her shortness of breath or to arrival. She denies dizziness, nausea, vomiting. Timing/Duration: 2-3 days Severity/Quality: aching, dull Location: substernal Radiation: arms (left shoulder) ASA po REPLENISHMENT ASSOCIATE: No NTG SL REPLENISHMENT ASSOCIATE: No Associated Symptoms: denies symptoms Allergies and Home Medications Allergies Coded Allergies: shellfish derived (Verified Allergy, Unknown, 05/10/16) ciprofloxacin (Verified Adverse Reaction, Unknown, stomach upset, 12/01/14) Home Medications Ascorbic Acid/Multivit-Min 1,000 Mg Effpowdpkt, 1,000 MG PO HS, (Reported) Aspirin 325 Mg Tablet, 325 MG PO DAILY, (Reported) Cholecalciferol (Vitamin D3) 1,000 Unit Tablet, 3,000 UNIT PO HS, (Reported) Fish Oil/Dha/Epa 1 Each Capsule, 1,200 MG PO BID, (Reported) Fluticasone Propionate 1 Ea Aero, 1 PUFF IH BID, (Reported) Fluticasone Propionate 9.9 Ml [place].susp, 2 SPRAYS NS DAILY PRN for ALLERGIES, ( Reported) Gabapentin 100 Mg Capsule, 100 MG PO HS, (Reported) Guaifenesin 600 Mg Tab.er.12h, 600 MG PO BID, (Reported) Hydrocodone/Acetaminophen 1 Each Tablet, 1 EA PO Q4H PRN for MODERATE PAIN Prescribed by: QUENTIN CLEVELAND on 07/12/16 0754 Ibuprofen 200 Mg Tablet, 200 MG PO BID PRN for PAIN, (Reported) Metoprolol Succinate 50 Mg Tab.er.24h, 50 MG PO DAILY Prescribed by: MELO MENDOZA on 07/28/16 1408 Multivitamin 1 Each Tablet, 1 TAB PO 1200, (Reported) Niacin (Inositol Niacinate) 500 Mg Capsule, 500 MG PO HS, (Reported) Sennosides/Docusate Sodium 1 Each Tablet, 1 EA PO BID Prescribed by: QUENTIN CLEVELAND on 07/12/16 0754 Vitamin B Complex 1 Each Capsule, 1 CAP PO DAILY, (Reported) Past Sdljrom-Okrdwc-Iypzfj Hx Patient Social History Alcohol Use: Denies Use Number of Drinks Today: Alcohol Beverage of Choice: Wine Recreational Drug Use: No Smoking Status: Never a Smoker Recent Foreign Travel: No Contact w/Someone Who Travel: No Recent Infectious Disease Expo: No Recent Hopitalizations: Yes (LEFT HIP SURGERY) Immunizations Up To Date Tetanus Booster (TDap): Unknown PED Vaccines UTD: No Date of Pneumonia Vaccine: Apr 26, 2011 Date of Influenza Vaccine: Feb 24, 2014 Seasonal Allergies Seasonal Allergies: Yes Past Medical History Surgeries: Yes (LEFT TOTAL HIP, ABLATION THIS PAST SEPTEMBER) Adenoidectomy, Gallbladder, Orthopedic, Tonsillectomy Respiratory: Yes Asthma Currently Using CPAP: No Currently Using BIPAP: No Cardiac: Yes (paroxysmal SVT) Atrial Fibrillation, Coronary Artery Disease, High Cholesterol, Irregular Heartbeat Neurological: Yes (NUMBNESS IN RIGHT HAND, RIGHT FOOT) Neuropathy Reproductive Disorders: No 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 PYLORI) Gastroesophageal Reflux, Ulcer, Gall Bladder Disease Musculoskeletal: Yes (OSTEOARTHRITIS, BORDER-LINE OSTEOPOROSIS ; LEFT KNEE PAIN ) Osteoporosis, Arthritis, Fibromyalgia Endocrine: No HEENT: No Loss of Vision: Denies Hearing Impairment: Denies Cancer: No Psychosocial: Yes Sleep Difficulties, Anxiety Integumentary: Yes (DERMATITIS ) Blood Disorders: No Adverse Reaction/Blood Tranf: No Family Medical History Arthritis 19 FATHER Cardiovascular disease Cataracts 19 FATHER Completed stroke 19 MOTHER Congenital disease Deafness or hearing loss 19 MOTHER Dementia 19 MOTHER FH: esophageal cancer G8 BROTHER FH: lung cancer 19 FATHER FH: smoking 19 FATHER G8 SISTER G8 BROTHER Genetic disease G8 BROTHER Gout 19 FATHER Hypercholesterolemia 19 MOTHER Hypertension G8 BROTHER Lactose intolerance G8 BROTHER Myocardial infarction 19 FATHER Prostate cancer G8 BROTHER Psychosocial problem (BIPOLAR) G8 SISTER Thyroid disease 19 MOTHER No Family History of: AIDS Abdominal aortic aneurysm Shan's disease Alcoholism Alzheimer's disease Aphasia Asthma Cancer of mouth Colon cancer Congenital heart disease Cystic fibrosis Diabetes mellitus Drug abuse Dysphasia Fibrocystic disease of breast Gastroenteritis Glaucoma Headache disorder Infertility Kidney disease Neoplasm Not obtainable due to adoption Osteoporosis Parkinson's disease Respiratory disorder Seizure disorder Severe allergy Tuberculosis Visual disorder Physical Exam Vital Signs Vital Signs - First Documented 05/27/18 05/27/18 19:21 20:35 Temp 97.3 Pulse 61 Resp 17 B/P (MAP) 147/81 (103) Pulse Ox 100 O2 Delivery Room Air Capillary Refill : Less Than 3 Seconds Height, Weight, BMI Height: 5'4.00" Weight: 128lbs. 0oz. 58.241595ih; 21.6 BMI Method:Stated Progress/Results/Core Measures Results/Orders Lab Results Laboratory Tests Test 05/27/18 19:30 Range/Units White Blood Count 7.9 4.3-11.0 10^3/uL Red Blood Count 5.20 4.35-5.85 10^6/uL Hemoglobin 15.8 11.5-16.0 G/DL Hematocrit 47 35-52 % Mean Corpuscular Volume 90 80-99 FL Mean Corpuscular Hemoglobin 30 25-34 PG Mean Corpuscular Hemoglobin Concent 34 32-36 G/DL Red Cell Distribution Width 13.8 10.0-14.5 % Platelet Count 372 130-400 10^3/uL Mean Platelet Volume 9.1 7.4-10.4 FL Neutrophils (%) (Auto) 55 42-75 % Lymphocytes (%) (Auto) 35 12-44 % Monocytes (%) (Auto) 8 0-12 % Eosinophils (%) (Auto) 2 0-10 % Basophils (%) (Auto) 0 0-10 % Neutrophils # (Auto) 4.4 1.8-7.8 X 10^3 Lymphocytes # (Auto) 2.8 1.0-4.0 X 10^3 Monocytes # (Auto) 0.6 0.0-1.0 X 10^3 Eosinophils # (Auto) 0.1 0.0-0.3 10^3/uL Basophils # (Auto) 0.0 0.0-0.1 10^3/uL Sodium Level 142 135-145 MMOL/L Potassium Level 3.6 3.6-5.0 MMOL/L Chloride Level 104 98-107 MMOL/L Carbon Dioxide Level 24 21-32 MMOL/L Anion Gap 14 5-14 MMOL/L Blood Urea Nitrogen 19 H 7-18 MG/DL Creatinine 0.67 0.60-1.30 MG/DL Estimat Glomerular Filtration Rate > 60 BUN/Creatinine Ratio 28 Glucose Level 84 70-105 MG/DL Calcium Level 9.8 8.5-10.1 MG/DL Corrected Calcium 8.5-10.1 MG/DL Magnesium Level 2.6 H 1.8-2.4 MG/DL Total Bilirubin 0.3 0.1-1.0 MG/DL Aspartate Amino Transf (AST/SGOT) 23 5-34 U/L Alanine Aminotransferase (ALT/SGPT) 17 0-55 U/L Alkaline Phosphatase 73 40-136 U/L Myoglobin 37.7 10.0-92.0 NG/ML Troponin I < 0.30 <0.30 NG/ML Total Protein 7.9 6.4-8.2 GM/DL Albumin 5.0 H 3.2-4.5 GM/DL My Orders Orders - MAIA HARTMAN Cbc With Automated Diff (05/27/18 19:34) Magnesium (05/27/18 19:34) Chest 1 View, Ap/Pa Only (05/27/18 19:34) Cardiac Profile 1 (05/27/18 19:34) Comprehensive Metabolic Panel (05/27/18 19:34) Myoglobin Serum (05/27/18 19:34) Protime With Inr (05/27/18 19:34) Partial Thromboplastin Time (05/27/18 19:34) O2 (05/27/18 19:34) Monitor-Rhythm Ecg Trace Only (05/27/18 19:34) Aspirin Chewable Tablet (Baby Aspirin Ch (05/27/18 19:45) Saline Lock/Iv-Start (05/27/18 19:34) Vital Signs/I&O 05/27/18 05/27/1818 19:21 19:21 20:35 Temp 97.3 97.3 Pulse 61 61 Resp 17 17 B/P (MAP) 147/81 (103) 146/67 (93) Pulse Ox 100 O2 Delivery Room Air Room Air Blood Pressure Mean: 103 Progress Progress Note : Time: 20:20 Progress Note I have seen and evaluated the patient. I've informed her of her normal EKG, laboratory findings, and imaging studies. I have discussed the case with Dr. Birch and he believes that since the chest pain has been going on for 3 days she would have elevated cardiac markers. I informed the patient of plans for follow-up with Dr. Staples and she agrees with plans for discharge. Return precautions were given. Voices no questions or concerns. Initial ECG Impression Date: May 27, 2018 Initial ECG Impression Time: 19:24 Initial ECG Rate: 59 Initial ECG Rhythm: Normal Sinus Initial ECG Intervals: Normal Initial ECG Impression: Normal Initial ECG Comparisson: Unchanged Diagnostic Imaging Diagonstic Imaging: Xray Plain Films/CT/US/NM/MRI: chest Comments VIA [place], [place] NAME: DIALLO RAMÍREZ [facility] REC#: [id number] PT STATUS: REG ER : 1945 PHYSICIAN: MAIA HARTMAN ADMIT DATE: 05/27/18/ER Draft Date of Exam:05/27/18 CHEST 1 VIEW, AP/PA ONLY INDICATION: Left-sided chest pain and arm pain. Frontal chest obtained at 7:44 p.m. and compared with 08/09/2017. Heart is mildly enlarged. There is mild central vascular prominence with chronic appearing increased interstitial markings. There is no acute consolidation or pneumothorax or pleural fluid. There are calcified granulomata over the upper lobes on both sides. IMPRESSION: Cardiomegaly and mild central vascular prominence with chronic appearing increased interstitial markings. No acute consolidation or pleural fluid. Dictated on workstation # [id number] Dict: 05/27/181948 Trans: 05/27/182011 [place] [id number] Interpreted by: JORDAN LUIS MD Electronically signed by: Reviewed: Reviewed by Me Departure Impression Primary Impression: Chest pain Disposition: 01 HOME, SELF-CARE Condition: Stable/Unchanged Departure-Patient Inst. Decision time for Depature: 20:27 Referrals: SEEMA SANTOYO DO (PCP/Family) Primary Care Physician Patient Instructions: Chest Pain That Is Not Caused by the Heart (DC) Add. Discharge Instructions: Resume your home medications as previously prescribed. Call first thing tomorrow morning for an appointment time with Dr. Staples for this upcoming week. Return back to the emergency room for any worsening symptoms or concerns as needed. All discharge instructions reviewed with patient and/or family. Voiced understanding. MAIA HARTMAN May 27, 2018 20:30
[2018-05-27 20:35] VITALS: BP 146/67
== END 2018-05-27 20:39 | disposition home or self-care (01) ==
LOC: EDUNIT# 19:18 → ER 19:19
DX: R07.81 Pleurodynia (principal); J45.909 Unspecified asthma, uncomplicated; I48.91 Unspecified atrial fibrillation; I25.10 Atherosclerotic heart disease of native coronary artery without angina pectoris; E78.00 Pure hypercholesterolemia, unspecified; K21.9 Gastro-esophageal reflux disease without esophagitis; M81.0 Age-related osteoporosis without current pathological fracture; F41.9 Anxiety disorder, unspecified; Z87.19 Personal history of other diseases of the digestive system; Z82.49 Family history of ischemic heart disease and other diseases of the circulatory system; Z80.1 Family history of malignant neoplasm of trachea, bronchus and lung; Z86.79 Personal history of other diseases of the circulatory system; Z88.8 Allergy status to other drugs, medicaments and biological substances; Z79.82 Long term (current) use of aspirin; Z79.51 Long term (current) use of inhaled steroids; Z98.890 Other specified postprocedural states; Z96.642 Presence of left artificial hip joint; Z90.89 Acquired absence of other organs
CPT/HCPCS: 71045; 80053; 83735; 83874; 84484; 93005; 93041

== ENCOUNTER → 2018-08-06 | Outpatient (CLI) | payer MEDICARE ==
[~2018-08-06] MED LIST changes: +RT-ALBUTEROL SULF 2.5 MG/3 ML PRE-MIX VIAL INH ONE; +RT-ALBUTEROL SULF 2.5 MG/3 ML PRE-MIX VIAL ONE
--- NOTE | 2018-08-06 15:48 | Diagnostic Imaging Report ---
PROCEDURE: CT chest without contrast. TECHNIQUE: Multiple contiguous axial images were obtained through the chest without the use of intravenous contrast. INDICATION: Asthma and history of pulmonary infiltrates. COMPARISON: No prior CT study is available for comparison. Comparison is made with chest radiograph from 05/27/2018. FINDINGS: No axillary lymphadenopathy is detected. Calcified nodule in the left lobe of the thyroid is noted. Mediastinal and hilar evaluation is limited without intravenous contrast. No pericardial or pleural fluid is identified. Calcified nodules are identified bilaterally consistent with granulomas. There is a thin-walled air cyst in the left upper lobe which may represent a bulla. There is some linear scarring in the left lower lobe. No parenchymal noncalcified mass or infiltrate is detected. Central airways are patent. Upper abdomen is unremarkable. IMPRESSION: Findings consistent with prior granulomatous exposure with calcified mediastinal nodes and parenchymal granulomas. No noncalcified pulmonary mass or evidence of pulmonary infiltrates is identified. Dictated by: Dictated on workstation # [id number]
== END ==
LOC: RAD 14:03
PROVIDERS: ATTEND Nurse Practitioner Family
DX: J84.10 Pulmonary fibrosis, unspecified (principal); I89.8 Other specified noninfective disorders of lymphatic vessels and lymph nodes; J45.909 Unspecified asthma, uncomplicated; I48.91 Unspecified atrial fibrillation; I48.0 Paroxysmal atrial fibrillation; G47.10 Hypersomnia, unspecified; I47.1 Supraventricular tachycardia
CPT/HCPCS: 71250; 94060; 94726; 94729

== ENCOUNTER 2018-08-18 13:27 | Emergency (ER) | payer MEDICARE ==
[~2018-08-18] VITALS: Ht 160 cm; Wt 58.1 kg
[~2018-08-18 13:27] MED LIST changes: -RT-ALBUTEROL SULF 2.5 MG/3 ML PRE-MIX VIAL INH ONE; -RT-ALBUTEROL SULF 2.5 MG/3 ML PRE-MIX VIAL ONE
[2018-08-18 15:37] LABS: BILIRUBIN,URINE NEGATIVE (NEGATIVE); CLARITY,URINE CLEAR; COLOR,URINE YELLOW; GLUCOSE, URINE (UA) NEGATIVE (NEGATIVE); KETONES,URINE NEGATIVE (NEGATIVE); LEUKOCYTE ESTERASE ,URINE NEGATIVE (NEGATIVE); NITRITE,URINE NEGATIVE (NEGATIVE); PH,URINE 5 (5-9); PROTEIN,URINE NEGATIVE (NEGATIVE); UROBILINOGEN,URINE NORMAL (NORMAL)
[2018-08-18 15:37] LABS: BASOPHILS % (AUTO) 0 % (0-10); EOSINOPHILS % (AUTO) 1 % (0-10); HEMATOCRIT 43 % (35-52); HEMOGLOBIN 14.2 G/DL (11.5-16.0); LYMPHOCYTES % (AUTO) 17 % (12-44); MEAN CORPUSCULAR HEMOGLOBIN 30 PG (25-34); MEAN CORPUSCULAR HGB CONC 33 G/DL (32-36); MEAN CORPUSCULAR VOLUME 91 FL (80-99); MEAN PLATELET VOLUME 9.5 FL (7.4-10.4); MONOCYTES # (AUTO) 0.5 X 10^3 (0.0-1.0); MONOCYTES % (AUTO) 10 % (0-12); NEUTROPHILS # (AUTO) 4.2 X 10^3 (1.8-7.8); NEUTROPHILS % (AUTO) 73 % (42-75); PLATELET COUNT 275 10^3/uL (130-400); WHITE BLOOD COUNT 5.7 10^3/uL (4.3-11.0)
[2018-08-18 15:43] LABS: BACTERIA,URINE NEGATIVE /HPF; SQUAMOUS EPITHELIAL CELL,UR RARE /HPF
[2018-08-18] MEDS ORDERED: RT-ALBUTEROL/IPRATROPIUM 3 ML (DUONEB) VIAL INH ONE ×2 (15:45→17:00)
[2018-08-18 15:50] LABS: ALANINE AMINOTRANSFERASE 13 U/L (0-55); ALBUMIN 4.1 GM/DL (3.2-4.5); ALKALINE PHOSPHATASE 63 U/L (40-136); BILIRUBIN,TOTAL 0.3 MG/DL (0.1-1.0); BUN/CREATININE RATIO 15; CALCIUM 9.2 MG/DL (8.5-10.1); CARBON DIOXIDE 24 MMOL/L (21-32); CHLORIDE 107 MMOL/L (98-107); CREATININE SERUM 0.67 MG/DL (0.60-1.30); GFR ESTIMATED > 60; GLUCOSE 99 MG/DL (70-105); POTASSIUM 4.4 MMOL/L (3.6-5.0); SODIUM 140 MMOL/L (135-145); TOTAL PROTEIN 6.5 GM/DL (6.4-8.2)
--- NOTE | 2018-08-18 16:25 | Diagnostic Imaging Report ---
INDICATION: Cough and difficulty breathing. COMPARISON: Prior examination from 05/27/2018. EXAMINATION: Two views of the chest were obtained. FINDINGS: There is cardiomegaly. Mediastinum is unremarkable. There is no pleural effusion, pneumothorax or pneumonia. IMPRESSION: 1. No acute cardiopulmonary abnormality. 2. Mild cardiomegaly. Dictated by: Dictated on workstation # [id number]
--- NOTE | 2018-08-18 16:37 | ED Respiratory ---
General Chief Complaint: Respiratory Problems Stated Complaint: RESPIRATORY ISSUES Nursing Triage Note: PT PRESENTS TO ER WITH COMPLAINT OF SOA, WEAKNESS, AND DIZZINESS. Source: patient Exam Limitations: no limitations History of Present Illness Date Seen by Provider: Aug 18, 2018 Time Seen by Provider: 15:30 Initial Comments This 73 year old woman presents to the ER with complaints of cough, wheezing, weakness, subjective fever and loss of sleep for about [address] Blandon about 1 month ago and was started on Singulair and Advair. She stopped them about 2 weeks ago because she developed palpitations which she attributed to the new medications. She elected to substitute Flovent for the Advair. She reports taking multiple rounds of antibiotics in recent months. Allergies and Home Medications Allergies Coded Allergies: shellfish derived (Verified Allergy, Unknown, 05/10/16) ciprofloxacin (Verified Adverse Reaction, Unknown, stomach upset, 12/01/14) Home Medications Albuterol Sulfate 1 Puff Puff, 1-4 PUFF IH Q4H PRN for WHEEZING 1 PUFF = 90 MCG Prescribed by: MAXWELL HERNANDEZ on 08/18/18 1725 Ascorbic Acid/Multivit-Min 1,000 Mg Effpowdpkt, 1,000 MG PO HS, (Reported) Aspirin 325 Mg Tablet, 325 MG PO DAILY, (Reported) Cholecalciferol (Vitamin D3) 1,000 Unit Tablet, 3,000 UNIT PO HS, (Reported) Fish Oil/Dha/Epa 1 Each Capsule, 1,200 MG PO BID, (Reported) Fluticasone Propionate 1 Ea Aero, 1 PUFF IH BID, (Reported) Fluticasone Propionate 9.9 Ml [place].susp, 2 SPRAYS NS DAILY PRN for ALLERGIES, ( Reported) Gabapentin 100 Mg Capsule, 100 MG PO HS, (Reported) Guaifenesin 600 Mg Tab.er.12h, 600 MG PO BID, (Reported) Hydrocodone/Acetaminophen 1 Each Tablet, 1 EA PO Q4H PRN for MODERATE PAIN Prescribed by: QUENTIN CLEVELAND on 07/12/16 0754 Ibuprofen 200 Mg Tablet, 200 MG PO BID PRN for PAIN, (Reported) Metoprolol Succinate 50 Mg Tab.er.24h, 50 MG PO DAILY Prescribed by: MELO MENDOZA on 07/28/16 1408 Multivitamin 1 Each Tablet, 1 TAB PO 1200, (Reported) Niacin (Inositol Niacinate) 500 Mg Capsule, 500 MG PO HS, (Reported) Sennosides/Docusate Sodium 1 Each Tablet, 1 EA PO BID Prescribed by: QUENTIN CLEVELAND on 07/12/16 0754 Vitamin B Complex 1 Each Capsule, 1 CAP PO DAILY, (Reported) Patient Home Medication List Home Medication List Reviewed: Yes Review of Systems Review of Systems Constitutional: see HPI EENTM: no symptoms reported Respiratory: see HPI Cardiovascular: no symptoms reported Gastrointestinal: no symptoms reported Genitourinary: no symptoms reported Musculoskeletal: no symptoms reported Skin: no symptoms reported Psychiatric/Neurological: No Symptoms Reported Hematologic/Lymphatic: No Symptoms Reported Immunological/Allergic: no symptoms reported Past Ewdhzru-Vjhcps-Vmihrx Hx Past Med/Social Hx: Reviewed and Corrections made Patient Social History Alcohol Use: Occasionally Uses Number of Drinks Today: Alcohol Beverage of Choice: Wine Recreational Drug Use: No Smoking Status: Never a Smoker Recent Foreign Travel: No Contact w/Someone Who Travel: No Recent Infectious Disease Expo: No Recent Hopitalizations: No Immunizations Up To Date Tetanus Booster (TDap): Unknown PED Vaccines UTD: No Date of Pneumonia Vaccine: Apr 26, 2011 Date of Influenza Vaccine: Feb 24, 2014 Seasonal Allergies Seasonal Allergies: Yes Past Medical History Surgeries: Yes (LEFT TOTAL HIP, ABLATION THIS PAST SEPTEMBER) Adenoidectomy, Gallbladder, Orthopedic, Tonsillectomy Respiratory: Yes Asthma Currently Using CPAP: No Currently Using BIPAP: No Cardiac: Yes (paroxysmal SVT) Atrial Fibrillation, Coronary Artery Disease, High Cholesterol, Irregular Heartbeat Neurological: Yes (NUMBNESS IN RIGHT HAND, RIGHT FOOT) Neuropathy Reproductive Disorders: No Female 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 PYLORI) Gastroesophageal Reflux, Ulcer, Gall Bladder Disease Musculoskeletal: Yes (OSTEOARTHRITIS, BORDER-LINE OSTEOPOROSIS ; LEFT KNEE PAIN ) Osteoporosis, Arthritis, Fibromyalgia Endocrine: No HEENT: No Loss of Vision: Denies Hearing Impairment: Denies Cancer: No Psychosocial: Yes Sleep Difficulties, Anxiety Integumentary: Yes (DERMATITIS ) Blood Disorders: No Adverse Reaction/Blood Tranf: No Family Medical History Arthritis 19 FATHER Cardiovascular disease Cataracts 19 FATHER Completed stroke 19 MOTHER Congenital disease Deafness or hearing loss 19 MOTHER Dementia 19 MOTHER FH: esophageal cancer G8 BROTHER FH: lung cancer 19 FATHER FH: smoking 19 FATHER G8 SISTER G8 BROTHER Genetic disease G8 BROTHER Gout 19 FATHER Hypercholesterolemia 19 MOTHER Hypertension G8 BROTHER Lactose intolerance G8 BROTHER Myocardial infarction 19 FATHER Prostate cancer G8 BROTHER Psychosocial problem (BIPOLAR) G8 SISTER Thyroid disease 19 MOTHER No Family History of: AIDS Abdominal aortic aneurysm Beltrami's disease Alcoholism Alzheimer's disease Aphasia Asthma Cancer of mouth Colon cancer Congenital heart disease Cystic fibrosis Diabetes mellitus Drug abuse Dysphasia Fibrocystic disease of breast Gastroenteritis Glaucoma Headache disorder Infertility Kidney disease Neoplasm Not obtainable due to adoption Osteoporosis Parkinson's disease Respiratory disorder Seizure disorder Severe allergy Tuberculosis Visual disorder Physical Exam Capillary Refill : Less Than 3 Seconds Height: 5'3.00" Weight: 128lbs. 0oz. 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, no motor/sensory deficits, alert, normal mood/affect, oriented x 3 Skin: normal color, warm/dry Progress/Results/Core Measures Suspected Sepsis Recent Fever Within 48 Hours: No Infection Criteria Present: None New/Unexplained Altered Menta: No Sepsis Screen: No Definite Risk SIRS Temperature:99.1 Pulse: 80 Respiratory Rate: 26 Laboratory Tests 08/18/18 14:07: White Blood Count 5.7 Blood Pressure 160 /90 Mean: 113 Laboratory Tests 08/18/18 14:07: Creatinine 0.67, Platelet Count 275, Total Bilirubin 0.3 Results/Orders Lab Results Laboratory Tests Test 08/18/18 13:47 08/18/18 14:07 Range/Units Urine Color YELLOW Urine Clarity CLEAR Urine pH 5 5-9 Urine Specific [place] 1.005 L 1.016-1.022 Urine Protein NEGATIVE NEGATIVE Urine Glucose (UA) NEGATIVE NEGATIVE Urine Ketones NEGATIVE NEGATIVE Urine Nitrite NEGATIVE NEGATIVE Urine Bilirubin NEGATIVE NEGATIVE Urine Urobilinogen NORMAL NORMAL MG/DL Urine Leukocyte Esterase NEGATIVE NEGATIVE Urine RBC (Auto) NEGATIVE NEGATIVE Urine RBC NONE /HPF Urine WBC NONE /HPF Urine Squamous Epithelial Cells RARE /HPF Urine Crystals NONE /LPF Urine Bacteria NEGATIVE /HPF Urine Casts NONE /LPF Urine Mucus NEGATIVE /LPF Urine Culture Indicated NO White Blood Count 5.7 4.3-11.0 10^3/uL Red Blood Count 4.74 4.35-5.85 10^6/uL Hemoglobin 14.2 11.5-16.0 G/DL Hematocrit 43 35-52 % Mean Corpuscular Volume 91 80-99 FL Mean Corpuscular Hemoglobin 30 25-34 PG Mean Corpuscular Hemoglobin Concent 33 32-36 G/DL Red Cell Distribution Width 14.0 10.0-14.5 % Platelet Count 275 130-400 10^3/uL Mean Platelet Volume 9.5 7.4-10.4 FL Neutrophils (%) (Auto) 73 42-75 % Lymphocytes (%) (Auto) 17 12-44 % Monocytes (%) (Auto) 10 0-12 % Eosinophils (%) (Auto) 1 0-10 % Basophils (%) (Auto) 0 0-10 % Neutrophils # (Auto) 4.2 1.8-7.8 X 10^3 Lymphocytes # (Auto) 1.0 1.0-4.0 X 10^3 Monocytes # (Auto) 0.5 0.0-1.0 X 10^3 Eosinophils # (Auto) 0.0 0.0-0.3 10^3/uL Basophils # (Auto) 0.0 0.0-0.1 10^3/uL Sodium Level 140 135-145 MMOL/L Potassium Level 4.4 3.6-5.0 MMOL/L Chloride Level 107 98-107 MMOL/L Carbon Dioxide Level 24 21-32 MMOL/L Anion Gap 9 5-14 MMOL/L Blood Urea Nitrogen 10 7-18 MG/DL Creatinine 0.67 0.60-1.30 MG/DL Estimat Glomerular Filtration Rate > 60 BUN/Creatinine Ratio 15 Glucose Level 99 70-105 MG/DL Calcium Level 9.2 8.5-10.1 MG/DL Corrected Calcium 9.1 8.5-10.1 MG/DL Total Bilirubin 0.3 0.1-1.0 MG/DL Aspartate Amino Transf (AST/SGOT) 20 5-34 U/L Alanine Aminotransferase (ALT/SGPT) 13 0-55 U/L Alkaline Phosphatase 63 40-136 U/L Total Protein 6.5 6.4-8.2 GM/DL Albumin 4.1 3.2-4.5 GM/DL My Orders Orders - MAXWELL HENRY MD Cbc With Automated Diff (08/18/18 15:31) Comprehensive Metabolic Panel (08/18/18 15:31) Ua Culture If Indicated (08/18/18 15:31) Saline Lock/Iv-Start (08/18/18 15:31) Albuterol/Ipra Inhalation Soln (Duoneb I (08/18/18 15:45) Svn Small Volume Nebulizer (08/18/18 15:42) Chest Pa/Lat (2 View) (08/18/18 15:42) Albuterol/Ipra Inhalation Soln (Duoneb I (08/18/18 17:00) Svn Small Volume Nebulizer (08/18/18 16:47) Medications Given in ED Vital Signs/I&O Capillary Refill : Less Than 3 Seconds Blood Pressure Mean: 113 Progress Note : Progress Note Labs and x-ray were unremarkable. Rhythm was sinus on monitor. Pt received 2 DuoNeb treatments to help with wheezing. Medications were reviewed for side effect profiles. Advair was felt the most likely to cause her palpitations. She was instructed to continue with Flovent and Singulair and stop Advair until further discussion with Dr. Blandon. ProAir rescue inhaler was prescribed. Diagnostic Imaging Diagonstic Imaging: Xray Plain Films/CT/US/NM/MRI: chest Comments Chest x-ray viewed by me and report reviewed. See report below: NAME: DIALLO RAMÍREZ [facility] REC#: [id number] PT STATUS: REG ER : 1945 PHYSICIAN: JENNIFER FUENTES DO ADMIT DATE: 08/09/17/ER Signed Date of Exam:08/09/17 CHEST 1 VIEW, AP/PA ONLY INDICATION: Tachycardia. TIME OF EXAMINATION: 11:09 AM. COMPARISON: 07/09/2016. FINDINGS: The heart size is stable. No infiltrate or failure is detected. No effusion or pneumothorax is identified. IMPRESSION: Stable chest. No acute feature is detected. Dictated by: Dictated on workstation # [id number] Dict: 08/09/17 1119 Trans: 08/09/17 1147 [id number] Interpreted by: SHU CLAY MD Electronically signed by: SHU CLAY MD 08/09/17 1147 Departure Impression Primary Impression: Asthma exacerbation Qualified Codes: J45.901 - Unspecified asthma with (acute) exacerbation Additional Impression: Palpitations Disposition: 01 HOME, SELF-CARE Condition: Improved Departure-Patient Inst. Decision time for Depature: 17:23 Referrals: SEEMA SANTOYO DO (PCP/Family) Primary Care Physician Patient Instructions: Asthma, Adult (DC) Add. Discharge Instructions: Stop Advair as it is the most likely of your asthma medications to cause palpitations. Continue with Flovent and Singulair (montelukast). Use your rescue inhaler as prescribed. Call Dr. Blandon's office Monday morning to arrange follow-up. Return to the emergency room if you have worsening symptoms. All discharge instructions reviewed with patient and/or family. Voiced understanding. Scripts Albuterol Sulfate (PROAIR HFA) 1 Puff Puff 1-4 PUFF IH Q4H PRN for WHEEZING, #1 PUFF 1 PUFF = 90 MCG Prov: MAXWELL HENRY MD 08/18/18 Copy Copies To 1: JANESSA BLANDON DO Copies To 2: SEEMA SANTOYO JOSHUA T MD Aug 18, 2018 16:37
[2018-08-18] MEDS ORDERED: RT-ALBUINH IH (17:25)
[2018-08-18 17:33] VITALS: BP 122/74
== END 2018-08-18 17:33 | disposition home or self-care (01) ==
LOC: EDUNIT# 13:27 → ER 13:28
DX: J45.901 Unspecified asthma with (acute) exacerbation (principal); R00.2 Palpitations; I48.91 Unspecified atrial fibrillation; I25.10 Atherosclerotic heart disease of native coronary artery without angina pectoris; E78.00 Pure hypercholesterolemia, unspecified; K21.9 Gastro-esophageal reflux disease without esophagitis; M81.0 Age-related osteoporosis without current pathological fracture; F41.9 Anxiety disorder, unspecified; Z82.49 Family history of ischemic heart disease and other diseases of the circulatory system; Z80.1 Family history of malignant neoplasm of trachea, bronchus and lung; Z80.0 Family history of malignant neoplasm of digestive organs; Z87.19 Personal history of other diseases of the digestive system; Z79.82 Long term (current) use of aspirin; Z88.1 Allergy status to other antibiotic agents; Z79.51 Long term (current) use of inhaled steroids; Z90.89 Acquired absence of other organs; Z98.890 Other specified postprocedural states
CPT/HCPCS: 36415; 71046; 80053; 81000; 85025; 94640

== ENCOUNTER 2020-08-15 19:54 | Emergency (ER) | payer MEDICARE ==
[~2020-08-15] VITALS: Ht 162 cm; Wt 59.0 kg
[~2020-08-15 19:54] MED LIST changes: +ACHYD1T PO; -HYDR-3820 PO; +RT-ALBUINH IH
[2020-08-15 20:13] VITALS: BP 176/92
--- NOTE | 2020-08-15 20:27 | ED Upper Extremity ---
General Chief Complaint: Upper Extremity Stated Complaint: L SHOULDER/NECK PAIN Nursing Triage Note: left shoulder pain x3 days, denies denies injury. Nursing Sepsis Screen: No Definite Risk Source: patient Exam Limitations: no limitations History of Present Illness Date Seen by Provider: Aug 15, 2020 Time Seen by Provider: 20:22 Initial Comments Patient is a 75-year-old female who presents to the emergency department today with a chief complaint of posterior left shoulder discomfort and neck pain. Patient states that she slept wrong several days ago and had onset of neck tightness and left shoulder pain. Patient was concerned that her left shoulder might be "out of place". Patient states that she has had trouble with that left shoulder for years. Patient states that she took some ibuprofen this morning which seemed to help her discomfort. She also took some Tylenol arthritis and some gabapentin for the discomfort. Patient denies any chest pain, shortness of breath, nausea, vomiting, diarrhea. She denies any numbness, tingling or weakness to her left upper extremity. No recent illnesses. All other review of systems reviewed and negative except as stated above. Onset: last week Severity: moderate Pain/Injury Location: left shoulder Method of Injury: other (Slept on her shoulder and neck wrong) Modifying Factors: Improves With Cold Therapy, Improves With Pain Medication (Ibuprofen) Allergies and Home Medications Allergies Coded Allergies: shellfish derived (Verified Allergy, Unknown, 05/10/16) ciprofloxacin (Verified Adverse Reaction, Unknown, stomach upset, 12/01/14) Home Medications Albuterol Sulfate 1 Puff Puff, 1-4 PUFF IH Q4H PRN for WHEEZING 1 PUFF = 90 MCG Prescribed by: MAXWELL HERNANDEZ on 08/18/18 3651 Ascorbic Acid/Multivit-Min 1,000 Mg Effpowdpkt, 1,000 MG PO HS, (Reported) Aspirin 325 Mg Tablet, 325 MG PO DAILY, (Reported) Cholecalciferol (Vitamin D3) 1,000 Unit Tablet, 3,000 UNIT PO HS, (Reported) Fish Oil/Dha/Epa 1 Each Capsule, 1,200 MG PO BID, (Reported) Fluticasone Propionate 1 Ea Aero, 1 PUFF IH BID, (Reported) Fluticasone Propionate 9.9 Ml [place].susp, 2 SPRAYS NS DAILY PRN for ALLERGIES, (Reported) Gabapentin 100 Mg Capsule, 100 MG PO HS, (Reported) Guaifenesin 600 Mg Tab.er.12h, 600 MG PO BID, (Reported) Hydrocodone Bit/Acetaminophen 1 Each Tablet, 1 EA PO Q4H PRN for MODERATE PAIN Prescribed by: QUENTIN CLEVELAND on 07/12/16 0754 Ibuprofen 200 Mg Tablet, 200 MG PO BID PRN for PAIN, (Reported) Metoprolol Succinate 50 Mg Tab.er.24h, 50 MG PO DAILY Prescribed by: MELO MENDOZA on 07/28/16 1408 Multivitamin 1 Each Tablet, 1 TAB PO 1200, (Reported) Niacin (Inositol Niacinate) 500 Mg Capsule, 500 MG PO HS, (Reported) Sennosides/Docusate Sodium 1 Each Tablet, 1 EA PO BID Prescribed by: QUENTIN CLEVELAND on 07/12/16 075 Vitamin B Complex 1 Each Capsule, 1 CAP PO DAILY, (Reported) Patient Home Medication List Home Medication List Reviewed: Yes Review of Systems Constitutional: see HPI EENTM: no symptoms reported Respiratory: no symptoms reported Cardiovascular: no symptoms reported Gastrointestinal: no symptoms reported Musculoskeletal: joint pain (Left shoulder), muscle pain (Left posterior shoulder) Skin: no symptoms reported Psychiatric/Neurological: No Symptoms Reported All Other Systems Reviewed Negative Unless Noted: Yes Past Lliuaag-Nokshl-Nejvlh Hx Patient Social History Alcohol Use: Rarely Uses Number of Drinks Today: Alcohol Beverage of Choice: Wine Smoking Status: Never a Smoker Recent Infectious Disease Expo: No Recent Hopitalizations: No Immunizations Up To Date Tetanus Booster (TDap): Unknown PED Vaccines UTD: No Date of Pneumonia Vaccine: Apr 26, 2011 Date of Influenza Vaccine: Feb 24, 2014 Seasonal Allergies Seasonal Allergies: Yes Past Medical History Surgeries: Yes (LEFT TOTAL HIP, ABLATION, ) Adenoidectomy, Gallbladder, Orthopedic, Tonsillectomy Respiratory: Yes Asthma Currently Using CPAP: No Currently Using BIPAP: No Cardiac: Yes (paroxysmal SVT) Atrial Fibrillation, Coronary Artery Disease, High Cholesterol, Irregular Heartbeat Neurological: Yes (NUMBNESS IN RIGHT HAND, RIGHT FOOT) Neuropathy : No Reproductive Disorders: No Female Reproductive Disorders: Denies [employer] HAND History: 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 PYLORI) Gastroesophageal Reflux, Ulcer, Gall Bladder Disease Musculoskeletal: Yes (OSTEOARTHRITIS, BORDER-LINE OSTEOPOROSIS ; LEFT KNEE PAIN ) Osteoporosis, Arthritis, Fibromyalgia Endocrine: No HEENT: No Loss of Vision: Denies Hearing Impairment: Denies Cancer: No Psychosocial: Yes Sleep Difficulties, Anxiety Integumentary: Yes (DERMATITIS ) Blood Disorders: No Adverse Reaction/Blood Tranf: No Family Medical History Arthritis 19 FATHER Cardiovascular disease Cataracts 19 FATHER Completed stroke 19 MOTHER Congenital disease Deafness or hearing loss 19 MOTHER Dementia 19 MOTHER FH: esophageal cancer G8 BROTHER FH: lung cancer 19 FATHER FH: smoking 19 FATHER G8 SISTER G8 BROTHER Genetic disease G8 BROTHER Gout 19 FATHER Hypercholesterolemia 19 MOTHER Hypertension G8 BROTHER Lactose intolerance G8 BROTHER Myocardial infarction 19 FATHER Prostate cancer G8 BROTHER Psychosocial problem (BIPOLAR) G8 SISTER Thyroid disease 19 MOTHER No Family History of: AIDS Abdominal aortic aneurysm [place]'s disease Alcoholism Alzheimer's disease Aphasia Asthma Cancer of mouth Colon cancer Congenital heart disease Cystic fibrosis Diabetes mellitus Drug abuse Dysphasia Fibrocystic disease of breast Gastroenteritis Glaucoma Headache disorder Infertility Kidney disease Neoplasm Not obtainable due to adoption Osteoporosis Parkinson's disease Respiratory disorder Seizure disorder Severe allergy Tuberculosis Visual disorder Physical Exam Vital Signs Vital Signs - First Documented 08/15/20 20:13 Temp 36.6 Pulse 86 Resp 16 B/P (MAP) 176/92 (120) Pulse Ox 96 O2 Delivery Room Air Capillary Refill : Less Than 3 Seconds Height, Weight, BMI Height: 5'3.00" Weight: 128lbs. 0oz. [id number]; 22.00 BMI Method:Stated General Appearance: WD/WN, no apparent distress HEENT: PERRL/EOMI, TMs normal Neck: non-tender, full range of motion Cardiovascular: regular rate, rhythm Respiratory: chest non-tender, lungs clear, normal breath sounds, no respiratory distress, no accessory muscle use Back: normal inspection, other (Patient has point tenderness at the lower margin of the scapula medial aspect. Palpation at this area 100% reproduces her pain) Shoulder: normal inspection, non-tender, no evidence of injury, normal ROM Elbow/Forearm: normal inspection, non-tender, no evidence of injury, normal ROM Wrist: Yes normal inspection, Yes non-tender, Yes no evidence of injury, Yes normal ROM Hand: normal inspection, non-tender, no evidence of injury, normal ROM Neurologic/Psychiatric: alert, normal mood/affect, oriented x 3 Skin: normal color, warm/dry Progress/Results/Core Measures Results/Orders My Orders Orders - RICHY JAIMES MD Lidocaine 1% Inj 20 Ml (Xylocaine 1% Inj (08/15/20 20:45) Lidocaine 1% Inj 20 Ml (Xylocaine 1% Inj (08/15/20 20:41) Medications Given in ED Current Medications Medications Dose Ordered Sig/Zach Route Start Time Stop Time Status Last Admin Dose Admin Lidocaine HCl 20 ml ONCE ONCE INJ 08/15/20 20:45 08/15/20 20:46 DC 08/15/20 20:48 20 ML Vital Signs/I&O 08/15/20 20:13 Temp 36.6 Pulse 86 Resp 16 B/P (MAP) 176/92 (120) Pulse Ox 96 O2 Delivery Room Air Blood Pressure Mean: 120 Progress Progress Note : Time: 21:00 Progress Note 75-year-old female presents with right posterior shoulder pain and back pain. Onset a couple of days ago. Steadily worsening. Improves with ibuprofen, Tylenol arthritis and gabapentin. After identification of the area of the most pain 1% lidocaine, 5 cc was used to locally infiltrate that area. Patient had significant relief of her symptoms. Patient is instructed to continue her Tylenol arthritis as she is chronically anticoagulated and should not be taking ibuprofen. She verbalizes understanding. She is agreeable. I have also advised her to alternate heat and ice packs to the area of discomfort. Patient will follow up with her primary care physician. All questions are sought and answered. Patient is stable for discharge. Departure Impression Primary Impression: Pain of left scapula Disposition: 01 HOME, SELF-CARE Condition: Stable Departure-Patient Inst. Decision time for Depature: 21:02 Referrals: SEEMA SANTOYO DO (PCP/Family) Primary Care Physician Patient Instructions: Acute Pain, Adult (DC) Add. Discharge Instructions: Continue to use your Tylenol arthritis as directed on the bottle every 4-6 hours. Alternate heat and ice packs to the area of discomfort at the back of your shoulder. Please call your primary care physician's office on Monday and follow-up early next week. Return to the emergency room for any increased pain, chest pain, shortness of breath or any other emergent concerning symptoms. Copy Copies To 1: SEEMA SANTOYO KATHRYN M MD Aug 15, 2020 20:27
[2020-08-15] MEDS ORDERED: LIDOCAINE 1% INJ 20 ML 20 ML VIAL ONE (20:41)
[2020-08-15] MEDS ORDERED: LIDOCAINE 1% INJ 20 ML 20 ML VIAL INJ ONE (20:45)
== END 2020-08-15 21:04 | disposition home or self-care (01) ==
LOC: EDUNIT# 19:54 → ER 19:56
DX: M25.512 Pain in left shoulder (principal); J45.909 Unspecified asthma, uncomplicated; Z88.1 Allergy status to other antibiotic agents; Z82.49 Family history of ischemic heart disease and other diseases of the circulatory system; Z80.1 Family history of malignant neoplasm of trachea, bronchus and lung; Z82.61 Family history of arthritis; Z80.0 Family history of malignant neoplasm of digestive organs; Z80.42 Family history of malignant neoplasm of prostate; Z79.82 Long term (current) use of aspirin
CPT/HCPCS: 99284

== ENCOUNTER → 2020-08-19 | Outpatient (CLI) | payer MEDICARE, OTHER ==
--- NOTE | 2020-08-19 13:47 | Diagnostic Imaging Report ---
INDICATION: Left ankle pain. Recent fall. COMPARISON: None FINDINGS: 3 radiographic views of left ankle were obtained. There is subtle oblique oriented lucency involving the distal fibula consistent with nondisplaced hairline fracture. Distal tibia is intact. Joint spaces are maintained. Degenerative subchondral cyst of the medial tibial plafond is noted. There is mild generalized soft tissue swelling. No unexpected radiopaque foreign bodies are seen. IMPRESSION: 1. Acute nondisplaced fracture of the distal left fibula. Dictated by: Dictated on workstation # [id number]
== END ==
LOC: RAD 09:49
PROVIDERS: ATTEND Internal Medicine
DX: S82.832A Other fracture of upper and lower end of left fibula, initial encounter for closed fracture (principal); S93.432A Sprain of tibiofibular ligament of left ankle, initial encounter; W19.XXXA Unspecified fall, initial encounter
CPT/HCPCS: 73610

== ENCOUNTER → 2020-10-01 | Outpatient (CLI) | payer MEDICARE, OTHER ==
--- NOTE | 2020-10-01 12:47 | Diagnostic Imaging Report ---
INDICATION: Stress fracture, fracture follow-up. COMPARISON: 08/19/2020 TECHNIQUE: 3 radiographs of the left ankle dated 10/01/2020. FINDINGS: Obliquely oriented fracture involving the distal fibula is again identified. There is minimal lateral displacement, which has increased since the prior examination. However, developing periosteal reaction is present. Persistent fracture lucency does remain, however. Lucency is again identified within the medial aspect of the talar dome. Ankle mortise appears symmetric. No new fracture or dislocation. No destructive osseous process. No suspicious radiopaque foreign body. Calcification superior to the talar neck are again identified and stable from the prior examination. IMPRESSION: Healing distal fibular fracture is identified, though this demonstrates slightly increased lateral displacement since the prior examination and healing is incomplete at this time. Stable calcifications superior to the talar neck which may relate to subacute to chronic avulsion fracture of the talar neck. Subchondral cyst formation versus osteochondral defect within the medial talar dome, stable. No acute fracture or dislocation. Dictated by: Dictated on workstation # [id number]
== END ==
LOC: RAD 09:39
PROVIDERS: ATTEND Internal Medicine
DX: M84.364D Stress fracture, left fibula, subsequent encounter for fracture with routine healing (principal)
CPT/HCPCS: 73610

== ENCOUNTER → 2020-10-28 | Outpatient (CLI) | payer MEDICARE, OTHER | LOC: CARD 09:40 | PROVIDERS: ATTEND Internal Medicine Cardiovascular Disease | DX: I08.0 Rheumatic disorders of both mitral and aortic valves (principal); I10 Essential (primary) hypertension; I25.10 Atherosclerotic heart disease of native coronary artery without angina pectoris | CPT/HCPCS: 93306 ==

== ENCOUNTER 2022-02-15 12:54 | Emergency (ER) | payer MEDICARE ==
[~2022-02-15] VITALS: Ht 162.6 cm; Wt 56.7 kg
[2022-02-15 13:37] LABS: BASOPHILS # (AUTO) 0.1 10^3/uL (0.0-0.1); BASOPHILS % (AUTO) 1 % (0-10); EOSINOPHILS # (AUTO) 0.1 10^3/uL (0.0-0.3); EOSINOPHILS % (AUTO) 2 % (0-10); HEMATOCRIT 44 % (35-52); HEMOGLOBIN 14.6 g/dL (11.5-16.0); LYMPHOCYTES % (AUTO) 26 % (12-44); MEAN CORPUSCULAR HEMOGLOBIN 30 pg (25-34); MEAN CORPUSCULAR HGB CONC 34 g/dL (32-36); MEAN CORPUSCULAR VOLUME 91 fL (80-99); MEAN PLATELET VOLUME 8.9 fL (9.0-12.2); MONOCYTES # (AUTO) 0.6 10^3/uL (0.0-1.0); MONOCYTES % (AUTO) 7 % (0-12); NEUTROPHILS % (AUTO) 64 % (42-75); PLATELET COUNT 427 10^3/uL (130-400); WHITE BLOOD COUNT 7.8 10^3/uL (4.3-11.0)
--- NOTE | 2022-02-15 13:37 | ED Cardiac General ---
History of Present Illness General Chief Complaint: Cardiac/General Problems Stated Complaint: MEMORY LOSS, HEART PALPITATIONS Nursing Triage Note: pt ambulatory to room with significant other. pt has multiple complaints upon arrival. pt states she has been under a lot of stress recently and has been waking up with a racing heart. pt also reports feeling weak, and having memory troubles. she reports memory problems started yesterday, and she couldn't remember what year she met her significant other or what year she had a surgery. pt repeated several statements multiple times during triage. when asked, pt significant other states he had not noticed any changes in mentation for her Source: patient Exam Limitations: no limitations History of Present Illness Date Seen by Provider: Feb 15, 2022 Time Seen by Provider: 13:16 Initial Comments This is a well-appearing 76-year-old female who presented to the ER with her significant other for concerns of fast heart rate for the past couple days, cough, feeling weak, memory problems since yesterday. States that she has a history of ablation for her tachycardia about 7 years ago. She has not had any issues with tachycardia since her ablation until the past couple days. States that she will be laying in bed and can feel her heart racing. States her heart will stop racing when she takes her Albuterol. Notes that she has quite a bit of stress as she is trying to sell her house and [employer] car. While attempting to obtain HPI she had difficulty staying on topic, and repeated herself multiple times. Her significant other states that he does not note any difference in behavior but would like her checked out incase something more concerning is involved. Today she feels that she is having difficulty recalling the year, and when she met her significant other so they presented to the ER for further evaluation. States her symptoms seemed to have improved once she arrived to ER. Allergies and Home Medications Allergies Coded Allergies: shellfish derived (Verified Allergy, Unknown, 05/10/16) ciprofloxacin (Verified Adverse Reaction, Unknown, stomach upset, 12/01/14) Patient Home Medication List Home Medication List Reviewed: Yes Albuterol Sulfate (Proair Hfa) 1 Puff Puff, 1-4 PUFF IH Q4H PRN for WHEEZING Prescribed by: MAXWELL HERNANDEZ on 08/18/18 5805 Ascorbic Acid/Multivit-Min (Emergen-C 1,000 mg Packet) 1,000 Mg Effpowdpkt, 1,000 MG PO HS, (Reported) Entered as Reported by: KAMRAN WATERS on 07/11/16 1037 Aspirin (Aspirin) 325 Mg Tablet, 325 MG PO DAILY, (Reported) Entered as Reported by: KAY SMITH on 05/10/16 0926 Cholecalciferol (Vitamin D3) (Vitamin D3) 1,000 Unit Tablet, 3,000 UNIT PO HS, (Reported) Entered as Reported by: KAMRAN WATERS on 07/11/16 1037 Fish Oil/Dha/Epa (Fish Oil 1,200 mg Fish Oil) 1 Each Capsule, 1,200 MG PO BID, (Reported) Entered as Reported by: KAMRAN WATERS on 07/11/16 1037 Fluticasone Propionate (Flovent Hfa 110 mcg) 1 Ea Aero, 1 PUFF IH BID, (Reported) Entered as Reported by: KAMRAN WATERS on 07/11/16 1037 Fluticasone Propionate (Flonase Allergy Relief) 9.9 Ml [place].susp, 2 SPRAYS NS DAILY PRN for ALLERGIES, (Reported) Entered as Reported by: KAMRAN WATERS on 07/11/16 1037 Gabapentin (Gabapentin) 100 Mg Capsule, 100 MG PO HS, (Reported) Entered as Reported by: KAMRAN WATERS on 07/11/16 1037 Guaifenesin (Mucinex) 600 Mg Tab.er.12h, 600 MG PO BID, (Reported) Entered as Reported by: KAMRAN WATERS on 07/11/16 1037 Hydrocodone Bit/Acetaminophen (HYDROcodone/APAP 10/325 TABLET) 1 Each Tablet, 1 EA PO Q4H PRN for MODERATE PAIN Prescribed by: QUENTIN CLEVELAND on 07/12/16 0754 Ibuprofen (Advil) 200 Mg Tablet, 200 MG PO BID PRN for PAIN, (Reported) Entered as Reported by: KAMRAN WATERS on 07/11/16 1037 Metoprolol Succinate (Toprol Xl) 50 Mg Tab.er.24h, 50 MG PO DAILY Prescribed by: MELO MENDOZA on 07/28/16 1408 Multivitamin (Daily Value) 1 Each Tablet, 1 TAB PO 1200, (Reported) Entered as Reported by: KAMRAN WATERS on 07/11/16 1037 Niacin (Inositol Niacinate) (Niacin 500 mg Capsule) 500 Mg Capsule, 500 MG PO HS, (Reported) Entered as Reported by: KAMRAN WATERS on 07/11/16 1037 Sennosides/Docusate Sodium (Senna-Time S Tablet) 1 Each Tablet, 1 EA PO BID Prescribed by: QUENTIN CLEVELAND on 07/12/16 0754 Vitamin B Complex (Vitamin B Complex) 1 Each Capsule, 1 CAP PO DAILY, (Reported) Entered as Reported by: KAMRAN WATERS on 07/11/16 1038 Review of Systems Review of Systems Constitutional: No chills; dizziness, weakness EENTM: No Symptoms Reported Respiratory: Cough Cardiovascular: Denies Chest Pain; Lightheadedness, Palpitations; Denies Syncope Gastrointestinal: No Symptoms Reported Genitourinary: No Symptoms Reported Musculoskeletal: no symptoms reported Skin: no symptoms reported Psychiatric/Neurological: See HPI Endocrine: No Symptoms Reported Hematologic/Lymphatic: No Symptoms Reported Past Tsmkjir-Zzemsd-Nfsalu Hx Immunizations Up To Date Tetanus Booster (TDap): Unknown PED Vaccines UTD: No Seasonal Allergies Seasonal Allergies: Yes Past Medical History Surgeries: Yes (LEFT TOTAL HIP, ABLATION, ) Adenoidectomy, Gallbladder, Orthopedic, Tonsillectomy Respiratory: Yes Asthma Currently Using CPAP: No Currently Using BIPAP: No Cardiac: Yes (paroxysmal SVT) Atrial Fibrillation, Coronary Artery Disease, High Cholesterol, Irregular Heart beat Neurological: Yes (NUMBNESS IN RIGHT HAND, RIGHT FOOT) Neuropathy Reproductive Disorders: No Female Reproductive Disorders: Denies 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 PYLORI) Gastroesophageal Reflux, Ulcer, Gall Bladder Disease Musculoskeletal: Yes (OSTEOARTHRITIS, BORDER-LINE OSTEOPOROSIS ; LEFT KNEE PAIN ) Osteoporosis, Arthritis, Fibromyalgia Endocrine: No HEENT: No Loss of Vision: Denies Hearing Impairment: Denies Cancer: No Psychosocial: Yes Sleep Difficulties, Anxiety Integumentary: Yes (DERMATITIS ) Blood Disorders: No Adverse Reaction/Blood Tranf: No Family Medical History Arthritis 19 FATHER Cardiovascular disease Cataracts 19 FATHER Completed stroke 19 MOTHER Congenital disease Deafness or hearing loss 19 MOTHER Dementia 19 MOTHER FH: esophageal cancer G8 BROTHER FH: lung cancer 19 FATHER FH: smoking 19 FATHER G8 SISTER G8 BROTHER Genetic disease G8 BROTHER Gout 19 FATHER Hypercholesterolemia 19 MOTHER Hypertension G8 BROTHER Lactose intolerance G8 BROTHER Myocardial infarction 19 FATHER Prostate cancer G8 BROTHER Psychosocial problem (BIPOLAR) G8 SISTER Thyroid disease 19 MOTHER No Family History of: AIDS Abdominal aortic aneurysm Shan's disease Alcoholism Alzheimer's disease Aphasia Asthma Cancer of mouth Colon cancer Congenital heart disease Cystic fibrosis Diabetes mellitus Drug abuse Dysphasia Fibrocystic disease of breast Gastroenteritis Glaucoma Headache disorder Infertility Kidney disease Neoplasm Not obtainable due to adoption Osteoporosis Parkinson's disease Respiratory disorder Seizure disorder Severe allergy Tuberculosis Visual disorder Physical Exam Vital Signs Vital Signs - First Documented 02/15/22 13:06 Temp 36.7 Pulse 60 Resp 15 B/P (MAP) 188/84 (118) Pulse Ox 97 Capillary Refill : Height, Weight, BMI Height: 5'3.00" Weight: 128lbs. 0oz. 58.051650ap; 21.00 BMI Method:Stated General Appearance: No Apparent Distress, WD/WN HEENT: PERRL/EOMI, TMs Normal, Normal ENT Inspection, Pharynx Normal, Moist Mucous Membranes Neck: Full Range of Motion, Normal Inspection, Non Tender Respiratory: Lungs Clear, Normal Breath Sounds, No Accessory Muscle Use, No Respiratory Distress Cardiovascular: Regular Rate, Rhythm, No Edema, No Murmur Gastrointestinal: Normal Bowel Sounds, No Organomegaly, Non Tender, Soft Extremity: Normal Capillary Refill, Normal Inspection, Normal Range of Motion, No Calf Tenderness Neurologic/Psychiatric: Alert, Oriented x3, No Motor/Sensory Deficits, Normal 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, 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 Norm as Tested Skin: Normal Color, Warm/Dry Progress/Results/Core Measures Results/Orders Lab Results Laboratory Tests Test 02/15/22 13:19 02/15/22 14:18 Range/Units White Blood Count 7.8 4.3-11.0 10^3/uL Red Blood Count 4.82 3.80-5.11 10^6/uL Hemoglobin 14.6 11.5-16.0 g/dL Hematocrit 44 35-52 % Mean Corpuscular Volume 91 80-99 fL Mean Corpuscular Hemoglobin 30 25-34 pg Mean Corpuscular Hemoglobin Concent 34 32-36 g/dL Red Cell Distribution Width 13.0 10.0-14.5 % Platelet Count 427 H 130-400 10^3/uL Mean Platelet Volume 8.9 L 9.0-12.2 fL Immature Granulocyte % (Auto) 0 % Neutrophils (%) (Auto) 64 42-75 % Lymphocytes (%) (Auto) 26 12-44 % Monocytes (%) (Auto) 7 0-12 % Eosinophils (%) (Auto) 2 0-10 % Basophils (%) (Auto) 1 0-10 % Neutrophils # (Auto) 5.0 1.8-7.8 10^3/uL Lymphocytes # (Auto) 2.0 1.0-4.0 10^3/uL Monocytes # (Auto) 0.6 0.0-1.0 10^3/uL Eosinophils # (Auto) 0.1 0.0-0.3 10^3/uL Basophils # (Auto) 0.1 0.0-0.1 10^3/uL Immature Granulocyte # (Auto) 0.0 0.0-0.1 10^3/uL Sodium Level 138 135-145 MMOL/L Potassium Level 3.8 3.6-5.0 MMOL/L Chloride Level 101 98-107 MMOL/L Carbon Dioxide Level 27 21-32 MMOL/L Anion Gap 10 5-14 MMOL/L Blood Urea Nitrogen 17 7-18 MG/DL Creatinine 0.61 0.60-1.30 MG/DL Estimat Glomerular Filtration Rate 93 BUN/Creatinine Ratio 28 Glucose Level 101 70-105 MG/DL Calcium Level 9.5 8.5-10.1 MG/DL Corrected Calcium 9.3 8.5-10.1 MG/DL Magnesium Level 2.2 1.6-2.4 MG/DL Total Bilirubin 0.3 0.1-1.0 MG/DL Aspartate Amino Transf (AST/SGOT) 21 5-34 U/L Alanine Aminotransferase (ALT/SGPT) 14 0-55 U/L Alkaline Phosphatase 65 40-136 U/L Myoglobin 29.7 10.0-92.0 NG/ML Troponin I < 0.028 <0.028 NG/ML Total Protein 7.1 6.4-8.2 GM/DL Albumin 4.2 3.2-4.5 GM/DL Thyroid Stimulating Hormone (TSH) 0.99 0.35-4.94 UIU/ML Urine Color YELLOW Urine Clarity CLEAR Urine pH 6.0 5-9 Urine Specific [place] <=1.005 1.016-1.022 Urine Protein NEGATIVE NEGATIVE Urine Glucose (UA) NEGATIVE NEGATIVE Urine Ketones NEGATIVE NEGATIVE Urine Nitrite NEGATIVE NEGATIVE Urine Bilirubin NEGATIVE NEGATIVE Urine Urobilinogen 0.2 < = 1.0 MG/DL Urine Leukocyte Esterase TRACE H NEGATIVE Urine RBC (Auto) NEGATIVE NEGATIVE Urine RBC NONE /HPF Urine WBC RARE /HPF Urine Squamous Epithelial Cells RARE /HPF Urine Crystals NONE /LPF Urine Bacteria NEGATIVE /HPF Urine Casts NONE /LPF Urine Mucus NEGATIVE /LPF Urine Culture Indicated NO My Orders Orders - KATHIA RAMIREZ PROVIDER SERVICE REPRESENTATIVE Ekg Tracing (02/15/22 13:06) Cbc With Automated Diff (02/15/22 13:27) Comprehensive Metabolic Panel (02/15/22 13:27) Troponin I [place] (02/15/22 13:27) Myoglobin Serum (02/15/22 13:27) Ua Culture If Indicated (02/15/22 13:27) Chest Pa/Lat (2 View) (02/15/22 13:27) Thyroid Stimulating Hormone (02/15/22 13:27) Ct Head Wo (02/15/22 13:27) Magnesium (02/15/22 13:27) Mri Brain W/O Contrast (02/15/22 14:27) Vital Signs/I&O 02/15/22 02/15/22 13:06 16:21 Temp 36.7 Pulse 60 66 Resp 15 12 B/P (MAP) 188/84 (118) 154/70 Pulse Ox 97 94 Blood Pressure Mean: 118 Progress Progress Note : Progress Note Patient examined in no acute distress. At this time she has no complaints. During memory lapse, she denies slurred speech or motor weakness. Will obtain basic labs, cardiac workup as she also notes she had intermittent chest pain with episode of racing heart, however she is no longer experiencing CP. She is very worried about getting her house together to sell. Orders placed for basic labs, TSH, troponin, EKG, CT head and CXR. VSS. EKG negative for acute ST elevation or depression, SR with rate of 60. Labs reviewed, relatively unremarkable. CXR negative for acute pathology. 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 Discussed findings with patient and significant other, reports no h/o prior CVA. Will obtain MRI brain to further evaluate. MRI of brain shows he diminished density in the high left frontoparietal convexity is believed to be a benign arachnoid cyst as opposed to an area of p ost ischemic volume loss. Reviewed with patient. Instruction for close follow up with PCP and to return to ER if she develops any new, concerning, or worsening symptoms. Initial ECG Impression Date: Feb 15, 2022 Initial ECG Impression Time: 13:12 Initial ECG Rate: 72 Initial ECG Rhythm: Normal Sinus Initial ECG Intervals: Normal Initial ECG Impression: Normal Initial ECG Comparisson: Unchanged Diagnostic Imaging Diagonstic Imaging: Xray Plain Films/CT/US/NM/MRI: chest Comments [facility], [place] NAME: DIALLO RAMÍREZ [facility] REC#: [id number] PT STATUS: [facility] ER : 1945 PHYSICIAN: KATHIA RAMIREZ APRN ADMIT DATE: 02/15/22/ER Signed Date of Exam:02/15/22 CHEST PA/LAT (2 VIEW) INDICATION: Weakness and tachycardia. COMPARISON: Correlation is made with prior chest from 08/18/2018. FINDINGS: Heart size is stable. Lungs are clear. No infiltrates are seen. There is no effusion or pneumothorax. IMPRESSION: No acute cardiopulmonary process is detected. Dictated by: Dictated on workstation # [id number] Dict: 02/15/22 1445 Trans: 02/15/221855 [id number] Interpreted by: SHU CLAY MD Electronically signed by: SHU CLAY MD 02/15/221855 Diagonstic Imaging: CT Plain Films/CT/US/NM/MRI: head Comments [facility] [place] NAME: DIALLO RAMÍREZ [facility] REC#: [id number] PT STATUS: DEP ER : 1945 PHYSICIAN: KATHIA RAMIREZ APRN ADMIT DATE: 02/15/22/ER Signed Date of Exam:02/15/22 CT HEAD WO PROCEDURE: CT head without contrast. TECHNIQUE: Multiple contiguous axial images were obtained through the brain without the use of intravenous contrast. Auto Exposure Controls were utilized during the CT exam to meet ALARA standards for radiation dose reduction. INDICATION: Memory impairment. COMPARISON: No prior studies are available for comparison. FINDINGS: The ventricles and sulci are appropriate for the patient's age. 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 There is moderate periventricular low-attenuation, consistent with chronic microvascular ischemia. No sulcal effacement or midline shift is identified. No acute intra-axial or extra-axial hemorrhage is detected. The cisterns are patent. The visualized paranasal sinuses are clear. IMPRESSION: No acute intracranial process is detected. Dictated by: Dictated on workstation # [id number] Dict: 02/15/22 1401 Trans: 02/15/221856 [id number] Interpreted by: SHU CLAY MD Electronically signed by: SHU CLAY MD 02/15/221856 Reviewed: Reviewed by Me Diagonstic Imaging: MRI Plain Films/CT/US/NM/MRI: head Comments [facility] [place] NAME: DIALLO RAMÍREZ [facility] REC#: [id number] PT STATUS: DEP ER : 1945 PHYSICIAN: KATHIA RAMIREZ PROVIDER SERVICE REPRESENTATIVE ADMIT DATE: 02/15/22/ER Signed Date of Exam:02/15/22 MRI BRAIN W/O CONTRAST PROCEDURE: MR imaging of the brain without contrast. TECHNIQUE: Multiplanar, multisequence MR imaging of the brain was performed without contrast. INDICATION: ]Altered mental status, tachycardia. CORRELATED with head CT earlier this same date. FINDINGS: The diminished density in the high left frontoparietal convexity is believed to be a benign arachnoid cyst as opposed to an area of post ischemic volume loss. The cyst exerts no mass effect and showed no enhancement or complexity and measures 4.5 x 3.2 cm in axial plane with a cephalocaudal dimension of 2 cm. No other space-occupying lesion. There were no findings of neoplasm, primary or metastatic. Cerebral cortical volume otherwise normal. The ventricular system nondilated and nondisplaced. This patient has patchy subcortical and periventricular white matter disease T2 hyperintense and while nonspecific favored to reflect a sequelae of chronic small vessel disease and is not uncommon in patients of this age. There is no hemorrhage and there are no acute extra-axial fluid collections. The basilar cisterns are patent. There are paranasal sinus mucus retention cysts in the right maxillary with no air-fluid level. The orbital contents normal. IMPRESSION: Chronic benign left hemispheric arachnoid cyst, chronic white matter disease, likely small vessel sequelae. No hemorrhage, infarct, edema or acute/suspicious abnormalities with some chronic paranasal sinus membrane disease noted. Dictated by: Dictated on workstation # [id number] Dict: 02/15/22 1522 Trans: 02/15/[address] [facility] [id number] Interpreted by: SHAUNA RAMSAY Electronically signed by: SHAUNA RAMSAY 02/15/22 1650 Departure Impression Primary Impression: Memory change Disposition: HOME, SELF-CARE Condition: Improved Departure-Patient Inst. Decision time for Depature: 16:14 Referrals: SEEMA TOLEDO DO (PCP/Family) Primary Care Physician Patient Instructions: Mild Cognitive Impairment Add. Discharge Instructions: Plan: 1. Follow up with Dr. Toledo. Call to schedule appointment. 2. Return to ER for any new, concerning, or worsening symptoms. All discharge instructions reviewed with patient and/or family. Voiced understanding. Copy Copies To 1: SEEMA TOLEDO STORMY D PROVIDER SERVICE REPRESENTATIVE Feb 15, 2022 13:37
[2022-02-15 13:40] LABS: ALBUMIN 4.2 GM/DL (3.2-4.5); CHLORIDE 101 MMOL/L (98-107)
[2022-02-15 13:41] LABS: POTASSIUM 3.8 MMOL/L (3.6-5.0); SODIUM 138 MMOL/L (135-145)
[2022-02-15 13:42] LABS: CALCIUM 9.5 MG/DL (8.5-10.1)
[2022-02-15 13:43] LABS: GLUCOSE 101 MG/DL (70-105); TOTAL PROTEIN 7.1 GM/DL (6.4-8.2)
[2022-02-15 13:44] LABS: CARBON DIOXIDE 27 MMOL/L (21-32)
[2022-02-15 13:45] LABS: BILIRUBIN,TOTAL 0.3 MG/DL (0.1-1.0)
[2022-02-15 13:46] LABS: ALKALINE PHOSPHATASE 65 U/L (40-136)
[2022-02-15 13:47] LABS: CREATININE SERUM 0.61 MG/DL (0.60-1.30); GFR ESTIMATED 93
[2022-02-15 13:48] LABS: BUN/CREATININE RATIO 28
[2022-02-15 13:49] LABS: ALANINE AMINOTRANSFERASE 14 U/L (0-55); MAGNESIUM 2.2 MG/DL (1.6-2.4)
--- NOTE | 2022-02-15 14:06 | Diagnostic Imaging Report ---
PROCEDURE: CT head without contrast. TECHNIQUE: Multiple contiguous axial images were obtained through the brain without the use of intravenous contrast. Auto Exposure Controls were utilized during the CT exam to meet ALARA standards for radiation dose reduction. INDICATION: Memory impairment. COMPARISON: No prior studies are available for comparison. FINDINGS: The ventricles and sulci are appropriate for the patient's age. 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 There is moderate periventricular low-attenuation, consistent with chronic microvascular ischemia. No sulcal effacement or midline shift is identified. No acute intra-axial or extra-axial hemorrhage is detected. The cisterns are patent. The visualized paranasal sinuses are clear. IMPRESSION: No acute intracranial process is detected. Dictated by: Dictated on workstation # [id number]
[2022-02-15 14:21] LABS: BILIRUBIN,URINE NEGATIVE (NEGATIVE); CLARITY,URINE CLEAR; COLOR,URINE YELLOW; GLUCOSE, URINE (UA) NEGATIVE (NEGATIVE); KETONES,URINE NEGATIVE (NEGATIVE); LEUKOCYTE ESTERASE ,URINE TRACE (NEGATIVE); NITRITE,URINE NEGATIVE (NEGATIVE); PROTEIN,URINE NEGATIVE (NEGATIVE)
[2022-02-15 14:30] LABS: BACTERIA,URINE NEGATIVE /HPF; SQUAMOUS EPITHELIAL CELL,UR RARE /HPF; WBC,URINE RARE /HPF
--- NOTE | 2022-02-15 14:46 | Diagnostic Imaging Report ---
INDICATION: Weakness and tachycardia. COMPARISON: Correlation is made with prior chest from 08/18/2018. FINDINGS: Heart size is stable. Lungs are clear. No infiltrates are seen. There is no effusion or pneumothorax. IMPRESSION: No acute cardiopulmonary process is detected. Dictated by: Dictated on workstation # [id number]
--- NOTE | 2022-02-15 15:29 | Diagnostic Imaging Report ---
PROCEDURE: MR imaging of the brain without contrast. TECHNIQUE: Multiplanar, multisequence MR imaging of the brain was performed without contrast. INDICATION: ]Altered mental status, tachycardia. CORRELATED with head CT earlier this same date. FINDINGS: The diminished density in the high left frontoparietal convexity is believed to be a benign arachnoid cyst as opposed to an area of post ischemic volume loss. The cyst exerts no mass effect and showed no enhancement or complexity and measures 4.5 x 3.2 cm in axial plane with a cephalocaudal dimension of 2 cm. No other space-occupying lesion. There were no findings of neoplasm, primary or metastatic. Cerebral cortical volume otherwise normal. The ventricular system nondilated and nondisplaced. This patient has patchy subcortical and periventricular white matter disease T2 hyperintense and while nonspecific favored to reflect a sequelae of chronic small vessel disease and is not uncommon in patients of this age. There is no hemorrhage and there are no acute extra-axial fluid collections. The basilar cisterns are patent. There are paranasal sinus mucus retention cysts in the right maxillary with no air-fluid level. The orbital contents normal. IMPRESSION: Chronic benign left hemispheric arachnoid cyst, chronic white matter disease, likely small vessel sequelae. No hemorrhage, infarct, edema or acute/suspicious abnormalities with some chronic paranasal sinus membrane disease noted. Dictated by: Dictated on workstation # [id number]
[2022-02-15 16:21] VITALS: BP 154/70
== END 2022-02-15 16:22 | disposition home or self-care (01) ==
LOC: EDUNIT# 12:54 → ER 12:58
DX: R41.3 Other amnesia (principal); R00.0 Tachycardia, unspecified
CPT/HCPCS: 36415; 70450; 70551; 71046; 80053; 81000; 83735; 83874; 84443; 84484; 85025; 93005

== ENCOUNTER → 2022-07-05 | Outpatient (CLI) | payer MEDICARE ==
[~2022-07-05] MED LIST changes: +ALBU8.5H6 IH; -RT-ALBUINH IH
--- NOTE | 2022-07-05 09:30 | Diagnostic Imaging Report ---
INDICATION: Postmenopausal screening COMPARISON: Baseline FINDINGS: AP Spine L1-L4: [BMD (g/cm2): 0.784] [T-Score: -3.5] [Z-Score: -1.4] [BMD Previous: na] [BMD % Change: na] LT Hip Neck: [BMD (g/cm2): na] [T-Score: na] [Z-Score: na] LT Hip Total: [BMD (g/cm2):na] [T-Score:na] [Z-Score: na] [BMD Previous: na] [BMD % Change: na] RT Hip Neck: [BMD (g/cm2):0.788] [T-Score:-1.8] [Z-Score:0.3] RT Hip Total: [BMD (g/cm2):0.743] [T-score:-2.1] [Z-Score:-0.1] [BMD Previous:na] [BMD % Change:na] *Indicates significant change from prior examination based on 95% confidence level. World Health Organization criteria for BMD interpretation classify patients as Normal (T-score at or above -1.0), Osteopenic (T-score between -1.0 and -2.5) or Osteoporotic (T-score at or below -2.5). LIMITATIONS AND MODIFICATION: None. FRACTURE RISK (FRAX SCORE): The ten year probability of (%): Major Osteoporotic Fracture: [17.7] Hip Fracture: [4.2] IMPRESSION: 1. Osteoporosis. 2. Baseline examination. 3. See below National Osteoporosis Foundation guidelines on when to potentially initiate pharmacologic therapy. Based on the National Osteoporosis Foundation Guidelines, pharmacologic treatment should be initiated in any of the following, unless clinical conditions suggest otherwise: * Any patient with prior fragility fracture of the hip or vertebrae. A spine fracture indicates 5X risk for subsequent spine fracture and 2X risk for subsequent hip fracture. * Osteoporosis (T-score <-2.5). * Postmenopausal women and men age 50 and older with low bone mass/osteopenia (T-score between -1.0 and -2.5) by DXA and 10-year major osteoporotic fracture greater than 20% or a 10-year probability of hip fracture greater than 3%. These fracture risks are supplied above in the FRAX score, if applicable. * Clinician judgement and/or patient preferences may indicate treatment for people with 10-year fracture probabilities above or below these levels. Dictated by: Dictated on workstation # [id number]
--- NOTE | 2022-07-05 14:54 | Diagnostic Imaging Report ---
INDICATION: Routine screening. COMPARISON: No prior mammograms are available for comparison. TECHNIQUE: 2D and 3D bilateral screening mammography was performed with CAD. FINDINGS: Both breasts are heterogeneously dense, limiting the sensitivity of mammography. No mass or malignant-appearing microcalcifications are identified. The axillae are unremarkable. IMPRESSION: No mammographic features suspicious for malignancy are identified. ACR BI-RADS Category 1: Negative. Result letter will be mailed to the patient. Note: At least 10% of breast cancer is not imaged by mammography. Dictated by: Dictated on workstation # [id number]
== END ==
LOC: RAD 08:31
PROVIDERS: ATTEND Internal Medicine
DX: M81.0 Age-related osteoporosis without current pathological fracture (principal); N95.1 Menopausal and female climacteric states
CPT/HCPCS: 77063; 77067; 77080

== ENCOUNTER 2022-10-05 20:08 | Emergency (ER) | payer MEDICARE ==
[~2022-10-05] VITALS: Ht 162.5 cm; Wt 56.7 kg
--- NOTE | 2022-10-05 20:27 | ED Chest Pain ---
General Chief Complaint: Cardiac/General Problems Stated Complaint: PALPITATIONS Source: patient Exam Limitations: no limitations (DIPTI MIRANDA) History of Present Illness Date Seen by Provider: Oct 05, 2022 Time Seen by Provider: 20:25 Initial Comments Patient is a 77-year-old female with a history of SVT with ablation in 2018 at [facility], exercise-induced bronchospasm, atrial fib who presents to ED with multiple complaints. She states over the past few weeks she has been dealing with nasal congestion, cough. Has been using Nasacort and Advair twice a day concerning for asthma flareup. She takes Mucinex at night. She states this evening about 1 hour before arrival started having heart palpitations with some shortness of breath. She checked her watch which stated she had a arrhythmia. Immediately came to the ER. She took a full aspirin and her Eliquis which she has not been taken daily. Denies history of cardiac stent, CA, COPD, smoking. Patient also reports pain to her left upper posterior back for the past week. She states she has a history of a pressure points which she gets injections by her primary care physician Dr. Santana. She has a pressure point to her upper back that spasms and shoots a sharp pain around her her back to her chest. Patient denies fever, vomiting, diarrhea, headache, dizziness, visual change, abdominal pain, dysuria, chest pain (DIPTI MIRANDA) Allergies and Home Medications Allergies Coded Allergies: krill oil (Verified Allergy, Unknown, 10/05/22) shellfish derived (Verified Allergy, Unknown, 05/10/16) ciprofloxacin (Verified Adverse Reaction, Unknown, stomach upset, 12/01/14) Patient Home Medication List Home Medication List Reviewed: Yes (DIPTI MIRANDA) Albuterol Sulfate (Ventolin Hfa) 1 Puff Puff, 1-4 PUFF IH Q4H PRN for WHEEZING Prescribed by: MAXWELL HERNANDEZ on 08/18/18 1725 Ascorbic Acid/Multivit-Min (Emergen-C 1,000 mg Packet) 1,000 Mg Effpowdpkt, 1,000 MG PO HS, (Reported) Entered as Reported by: KAMRAN WATERS on 07/11/16 1037 Aspirin (Aspirin) 325 Mg Tablet, 325 MG PO DAILY, (Reported) Entered as Reported by: KAY SMITH on 05/10/16 0926 Cholecalciferol (Vitamin D3) (Vitamin D3) 1,000 Unit Tablet, 3,000 UNIT PO HS, ( Reported) Entered as Reported by: KAMRAN WATERS on 07/11/16 1037 Fish Oil/Dha/Epa (Fish Oil 1,200 mg Fish Oil) 1 Each Capsule, 1,200 MG PO BID, (Reported) Entered as Reported by: KAMRAN WATERS on 07/11/16 1037 Fluticasone Propionate (Flovent Hfa 110 mcg) 1 Ea Aero, 1 PUFF IH BID, (Reported) Entered as Reported by: KAMRAN WATERS on 07/11/16 1037 Fluticasone Propionate (Flonase Allergy Relief) 9.9 Ml Rives.susp, 2 SPRAYS NS DAILY PRN for ALLERGIES, (Reported) Entered as Reported by: KAMRAN WATERS on 07/11/16 1037 Gabapentin (Gabapentin) 100 Mg Capsule, 100 MG PO HS, (Reported) Entered as Reported by: KAMRAN WATERS on 07/11/16 1037 Guaifenesin (Mucinex) 600 Mg Tab.er.12h, 600 MG PO BID, (Reported) Entered as Reported by: KAMRAN WATERS on 07/11/16 1037 Hydrocodone Bit/Acetaminophen (HYDROcodone/APAP 10/325 TABLET) 1 Each Tablet, 1 EA PO Q4H PRN for MODERATE PAIN Prescribed by: QUENTIN CLEVELAND on 07/12/16 0754 Ibuprofen (Advil) 200 Mg Tablet, 200 MG PO BID PRN for PAIN, (Reported) Entered as Reported by: KAMRAN WATERS on 07/11/16 1037 Metoprolol Succinate (Toprol Xl) 50 Mg Tab.er.24h, 50 MG PO DAILY Prescribed by: MELO MENDOZA on 07/28/16 1408 Multivitamin (Daily Value) 1 Each Tablet, 1 TAB PO 1200, (Reported) Entered as Reported by: KAMRAN WATERS on 07/11/16 1037 Niacin (Inositol Niacinate) (Niacin 500 mg Capsule) 500 Mg Capsule, 500 MG PO HS, (Reported) Entered as Reported by: KAMRAN WATERS on 07/11/16 1037 Sennosides/Docusate Sodium (Senna-Time S Tablet) 1 Each Tablet, 1 EA PO BID Prescribed by: QUENTIN CLEVELAND on 07/12/16 0754 Vitamin B Complex (Vitamin B Complex) 1 Each Capsule, 1 CAP PO DAILY, (Reported) Entered as Reported by: KAMRAN WATERS on 07/11/16 1038 Review of Systems Review of Systems Constitutional: No chills, No diaphoresis, No fever, No malaise, No weakness EENTM: No Double Vision, No Eye Pain, No Ear Pain, No Mouth Pain, No Mouth Swelling Respiratory: Cough; Denies Orthopnea; Shortness of Air Cardiovascular: Denies Chest Pain; Irregular Heart Rate, Palpitations Gastrointestinal: Denies Abdominal Pain, Denies Diarrhea, Denies Nausea, Denies Vomiting Genitourinary: Denies Burning, Denies Discharge Musculoskeletal: No back pain, No gout, No joint pain, No muscle pain Skin: No change in color, No change in hair/nails (DIPTI MIRANDA) All Other Systems Reviewed Negative Unless Noted: Yes (DIPTI MIRANDA) Past Vltzjxl-Isujnn-Ihijut Hx Immunizations Up To Date Tetanus Booster (TDap): Unknown PED Vaccines UTD: No (DIPTI MIRANDA) Seasonal Allergies Seasonal Allergies: Yes (DIPTI MIRANDA) Past Medical History Surgeries: Yes (LEFT TOTAL HIP, ABLATION, ) Adenoidectomy, Gallbladder, Orthopedic, Tonsillectomy Respiratory: Yes Asthma Currently Using CPAP: No Currently Using BIPAP: No Cardiac: Yes (paroxysmal SVT) Atrial Fibrillation, Coronary Artery Disease, High Cholesterol, Irregular Heartbeat Neurological: Yes (NUMBNESS IN RIGHT HAND, RIGHT FOOT) Neuropathy Reproductive Disorders: No Female 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 PYLORI) Gastroesophageal Reflux, Ulcer, Gall Bladder Disease Musculoskeletal: Yes (OSTEOARTHRITIS, BORDER-LINE OSTEOPOROSIS ; LEFT KNEE PAIN ) Osteoporosis, Arthritis, Fibromyalgia Endocrine: No HEENT: No Loss of Vision: Denies Hearing Impairment: Denies Cancer: No Psychosocial: Yes Sleep Difficulties, Anxiety Integumentary: Yes (DERMATITIS ) Blood Disorders: No Adverse Reaction/Blood Tranf: No (DPITI MIRANDA) Family Medical History Arthritis 19 FATHER Cardiovascular disease Cataracts 19 FATHER Completed stroke 19 MOTHER Congenital disease Deafness or hearing loss 19 MOTHER Dementia 19 MOTHER FH: esophageal cancer G8 BROTHER FH: lung cancer 19 FATHER FH: smoking 19 FATHER G8 SISTER G8 BROTHER Genetic disease G8 BROTHER Gout 19 FATHER Hypercholesterolemia 19 MOTHER Hypertension G8 BROTHER Lactose intolerance G8 BROTHER Myocardial infarction 19 FATHER Prostate cancer G8 BROTHER Psychosocial problem (BIPOLAR) G8 SISTER Thyroid disease 19 MOTHER No Family History of: AIDS Abdominal aortic aneurysm Alcona's disease Alcoholism Alzheimer's disease Aphasia Asthma Cancer of mouth Colon cancer Congenital heart disease Cystic fibrosis Diabetes mellitus Drug abuse Dysphasia Fibrocystic disease of breast Gastroenteritis Glaucoma Headache disorder Infertility Kidney disease Neoplasm Not obtainable due to adoption Osteoporosis Parkinson's disease Respiratory disorder Seizure disorder Severe allergy Tuberculosis Visual disorder Physical Exam Vital Signs Vital Signs - First Documented 10/05/22 20:18 Temp 36.2 Pulse 64 Resp 19 B/P (MAP) 137/92 (107) Pulse Ox 94 O2 Delivery Room Air (ALFREDO,JENNIFER K DO) Vital Signs Capillary Refill : (DIPTI MIRANDA) Height, Weight, BMI Height: 5'3.00" Weight: 128lbs. 0oz. [id number]; 21.00 BMI Method:Stated General Appearance: No Apparent Distress, WD/WN HEENT: PERRL/EOMI, TMs Normal, Normal ENT Inspection, Pharynx Normal Neck: Full Range of Motion, Normal Inspection, Non Tender, Supple Respiratory: Chest Non Tender, Lungs Clear, Normal Breath Sounds, No Accessory Muscle Use, No Respiratory Distress Cardiovascular: Regular Rate, Rhythm, No Edema, No Gallop, No JVD Gastrointestinal: Normal Bowel Sounds, No Organomegaly, No Pulsatile Mass, Non Tender Neurologic/Psychiatric: Alert, Oriented x3, No Motor/Sensory Deficits, Normal Mood/Affect, lactation specialist II-XII Norm as Tested Skin: Normal Color, Warm/Dry (DIPTI MIRANDA) Progress/Results/Core Measures Results/Orders Lab Results Laboratory Tests Test 10/05/22 20:27 Range/Units White Blood Count 7.7 4.3-11.0 10^3/uL Red Blood Count 4.71 3.80-5.11 10^6/uL Hemoglobin 14.1 11.5-16.0 g/dL Hematocrit 42 35-52 % Mean Corpuscular Volume 90 80-99 fL Mean Corpuscular Hemoglobin 30 25-34 pg Mean Corpuscular Hemoglobin Concent 33 32-36 g/dL Red Cell Distribution Width 13.5 10.0-14.5 % Platelet Count 355 130-400 10^3/uL Mean Platelet Volume 8.9 L 9.0-12.2 fL Immature Granulocyte % (Auto) 0 % Neutrophils (%) (Auto) 42 42-75 % Lymphocytes (%) (Auto) 48 H 12-44 % Monocytes (%) (Auto) 6 0-12 % Eosinophils (%) (Auto) 3 0-10 % Basophils (%) (Auto) 1 0-10 % Neutrophils # (Auto) 3.2 1.8-7.8 10^3/uL Lymphocytes # (Auto) 3.7 1.0-4.0 10^3/uL Monocytes # (Auto) 0.5 0.0-1.0 10^3/uL Eosinophils # (Auto) 0.2 0.0-0.3 10^3/uL Basophils # (Auto) 0.1 0.0-0.1 10^3/uL Immature Granulocyte # (Auto) 0.0 0.0-0.1 10^3/uL Prothrombin Time 12.1 L 12.2-14.7 SEC INR Comment 0.9 0.8-1.4 Activated Partial Thromboplast Time 28 24-35 SEC Sodium Level 141 135-145 MMOL/L Potassium Level 3.4 L 3.6-5.0 MMOL/L Chloride Level 105 98-107 MMOL/L Carbon Dioxide Level 25 21-32 MMOL/L Anion Gap 11 5-14 MMOL/L Blood Urea Nitrogen 17 7-18 MG/DL Creatinine 0.66 0.60-1.30 MG/DL Estimat Glomerular Filtration Rate 91 BUN/Creatinine Ratio 26 Glucose Level 98 70-105 MG/DL Calcium Level 9.1 8.5-10.1 MG/DL Corrected Calcium 9.1 8.5-10.1 MG/DL Magnesium Level 2.1 1.6-2.4 MG/DL Total Bilirubin 0.1 0.1-1.0 MG/DL Aspartate Amino Transf (AST/SGOT) 18 5-34 U/L Alanine Aminotransferase (ALT/SGPT) 17 0-55 U/L Alkaline Phosphatase 56 40-136 U/L Myoglobin 22.3 10.0-92.0 NG/ML Troponin I < 0.028 <0.028 NG/ML B-Type Natriuretic Peptide 86.0 <100.0 PG/ML Total Protein 6.5 6.4-8.2 GM/DL Albumin 4.0 3.2-4.5 GM/DL Lipase 44 8-78 U/L (ALFREDO,JENNIFER K DO) Medications Given in ED Current Medications Medications Dose Ordered Sig/Zach Route Start Time Stop Time Status Last Admin Dose Admin Albuterol Sulfate 2.5 mg ONCE ONCE INH 10/05/22 20:30 10/05/22 20:31 DC 10/05/22 20:31 2.5 MG Potassium Chloride 40 meq ONCE ONCE PO 10/05/22 21:15 10/05/22 21:16 DC 10/05/22 21:28 40 MEQ (ALFREDO,JENNIFER K DO) Vital Signs/I&O 10/05/22 10/05/22 10/05/22 20:18 20:18 21:33 Temp 36.2 36.2 Pulse 64 75 Resp 19 16 B/P (MAP) 137/92 (107) 109/65 Pulse Ox 94 97 O2 Delivery Room Air Room Air Room Air (ALFREDO,JENNIFER K DO) Comment Sinus rhythm, 62 bpm, QRS duration 95 MS, QTc 445 MS (DIPTI MIRANDA) Departure Communication (PCP) Reviewed previous ER visits, H&P, lab testing. Patient had a cardiac stress test 2018 negative for ischemic changes. History of SVT, A-fib with RVR requir ing ablation at [facility] in 2018. Currently on Eliquis which she has not been taking daily but did take a dose this evening with a full aspirin before arrival. History of allergies. History of exercise-induced bronchospasm. Has been using Nasacort, Advair and Mucinex. She states she is having difficulty getting air in. On exam she is not hypoxic or show signs of respiratory distress. Patient does not appear in respiratory distress. She states this feels like with her asthma. She had some subtle diminished lower breath sounds. She was given albuterol nebulizer treatment with some improvement. Due to current complaint cardiac work-up was initiated. EKG showed normal sinus rhythm without evidence of SVT, A-fib, ST elevation or depression. Chest x-ray was negative for pneumonia, pneumothorax, mediastinal widening. Cardiac work-up was unremarkable with normal troponin and bnp. Hematology and chemistry was unremarkable size potassium 3.4. Was given 40 mg oral potassium. Currently on magnesium potassium supplement. Patient remained stable throughout her stay. No evidence of arrhythmia. She had no chest pain. Shortness of breath improved after the nebulizer breathing treatment. The pain in her back appears to be more of a pressure-point type pain with concern of muscle spasming. She does receive localized injections by her primary care physician. I do not feel this is cardiac in nature. She states she will talk to her primary care physician about a nebulizer machine as she thought this helped her breathing. Likely a component of her allergies with bronchospasm. Vital signs were stable. Patient will be discharged with strict return precautions (DIPTI MIRANDA) Impression Primary Impression: Heart palpitations Additional Impression: Bronchospasm Disposition: HOME, SELF-CARE Condition: Stable Departure-Patient Inst. Decision time for Depature: 21:28 (DIPTI MIRANDA) Referrals: SEEMA SANTOYO DO (PCP/Family) Primary Care Physician Patient Instructions: Palpitations Add. Discharge Instructions: Continue monitoring your potassium and magnesium. Discussed with your primary care physician and nebulizer machine. If any worsening symptoms return back to ED All discharge instructions reviewed with patient and/or family. Voiced underst anding. ATTENDING PHYSICIAN NOTE: I WAS PHYSICALLY PRESENT ER PHYSICIAN, BUT I WAS NOT INVOLVED IN ANY DECISION MAKING OR ANY CARE OF THIS PATIENT, AND I AM NOT COLLABORATING PHYSICIAN. (JENNIFER FUENTES DO) DIPTI MIRANDA Oct 05, 2022 20:27 JENNIFER FUENTES DO Oct 06, 2022 01:45
[2022-10-05 20:29] LABS: BASOPHILS # (AUTO) 0.1 10^3/uL (0.0-0.1); BASOPHILS % (AUTO) 1 % (0-10); EOSINOPHILS # (AUTO) 0.2 10^3/uL (0.0-0.3); EOSINOPHILS % (AUTO) 3 % (0-10); HEMATOCRIT 42 % (35-52); HEMOGLOBIN 14.1 g/dL (11.5-16.0); LYMPHOCYTES # (AUTO) 3.7 10^3/uL (1.0-4.0); LYMPHOCYTES % (AUTO) 48 % (12-44); MEAN CORPUSCULAR HEMOGLOBIN 30 pg (25-34); MEAN CORPUSCULAR HGB CONC 33 g/dL (32-36); MEAN CORPUSCULAR VOLUME 90 fL (80-99); MEAN PLATELET VOLUME 8.9 fL (9.0-12.2); MONOCYTES # (AUTO) 0.5 10^3/uL (0.0-1.0); MONOCYTES % (AUTO) 6 % (0-12); NEUTROPHILS # (AUTO) 3.2 10^3/uL (1.8-7.8); NEUTROPHILS % (AUTO) 42 % (42-75); PLATELET COUNT 355 10^3/uL (130-400); WHITE BLOOD COUNT 7.7 10^3/uL (4.3-11.0)
[2022-10-05] MEDS ORDERED: RT-ALBUTEROL SULF 2.5 MG/3 ML PRE-MIX VIAL INH ONE (20:30)
[2022-10-05 20:40] LABS: INR 0.9 (0.8-1.4); PROTHROMBIN TIME PATIENT 12.1 SEC (12.2-14.7)
[2022-10-05 20:51] LABS: BILIRUBIN,TOTAL 0.1 MG/DL (0.1-1.0); CALCIUM 9.1 MG/DL (8.5-10.1); CREATININE SERUM 0.66 MG/DL (0.60-1.30); MAGNESIUM 2.1 MG/DL (1.6-2.4); POTASSIUM 3.4 MMOL/L (3.6-5.0); TOTAL PROTEIN 6.5 GM/DL (6.4-8.2)
[2022-10-05] MEDS ORDERED: KCL 20 MEQ TAB (K-DUR) PO ONE (21:15)
[2022-10-05 21:33] VITALS: BP 109/65
--- NOTE | 2022-10-05 21:50 | Diagnostic Imaging Report ---
INDICATION: Chest pain. EXAMINATION: AP view of the chest was obtained. COMPARISON: Study of 05/27/2018. FINDINGS: Overall heart size and pulmonary vascularity are within normal limits. There is probable mild air trapping. No pneumothorax, consolidation or significant pleural fluid is seen. Calcified granulomatous residua is noted. IMPRESSION: No acute abnormality or significant adverse change. Dictated by: Dictated on workstation # [id number]
== END 2022-10-05 21:37 | disposition home or self-care (01) ==
LOC: ER 20:08 → EDUNIT# 20:08 → ER 21:37
DX: R00.2 Palpitations (principal); J98.01 Acute bronchospasm; Z86.79 Personal history of other diseases of the circulatory system; Z79.01 Long term (current) use of anticoagulants; Z79.82 Long term (current) use of aspirin
CPT/HCPCS: 36415; 71045; 80053; 83690; 83735; 83874; 83880; 84484; 85025; 85610; 85730; 93005; 93041

== ENCOUNTER 2023-01-07 10:46 | Emergency (ER) | payer MEDICARE ==
[~2023-01-07] VITALS: Ht 162 cm; Wt 58.0 kg
[2023-01-07] MEDS ORDERED: HYDROcodone/APAP 5 MG/325 MG (LORTAB) TAB PO ONE (11:30)
--- NOTE | 2023-01-07 11:30 | ED Lower Extremity ---
General Chief Complaint: Lower Extremity Stated Complaint: LEFT KNEE DISLOCATION Nursing Triage Note: PT CO OF L KNEE PAIN SEVERE 04/04. PT STATES THINKS MAY HAVE DISLOCATED L KNEE. PT STATES UNABLE TO BEAR WT. Source: patient Exam Limitations: no limitations History of Present Illness Date Seen by Provider: Jan 07, 2023 Time Seen by Provider: 11:26 Initial Comments Patient is a 77-year-old female with a history of left hip dislocation, left total hip presents ED with left knee pain for the past 5 days. Pain is located to the left anterior knee. Pain radiates to the back. She reports increased swelling of the left knee pain with any type of movement. Initially pain was described as dull and achy now more sharp. Difficulty standing and bearing weight. She states the left knee wants to give out. 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 She denies of any pain in the left thigh or left calf. Denies any bruising or swelling or redness. She has been taken Advil and gabapentin as she has a history of neuropathy without much improvement. Has been using ice and heat. Denies of any redness of the left knee. Denies history of knee dislocation. She denies fever, chills, nausea vomit, diarrhea, chest pain, shortness of breath Allergies and Home Medications Allergies Coded Allergies: krill oil (Verified Allergy, Unknown, 10/05/22) shellfish derived (Verified Allergy, Unknown, 05/10/16) ciprofloxacin (Verified Adverse Reaction, Unknown, stomach upset, 12/01/14) Patient Home Medication List Home Medication List Reviewed: Yes Albuterol Sulfate (Ventolin Hfa) 1 Puff Puff, 1-4 PUFF IH Q4H PRN for WHEEZING Prescribed by: MAXWELL HERNANDEZ on 08/18/18 1725 Ascorbic Acid/Multivit-Min (Emergen-C 1,000 mg Packet) 1,000 Mg Effpowdpkt, 1,000 MG PO HS, (Reported) Entered as Reported by: KAMRAN WATERS on 07/11/16 1037 Aspirin (Aspirin) 325 Mg Tablet, 325 MG PO DAILY, (Reported) Entered as Reported by: KAY SMITH on 05/10/16 0926 Cholecalciferol (Vitamin D3) (Vitamin D3) 1,000 Unit Tablet, 3,000 UNIT PO HS, (Reported) Entered as Reported by: KAMRAN WATERS on 07/11/16 1037 Fish Oil/Dha/Epa (Fish Oil 1,200 mg Fish Oil) 1 Each Capsule, 1,200 MG PO BID, (Reported) Entered as Reported by: KAMRAN WATERS on 07/11/16 1037 Fluticasone Propionate (Flovent Hfa 110 mcg) 1 Ea Aero, 1 PUFF IH BID, (Reported) Entered as Reported by: KAMRAN WATERS on 07/11/16 1037 Fluticasone Propionate (Flonase Allergy Relief) 9.9 Ml [place].susp, 2 SPRAYS NS DAILY PRN for ALLERGIES, (Reported) Entered as Reported by: KAMRAN WATERS on 07/11/16 1037 Gabapentin (Gabapentin) 100 Mg Capsule, 100 MG PO HS, (Reported) Entered as Reported by: KAMRAN WATERS on 07/11/16 1037 Guaifenesin (Mucinex) 600 Mg Tab.er.12h, 600 MG PO BID, (Reported) Entered as Reported by: KAMRAN WATERS on 07/11/16 1037 Hydrocodone Bit/Acetaminophen (HYDROcodone/APAP 10/325 TABLET) 1 Each Tablet, 1 EA PO Q4H PRN for MODERATE PAIN Prescribed by: QUENTIN CLEVELAND on 07/12/16 0754 Hydrocodone/Acetaminophen (Hydrocodone-Acetamin 5-325 mg) 5 Mg-325 Mg Tablet, 1 TAB PO Q4H PRN for PAIN-MODERATE (5-7) Prescribed by: ARMANDO WALLACE on 01/07/23 1223 Ibuprofen (Advil) 200 Mg Tablet, 200 MG PO BID PRN for PAIN, (Reported) Entered as Reported by: KAMRAN WATERS on 07/11/16 1037 Metoprolol Succinate (Toprol Xl) 50 Mg Tab.er.24h, 50 MG PO DAILY Prescribed by: MELO MENDOZA on 07/28/16 1408 Multivitamin (Daily Value) 1 Each Tablet, 1 TAB PO 1200, (Reported) Entered as Reported by: KAMRAN WATERS on 07/11/16 1037 Niacin (Inositol Niacinate) (Niacin 500 mg Capsule) 500 Mg Capsule, 500 MG PO HS, (Reported) Entered as Reported by: KAMRAN WATERS on 07/11/16 1037 Sennosides/Docusate Sodium (Senna-Time S Tablet) 1 Each Tablet, 1 EA PO BID Prescribed by: QUENTIN CLEVELAND on 07/12/16 0754 Vitamin B Complex (Vitamin B Complex) 1 Each Capsule, 1 CAP PO DAILY, (Reported) Entered as Reported by: KAMRAN WATERS on 07/11/16 1038 Review of Systems Constitutional: No chills, No diaphoresis, No fever, No malaise, No weakness EENTM: No hearing loss, No ear pain, No blurred vision Respiratory: No cough, No dyspnea on exertion Cardiovascular: No chest pain Gastrointestinal: No abdominal pain, No diarrhea, No nausea, No vomiting Genitourinary: No decreased output, No discharge Musculoskeletal: joint pain, joint swelling; No muscle pain Skin: No change in color, No change in hair/nails All Other Systems Reviewed Negative Unless Noted: Yes Past Ykjhptl-Kcymud-Crsdfy Hx Patient Social History Tobacco Use?: No Substance use?: No Alcohol Use?: Yes Alcohol type: Wine Alcohol Frequency: Once in a while Pt feels they are or have been: No Immunizations Up To Date Tetanus Booster (TDap): Unknown PED Vaccines UTD: No First/Initial COVID19 Vaccinat: "4 SHOTS" Second COVID19 Vaccination Peyman: "4 SHOTS" Third COVID19 Vaccination Date: "4 SHOTS" Seasonal Allergies Seasonal Allergies: Yes Past Medical History Surgery/Hospitalization HX: L HIP, GB, HEART ABLATION, ATHMA Surgeries: Yes (LEFT TOTAL HIP, ABLATION, ) Adenoidectomy, Gallbladder, Orthopedic, Tonsillectomy Respiratory: Yes Asthma Currently Using CPAP: No Currently Using BIPAP: No Cardiac: Yes (paroxysmal SVT) Atrial Fibrillation, Coronary Artery Disease, High Cholesterol, Irregular Heartbeat Neurological: Yes (NUMBNESS IN RIGHT HAND, RIGHT FOOT) Neuropathy Reproductive Disorders: No Female Reproductive Disorders: Denies 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 PYLORI) Gastroesophageal Reflux, Ulcer, Gall Bladder Disease Musculoskeletal: Yes (OSTEOARTHRITIS, BORDER-LINE OSTEOPOROSIS ; LEFT KNEE PAIN ) Osteoporosis, Arthritis, Fibromyalgia Endocrine: No HEENT: No Loss of Vision: Denies Hearing Impairment: Denies Cancer: No Psychosocial: Yes Sleep Difficulties, Anxiety Integumentary: Yes (DERMATITIS ) Blood Disorders: No Adverse Reaction/Blood Tranf: No Family Medical History Arthritis 19 FATHER Cardiovascular disease Cataracts 19 FATHER Completed stroke 19 MOTHER Congenital disease Deafness or hearing loss 19 MOTHER Dementia 19 MOTHER FH: esophageal cancer G8 BROTHER FH: lung cancer 19 FATHER FH: smoking 19 FATHER G8 SISTER G8 BROTHER Genetic disease G8 BROTHER Gout 19 FATHER Hypercholesterolemia 19 MOTHER Hypertension G8 BROTHER Lactose intolerance G8 BROTHER Myocardial infarction 19 FATHER Prostate cancer G8 BROTHER Psychosocial problem (BIPOLAR) G8 SISTER Thyroid disease 19 MOTHER No Family History of: AIDS Abdominal aortic aneurysm Cossayuna's disease Alcoholism Alzheimer's disease Aphasia Asthma Cancer of mouth Colon cancer Congenital heart disease Cystic fibrosis Diabetes mellitus Drug abuse Dysphasia Fibrocystic disease of breast Gastroenteritis Glaucoma Headache disorder Infertility Kidney disease Neoplasm Not obtainable due to adoption Osteoporosis Parkinson's disease Respiratory disorder Seizure disorder Severe allergy Tuberculosis Visual disorder Physical Exam Vital Signs Vital Signs - First Documented 01/07/23 11:15 Temp 36.1 Pulse 88 Resp 18 B/P (MAP) 131/73 (92) Pulse Ox 94 O2 Delivery Room Air Capillary Refill : Less Than 3 Seconds Height, Weight, BMI Height: 5'3.00" Weight: 128lbs. 0oz. [id number]; 22.00 BMI Method:Stated General Appearance: WD/WN, no apparent distress HEENT: PERRL/EOMI, normal ENT inspection, TMs normal, pharynx normal Neck: non-tender, full range of motion, supple Cardiovascular: regular rate, rhythm, no edema, no gallop, no JVD Respiratory: chest non-tender, lungs clear, normal breath sounds, no respiratory distress, no accessory muscle use Gastrointestinal: normal bowel sounds, non tender, soft, no organomegaly Back: normal inspection, no CVA tenderness, no vertebral tenderness Knees: left knee pain, left knee soft tissue tenderness, left knee swelling, left knee other (Limited flexion secondary to pain. Left joint effusion. No erythema or warmth. 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 as tested, no motor/sensory deficits, alert, normal mood/affect, oriented x 3 Skin: normal color, warm/dry Progress/Results/Core Measures Results/Orders My Orders Orders - RUBENBETZAIDADIPTI A PA Knee, Left, 3 Views (01/07/23 11:25) Hydrocodone/Apap 5/325 Tablet (Lortab 5 (01/07/23 11:30) Medications Given in ED Current Medications Medications Dose Ordered Sig/Zach Route Start Time Stop Time Status Last Admin Dose Admin Acetaminophen/ Hydrocodone Bitart 1 ea ONCE ONCE PO 01/07/23 11:30 01/07/23 11:31 DC 01/07/23 12:03 1 EA Vital Signs/I&O 01/07/23 01/07/23 11:15 12:50 Temp 36.1 Pulse 88 83 Resp 18 18 B/P (MAP) 131/73 (92) 130/64 Pulse Ox 94 94 O2 Delivery Room Air Room Air Blood Pressure Mean: 92 Departure Communication (PCP) Patient presents ED with left knee pain. No specific injury. Pain over the past 5 days dull achy pain radiates to the left knee. Pain with flexion. Is been taken anti-inflammatories without much improvement. No calf tenderness, thigh tenderness. No evidence of DVT or septic arthritis. No erythema of the left joint. She did have some mild swelling anterior. Pain with flexion. Crepitus noted. Due to pain x-ray was ordered. No evidence of fracture or dislocation. Patient was given dose of hydrocodone. Arthritic changes were noted of the left knee. Recommend outpatient orthopedic follow-up. Would likely benefit with intra-articular injection. We will provide a few days worth of stronger pain medication as needed. Continue with anti-inflammatories. Ice and elevate. Knee brace for support. Recommend walker for support. If any worsening symptoms return back to ED for further evaluation. Impression Primary Impression: Knee pain Disposition: 01 HOME, SELF-CARE Condition: Stable Departure-Patient Inst. Decision time for Depature: 12:21 Referrals: SAL URIARTE MD, WILLIAM J DO (PCP/Family) Primary Care Physician PAULA CHÁVEZ MD Patient Instructions: Knee Pain ED Add. Discharge Instructions: Recommend following up with orthopedic. May contact Dr. Naranjo orthopedic surgery at [facility] who you have seen in the past. Take anti- inflammatories for pain and swelling. Ice. Knee brace for support. Recommend using walker for support. Would likely benefit with intra-articular injection. All discharge instructions reviewed with patient and/or family. Voiced understan [place]. Scripts Hydrocodone/Acetaminophen (Hydrocodone-Acetamin 5-325 mg) 5 Mg-325 Mg Tablet 1 TAB PO Q4H PRN for PAIN-MODERATE (5-7), #8 TAB Prov: DIPTI MIRANDA 01/07/23 DIPTI MIRANDA Jan 07, 2023 11:30
--- NOTE | 2023-01-07 12:13 | Diagnostic Imaging Report ---
CLINICAL INDICATION: Patient with left knee pain. Patient states she dislocated her knee. EXAM: X-ray of the left knee, 3 views. COMPARISON: None. FINDINGS: There is no acute fracture or dislocation. There is a moderate sized left knee effusion. There are degenerative spurs involving the medial and lateral compartment and patellofemoral compartment. There is mild to moderate medial compartment narrowing. IMPRESSION: 1: There is no acute fracture or dislocation seen on this exam. There is a left knee effusion. 2: There is degenerative disease of the left knee. Dictated by: Dictated on workstation # [id number]
[2023-01-07] MEDS ORDERED: ACHD5005 PO (12:22)
[2023-01-07 12:50] VITALS: BP 130/64
== END 2023-01-07 12:50 | disposition home or self-care (01) ==
LOC: EDUNIT# 10:46 → ER 10:48
DX: M25.562 Pain in left knee (principal); G62.9 Polyneuropathy, unspecified; Z79.899 Other long term (current) drug therapy
CPT/HCPCS: 73562

== ENCOUNTER 2023-01-08 17:37 | Emergency (ER) | payer MEDICARE ==
[~2023-01-08] VITALS: Ht 162 cm; Wt 58.0 kg
[~2023-01-08 17:37] MED LIST changes: +ACHD5005 PO
--- NOTE | 2023-01-08 17:57 | ED Respiratory ---
General Chief Complaint: Upper Extremity Stated Complaint: LEFT SHOULDER PAIN/SOA Nursing Triage Note: PT TO RM 10 PT CO OF SOA AND L SHOULDER PAIN D/T STARTING TO USE A WALKER. PT STATES NOT ABLE TO TAKE A DEEP BREATH. HAS HX OF ASTHMA PT WAS SEEN YESTERDAY IN ED FOR L KNEE PAIN. Source: patient Exam Limitations: no limitations History of Present Illness Date Seen by Provider: Jan 08, 2023 Time Seen by Provider: 17:57 Initial Comments Patient is a 77-year-old female who presents to the emergency department today with a chief complaint of 10 out of 10 posterior left shoulder pain onset in the last 24 hours. Patient was seen in the emergency room yesterday with left knee pain. She had x-rays done which were unremarkable. She was recommended to follow-up with an orthopedic surgeon for further evaluation. Patient states since she has been using a walker she has had increasing pain in her shoulder which is now causing her to feel short of breath. Patient describes the pain as "tightness" in the left shoulder. She states she also has some muscle soreness in the left anterior chest wall. She states it hurts in her shoulder to take a deep breath. No reported coughing. No nausea or vomiting. She does not feel lightheaded or dizzy. No reports of fevers or chills. She has tried an [id number] "arthritis rub", she took a hydrocodone at about 2 PM for her knee pain and it did not help her shoulder. She takes gabapentin at home for sh oulder pain. She has had prior injections by Dr. Toledo, her primary care physician for the shoulder. She states she does not do well with steroids. Timing/Duration: yesterday Severity: severe (04/04) Prior Episodes/Possible Cause: chronic episodes Associated Symptoms: chest pain/soreness, muscle aches, shortness of breath Allergies and Home Medications Allergies Coded Allergies: krill oil (Verified Allergy, Unknown, 10/05/22) shellfish derived (Verified Allergy, Unknown, 05/10/16) ciprofloxacin (Verified Adverse Reaction, Unknown, stomach upset, 12/01/14) Patient Home Medication List Home Medication List Reviewed: Yes Albuterol Sulfate (Ventolin Hfa) 1 Puff Puff, 1-4 PUFF IH Q4H PRN for WHEEZING Prescribed by: MAXWELL HERNANDEZ on 08/18/18 1725 Ascorbic Acid/Multivit-Min (Emergen-C 1,000 mg Packet) 1,000 Mg Effpowdpkt, 1,000 MG PO HS, (Reported) Entered as Reported by: KAMRAN WATERS on 07/11/16 1037 Aspirin (Aspirin) 325 Mg Tablet, 325 MG PO DAILY, (Reported) Entered as Reported by: KAY SMITH on 05/10/16 0926 Cholecalciferol (Vitamin D3) (Vitamin D3) 1,000 Unit Tablet, 3,000 UNIT PO HS, (Reported) Entered as Reported by: KAMRAN WATERS on 07/11/16 1037 Fish Oil/Dha/Epa (Fish Oil 1,200 mg Fish Oil) 1 Each Capsule, 1,200 MG PO BID, (Reported) Entered as Reported by: KAMRAN WATERS on 07/11/16 1037 Fluticasone Propionate (Flovent Hfa 110 mcg) 1 Ea Aero, 1 PUFF IH BID, ( Reported) Entered as Reported by: KAMRAN WATERS on 07/11/16 1037 Fluticasone Propionate (Flonase Allergy Relief) 9.9 Ml Robinson.susp, 2 SPRAYS NS DAILY PRN for ALLERGIES, (Reported) Entered as Reported by: KAMRAN WATERS on 07/11/16 1037 Gabapentin (Gabapentin) 100 Mg Capsule, 100 MG PO HS, (Reported) Entered as Reported by: KAMRAN WATERS on 07/11/16 1037 Guaifenesin (Mucinex) 600 Mg Tab.er.12h, 600 MG PO BID, (Reported) Entered as Reported by: KAMRAN WATERS on 07/11/16 1037 Hydrocodone Bit/Acetaminophen (HYDROcodone/APAP 10/325 TABLET) 1 Each Tablet, 1 EA PO Q4H PRN for MODERATE PAIN Prescribed by: QUENTIN CLEVELAND on 07/12/16 0754 Hydrocodone/Acetaminophen (Hydrocodone-Acetamin 5-325 mg) 5 Mg-325 Mg Tablet, 1 TAB PO Q4H PRN for PAIN-MODERATE (5-7) Prescribed by: ARMANDO WALLACE on 01/07/23 1223 Ibuprofen (Advil) 200 Mg Tablet, 200 MG PO BID PRN for PAIN, (Reported) Entered as Reported by: KAMRAN WATERS on 07/11/16 1037 Metoprolol Succinate (Toprol Xl) 50 Mg Tab.er.24h, 50 MG PO DAILY Prescribed by: MELO MENDOZA on 07/28/16 1408 Multivitamin (Daily Value) 1 Each Tablet, 1 TAB PO 1200, (Reported) Entered as Reported by: KAMRAN WATERS on 07/11/16 1037 Niacin (Inositol Niacinate) (Niacin 500 mg Capsule) 500 Mg Capsule, 500 MG PO HS, (Reported) Entered as Reported by: KAMRAN WATERS on 07/11/16 1037 Sennosides/Docusate Sodium (Senna-Time S Tablet) 1 Each Tablet, 1 EA PO BID Prescribed by: QUENTIN CLEVELAND on 07/12/16 0754 Vitamin B Complex (Vitamin B Complex) 1 Each Capsule, 1 CAP PO DAILY, (Reported) Entered as Reported by: KAMRAN WATERS on 07/11/16 1038 Review of Systems Review of Systems Constitutional: see HPI EENTM: no symptoms reported Respiratory: short of breath Cardiovascular: no symptoms reported Gastrointestinal: no symptoms reported Genitourinary: no symptoms reported Musculoskeletal: joint pain (left posterior shoulder) Skin: no symptoms reported All Other Systems Reviewed Negative Unless Noted: Yes Past Rxulqkp-Kbpanz-Wactiq Hx Patient Social History Tobacco Use?: No Substance use?: No Alcohol Use?: No Pt feels they are or have been: No Immunizations Up To Date Tetanus Booster (TDap): Unknown PED Vaccines UTD: No First/Initial COVID19 Vaccinat: "4 SHOTS" Second COVID19 Vaccination Peyman: "4 SHOTS" Third COVID19 Vaccination Date: "4 SHOTS" Seasonal Allergies Seasonal Allergies: Yes Past Medical History Surgery/Hospitalization HX: L HIP, GB, HEART ABLATION, ATHMA Surgeries: Yes (LEFT TOTAL HIP, ABLATION, ) Adenoidectomy, Gallbladder, Orthopedic, Tonsillectomy Respiratory: Yes Asthma Currently Using CPAP: No Currently Using BIPAP: No Cardiac: Yes (paroxysmal SVT) Atrial Fibrillation, Coronary Artery Disease, High Cholesterol, Irregular Heartbeat Neurological: Yes (NUMBNESS IN RIGHT HAND, RIGHT FOOT) Neuropathy Reproductive Disorders: No Female Reproductive Disorders: Denies 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 PYLORI) Gastroesophageal Reflux, Ulcer, Gall Bladder Disease Musculoskeletal: Yes (OSTEOARTHRITIS, BORDER-LINE OSTEOPOROSIS ; LEFT KNEE PAIN ) Osteoporosis, Arthritis, Fibromyalgia Endocrine: No HEENT: No Loss of Vision: Denies Hearing Impairment: Denies Cancer: No Psychosocial: Yes Sleep Difficulties, Anxiety Integumentary: Yes (DERMATITIS ) Blood Disorders: No Adverse Reaction/Blood Tranf: No Family Medical History Arthritis 19 FATHER Cardiovascular disease Cataracts 19 FATHER Completed stroke 19 MOTHER Congenital disease Deafness or hearing loss 19 MOTHER Dementia 19 MOTHER FH: esophageal cancer G8 BROTHER FH: lung cancer 19 FATHER FH: smoking 19 FATHER G8 SISTER G8 BROTHER Genetic disease G8 BROTHER Gout 19 FATHER Hypercholesterolemia 19 MOTHER Hypertension G8 BROTHER Lactose intolerance G8 BROTHER Myocardial infarction 19 FATHER Prostate cancer G8 BROTHER Psychosocial problem (BIPOLAR) G8 SISTER Thyroid disease 19 MOTHER No Family History of: AIDS Abdominal aortic aneurysm Albemarle's disease Alcoholism Alzheimer's disease Aphasia Asthma Cancer of mouth Colon cancer Congenital heart disease Cystic fibrosis Diabetes mellitus Drug abuse Dysphasia Fibrocystic disease of breast Gastroenteritis Glaucoma Headache disorder Infertility Kidney disease Neoplasm Not obtainable due to adoption Osteoporosis Parkinson's disease Respiratory disorder Seizure disorder Severe allergy Tuberculosis Visual disorder Physical Exam Vital Signs - First Documented 01/08/23 01/08/23 17:49 20:13 Temp 37.5 Pulse 89 Resp 18 B/P (MAP) 131/82 (98) Pulse Ox 95 O2 Delivery Room Air Capillary Refill : Less Than 3 Seconds Height: 5'3.00" Weight: 128lbs. 0oz. 58.901289ey; 22.00 BMI Method:Stated General Appearance: WD/WN, no apparent distress Eyes: Bilateral Eye Normal Inspection, Bilateral Eye PERRL, Bilateral Eye EOMI HEENT: PERRL/EOMI Respiratory: lungs clear, normal breath sounds, no respiratory distress, no accessory muscle use Cardiovascular: regular rate, rhythm Gastrointestinal: non tender, soft Extremities: normal range of motion, non-tender, normal inspection, other (distal NVI to the LUE; crepitance in the left shoulder) Neurologic/Psychiatric: alert, normal mood/affect, oriented x 3 Skin: normal color, warm/dry, other (no rashes) Progress/Results/Core Measures Suspected Sepsis SIRS Temperature: Pulse: 89 Respiratory Rate: 18 Laboratory Tests 01/08/23 18:19: White Blood Count 12.3H Blood Pressure 131 /82 Mean: 98 Laboratory Tests 01/08/23 18:19: Creatinine 0.59L, INR Comment 1.0, Platelet Count 314, Total Bilirubin 0.4 Results/Orders Lab Results Laboratory Tests Test 01/08/23 18:19 Range/Units White Blood Count 12.3 H 4.3-11.0 10^3/uL Red Blood Count 4.50 3.80-5.11 10^6/uL Hemoglobin 13.6 11.5-16.0 g/dL Hematocrit 41 35-52 % Mean Corpuscular Volume 91 80-99 fL Mean Corpuscular Hemoglobin 30 25-34 pg Mean Corpuscular Hemoglobin Concent 33 32-36 g/dL Red Cell Distribution Width 14.0 10.0-14.5 % Platelet Count 314 130-400 10^3/uL Mean Platelet Volume 9.3 9.0-12.2 fL Immature Granulocyte % (Auto) 0 % Neutrophils (%) (Auto) 80 H 42-75 % Lymphocytes (%) (Auto) 11 L 12-44 % Monocytes (%) (Auto) 8 0-12 % Eosinophils (%) (Auto) 0 0-10 % Basophils (%) (Auto) 0 0-10 % Neutrophils # (Auto) 9.9 H 1.8-7.8 10^3/uL Lymphocytes # (Auto) 1.3 1.0-4.0 10^3/uL Monocytes # (Auto) 1.0 0.0-1.0 10^3/uL Eosinophils # (Auto) 0.0 0.0-0.3 10^3/uL Basophils # (Auto) 0.0 0.0-0.1 10^3/uL Immature Granulocyte # (Auto) 0.1 0.0-0.1 10^3/uL Prothrombin Time 13.7 12.2-14.7 SEC INR Comment 1.0 0.8-1.4 Activated Partial Thromboplast Time 32 24-35 SEC Sodium Level 138 135-145 MMOL/L Potassium Level 4.0 3.6-5.0 MMOL/L Chloride Level 102 98-107 MMOL/L Carbon Dioxide Level 25 21-32 MMOL/L Anion Gap 11 5-14 MMOL/L Blood Urea Nitrogen 16 7-18 MG/DL Creatinine 0.59 L 0.60-1.30 MG/DL Estimat Glomerular Filtration Rate 93 BUN/Creatinine Ratio 27 Glucose Level 115 H 70-105 MG/DL Calcium Level 9.1 8.5-10.1 MG/DL Corrected Calcium 9.3 8.5-10.1 MG/DL Magnesium Level 2.0 1.6-2.4 MG/DL Total Bilirubin 0.4 0.1-1.0 MG/DL Aspartate Amino Transf (AST/SGOT) 20 5-34 U/L Alanine Aminotransferase (ALT/SGPT) 17 0-55 U/L Alkaline Phosphatase 63 40-136 U/L Troponin I < 0.028 <0.028 NG/ML Total Protein 6.8 6.4-8.2 GM/DL Albumin 3.8 3.2-4.5 GM/DL My Orders Orders - RICHY JAIMES MD Ed Iv/Invasive Line Start (01/08/23 18:11) Ekg Tracing (01/08/23 18:11) Cbc With Automated Diff (01/08/23 18:14) Magnesium (01/08/23 18:14) Chest 1 View, Ap/Pa Only (01/08/23 18:14) Comprehensive Metabolic Panel (01/08/23 18:14) Protime With Inr (01/08/23 18:14) Partial Thromboplastin Time (01/08/23 18:14) O2 (01/08/23 18:14) Monitor-Rhythm Ecg Trace Only (01/08/23 18:14) Ed Iv/Invasive Line Start (01/08/23 18:14) Troponin I Dulce (01/08/23 18:14) Ketorolac Injection (Toradol Injection) (01/08/23 19:00) Cyclobenzaprine Tablet (Flexeril Tablet) (01/08/23 18:57) Lidocaine 4% Patch (Salonpas 4% Patch) (01/08/23 18:58) Medications Given in ED Current Medications Medications Dose Ordered Sig/Zach Route Start Time Stop Time Status Last Admin Dose Admin Ketorolac Tromethamine 15 mg ONCE ONCE IVP 01/08/23 19:00 01/08/23 19:01 DC 01/08/23 19:11 15 MG Vital Signs/I&O 01/08/23 01/08/23 17:49 20:13 Temp 37.5 Pulse 89 87 Resp 18 19 B/P (MAP) 131/82 (98) 127/67 Pulse Ox 95 94 O2 Delivery Room Air Capillary Refill : Less Than 3 Seconds Blood Pressure Mean: 98 Progress Note : Time: 19:56 Progress Note Patient seen and evaluated by me. Evaluation today includes review of past [facility] records and a "chest pain" work-up with CBC, Chem-12, serum troponin level, coags, EKG and chest x-ray. Pertinent physical exam findings well-developed well-nourished 77-year-old female in mild distress due to left shoulder pain. She has regular heart, clear lungs, mildly tender left anterior chest wall just below the clavicle. She has intact range of motion to the left shoulder with palpable crepitance. Neurovascularly intact to the left upper extremity. Normal strength and sensation. Differential diagnosis based on history and physical exam, atypical ACS, arthritis pain left shoulder, bursitis Labs independently reviewed and evaluated by me. Her CBC shows a white count of 12.3, normal H&H and platelet count. 80% segmented neutrophils. Chem-12 is completely within normal limits coag profile was normal. EKG shows normal sinus rhythm without ectopy or ST segment change. Chest x-ray is also unremarkable. Patient initially treated with Toradol 15 mg, 5 mg of Flexeril p.o. and a lidocaine patch to the area. She did not receive much relief. I offered trigger point injection to the medial left scapula. The patient has had this before, actually done by me in prior months with complete relief of symptoms. Patient was injected to the left medial upper scapula with 1% lidocaine, 5 cc. She had almost immediate relief. I discussed all of the findings on her labs, EKG and chest x-ray with the patient and her . No findings concerning for atypical acute coronary syndrome. Likely ongoing arthritis change to the left shoulder. She is going to follow-up with her primary care doctor and also has plans to follow-up with an orthopedic surgeon regarding her left knee and will have evaluation of the shoulder as well. Patient is improved at the time o f discharge. All questions are sought and answered. Return precautions provided in both verbal and written format. Patient is improved at discharge ECG Initial ECG Impression Date: Jan 08, 2023 Initial ECG Impression Time: 18:30 Initial ECG Rate: 88 Initial ECG Rhythm: Normal Sinus Initial ECG Intervals: Normal Comment inverted t waves lead III and aVF; no ectopy; poor r wave progression over the precordium Diagnostic Imaging Diagonstic Imaging: Xray Plain Films/CT/US/NM/MRI: chest Comments [facility], [place], [place] NAME: DIALLO RAMÍREZ [facility] REC#: [id number] PT STATUS: REG ER : 1945 PHYSICIAN: RICHY JAIMES MD ADMIT DATE: 01/08/23/ER Signed Date of Exam:01/08/23 CHEST 1 VIEW, AP/PA ONLY INDICATION: Chest pain Portable chest 6:30 PM Heart and mediastinum are normal. Lungs are clear. There are no effusions or pneumothoraces. IMPRESSION: Negative chest. Dictated by: Dictated on workstation # [id number] Dict: 01/08/231830 Trans: 01/08/231838 CVB [id number] Interpreted by: JOCELYNN CHENG MD Electronically signed by: JOCELYNN CHENG MD 01/08/231838 Departure Impression Primary Impression: Left shoulder pain Qualified Codes: M25.512 - Pain in left shoulder Disposition: 01 HOME, SELF-CARE Condition: Improved Departure-Patient Inst. Decision time for Depature: 19:57 Referrals: SAL URIARTE MD, WILLIAM J DO (PCP/Family) Primary Care Physician PAULA CHÁVEZ MD Patient Instructions: Shoulder Pain ED Add. Discharge Instructions: Continue the pain medications as needed and the lidocaine patches for shoulder discomfort. Please call Dr Toledo's office tomorrow for a follow up appointment. Orthopedics for your left shoulder and knee - names and contact information are on this paper. Gentle stretches of the left shoulder will also help with discomfort. Return to the Emergency Department for any new, concerning or emergent complaints. Copy Copies To 1: SEEMA TOLEDO KATHRYN M MD Jan 08, 2023 17:57
[2023-01-08 18:32] LABS: BASOPHILS % (AUTO) 0 % (0-10); EOSINOPHILS % (AUTO) 0 % (0-10); HEMATOCRIT 41 % (35-52); HEMOGLOBIN 13.6 g/dL (11.5-16.0); LYMPHOCYTES # (AUTO) 1.3 10^3/uL (1.0-4.0); LYMPHOCYTES % (AUTO) 11 % (12-44); MEAN CORPUSCULAR HEMOGLOBIN 30 pg (25-34); MEAN CORPUSCULAR HGB CONC 33 g/dL (32-36); MEAN CORPUSCULAR VOLUME 91 fL (80-99); MEAN PLATELET VOLUME 9.3 fL (9.0-12.2); MONOCYTES % (AUTO) 8 % (0-12); NEUTROPHILS # (AUTO) 9.9 10^3/uL (1.8-7.8); NEUTROPHILS % (AUTO) 80 % (42-75); PLATELET COUNT 314 10^3/uL (130-400); WHITE BLOOD COUNT 12.3 10^3/uL (4.3-11.0)
--- NOTE | 2023-01-08 18:34 | Diagnostic Imaging Report ---
INDICATION: Chest pain Portable chest 6:30 PM Heart and mediastinum are normal. Lungs are clear. There are no effusions or pneumothoraces. IMPRESSION: Negative chest. Dictated by: Dictated on workstation # [id number]
[2023-01-08 18:35] LABS: ALBUMIN 3.8 GM/DL (3.2-4.5); CHLORIDE 102 MMOL/L (98-107); SODIUM 138 MMOL/L (135-145)
[2023-01-08 18:36] LABS: CALCIUM 9.1 MG/DL (8.5-10.1)
[2023-01-08 18:37] LABS: GLUCOSE 115 MG/DL (70-105); PROTHROMBIN TIME PATIENT 13.7 SEC (12.2-14.7); TOTAL PROTEIN 6.8 GM/DL (6.4-8.2)
[2023-01-08 18:38] LABS: CARBON DIOXIDE 25 MMOL/L (21-32)
[2023-01-08 18:39] LABS: BILIRUBIN,TOTAL 0.4 MG/DL (0.1-1.0)
[2023-01-08 18:41] LABS: ALKALINE PHOSPHATASE 63 U/L (40-136); CREATININE SERUM 0.59 MG/DL (0.60-1.30); GFR ESTIMATED 93
[2023-01-08 18:42] LABS: BUN/CREATININE RATIO 27
[2023-01-08 18:44] LABS: ALANINE AMINOTRANSFERASE 17 U/L (0-55)
[2023-01-08] MEDS ORDERED: CYCLOBENZAPRINE 10 MG (FLEXERIL) TAB PO STA (18:57)
[2023-01-08] MEDS ORDERED: LIDOCAINE 4% (SALONPAS) PATCH TOP STA (18:58)
[2023-01-08] MEDS ORDERED: KETOROLAC 15 MG/ML VIAL IVP ONE (19:00)
[2023-01-08 20:13] VITALS: BP 127/67
== END 2023-01-08 20:14 | disposition home or self-care (01) ==
LOC: EDUNIT# 17:37 → ER 17:39
DX: M25.512 Pain in left shoulder (principal); R07.89 Other chest pain; M25.562 Pain in left knee
CPT/HCPCS: 36415; 71045; 80053; 83735; 84484; 85025; 85610; 85730; 93005; 93041

== ENCOUNTER 2023-01-10 05:17 | Emergency (ER) | payer MEDICARE ==
--- NOTE | 2023-01-10 05:44 | ED General ---
General Stated Complaint: LEFT SHOULDER PX,SOB,PALPITATIONS Source of Information: Patient Exam Limitations: No Limitations (RICHY JAIMES MD) History of Present Illness Date Seen by Provider: Jan 10, 2023 Time Seen by Provider: 05:40 Initial Comments Patient is a 77-year-old female who presents to the emergency room with a chief complaint of shortness of breath and back pain. I saw this patient 2 days ago in the emergency department with back pain and left shoulder pain. She states that she was seen the day prior in the emergency room with knee pain, referred to an orthopedic surgeon and has been having to use a walker for her knee which has had exacerbated her shoulder pain. Patient states that she laid awake last night "counting my breaths" because she was so short of breath. She states it hurts in her back to take a deep breath. She took 1 Advil at 9 PM and 1 Advil at 2 AM without any relief of symptoms. She also took a gabapentin pill before bed last night. The pain actually worsened yesterday at noon and she decided to seek care this morning. No fevers, chills, productive cough. She does occasionally have to use inhalers. She contacted her primary care physician's office yesterday morning and has a scheduled appointment for follow-up tomorrow. I did give the patient a prescription for hydrocodone and she has stopped taking it because it is causing her to have "A-fib". The patient has never been diagnosed with A-fib but has had prior ablation for tachycardia, she believes that she has had "skipping beats" which she thinks is A-fib. Currently sinus tachycardia on the monitor at 94 beats a minute. Room air sats 95%. No increased work of breathing or respiratory distress. Lungs are clear. Patient had "cardiac work-up" 2 days ago in the emergency department with a normal chest x-ray, normal CBC, normal Chem-12, negative troponin, normal coag panel. Timing/Duration: 12-24 Hours Severity: Moderate Associated Systoms: Shortness of Air (RICHY JAIMES MD) Allergies and Home Medications Allergies Coded Allergies: krill oil (Verified Allergy, Unknown, 10/05/22) shellfish derived (Verified Allergy, Unknown, 05/10/16) ciprofloxacin (Verified Adverse Reaction, Unknown, stomach upset, 6/8/15) Patient Home Medication List Home Medication List Reviewed: Yes (RICHY JAIMES MD) Albuterol Sulfate (Ventolin Hfa) 1 Puff Puff, 1-4 PUFF IH Q4H PRN for WHEEZING Prescribed by: MAXWELL HERNANDEZ on 08/18/18 1725 Ascorbic Acid/Multivit-Min (Emergen-C 1,000 mg Packet) 1,000 Mg Effpowdpkt, 1,000 MG PO HS, (Reported) Entered as Reported by: KAMRAN WATERS on 07/11/16 1037 Aspirin (Aspirin) 325 Mg Tablet, 325 MG PO DAILY, (Reported) Entered as Reported by: KAY SMITH on 05/10/16 0926 Cholecalciferol (Vitamin D3) (Vitamin D3) 1,000 Unit Tablet, 3,000 UNIT PO HS, (Reported) Entered as Reported by: KAMRAN WATERS on 07/11/16 1037 Fish Oil/Dha/Epa (Fish Oil 1,200 mg Fish Oil) 1 Each Capsule, 1,200 MG PO BID, (Reported) Entered as Reported by: KAMRAN WATERS on 07/11/16 1037 Fluticasone Propionate (Flovent Hfa 110 mcg) 1 Ea Aero, 1 PUFF IH BID, (Reported) Entered as Reported by: KAMRAN WATERS on 07/11/16 1037 Fluticasone Propionate (Flonase Allergy Relief) 9.9 Ml [place].susp, 2 SPRAYS NS D AILY PRN for ALLERGIES, (Reported) Entered as Reported by: KAMRAN WATERS on 07/11/16 1037 Gabapentin (Gabapentin) 100 Mg Capsule, 100 MG PO HS, (Reported) Entered as Reported by: KAMRAN WATERS on 07/11/16 1037 Guaifenesin (Mucinex) 600 Mg Tab.er.12h, 600 MG PO BID, (Reported) Entered as Reported by: KAMRAN WATERS on 07/11/16 1037 Hydrocodone Bit/Acetaminophen (HYDROcodone/APAP 10/325 TABLET) 1 Each Tablet, 1 EA PO Q4H PRN for MODERATE PAIN Prescribed by: QUENTIN CLEVELAND on 07/12/16 0754 Hydrocodone/Acetaminophen (Hydrocodone-Acetamin 5-325 mg) 5 Mg-325 Mg Tablet, 1 TAB PO Q4H PRN for PAIN-MODERATE (5-7) Prescribed by: ARMANDO WALLACE on 01/07/23 1223 Ibuprofen (Advil) 200 Mg Tablet, 200 MG PO BID PRN for PAIN, (Reported) Entered as Reported by: KAMRAN WATERS on 07/11/16 1037 Metoprolol Succinate (Toprol Xl) 50 Mg Tab.er.24h, 50 MG PO DAILY Prescribed by: MELO MENDOZA on 07/28/16 1408 Multivitamin (Daily Value) 1 Each Tablet, 1 TAB PO 1200, (Reported) Entered as Reported by: KAMRAN WATERS on 07/11/16 1037 Niacin (Inositol Niacinate) (Niacin 500 mg Capsule) 500 Mg Capsule, 500 MG PO HS, (Reported) Entered as Reported by: KAMRAN WATERS on 07/11/16 1037 Sennosides/Docusate Sodium (Senna-Time S Tablet) 1 Each Tablet, 1 EA PO BID Prescribed by: QUENTIN CLEVELAND on 07/12/16 0754 Vitamin B Complex (Vitamin B Complex) 1 Each Capsule, 1 CAP PO DAILY, (Reported) Entered as Reported by: KAMRAN WATERS on 07/11/16 1038 Review of Systems Review of Systems Constitutional: see HPI EENTM: no symptoms reported Respiratory: short of breath Cardiovascular: palpitations Gastrointestinal: no symptoms reported Genitourinary: no symptoms reported Musculoskeletal: back pain Skin: no symptoms reported (RICHY JAIMES MD) Past Kktfafk-Lxpdui-Unhhlk Hx Immunizations Up To Date Tetanus Booster (TDap): Unknown PED Vaccines UTD: No First/Initial COVID19 Vaccinat: "4 SHOTS" Second COVID19 Vaccination Peyman: "4 SHOTS" Third COVID19 Vaccination Date: "4 SHOTS" (RICHY JAIMES MD) Seasonal Allergies Seasonal Allergies: Yes (RICHY JAIMES MD) Past Medical History Surgery/Hospitalization HX: L HIP, GB, HEART ABLATION, ATHMA Surgeries: Yes (LEFT TOTAL HIP, ABLATION, ) Adenoidectomy, Gallbladder, Orthopedic, Tonsillectomy Respiratory: Yes Asthma Currently Using CPAP: No Currently Using BIPAP: No Cardiac: Yes (paroxysmal SVT) Atrial Fibrillation, Coronary Artery Disease, High Cholesterol, Irregular Heartbeat Neurological: Yes (NUMBNESS IN RIGHT HAND, RIGHT FOOT) Neuropathy Reproductive Disorders: No 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 PYLORI) Gastroesophageal Reflux, Ulcer, Gall Bladder Disease Musculoskeletal: Yes (OSTEOARTHRITIS, BORDER-LINE OSTEOPOROSIS ; LEFT KNEE PAIN ) Osteoporosis, Arthritis, Fibromyalgia Endocrine: No HEENT: No Loss of Vision: Denies Hearing Impairment: Denies Cancer: No Psychosocial: Yes Sleep Difficulties, Anxiety Integumentary: Yes (DERMATITIS ) Blood Disorders: No Adverse Reaction/Blood Tranf: No (RICHY JAIMES MD) Family Medical History Arthritis 19 FATHER Cardiovascular disease Cataracts 19 FATHER Completed stroke 19 MOTHER Congenital disease Deafness or hearing loss 19 MOTHER Dementia 19 MOTHER FH: esophageal cancer G8 BROTHER FH: lung cancer 19 FATHER FH: smoking 19 FATHER G8 SISTER G8 BROTHER Genetic disease G8 BROTHER Gout 19 FATHER Hypercholesterolemia 19 MOTHER Hypertension G8 BROTHER Lactose intolerance G8 BROTHER Myocardial infarction 19 FATHER Prostate cancer G8 BROTHER Psychosocial problem (BIPOLAR) G8 SISTER Thyroid disease 19 MOTHER No Family History of: AIDS Abdominal aortic aneurysm [place]'s disease Alcoholism Alzheimer's disease Aphasia Asthma Cancer of mouth Colon cancer Congenital heart disease Cystic fibrosis Diabetes mellitus Drug abuse Dysphasia Fibrocystic disease of breast Gastroenteritis Glaucoma Headache disorder Infertility Kidney disease Neoplasm Not obtainable due to adoption Osteoporosis Parkinson's disease Respiratory disorder Seizure disorder Severe allergy Tuberculosis Visual disorder Physical Exam Vital Signs Vital Signs - First Documented 01/10/23 05:40 Temp 36.8 Pulse 97 Resp 18 B/P (MAP) 114/95 (101) Pulse Ox 94 O2 Delivery Room Air ([facility]) Vital Signs Capillary Refill : (RICHY JAIMES MD) Height, Weight, BMI Height: 5'3.00" Weight: 128lbs. 0oz. 58.256260bz; 22.00 BMI Method:Stated General Appearance: Anxious, Chronically ill Eyes: Bilateral Eye Normal Inspection, Bilateral Eye PERRL, Bilateral Eye EOMI Neck: Normal Inspection Respiratory: Lungs Clear, Normal Breath Sounds, No Accessory Muscle Use, No Respiratory Distress Cardiovascular: Regular Rate, Rhythm (90's) Gastrointestinal: Non Tender, Soft Back: Normal Inspection Extremity: Normal Capillary Refill, Normal Inspection, Normal Range of Motion Neurologic/Psychiatric: Alert, Oriented x3, Other (anxious) Skin: Normal Color, Warm/Dry (RICHY JAIMES MD) Progress/Results/Core Measures Suspected Sepsis SIRS Temperature: Pulse: Respiratory Rate: Blood Pressure / Mean: (RICHY JAIMES MD) Results/Orders Lab Results Laboratory Tests Test 01/10/23 06:24 Range/Units D-Dimer 2.48 H 0.00-0.49 UG/ML (ESCOBAR PARKER DO) My Orders Orders - ESCOBAR PARKER DO Ct Angio Chest W (R/O Pe) (01/10/23 06:58) Iohexol Injection (Omnipaque 350 Mg/Ml 1 (01/10/23 07:30) Received Contrast (Hold Metformin- Contr (01/10/23 07:30) Sodium Chloride Flush (Catheter Flush Sy (01/10/23 07:30) Ns (Ivpb) (Sodium Chloride 0.9% Ivpb Bag (01/10/23 07:30) (ESCOBAR PARKER DO) Medications Given in ED Current Medications Medications Dose Ordered Sig/Zach Route Start Time Stop Time Status Last Admin Dose Admin Iohexol 100 ml ONCE ONCE IV 01/10/23 07:30 01/10/23 07:31 DC 01/10/23 07:30 65 ML Lorazepam 1 mg ONCE ONCE PO 01/10/23 06:15 01/10/23 06:16 DC 01/10/23 06:21 1 MG Sodium Chloride 10 ml NEEDED PRN IV 01/10/23 07:30 01/10/23 07:30 10 ML Sodium Chloride 100 ml ONCE ONCE IV 01/10/23 07:30 01/10/23 07:31 DC 01/10/23 07:30 65 ML (ESCOBAR PARKER DO) Vital Signs/I&O 01/10/23 05:40 Temp 36.8 Pulse 97 Resp 18 B/P (MAP) 114/95 (101) Pulse Ox 94 O2 Delivery Room Air (ESCOBAR PARKER DO) Vital Signs/I&O Capillary Refill : (RICHY JAIMES MD) Progress Note : Time: 06:10 Progress Note Care passed to Dr Parker at shift change with Ddimer, CXR pending (RICHY JAIMES MD) Progress Note : Progress Note Patient care was assumed from Dr. Jaimes at shift change. Discussed patient with Dr. Jaimes, reviewed previous notes and labs. Patient's D-dimer did come back slightly elevated so a CTA was obtained. CT and x-ray were both reviewed with final interpretation per radiology report. There is no acute concerning findings on x-ray or CTA. Patient's symptoms likely still musculoskeletal. I will prescribe her naproxen. She has an appointment tomorrow with her primary care provider in which they can further evaluate and determine if there is other management and medications they would like to use. Patient is stable and discharged home (ESCOBAR PARKER DO) Departure Impression Primary Impression: Left shoulder pain Qualified Codes: M25.512 - Pain in left shoulder Additional Impression: Breathlessness Disposition: HOME, SELF-CARE Condition: Stable Departure-Patient Inst. Referrals: SEEMA SANTOYO DO (PCP/Family) Primary Care Physician Patient Instructions: Shortness of Breath, Adult ED, Shoulder Pain ED Add. Discharge Instructions: Please keep your appointment with your primary care provider. You may also use 4% topical lidocaine cream gel or patch as directed on package. Voltaren/diclofenac cream or gel use as directed on package as needed for pain. Scripts Naproxen (Naprosyn) 500 Mg Tablet 500 MG PO BID, #30 TAB 0 Refills Prov: ESCOBAR PARKER DO 01/10/23 RICHY JAIMES MD Jan 10, 2023 05:44 ESCOBAR PARKER DO Jan 10, 2023 08:12
[2023-01-10] MEDS ORDERED: LORazepam 1 MG (ATIVAN) TAB PO ONE (06:15)
--- NOTE | 2023-01-10 07:17 | Diagnostic Imaging Report ---
History: Shortness of breath, back pain TECHNIQUE: Frontal view the chest. COMPARISON: 01/08/2023 FINDINGS: There is a small left pleural effusion with left basilar airspace opacities. The right lung demonstrates a calcified granuloma at the apex. The cardiac silhouette is stable in size. There is aortic atherosclerosis. IMPRESSION: 1 . Small left pleural effusion with left basilar airspace opacities which may be atelectasis or infiltrate. Dictated by: Dictated on workstation # [id number]
[2023-01-10] MEDS ORDERED: IOHEXOL 350 MG/ML 100 ML (OMNIPAQUE 350) VIAL IV ONE (07:30)
[2023-01-10] MEDS ORDERED: CATHETER FLUSH 10 ML SYR IV PRN (07:30)
[2023-01-10] MEDS ORDERED: HOLD METFORMIN - RECEIVED CONTRAST 20 ML VIAL IV SCH (07:30)
[2023-01-10] MEDS ORDERED: NS 100 ML (IVPB) BAG IV ONE (07:30)
--- NOTE | 2023-01-10 07:53 | Diagnostic Imaging Report ---
HISTORY: Chest pain, elevated D-dimer TECHNIQUE: Axial CT angiogram of the chest was performed following intravenous demonstration of contrast timed for evaluation of the pulmonary arteries, with sagittal and coronal MIPS reformats. All CT scans use one or more of the following dose optimizing techniques: automated exposure control, MA and/or KvP adjustment based on patient size and exam type or iterative reconstruction. COMPARISON: Radiographs from 01/10/2023 FINDINGS: The pulmonary arteries are diagnostic to the segmental level. No filling defects are seen to indicate a pulmonary embolus. There is mild aortic atherosclerosis. The aorta is normal in caliber. The heart is mildly large. There is no pericardial effusion. There is a small hiatal hernia. No mediastinal adenopathy is seen. There is no axillary adenopathy. There is no pleural effusion or pneumothorax. There does appear to be dependent atelectasis/scarring. There are calcified granulomas in the lungs bilaterally. There is an air-filled cyst in the left lower lobe measuring 3.4 cm in diameter. No acute osseous abnormality is seen. There are degenerative changes in the spine. Mild compression deformity of T11 appears chronic. Imaged portions of the upper abdomen demonstrate no acute abnormality. IMPRESSION: 1. No pulmonary embolus. 2. Mild dependent atelectasis/scarring in the lungs. 3. Small hiatal hernia. Dictated by: Dictated on workstation # [id number]
[2023-01-10] MEDS ORDERED: NAPR-1071 PO (08:15)
[2023-01-10 08:41] VITALS: BP 126/68
== END 2023-01-10 08:41 | disposition home or self-care (01) ==
LOC: EDUNIT# 05:17 → ER 05:20
DX: R06.81 Apnea, not elsewhere classified (principal); M25.512 Pain in left shoulder; Z79.51 Long term (current) use of inhaled steroids; Z28.310 Unvaccinated for COVID-19
CPT/HCPCS: 36415; 71045; 71275; 85379; 93041

== ENCOUNTER 2023-02-23 10:33 | Outpatient (RCR) | payer MEDICARE ==
[~2023-02-23 10:33] MED LIST changes: +NAPR-1071 PO
== END 2023-02-23 13:41 | disposition home or self-care (01) ==
PROVIDERS: ATTEND Family Medicine Sports Medicine
DX: M22.42 Chondromalacia patellae, left knee (principal); M76.822 Posterior tibial tendinitis, left leg; M46.03 Spinal enthesopathy, cervicothoracic region